=== PATIENT | female | born 1955 | race Caucasian/White ===

== ENCOUNTER → 2016-07-21 | Outpatient (CLI) | payer OTHER ==
[~2016-07-21] MED LIST: ALBINS/ INH; ASPI325T39 PO; AZITTAB PO; BECL0.3A INH; CHOL1000 PO; CHOL1TAB76 PO; CIPR-255 PO; CPR500 PO; CYCL10TA6 PO; CYCL5TAB PO; CYM60 PO; CZR25 PO; DOCU100C31 PO; FENO145T26 PO; FLEC100T21 PO; FLUT0.15 NAE; FLVHFA110 INH; FURO-85 PO; HYDR-5688 PO; LEVA45AE INH; LEVAAER2 INH; LEVO112T4 PO; LEVO125T4 PO; LSX20 PO; MCRK/10 PO; MELO15TA4 PO; METH4PAK PO; MONT1TAB3 PO; MRLP17X PO; MRLP527 PO; NXM/40 PO; OMEP40CA41 PO; ONDA4TAB10 SL; OXYC-57 PO; OXYC1TAB3 PO; PHEN-876 PO; POTA-327 PO; POTA10TA33 PO; PROM25TA16 PO; PSYL48.59 PO; PYRI100T4 PO; QVRINH40 INH; RANI150T3 PO; RBX500 PO; RIVA1TAB4 PO; ROPI0.5T PO; ROPI0.5T15 PO; RQP25 PO; SNG10 PO; SULF800T23 PO; SYN112 PO; TMB100 PO; TPM25 PO; TRC145 PO; VERA240C2 PO; VRPSR240 PO; XRL20 PO
[2016-07-21 17:37] LABS: URINE APPEARANCE CLEAR (CLEAR); URINE BILIRUBIN NEG (NEG); URINE COLOR YELLOW; URINE NITRITE NEG (NEG); URINE SPECIFIC GRAVITY 1.006 (1.000-1.030); UROBILINOGEN NEG (NEG)
[2016-07-21 17:52] LABS: MANUAL MICROSCOPIC REQUIRED? NO; REVIEW REQ? YES
== END | disposition home or self-care (01) ==
LOC: C.LABBFT 12:23
PROVIDERS: ATTEND Nurse Practitioner Family
DX: R39.9 Unspecified symptoms and signs involving the genitourinary system (principal)

== ENCOUNTER 2016-07-22 13:05 | Emergency (ER) | payer OTHER ==
[~2016-07-22] VITALS: Ht 157.5 cm; Wt 98.6 kg
[~2016-07-22 13:05] MED LIST changes: -ALBINS/ INH; -AZITTAB PO; -CHOL1000 PO; -CHOL1TAB76 PO; -CIPR-255 PO; -CYCL5TAB PO; -CYM60 PO; -CZR25 PO; -DOCU100C31 PO; -FLVHFA110 INH; -LEVA45AE INH; -LEVO112T4 PO; -LSX20 PO; -MCRK/10 PO; -METH4PAK PO; -MRLP17X PO; -MRLP527 PO; -OMEP40CA41 PO; -OXYC1TAB3 PO; -PHEN-876 PO; -POTA10TA33 PO; -PSYL48.59 PO; -QVRINH40 INH; -RANI150T3 PO; -RIVA1TAB4 PO; -ROPI0.5T PO; -ROPI0.5T15 PO; -SNG10 PO; -SULF800T23 PO; -SYN112 PO; -TMB100 PO; -TPM25 PO; -TRC145 PO; -VRPSR240 PO
[2016-07-22 13:20] VITALS: TEMP 36.9; Ht 157.5 cm; Wt 98.6 kg
[2016-07-22] MEDS ORDERED: SODIUM CHLORIDE 0.9% 1000ML 1,000 ML IV STA (13:43)
--- NOTE | 2016-07-22 13:49 | EMERGENCY ROOM VISIT NOTE ---
History First contact with patient: 13:34 Chief Complaint: URINARY SYMPTOMS Stated Complaint: PAINFUL, BLOODY, FREQ. URINATION History of Present Illness The patient is a 61 year old female who presents to the Emergency Room with complaints of low back pain and hematuria. The patient states that she has had immature area and dysuria for the last 3 days. She states that 4 days last week she had pain in her low back. The patient saw her family doctor yesterday and had a urinalysis done. She was contacted today and referred to the emergency department for a possible kidney stone. The patient states the pain is primarily in the left flank and rated 5/10. She denies any known injuries. The pain is not worse with movement. She denies any fevers or chills. She denies any pain in her chest or trouble breathing. She denies any abdominal pain or vomiting. She denies any vaginal bleeding or discharge. She had a kidney stone in the . Review of Systems A 10 system review of systems was completed with positives and pertinent negatives listed in the HPI. 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 (11) Left knee pain (12) Morbid Obesity (13) Oophorectomy (14) Open reduction of fracture (15) Precordial chest pain (16) Superficial bruising of lower leg (17) Supraventricular tachycardia (18) UTI (urinary tract infection) (19) Vomiting and diarrhea Family History Diabetes mellitus FH: CHF (congestive heart failure) FHx: cancer FHx: lung disease Hypertension Kidney disease Kidney stones Seizures Social History Smoking Status: Never Smoker Alcohol Use: none Drug Use: none Marital Status: single Housing Status: lives with family Occupation Status: employed Current/Historical Medications Scheduled Beclomethasone Dip (Qvar), 1 PUFF INH BID Cholecalciferol (Vitamin D3), 1 TAB PO DAILY Ciprofloxacin Hcl (Cipro), 500 MG PO BID Docusate Sodium (Docusate Sodium), 1 CAP PO DAILY Duloxetine HCl (Duloxetine HCl), 60 MG PO QAM Esomeprazole Magnesium (Nexium), 40 MG PO DAILY Fenofibrate (Tricor), 145 MG PO QPM Flecainide (Tambocor), 100 MG PO Q12 Fluticasone Propionate (Nasal) (Flonase Allergy Relief), 1 SPRAY MINNIE BID Furosemide (Lasix), 20 MG PO QAM Levalbuterol Tartrate (Levalbuterol Tartrate Hfa), 2 PUFFS INH Q6H Levothyroxine Sodium (Levothyroxine Sodium), 125 MCG PO QAM Losartan Potassium (Losartan Potassium), 12.5 MG PO QAM Montelukast Sodium (Singulair), 10 MG PO QAM Phenazopyridine HCl (Pyridium), 200 MG PO TID Potassium Chloride (K-Tabs), 1 TAB PO HS Pyridoxine (Vitamin B6), 100 MG PO DAILY Rivaroxaban (Xarelto), 20 MG PO DAILY Ropinirole HCl (Ropinirole HCl), 0.25 MG PO QPM Verapamil Hcl (Verapamil Hcl Er), 240 MG PO BID Scheduled PRN Meloxicam (Meloxicam), 15 MG PO DAILY PRN for Pain Methocarbamol (Methocarbamol), 500 MG PO QID PRN for Muscle Spasms Promethazine HCl (Promethazine HCl), 25 MG PO BID PRN for Nausea or Vomiting Allergies Coded Allergies: Codeine (Verified Allergy, Severe, HIVES, 07/22/16) ANAPHYLAXIS PER PT OK WITH MORPHINE AND DEMEROL? Iodinated Diagnostic Agents (Verified Allergy, Severe, HIVES, 07/22/16) Ketorolac (Verified Allergy, Severe, ITCHING, 07/22/16) PER PATIENT, SHE IS FINE TO TAKE IBUPROFEN Shellfish (Verified Allergy, Severe, ANAPHYLAXIS, 07/22/16) Shrimp (Verified Allergy, Severe, ANAPHYLAXIS, 07/22/16) Barium Sulfate (Verified Allergy, Unknown, itching rash, 07/22/16) Iodine (Verified Allergy, Unknown, 07/22/16) Morphine (Verified Allergy, Unknown, ITCHING, 07/22/16) Penicillins (Verified Allergy, Unknown, ITCHING/HIVES, 07/22/16) Physical Exam Vital Signs Date Time Temp Pulse Resp B/P Pulse Ox O2 Delivery O2 Flow Rate FiO2 07/22/16 14:50 68 18 124/56 96 Room Air 07/22/16 13:20 36.9 70 18 119/85 95 Room Air Physical Exam VITALS: Vitals are noted on the nurse's note and reviewed by myself. Vital signs stable. The patient is afebrile. GENERAL: This is a 61-year-old female, in no acute distress, nondiaphoretic, well-developed well-nourished. SKIN: The skin was without rashes, erythema, edema, or bruising. There is no tenting of the skin. Capillary reflex less than 2 seconds. HEAD: Normocephalic atraumatic. EARS: The external ears are normal in appearance. EYES: Pupils equal round and reactive to light and accommodation. Conjunctivae without injection, sclerae without icterus. Extraocular movements intact. NOSE: Patent, turbinates without inflammation or discharge. MOUTH: Mucous membranes moist. Tonsils are not enlarged. Pharynx without erythema or exudate. Uvula midline. Airway patent. Tongue does not deviate. NECK: Supple without nuchal rigidity. No JVD. HEART: Regular rate and rhythm without murmurs gallops or rubs. LUNGS: Clear to auscultation bilaterally without wheezes, rales or rhonchi. No retractions or accessory muscle use. ABDOMEN: Positive bowel sounds x 4. Soft, nontender, without masses or organomegaly. Gaitan sign negative. Negative CVA tenderness. MUSCULOSKELETAL: No muscle atrophy, erythema, or edema noted. Full range of motion in all extremities. Normal gait. Strength 5/5 throughout. NEURO: Patient was alert and oriented to person place and time. No focal neurological deficits. Medical Decision & Procedures ER Provider Diagnostic Interpretation: CT OF THE ABDOMEN AND PELVIS WITHOUT CONTRAST, STONE PROTOCOL CLINICAL HISTORY: Left flank pain and hematuria. COMPARISON STUDY: CT of the abdomen and pelvis June 17, 2016. TECHNIQUE: Helical axial images of the abdomen and pelvis were obtained without IV or oral contrast according to renal stone protocol. FINDINGS: The heart is moderately enlarged. No renal, ureteral or bladder calculi are present. There is no hydronephrosis or hydroureter. The gallbladder is surgically absent. There is no biliary ductal dilatation. Evaluation of the remainder of the abdomen and pelvis is suboptimal on this unenhanced exam. There is fatty infiltration of the liver. There is a moderate amount of stool within the colon. There is no evidence for a bowel obstruction. The appendix is normal. No lymphadenopathy is present. No suspicious skeletal lesion is identified. There is no ascites. No peripancreatic infiltration is present. There is a diverticulum of the third duodenum. IMPRESSION: 1. No urinary calculi or hydronephrosis. 2. No acute process within the abdomen or pelvis. 3. Fatty liver. 4. Moderate amount of stool within colon. No bowel obstruction. Laboratory Results 07/22/16 14:05 Red Blood Count 4.15, Mean Corpuscular Volume 91.3, Mean Corpuscular Hemoglobin 31.3, Mean Corpuscular Hemoglobin Concent 34.3, Mean Platelet Volume 9.9, Neutrophils (%) (Auto) 64.4, Lymphocytes (%) (Auto) 26.9, Monocytes (%) (Auto) 7.0, Eosinophils (%) (Auto) 1.0, Basophils (%) (Auto) 0.2, Neutrophils # (Auto) 6.01, Lymphocytes # (Auto) 2.51, Monocytes # (Auto) 0.65, Eosinophils # (Auto) 0.09, Basophils # (Auto) 0.02 07/22/16 14:05 Test 07/22/16 14:00 07/22/16 14:05 Urine Color DK YELLOW Urine Appearance CLOUDY (CLEAR) Urine pH 7.0 (4.5-7.5) Urine Specific [place] 1.023 (1.000-1.030) Urine Protein 2+ (NEG) Urine Glucose (UA) NEG (NEG) Urine Ketones NEG (NEG) Urine Occult Blood 3+ (NEG) Urine Nitrite POS (NEG) Urine Bilirubin NEG (NEG) Urine Urobilinogen NEG (NEG) Urine Leukocyte Esterase MODERATE (NEG) Urine WBC (Auto) >30 /hpf (0-5) Urine RBC (Auto) >30 /hpf (0-4) Urine Hyaline Casts (Auto) 10-30 /lpf (0-5) Urine Epithelial Cells (Auto) >30 /lpf (0-5) Urine Bacteria (Auto) NEG (NEG) Urine Renal Epithelial Cells 0-5 /lpf (0-5) White Blood Count 9.33 K/uL (4.8-10.8) Red Blood Count 4.15 M/uL (4.2-5.4) Hemoglobin 13.0 g/dL (12.0-16.0) Hematocrit 37.9 % (37-47) Mean Corpuscular Volume 91.3 fL (80-100) Mean Corpuscular Hemoglobin 31.3 pg (25-34) Mean Corpuscular Hemoglobin Concent 34.3 g/dl (32-36) Platelet Count 327 K/uL (130-400) Mean Platelet Volume 9.9 fL (7.4-10.4) Neutrophils (%) (Auto) 64.4 % Lymphocytes (%) (Auto) 26.9 % Monocytes (%) (Auto) 7.0 % Eosinophils (%) (Auto) 1.0 % Basophils (%) (Auto) 0.2 % Neutrophils # (Auto) 6.01 K/uL (1.4-6.5) Lymphocytes # (Auto) 2.51 K/uL (1.2-3.4) Monocytes # (Auto) 0.65 K/uL (0.11-0.59) Eosinophils # (Auto) 0.09 K/uL (0-0.5) Basophils # (Auto) 0.02 K/uL (0-0.2) RDW Standard Deviation 43.8 fL (36.4-46.3) RDW Coefficient of Variation 13.2 % (11.5-14.5) Immature Granulocyte % (Auto) 0.5 % Immature Granulocyte # (Auto) 0.05 K/uL (0.00-0.02) Anion Gap 10.0 mmol/L (3-11) Est Creatinine Clear Calc Drug Dose 69.6 ml/min Estimated GFR () 77.3 Estimated GFR (Non- 66.7 BUN/Creatinine Ratio 20.8 (10-20) Calcium Level 8.8 mg/dl (8.5-10.1) Total Bilirubin 0.5 mg/dl (0.2-1) Aspartate Amino Transf (AST/SGOT) 26 U/L (15-37) Alanine Aminotransferase (ALT/SGPT) 36 U/L (12-78) Alkaline Phosphatase 69 U/L (45-117) Total Protein 6.7 gm/dl (6.4-8.2) Albumin 4.0 gm/dl (3.4-5.0) Globulin 2.7 gm/dl (2.5-4.0) Albumin/Globulin Ratio 1.5 (0.9-2) Medications Administered Medications (Trade) Dose Ordered Sig/Jax Route Start Time Stop Time Status Last Admin Dose Admin Sodium Chloride (Nss 1000ml) 1,000 ml @ 200 mls/hr Q5H STAT IV 07/22/16 13:43 07/22/16 16:53 DC 07/22/16 14:07 200 MLS/HR ED Course The patient was seen and examined. Previous visits were reviewed. The patient does not have a fever or leukocytosis. She does not have any significant electrolyte abnormality. Urinalysis suggests urinary tract infection. CT scan was negative for kidney stone. She does have a fatty liver and states this is known. The patient was hydrated with normal saline. She declined pain medication. The patient will be treated with Cipro. She should return to the ER with any worsening symptoms. Otherwise, she should follow-up with her family doctor for further evaluation and bandaged. The case was discussed with Dr. Wadsworth who agrees with the assessment and treatment plan. Medical Decision DIFFERENTIAL DIAGNOSIS: Hepatitis, cholecystitis, cholangitis, biliary colic, pancreatitis, pneumonia, subdiaphragmatic abscess, appendicitis, inguinal hernia , nephrolithiasis, inflammatory bowel disease, mesenteric adenitis, peptic ulcer disease, GERD, gastritis, pancreatitis, gastroenteritis, bowel obstruction, splenic infarct, diverticulitis, mesenteric ischemia, metabolic, peritonitis, among others. Impression Primary Impression: UTI (urinary tract infection) Additional Impression: Flank pain Departure Information Dispostion Home / Self-Care Condition GOOD Prescriptions Phenazopyridine HCl (Pyridium) 200 Mg Tab 200 MG PO TID for 3 Days, #9 TAB Prov: Grisel Cunningham PA-C 07/22/16 Ciprofloxacin Hcl (CIPRO) 500 Mg Tab 500 MG PO BID for 7 Days, #14 TAB Prov: Grisel Cunningham PA-C 07/22/16 Referrals Homer Herrera III, CRNP (PCP) Patient Instructions Infecs Urinary Tract Women, [facility] Additional Instructions Cipro every 12 hours for 7 days Pyridium as prescribed, as needed for urinary symptoms; the Pyridium will turn your urine orange We will contact you if the culture results indicate the need for change in treatment Return to the ER with any fever, severe back pain, vomiting Otherwise, recheck with your family doctor at the end of the week if symptoms persist Problem Qualifiers Primary Impression: UTI (urinary tract infection) Urinary tract infection type: acute cystitis Hematuria presence: with hematuria Qualified Codes: N30.01 - Acute cystitis with hematuria
[2016-07-22] MEDS ORDERED: LEVA45AE INH (13:51)
[2016-07-22] MEDS ORDERED: CHOL1000 PO (13:51)
[2016-07-22] MEDS ORDERED: QVRINH40 INH (13:51)
[2016-07-22] MEDS ORDERED: MCRK/10 PO (13:51)
[2016-07-22 14:27] LABS: BASO % 0.2 %; BASO ABS # 0.02 K/uL (0-0.2); COMPLETE YES; HEMATOCRIT 37.9 % (37-47); IG% 0.5 %; LYMPH % 26.9 %; LYMPH ABS # 2.51 K/uL (1.2-3.4); MEAN CELL VOLUME 91.3 fL (80-100); MEAN CORPUSCULAR HEMOGLOBIN 31.3 pg (25-34); MEAN CORPUSCULAR HGB CONC 34.3 g/dl (32-36); MEAN PLATELET VOLUME 9.9 fL (7.4-10.4); NEUT % 64.4 %; PLATELET COUNT 327 K/uL (130-400); RED BLOOD COUNT 4.15 M/uL (4.2-5.4); WHITE BLOOD COUNT 9.33 K/uL (4.8-10.8)
--- NOTE | 2016-07-22 14:41 | DIAGNOSTIC IMAGING REPORT ---
CT OF THE ABDOMEN AND PELVIS WITHOUT CONTRAST, STONE PROTOCOL CLINICAL HISTORY: Left flank pain and hematuria. COMPARISON STUDY: CT of the abdomen and pelvis June 17, 2016. TECHNIQUE: Helical axial images of the abdomen and pelvis were obtained without IV or oral contrast according to renal stone protocol. FINDINGS: The heart is moderately enlarged. No renal, ureteral or bladder calculi are present. There is no hydronephrosis or hydroureter. The gallbladder is surgically absent. There is no biliary ductal dilatation. Evaluation of the remainder of the abdomen and pelvis is suboptimal on this unenhanced exam. There is fatty infiltration of the liver. There is a moderate amount of stool within the colon. There is no evidence for a bowel obstruction. The appendix is normal. No lymphadenopathy is present. No suspicious skeletal lesion is identified. There is no ascites. No peripancreatic infiltration is present. There is a diverticulum of the third duodenum. IMPRESSION: 1. No urinary calculi or hydronephrosis. 2. No acute process within the abdomen or pelvis. 3. Fatty liver. 4. Moderate amount of stool within colon. No bowel obstruction. Electronically signed by: Jalen Malik M.D. 07/22/2016 2:39 PM Dictated Date/Time: 07/22/2016 2:33 PM
[2016-07-22 14:43] LABS: URINE APPEARANCE CLOUDY (CLEAR); URINE BILIRUBIN NEG (NEG); URINE COLOR DK YELLOW; URINE EPITHELIAL CELL AUTO >30 /lpf (0-5); URINE NITRITE POS (NEG); URINE SPECIFIC GRAVITY 1.023 (1.000-1.030); UROBILINOGEN NEG (NEG); ZZUR CULT IF INDIC CLEAN CATCH YES
[2016-07-22 14:45] LABS: BUN/CREATININE RATIO 20.8 (10-20); CALCIUM 8.8 mg/dl (8.5-10.1); CREATININE 0.92 mg/dl (0.60-1.20); POTASSIUM 3.5 mmol/L (3.5-5.1)
[2016-07-22 14:50] VITALS: BP 124/56; PULSE 68; O2SAT 96
[2016-07-22 14:50] LABS: ALB/GLOB RATIO 1.5 (0.9-2)
[2016-07-22 14:52] LABS: MANUAL MICROSCOPIC REQUIRED? NO; REVIEW REQ? YES
[2016-07-22] MEDS ORDERED: PHEN-876 PO (15:08)
[2016-07-22] MEDS ORDERED: CIPR-255 PO (15:08)
[2017-01-22] MEDS ORDERED: ROPI0.5T15 PO (15:39)
[2017-01-22] MEDS ORDERED: SULF800T23 PO (15:39)
[2017-03-01] MEDS ORDERED: DOCU100C31 PO (05:14)
[2017-03-01] MEDS ORDERED: FLVHFA110 INH (15:39)
[2017-03-01] MEDS ORDERED: ALBINS/ INH (15:39)
[2017-03-01] MEDS ORDERED: PYRI100T4 PO (15:39)
[2017-03-01] MEDS ORDERED: CHOL1TAB76 PO (15:39)
[2017-03-01] MEDS ORDERED: LEVA45AE INH (15:39)
[2017-03-01] MEDS ORDERED: PSYL48.59 PO (15:39)
[2017-03-01] MEDS ORDERED: RANI150T3 PO (15:39)
== END 2016-07-22 15:17 | disposition home or self-care (01) ==
LOC: C.EDB 13:09
DX: N30.01 Acute cystitis with hematuria (principal); R10.9 Unspecified abdominal pain; J45.901 Unspecified asthma with (acute) exacerbation; I48.91 Unspecified atrial fibrillation; I10 Essential (primary) hypertension; E03.9 Hypothyroidism, unspecified; M17.9 Osteoarthritis of knee, unspecified; E66.01 Morbid (severe) obesity due to excess calories; I47.1 Supraventricular tachycardia; Z79.01 Long term (current) use of anticoagulants; Z79.899 Other long term (current) drug therapy

== ENCOUNTER 2016-07-24 13:58 | Emergency (ER) | payer OTHER ==
[~2016-07-24] VITALS: Ht 157.5 cm; Wt 97.4 kg
[~2016-07-24 13:58] MED LIST changes: -ASPI325T39 PO; -BECL0.3A INH; +CHOL1000 PO; +CIPR-255 PO; -CPR500 PO; -CYCL10TA6 PO; -HYDR-5688 PO; +LEVA45AE INH; -LEVAAER2 INH; +MCRK/10 PO; -ONDA4TAB10 SL; -OXYC-57 PO; +PHEN-876 PO; -POTA-327 PO; +QVRINH40 INH
[2016-07-24 14:02] VITALS: TEMP 36.8; Ht 157.5 cm; Wt 97.4 kg
[2016-07-24] MEDS ORDERED: DEXAMETHASONE SOD INJ 10 MG/ML VIAL IV STA (14:26)
[2016-07-24] MEDS ORDERED: HYDROmorphone INJ 1 MG/ML SYR IM STA (14:26)
[2016-07-24] MEDS ORDERED: CYCLOBENZAPRINE HCL 5 MG TAB PO STA (14:26)
--- NOTE | 2016-07-24 14:35 | EMERGENCY ROOM VISIT NOTE ---
ED Visit Note First contact with patient: 14:11 Patient is 59-year-old female with neck pain and muscle spasms in the left trapezius, she states this is happened before, she follows up with her primary care doctor. Clinical story is not consistent with cardiac disease, I have ordered an EKG to evaluate for ST elevation [place]. I have personally evaluated and examined this patient. I agree with assessment and plan of Corrina Hilton PA-C.
[2016-07-24] MEDS ORDERED: CYCLOBENZAPRINE HCL 10 MG TAB ONE (14:43)
[2016-07-24] MEDS ORDERED: OXYCODONE HCL IR 5 MG TAB (IMMEDIATE RELEASE) PO STA (15:43)
[2016-07-24] MEDS ORDERED: CYCL5TAB PO (16:17)
[2016-07-24] MEDS ORDERED: OXYC1TAB3 PO (16:17)
--- NOTE | 2016-07-24 16:19 | EMERGENCY ROOM VISIT NOTE ---
History First contact with patient: 14:11 Chief Complaint: NECK PAIN Stated Complaint: SEVERE PAIN IN LEFT NECK AREA/LEFT ARM History of Present Illness The patient is a 61 year old female who presents to the Emergency Room with complaints of "severe pain and left neck area/left arm". The patient states that yesterday around mid day she developed pain in the left side of the neck that radiated into the left arm and left hand. The pain was sharp in nature and was not associated with any numbness or tingling. She states she has had this before, and believed it was crampy muscles. She had received pain medication and muscle relaxers in the past with good relief. She denies any trauma or injury to the area. There was no exertion the brought up on the pain. She rates the pain is a 20/10. Patient does not have any weakness in the extremities. She states that she was here not long ago for UTI and she feels this is getting better and going away. For pain she states she can take Dilaudid. She denies any fevers, chills, chest pain, shortness of breath, abdominal pain, numbness or tingling in the arms, injuries or trauma to the area. She points to the left superior trapezius muscle as a location of her pain that radiates into the arm. Review of Systems A complete 10-point Review of Systems was discussed with the patient, with pertinent positives and negatives listed in the History of Present Illness. All remaining Review of Systems questions can be considered negative unless otherwise specified. 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 (11) Left knee pain (12) Morbid Obesity (13) Oophorectomy (14) Open reduction of fracture (15) Precordial chest pain (16) Superficial bruising of lower leg (17) Supraventricular tachycardia (18) UTI (urinary tract infection) (19) Vomiting and diarrhea Family History Diabetes mellitus FH: CHF (congestive heart failure) FHx: cancer FHx: lung disease Hypertension Kidney disease Kidney stones Seizures Social History Smoking Status: Never Smoker Alcohol Use: none Drug Use: none Marital Status: single Housing Status: lives with family Occupation Status: employed Current/Historical Medications Scheduled Beclomethasone Dip (Qvar), 1 PUFF INH BID Cholecalciferol (Vitamin D3), 1 TAB PO DAILY Ciprofloxacin Hcl (Cipro), 500 MG PO BID Docusate Sodium (Docusate Sodium), 1 CAP PO DAILY Duloxetine HCl (Duloxetine HCl), 60 MG PO QAM Esomeprazole Magnesium (Nexium), 40 MG PO DAILY Fenofibrate (Tricor), 145 MG PO QPM Flecainide (Tambocor), 100 MG PO Q12 Fluticasone Propionate (Nasal) (Flonase Allergy Relief), 1 SPRAY MINNIE BID Furosemide (Lasix), 20 MG PO QAM Levalbuterol Tartrate (Levalbuterol Tartrate Hfa), 2 PUFFS INH Q6H Levothyroxine Sodium (Levothyroxine Sodium), 125 MCG PO QAM Losartan Potassium (Losartan Potassium), 12.5 MG PO QAM Montelukast Sodium (Singulair), 10 MG PO QAM Phenazopyridine HCl (Pyridium), 200 MG PO TID Potassium Chloride (K-Tabs), 1 TAB PO HS Pyridoxine (Vitamin B6), 100 MG PO DAILY Rivaroxaban (Xarelto), 20 MG PO DAILY Ropinirole HCl (Ropinirole HCl), 0.25 MG PO QPM Verapamil Hcl (Verapamil Hcl Er), 240 MG PO BID Scheduled PRN Cyclobenzaprine Hcl (Flexeril), 1 TAB PO TID PRN for Muscle Spasms Meloxicam (Meloxicam), 15 MG PO DAILY PRN for Pain Methocarbamol (Methocarbamol), 500 MG PO QID PRN for Muscle Spasms Oxycodone Ir (Roxicodone Ir), 1-2 TAB PO Q6H PRN for Pain Promethazine HCl (Promethazine HCl), 25 MG PO BID PRN for Nausea or Vomiting Allergies Coded Allergies: Codeine (Verified Allergy, Severe, HIVES, 07/24/16) ANAPHYLAXIS PER PT OK WITH MORPHINE AND DEMEROL? Iodinated Diagnostic Agents (Verified Allergy, Severe, HIVES, 07/24/16) Ketorolac (Verified Allergy, Severe, ITCHING, 07/24/16) PER PATIENT, SHE IS FINE TO TAKE IBUPROFEN Shellfish (Verified Allergy, Severe, ANAPHYLAXIS, 07/24/16) Shrimp (Verified Allergy, Severe, ANAPHYLAXIS, 07/24/16) Barium Sulfate (Verified Allergy, Unknown, itching rash, 07/24/16) Iodine (Verified Allergy, Unknown, 07/24/16) Morphine (Verified Allergy, Unknown, ITCHING, 07/24/16) Penicillins (Verified Allergy, Unknown, ITCHING/HIVES, 07/24/16) Physical Exam Vital Signs Date Time Temp Pulse Resp B/P Pulse Ox O2 Delivery O2 Flow Rate FiO2 07/24/16 16:28 66 17 141/73 95 07/24/16 16:08 67 18 135/83 95 Room Air 07/24/16 14:47 Room Air 07/24/16 14:02 36.8 79 19 136/83 98 Room Air Physical Exam VITAL SIGNS - Vital signs and nursing notes were reviewed. Patient is afebrile , she is normotensive, she is saturating well on room air at 98% and is not tachycardic. GENERAL -61-year-old female appearing her stated age who is in no acute distress. Patient is nontoxic in appearance. Communicates well with provider and answers questions appropriately. Patient is ambulatory in her room. SKIN - Without rashes. No evidence of herpetic lesions overlying the left neck. Skin is intact. HEAD - NC/AT. EYES - PERRL with EOMI bilaterally. Sclera anicteric. Palpebral conjunctiva pink and moist with no injection noted. EARS - No deformities of external structures noted on gross examination bilaterally. NOSE - Midline and without cyanosis. No epistaxis or purulent drainage noted. MOUTH/OROPHARYNX - Without perioral cyanosis. . NECK - Neck with limited range of motion to the left secondary to muscle pain, but there is full flexion and extension. Supple to palpation. No lymphadenopathy noted. No nuchal rigidity. No evidence of meningitis. LUNGS - Chest wall symmetric without accessory muscle use, intercostals retractions, or central cyanosis. Normal vesicular breath sounds CTA B/L. No wheezes, rales, or rhonchi appreciated. CARDIAC - RRR with S1/S2. No murmur, rubs, or gallops appreciated. EXTREMITIES - No clubbing or peripheral cyanosis. No pretibial edema present. Patient is vascular intact in the left upper extremity. Symmetric human resources administrator strength. No evidence of vascular or neurologic compromise +5/5 strength noted in UE/LE bilaterally. PSYCH -Pt is very pleasant and interacts well with examiner. Medical Decision & Procedures Medications Administered Medications (Trade) Dose Ordered Sig/Jax Route Start Time Stop Time Status Last Admin Dose Admin Hydromorphone HCl (Dilaudid Inj) 1 mg NOW STAT IM 07/24/16 14:26 07/24/16 14:30 DC 07/24/16 14:47 1 MG Dexamethasone Sodium Phosphate (Decadron Inj) 10 mg NOW STAT IV 07/24/16 14:26 07/24/16 14:30 DC 07/24/16 14:46 10 MG Cyclobenzaprine HCl (Flexeril Tab) 10 mg STK-MED ONCE .ROUTE 07/24/16 14:43 07/24/16 14:44 DC 07/24/16 14:46 10 MG Oxycodone HCl (Roxicodone Immediate Rel Tab) 5 mg NOW STAT PO 07/24/16 15:43 07/24/16 15:45 DC 07/24/16 16:10 5 MG Medical Decision Patient was seen and evaluated as above. There was tenderness overlying the superior trapezius muscle, and this was presenting more tense than the right indicating spasm. I did discuss the case with my attending who also personally evaluated the patient and it was identified we should order an EKG to rule out any underlying cardiac cause. The EKG revealed a normal sinus rhythm 69 bpm, without any significant change when compared to previous EKG. I do not suspect any cardiac or pulmonary cause of the patient's pain today. Patient has had similar symptoms in the past and it was a muscle spasm. She was medicated with 10 mg of Flexeril by mouth, 10 mg of Decadron IM , and 1 mg of Dilaudid. The Decadron was given secondary to the radicular pain of the arm to help with inflammation. She was reevaluated and noted to be feeling better but still in moderate pain. She requested more pain medication therefore she was given 5 mg of OxyIR after verifying no allergy. I was then informed by the nurse that the patient was ready to go, and I went to reevaluate her and she noted she was feeling much better. I did discuss with her potential prescriptions for home and it was decided to give her a short-term prescription for Flexeril and OxyIR after verifying no allergy. I did inform her that her other chronic medications may interfere with these medications therefore they should only be taken when absolutely necessary. She was informed to not stop her chronic medications. I do believe that the short-term of Flexeril, and OxyIR outweighed the risks. She again was educated upon these risks. She was informed to follow-up regarding today's visit with her primary care doctor of which she has a visit in the near future. She was educated upon management of today's findings. I believe she is experiencing muscle spasm of the left superior trapezius muscle likely secondary to positioning. She was educated upon worrisome symptoms in which to return, had questions answered prior to discharge and was discharged home in good condition. In the evaluation and treatment of this patient the following differential diagnoses were entertained: Cervical radiculopathy, spasm of the superior trapezius muscle, cervical strain, myocardial infarction among others. There was no numbness or tingling down the left arm therefore cervical radiculopathy is less likely, spasm of the superior trapezius muscle on the left is most likely the patient's symptomatology. There was no C-spine tenderness. No evidence on EKG of NC. [place] Drug Monitoring Program Search Results: patient reviewed within database, no issues identified Impression Primary Impression: Strain of left trapezius muscle Additional Impression: Trapezius muscle spasm Departure Information Dispostion Home / Self-Care Condition GOOD Prescriptions Oxycodone Ir (Roxicodone Ir) 5 Mg Tab 1-2 TAB PO Q6H Y for Pain, #10 TAB For Initial Treatment Prov: Emanuel Cox PA-C 07/24/16 Cyclobenzaprine Hcl (FLEXERIL) 5 Mg Tab 1 TAB PO TID Y for Muscle Spasms for 5 Days, #15 TAB Prov: Emanuel Cox PA-C 07/24/16 Referrals Homer Herrera III, CRNP (PCP) Patient Instructions My [facility] Additional Instructions You have been treated in the Emergency Department for Neck/Shoulder Pain. You have received pain medicine in the emergency department which impairs your ability to operate a vehicle. It is illegal for you to drive after receiving these medicines. You have been prescribed Oxy IR to be used for pain control. This is a narcotic medication. You cannot drive or consume alcohol while on this medicine. This medicine should only be used for pain that cannot be controlled with over-the- counter pain medicines. You've indicated you did not have an allergy to this. Please take this with a stool softener to help with constipation. You have been prescribed Flexeril (cyclobenzaprine) 1 tabs orally, three times per day. Do NOT exceed 30 mg (6 tabs) per day. Take your first dose at bedtime as it can make you drowsy. Always take all medications as prescribed. As we discussed these medications can interact with the other medications so please only take these when absolute necessary with the pain. For pain control, you can use the following [id number] medicines (if >12 yo): Over the counter pain medications. If this is a recent injury (<24 hrs), ice can be applied to the area of pain for the first 3 days to help decrease pain and inflammation. Please keep your follow-up appointment with your family doctor on Wednesday. Return to the Emergency Department if your current symptoms worsen despite treatment course outlined above, or if you develop any of the following symptoms : intractable pain despite aforementioned treatment course or new onset of numbness or tingling of the arm. Please return to emergency department with any new/concerning symptoms. Problem Qualifiers Primary Impression: Strain of left trapezius muscle Encounter type: initial encounter Qualified Codes: S46.812A - Strain of other muscles, fascia and tendons at shoulder and upper arm level, left arm, initial encounter
[2016-07-24 16:28] VITALS: BP 141/73; PULSE 66; O2SAT 95
[2017-01-22] MEDS ORDERED: SULF800T23 PO (15:39)
[2017-01-22] MEDS ORDERED: ROPI0.5T15 PO (15:39)
[2017-03-01] MEDS ORDERED: DOCU100C31 PO (05:14)
[2017-03-01] MEDS ORDERED: RANI150T3 PO (15:39)
[2017-03-01] MEDS ORDERED: PSYL48.59 PO (15:39)
[2017-03-01] MEDS ORDERED: PYRI100T4 PO (15:39)
[2017-03-01] MEDS ORDERED: FLVHFA110 INH (15:39)
[2017-03-01] MEDS ORDERED: LEVA45AE INH (15:39)
[2017-03-01] MEDS ORDERED: ALBINS/ INH (15:39)
[2017-03-01] MEDS ORDERED: CHOL1TAB76 PO (15:39)
== END 2016-07-24 16:29 | disposition home or self-care (01) ==
LOC: C.EDB 14:00 → C.EDD 16:29
DX: S46.812A Strain of other muscles, fascia and tendons at shoulder and upper arm level, left arm, initial encounter (principal); X58.XXXA Exposure to other specified factors, initial encounter; M62.838 Other muscle spasm; I48.91 Unspecified atrial fibrillation; I10 Essential (primary) hypertension; E03.9 Hypothyroidism, unspecified; J45.909 Unspecified asthma, uncomplicated; Z87.81 Personal history of (healed) traumatic fracture; Z87.440 Personal history of urinary (tract) infections; Z90.710 Acquired absence of both cervix and uterus; Z79.899 Other long term (current) drug therapy; Z83.3 Family history of diabetes mellitus; Z82.49 Family history of ischemic heart disease and other diseases of the circulatory system; Z80.9 Family history of malignant neoplasm, unspecified; Z84.1 Family history of disorders of kidney and ureter; Z82.0 Family history of epilepsy and other diseases of the nervous system; Z88.0 Allergy status to penicillin; Z88.5 Allergy status to narcotic agent; Z88.8 Allergy status to other drugs, medicaments and biological substances; Z91.018 Allergy to other foods; Z91.041 Radiographic dye allergy status

== ENCOUNTER → 2016-09-21 | Outpatient (CLI) | payer OTHER ==
[~2016-09-21] MED LIST changes: +ALBINS/ INH; +AZITTAB PO; +CHOL1TAB76 PO; +CYM60 PO; +CZR25 PO; +DOCU100C31 PO; +FLVHFA110 INH; +LEVO112T4 PO; +LSX20 PO; +METH4PAK PO; +MRLP17X PO; +MRLP527 PO; +OMEP40CA41 PO; +OXYC1TAB3 PO; -PHEN-876 PO; +POTA10TA33 PO; +PSYL48.59 PO; +RANI150T3 PO; +RIVA1TAB4 PO; +ROPI0.5T PO; +ROPI0.5T15 PO; +SNG10 PO; +SULF800T23 PO; +SYN112 PO; +TMB100 PO; +TPM25 PO; +TRC145 PO; +VRPSR240 PO
--- NOTE | 2016-09-21 16:09 | DIAGNOSTIC IMAGING REPORT ---
CHEST 2 VIEWS ROUTINE CLINICAL HISTORY: VIT D DEFICIENCY; HYPOTHYROIDISM; ASTHMA COMPARISON STUDY: 06/17/2016 FINDINGS: The bones soft tissues and hemidiaphragms are normal. The cardiomediastinal silhouette is normal. The lungs are clear. The pulmonary vasculature is normal. IMPRESSION: Negative chest. Electronically signed by: Vipin Cline M.D. 09/21/2016 4:08 PM Dictated Date/Time: 09/21/2016 4:08 PM
== END | disposition home or self-care (01) ==
LOC: C.RAD 15:25
PROVIDERS: ATTEND Nurse Practitioner Family
DX: J45.909 Unspecified asthma, uncomplicated (principal); E55.9 Vitamin D deficiency, unspecified; E03.9 Hypothyroidism, unspecified

== ENCOUNTER → 2016-10-20 | Outpatient (CLI) | payer OTHER ==
[~2016-10-20] MED LIST changes: +CHOLCAP5 PO; -LEVO125T4 PO; +LEVO125T5 PO
--- NOTE | 2016-10-21 14:36 | MAMMOGRAPHY REPORT ---
BILATERAL DIGITAL SCREENING MAMMOGRAM WITH CAD: 10/20/2016 CLINICAL HISTORY: Routine screening. Patient has no complaints. TECHNIQUE: Bilateral CC and MLO views were obtained. Current study was also evaluated with a Comput er Aided Detection (CAD) system. COMPARISON: Comparison is made to exams dated: 10/11/2015 mammogram, 10/08/2014 mammogram, 09/04/2013 mammogram, 08/22/2012 mammogram, 08/17/2011 mammogram - [facility], and 12/03/2008. BREAST COMPOSITION: The tissue of both breasts is almost entirely fatty. FINDINGS: No suspicious mass, architectural distortion or cluster of microcalcifications is seen. IMPRESSION: ACR BI-RADS CATEGORY 1: NEGATIVE There is no mammographic evidence of malignancy. A 1 year screening mammogram is recommended. The p atient will receive written notification of the results. Approximately 10% of breast cancers are not detected with mammography. A negative mammographic repor t should not delay biopsy if a clinically suggestive mass is present. Radha Blank M.D. ay/:10/20/2016 17:16:13 Cloth Bleaching Supervisor: Bhumika WALSH(Shahana)(Robin), [facility] letter sent: Normal 1/2 BI-RADS Code: ACR BI-RADS Category 1: Negative
== END | disposition home or self-care (01) ==
LOC: C.MAMM 13:57
PROVIDERS: ATTEND Nurse Practitioner Family
DX: Z12.31 Encounter for screening mammogram for malignant neoplasm of breast (principal)

== ENCOUNTER 2016-10-21 18:10 | Emergency (ER) | payer OTHER ==
[~2016-10-21] VITALS: Ht 157.5 cm; Wt 95.0 kg
[~2016-10-21 18:10] MED LIST changes: -ALBINS/ INH; -AZITTAB PO; -CHOL1TAB76 PO; -CHOLCAP5 PO; -CYM60 PO; -CZR25 PO; -DOCU100C31 PO; -FLVHFA110 INH; -LEVO112T4 PO; -LSX20 PO; -METH4PAK PO; -MRLP17X PO; -MRLP527 PO; -OMEP40CA41 PO; -POTA10TA33 PO; -PSYL48.59 PO; -RANI150T3 PO; -RIVA1TAB4 PO; -ROPI0.5T PO; -ROPI0.5T15 PO; -SNG10 PO; -SULF800T23 PO; -SYN112 PO; -TMB100 PO; -TPM25 PO; -TRC145 PO; -VRPSR240 PO
[2016-10-21 18:19] VITALS: Ht 157.5 cm; Wt 95.0 kg
--- NOTE | 2016-10-21 18:37 | EMERGENCY ROOM VISIT NOTE ---
History Report prepared by Claudia: Aram Gamez Under the Supervision of: Dr. Jay Murillo M.D. First contact with patient: 18:27 Chief Complaint: RESPIRATORY PROBLEMS Stated Complaint: SOB, CHEST TIGHTNESS Nursing Triage Summary: Pt presents to triage stating she is having an asthma exacerbation. States sx for a couple days, has used inhalers without relief. NPC. History of Present Illness The patient is a 61 year old female who presents to the Emergency Room with complaints of worsening shortness of breath and cough that started a couple days ago. Associated symptoms include chest pain. The patient has a history of asthma. She has been using her inhalers, which have not offered relief. The patient states that the symptoms she is experiencing today are similar to past asthma exacerbations. The patient reports a past cardiac history. She denies a heart attack. Patient denies fever, chills, diaphoresis, or additional associated symptoms. Source of History: patient Onset: A couple days ago Position: other (Respiratory System ) Timing: worsening Modifying Factors (Relieving): other (None) Associated Symptoms: + chest pain, No chills, No diaphoresis, No fevers Review of Systems See HPI for pertinent positives & negatives. A total of 10 systems reviewed and were otherwise negative. 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 (11) Left knee pain (12) Morbid Obesity (13) Oophorectomy (14) Open reduction of fracture (15) Precordial chest pain (16) Superficial bruising of lower leg (17) Supraventricular tachycardia (18) UTI (urinary tract infection) (19) Vomiting and diarrhea Family History Diabetes mellitus FH: CHF (congestive heart failure) FHx: cancer FHx: lung disease Hypertension Kidney disease Kidney stones Seizures Social History Smoking Status: Never Smoker Alcohol Use: none Drug Use: none Marital Status: single Housing Status: lives with family Occupation Status: employed Current/Historical Medications Scheduled Azithromycin (Zithromax Z-Donn), 1 PKT PO UD Beclomethasone Dip (Qvar), 1 PUFF INH BID Cholecalciferol (Vitamin D3), 1 TAB PO DAILY Docusate Sodium (Docusate Sodium), 1 CAP PO DAILY Duloxetine HCl (Duloxetine HCl), 60 MG PO QAM Fenofibrate (Tricor), 145 MG PO QPM Flecainide (Tambocor), 100 MG PO Q12 Furosemide (Lasix), 20 MG PO QAM Levothyroxine Sodium (Synthroid), 112 MG PO DAILY Losartan Potassium (Losartan Potassium), 12.5 MG PO QAM Methylprednisolone (Medrol Dosepak), 1 PKT PO UD Montelukast Sodium (Singulair), 10 MG PO QAM Omeprazole (Prilosec), 40 MG PO QAM Polyethylene (Miralax), 17 GM PEG DAILY Potassium Chloride (K-Tabs), 1 TAB PO HS Pyridoxine (Vitamin B6), 100 MG PO DAILY Rivaroxaban (Xarelto), 20 MG PO DAILY Ropinirole HCl (Ropinirole HCl), 0.25 MG PO QPM Topiramate (Topiramate), 25 MG PO BID Verapamil Hcl (Verapamil Hcl Er), 240 MG PO BID Scheduled PRN Levalbuterol Tartrate (Levalbuterol Tartrate Hfa), 2 PUFFS INH Q6H PRN for SOB/ Wheezing Allergies Coded Allergies: Codeine (Verified Allergy, Severe, HIVES, 10/21/16) ANAPHYLAXIS PER PT OK WITH MORPHINE AND DEMEROL? Iodinated Diagnostic Agents (Verified Allergy, Severe, HIVES, 10/21/16) Ketorolac (Verified Allergy, Severe, ITCHING, 10/21/16) PER PATIENT, SHE IS FINE TO TAKE IBUPROFEN Shellfish (Verified Allergy, Severe, ANAPHYLAXIS, 10/21/16) Shrimp (Verified Allergy, Severe, ANAPHYLAXIS, 10/21/16) Barium Sulfate (Verified Allergy, Unknown, itching rash, 10/21/16) Iodine (Verified Allergy, Unknown, 10/21/16) Morphine (Verified Allergy, Unknown, ITCHING, 10/21/16) Penicillins (Verified Allergy, Unknown, ITCHING/HIVES, 10/21/16) Physical Exam Vital Signs Date Time Temp Pulse Resp B/P Pulse Ox O2 Delivery O2 Flow Rate FiO2 10/21/16 21:07 37.1 81 18 132/69 94 10/21/16 20:59 81 18 132/69 94 Room Air 10/21/16 20:01 88 18 135/62 95 Room Air 10/21/16 19:15 78 17 10/21/16 19:14 76 10/21/16 19:05 78 18 98 Room Air 10/21/16 18:19 37.1 80 20 135/75 97 Room Air 10/21/16 18:18 97 Room Air Physical Exam GENERAL: Patient is anxious appearing. HEENT: No acute trauma, normocephalic atraumatic, mucous membranes moist, no nasal congestion, no scleral icterus. NECK: No stridor, no adenopathy, no meningismus, trachea is midline. LUNGS: Tight lung sounds throughout. Minimal wheezing noted. HEART: Regular rate and rhythm. No murmurs, rubs, gallops appreciated. ABDOMEN: Soft, nontender, bowel sounds positive, no masses appreciated, no peritonitis. BACK: No midline tenderness, no CVA tenderness EXTREMITIES: Normal motion all extremities, no cyanosis, no edema. NEUROLOGIC: Alert and oriented, no acute motor or sensory deficits, no focal weakness, cranial nerves grossly intact. SKIN: No rash, no jaundice, no diaphoresis. Medical Decision & Procedures ER Provider Diagnostic Interpretation: X ray results are stated below per my interpretation and the radiologist's interpretation. CHEST ONE VIEW PORTABLE HISTORY: Short of breath. COMPARISON: Chest 09/21/2016. FINDINGS: The heart remains mildly enlarged. The lungs are clear. No pleural effusions. No pneumothorax. IMPRESSION: Stable mild cardiomegaly. Electronically signed by: Robert Whitman M.D. 10/21/2016 7:12 PM Dictated Date/Time: 10/21/2016 7:11 PM Laboratory Results 10/21/16 18:54 Red Blood Count 3.92, Mean Corpuscular Volume 92.3, Mean Corpuscular Hemoglobin 30.1, Mean Corpuscular Hemoglobin Concent 32.6, Mean Platelet Volume 10.1, Neutrophils (%) (Auto) 46.9, Lymphocytes (%) (Auto) 40.1, Monocytes (%) (Auto) 11.0, Eosinophils (%) (Auto) 1.4, Basophils (%) (Auto) 0.3, Neutrophils # (Auto ) 1.66, Lymphocytes # (Auto) 1.42, Monocytes # (Auto) 0.39, Eosinophils # (Auto ) 0.05, Basophils # (Auto) 0.01 10/21/16 18:54 Test 10/21/16 18:54 White Blood Count 3.54 K/uL (4.8-10.8) Red Blood Count 3.92 M/uL (4.2-5.4) Hemoglobin 11.8 g/dL (12.0-16.0) Hematocrit 36.2 % (37-47) Mean Corpuscular Volume 92.3 fL (80-100) Mean Corpuscular Hemoglobin 30.1 pg (25-34) Mean Corpuscular Hemoglobin Concent 32.6 g/dl (32-36) Platelet Count 261 K/uL (130-400) Mean Platelet Volume 10.1 fL (7.4-10.4) Neutrophils (%) (Auto) 46.9 % Lymphocytes (%) (Auto) 40.1 % Monocytes (%) (Auto) 11.0 % Eosinophils (%) (Auto) 1.4 % Basophils (%) (Auto) 0.3 % Neutrophils # (Auto) 1.66 K/uL (1.4-6.5) Lymphocytes # (Auto) 1.42 K/uL (1.2-3.4) Monocytes # (Auto) 0.39 K/uL (0.11-0.59) Eosinophils # (Auto) 0.05 K/uL (0-0.5) Basophils # (Auto) 0.01 K/uL (0-0.2) RDW Standard Deviation 43.1 fL (36.4-46.3) RDW Coefficient of Variation 12.7 % (11.5-14.5) Immature Granulocyte % (Auto) 0.3 % Immature Granulocyte # (Auto) 0.01 K/uL (0.00-0.02) Anion Gap 6.0 mmol/L (3-11) Est Creatinine Clear Calc Drug Dose 69.6 ml/min Estimated GFR () 79.4 Estimated GFR (Non- 68.5 BUN/Creatinine Ratio 17.1 (10-20) Calcium Level 8.9 mg/dl (8.5-10.1) Troponin I < 0.015 ng/ml (0-0.045) Laboratory results as reviewed by me. Medications Administered Medications (Trade) Dose Ordered Sig/Jax Route Start Time Stop Time Status Last Admin Dose Admin Albuterol/ Ipratropium (Duoneb) 12 ml ONE ONCE INH 10/21/16 18:45 10/21/16 18:46 DC 10/21/16 19:05 12 ML Dexamethasone Sodium Phosphate (Decadron Inj) 10 mg NOW ONCE IV 10/21/16 18:45 10/21/16 18:46 DC 10/21/16 19:11 10 MG Azithromycin (Zithromax Tab) 500 mg NOW ONCE PO 10/21/16 20:30 10/21/16 20:31 DC 10/21/16 21:02 500 MG ECG Indication: SOB/dyspnea Rate (beats per minute): 77 Rhythm: normal sinus Findings: no acute ischemic change, no ectopy ED Course 1828: The patient was evaluated in room B12. A complete history and physical exam was performed. 1844: Ordered Decadron Injection 10 mg IV, Duoneb 12 ml INH. 2029: Ordered Zithromax Tablet 500 mg PO. 2016: Upon reevaluation, the patient feels much better and requests to go home. She states she has previously taken Azithromycin with other prescribed medications and reports no problems. She also reports having left over inhaler at home. 2024: Reevaluated the patient. Discussed results and discharge instructions: She verbalized understanding and agreement. The patient is ready for discharge. Medical Decision Differential: Infectious, Reactive Airway Disease, Pneumonia, Pneumothorax, COPD , CHF, ACS, Pulmonary Embolism, MSK, GI, Dissection, amongst other etiologies entertained. 61 yr old female with long history of asthma issues arrives with acute exacerbation. Vastly improved with neb/steroids. Notes she has done well on azithro previously (EKG and other meds noted). Steroids, zpack rx. Has inhaler at home. Feels very comfortable going home. Sister concurs. Symptoms not consistent with ACS nor dissection. Wells negative for PE. No abdominal issues. Impression Primary Impression: Asthma, Unspecified, W (Acute) Exacerbation Scribe Attestation The scribe's documentation has been prepared under my direction and personally reviewed by me in its entirety. I confirm that the note above accurately reflects all work, treatment, procedures, and medical decision making performed by me. Departure Information Dispostion Home / Self-Care Prescriptions Azithromycin (ZITHROMAX Z-DONN) 250 Mg Tab 1 PKT PO UD, #1 PKT Prov: Jay Murillo M.D. 10/21/16 Methylprednisolone (MEDROL DOSEPAK) 4 Mg Donn 1 PKT PO UD for 6 Days, #1 PKT Prov: Jay Murillo M.D. 10/21/16 Referrals Homer Herrera III, CRNP (PCP) Forms HOME CARE DOCUMENTATION FORM, IMPORTANT VISIT INFORMATION, WORK / SCHOOL INSTRUCTIONS Patient Instructions Bronchitis Acute, My [facility]
[2016-10-21] MEDS ORDERED: ALBUT/IPRATROP 3MG/0.5MG NEB 3 ML VIAL INH ONE (18:45)
[2016-10-21] MEDS ORDERED: DEXAMETHASONE SOD INJ 10 MG/ML VIAL IV ONE (18:45)
[2016-10-21] MEDS ORDERED: MRLP17X PO (18:54)
[2016-10-21] MEDS ORDERED: RIVA1TAB4 PO (18:54)
[2016-10-21] MEDS ORDERED: SYN112 PO (18:54)
[2016-10-21 19:05] VITALS: PULSE 78; O2SAT 98
[2016-10-21 19:12] LABS: BASO % 0.3 %; BASO ABS # 0.01 K/uL (0-0.2); COMPLETE YES; EOS % 1.4 %; HEMATOCRIT 36.2 % (37-47); IG% 0.3 %; LYMPH % 40.1 %; LYMPH ABS # 1.42 K/uL (1.2-3.4); MEAN CELL VOLUME 92.3 fL (80-100); MEAN CORPUSCULAR HEMOGLOBIN 30.1 pg (25-34); MEAN CORPUSCULAR HGB CONC 32.6 g/dl (32-36); MEAN PLATELET VOLUME 10.1 fL (7.4-10.4); NEUT % 46.9 %; PLATELET COUNT 261 K/uL (130-400); RED BLOOD COUNT 3.92 M/uL (4.2-5.4); WHITE BLOOD COUNT 3.54 K/uL (4.8-10.8)
--- NOTE | 2016-10-21 19:14 | DIAGNOSTIC IMAGING REPORT ---
CHEST ONE VIEW PORTABLE HISTORY: Short of breath. COMPARISON: Chest 09/21/2016. FINDINGS: The heart remains mildly enlarged. The lungs are clear. No pleural effusions. No pneumothorax. IMPRESSION: Stable mild cardiomegaly. Electronically signed by: Robert Whitman M.D. 10/21/2016 7:12 PM Dictated Date/Time: 10/21/2016 7:11 PM
[2016-10-21 19:35] LABS: BLOOD UREA NITROGEN 15 mg/dl (7-18); BUN/CREATININE RATIO 17.1 (10-20); CALCIUM 8.9 mg/dl (8.5-10.1); CARBON DIOXIDE 26 mmol/L (21-32); CHLORIDE 107 mmol/L (98-107); GLUCOSE 97 mg/dl (70-99); POTASSIUM 4.1 mmol/L (3.5-5.1); SODIUM 139 mmol/L (136-145)
[2016-10-21] MEDS ORDERED: AZITTAB PO (20:20)
[2016-10-21] MEDS ORDERED: METH4PAK PO (20:20)
[2016-10-21] MEDS ORDERED: AZITHROMYCIN 250 MG TAB PO ONE (20:30)
[2016-10-21 21:07] VITALS: BP 132/69; PULSE 81; TEMP 37.1; O2SAT 94
[2017-01-22] MEDS ORDERED: ROPI0.5T15 PO (15:39)
[2017-01-22] MEDS ORDERED: SULF800T23 PO (15:39)
[2017-03-01] MEDS ORDERED: DOCU100C31 PO (05:14)
[2017-03-01] MEDS ORDERED: LEVA45AE INH (15:39)
[2017-03-01] MEDS ORDERED: ALBINS/ INH (15:39)
[2017-03-01] MEDS ORDERED: PSYL48.59 PO (15:39)
[2017-03-01] MEDS ORDERED: CHOL1TAB76 PO (15:39)
[2017-03-01] MEDS ORDERED: RANI150T3 PO (15:39)
[2017-03-01] MEDS ORDERED: PYRI100T4 PO (15:39)
[2017-03-01] MEDS ORDERED: FLVHFA110 INH (15:39)
[2017-04-12] MEDS ORDERED: CHOLCAP5 PO (15:24)
[2017-04-12] MEDS ORDERED: OXYC1TAB3 PO (15:27)
== END 2016-10-21 21:07 | disposition home or self-care (01) ==
LOC: C.EDB 18:11
DX: J45.901 Unspecified asthma with (acute) exacerbation (principal); R06.02 Shortness of breath; R07.9 Chest pain, unspecified; I10 Essential (primary) hypertension; E03.9 Hypothyroidism, unspecified; Z79.899 Other long term (current) drug therapy; I51.7 Cardiomegaly

== ENCOUNTER → 2016-12-01 | Outpatient (CLI) | payer OTHER ==
[~2016-12-01] MED LIST changes: +ALBINS/ INH; +CHOL1TAB76 PO; +CHOLCAP5 PO; -CIPR-255 PO; +CYM60 PO; +CZR25 PO; +DOCU100C31 PO; -FLUT0.15 NAE; +FLVHFA110 INH; +LEVO112T4 PO; -LEVO125T5 PO; +LSX20 PO; -MELO15TA4 PO; +MRLP17X PO; +MRLP527 PO; -NXM/40 PO; +OMEP40CA41 PO; +POTA10TA33 PO; -PROM25TA16 PO; +PSYL48.59 PO; +RANI150T3 PO; -RBX500 PO; +RIVA1TAB4 PO; +ROPI0.5T PO; +ROPI0.5T15 PO; +SNG10 PO; +SULF800T23 PO; +SYN112 PO; +TMB100 PO; +TPM25 PO; +TRC145 PO; +VRPSR240 PO
[2016-12-01 09:39] LABS: BASO % 0.7 %; BASO ABS # 0.03 K/uL (0-0.2); COMPLETE YES; EOS % 2.7 %; HEMATOCRIT 41.9 % (37-47); IG% 0.5 %; LYMPH % 45.5 %; LYMPH ABS # 2.01 K/uL (1.2-3.4); MEAN CELL VOLUME 92.5 fL (80-100); MEAN CORPUSCULAR HEMOGLOBIN 30.5 pg (25-34); MEAN CORPUSCULAR HGB CONC 32.9 g/dl (32-36); MEAN PLATELET VOLUME 10.6 fL (7.4-10.4); NEUT % 40.6 %; PLATELET COUNT 392 K/uL (130-400); RED BLOOD COUNT 4.53 M/uL (4.2-5.4); WHITE BLOOD COUNT 4.42 K/uL (4.8-10.8)
[2016-12-01 09:51] LABS: ALT/SGPT 33 U/L (12-78); BLOOD UREA NITROGEN 16 mg/dl (7-18); BUN/CREATININE RATIO 18.3 (10-20); CARBON DIOXIDE 25 mmol/L (21-32); CHLORIDE 110 mmol/L (98-107); CHOLESTEROL 222 mg/dl (0-200); CREATININE 0.89 mg/dl (0.60-1.20); GLUCOSE 99 mg/dl (70-99); POTASSIUM 3.9 mmol/L (3.5-5.1); SODIUM 145 mmol/L (136-145); TRIGLYCERIDES 191 mg/dl (0-150); VERY LOW DENSITY LIPOPROT CALC 38 mg/dl
[2016-12-01 09:56] LABS: CALCIUM 9.8 mg/dl (8.5-10.1)
[2016-12-01 10:01] LABS: ALB/GLOB RATIO 1.2 (0.9-2); ALKALINE PHOSPHATASE 77 U/L (45-117); AST/SGOT 23 U/L (15-37); CHOLESTEROL/HDL RATIO 4.8; HDL CHOLESTEROL 46 mg/dl; LDL CHOLESTEROL CALCULATED 138 mg/dl
== END | disposition home or self-care (01) ==
LOC: C.LAB 07:14
PROVIDERS: ATTEND Nurse Practitioner Family
DX: E03.9 Hypothyroidism, unspecified (principal); K21.9 Gastro-esophageal reflux disease without esophagitis; E78.5 Hyperlipidemia, unspecified; G47.19 Other hypersomnia

== ENCOUNTER → 2017-01-14 | Outpatient (CLI) | payer OTHER ==
[~2017-01-14] MED LIST changes: -CHOLCAP5 PO
[2017-01-20 16:35] LABS: IGA SERUM 129 mg/dL (81-463); TIS TRANS IGA 1 U/mL (<4)
== END | disposition home or self-care (01) ==
LOC: C.LAB1850 16:07
PROVIDERS: ATTEND Registered Nurse
DX: R11.2 Nausea with vomiting, unspecified (principal); R63.4 Abnormal weight loss

== ENCOUNTER → 2017-01-19 | Outpatient (CLI) | payer OTHER ==
[2017-01-19 15:06] LABS: URINE APPEARANCE CLEAR (CLEAR); URINE BILIRUBIN NEG (NEG); URINE COLOR YELLOW; URINE NITRITE NEG (NEG); URINE SPECIFIC GRAVITY 1.015 (1.000-1.030); UROBILINOGEN NEG (NEG)
[2017-01-19 15:08] LABS: MANUAL MICROSCOPIC REQUIRED? NO; REVIEW REQ? NO
== END | disposition home or self-care (01) ==
LOC: C.LAB 13:44
PROVIDERS: ATTEND Nurse Practitioner Family
DX: R39.9 Unspecified symptoms and signs involving the genitourinary system (principal)

== ENCOUNTER → 2017-01-26 | Outpatient (CLI) | payer OTHER ==
[~2017-01-26] MED LIST changes: -CHOL1000 PO; -QVRINH40 INH; -RQP25 PO
== END | disposition home or self-care (01) ==
LOC: C.PATHSPEC 18:02
PROVIDERS: ATTEND Dermatology
DX: Q82.8 Other specified congenital malformations of skin (principal)

== ENCOUNTER 2017-02-08 20:24 | Emergency (ER) | payer OTHER ==
[~2017-02-08] VITALS: Ht 157.5 cm; Wt 95.1 kg
[~2017-02-08 20:24] MED LIST changes: -ALBINS/ INH; -CHOL1TAB76 PO; -CYM60 PO; -CZR25 PO; -DOCU100C31 PO; -FLVHFA110 INH; -LEVA45AE INH; -LEVO112T4 PO; -LSX20 PO; -MRLP527 PO; -OMEP40CA41 PO; -OXYC1TAB3 PO; -POTA10TA33 PO; -PSYL48.59 PO; -PYRI100T4 PO; -RANI150T3 PO; -ROPI0.5T PO; -SNG10 PO; -TMB100 PO; -TPM25 PO; -TRC145 PO; -VRPSR240 PO; -XRL20 PO
[2017-02-08 20:31] VITALS: TEMP 36.6; Ht 157.5 cm; Wt 95.1 kg
[2017-02-08 21:23] LABS: BASO % 0.8 %; BASO ABS # 0.04 K/uL (0-0.2); COMPLETE YES; EOS % 3.2 %; HEMATOCRIT 34.7 % (37-47); IG% 0.2 %; LYMPH % 43.7 %; LYMPH ABS # 2.06 K/uL (1.2-3.4); MEAN CORPUSCULAR HEMOGLOBIN 30.3 pg (25-34); MEAN PLATELET VOLUME 9.7 fL (7.4-10.4); NEUT % 42.1 %; PLATELET COUNT 301 K/uL (130-400); WHITE BLOOD COUNT 4.71 K/uL (4.8-10.8)
--- NOTE | 2017-02-08 21:23 | DIAGNOSTIC IMAGING REPORT ---
CT HEAD WITHOUT CONTRAST (CT) CLINICAL HISTORY: Headache. Dizziness, patient on Xarelto COMPARISON STUDY: 07/11/2013 TECHNIQUE: Axial CT of the brain is performed from the vertex to the skull base. IV contrast was not administered for this examination. A dose lowering technique was utilized adhering to the principles of ALARA. CT DOSE: FINDINGS: No intra or extra-axial mass lesions are visualized. There is no CT evidence of acute cortical infarction. There is no evidence of midline shift. There is no acute hemorrhage. No calvarial fractures are visualized. There is no evidence of pathologic ventricular dilatation. There is no evidence of acute sinusitis IMPRESSION: Normal noncontrast head CT for age Electronically signed by: Blayne Saldaña M.D. 02/08/2017 9:22 PM Dictated Date/Time: 02/08/2017 9:20 PM
[2017-02-08 21:38] LABS: BUN/CREATININE RATIO 27.9 (10-20); CALCIUM 8.9 mg/dl (8.5-10.1); CREATININE 0.87 mg/dl (0.60-1.20); POTASSIUM 3.6 mmol/L (3.5-5.1); URINE APPEARANCE CLEAR (CLEAR); URINE BILIRUBIN NEG (NEG); URINE COLOR YELLOW; URINE NITRITE NEG (NEG); URINE PH 6.5 (4.5-7.5); URINE SPECIFIC GRAVITY 1.013 (1.000-1.030); UROBILINOGEN POS (NEG)
[2017-02-08 21:39] LABS: MANUAL MICROSCOPIC REQUIRED? NO; REVIEW REQ? NO
[2017-02-08 21:41] LABS: INR 1.1 (0.9-1.1); PARTIAL THROMBOPLASTIN RATIO 1.1; PROTHROMBIN TIME (PATIENT) 12.2 SECONDS (9.0-12.0)
[2017-02-08] MEDS ORDERED: SODIUM CHLORIDE 0.9% 500ML 500 ML IV STA (21:59)
--- NOTE | 2017-02-08 22:18 | DIAGNOSTIC IMAGING REPORT ---
CHEST 2 VIEWS ROUTINE CLINICAL HISTORY: Headache, dizziness, possible pneumonia. COMPARISON STUDY: 10/21/2016 FINDINGS: The cardiac and mediastinal contours are normal. There is no evidence of focal pulmonary consolidation. There is no evidence of failure. No pleural effusions are visualized.[ IMPRESSION: No active disease in the chest. Electronically signed by: Blayne Saldaña M.D. 02/08/2017 10:17 PM Dictated Date/Time: 02/08/2017 10:15 PM
[2017-02-09 00:06] VITALS: BP 129/73; PULSE 73; O2SAT 97
--- NOTE | 2017-02-09 00:54 | EMERGENCY ROOM VISIT NOTE ---
History Report prepared by Claudia: Aleksey Velasco Under the Supervision of: Dr. Jack Greneberg M.D. First contact with patient: 20:47 Chief Complaint: NAUSEA Stated Complaint: CONSTANT BM,COLD PAIN,DIZZINESS Nursing Triage Summary: see triage note History of Present Illness The patient is a 61 year old female who presents to the Emergency Room with complaints of constant diarrhea that started three days ago. The patient rates her discomfort as a 7/10 in severity. She describes the stool as a paste and states it is "rust" colored. The patient states that she had also started to experience nausea and chills starting three days ago. The patient states that today she started to experience lightheadedness, which she admits is worsened with standing up. She also stated that she developed a mild headache this evening. When inquired about abdominal pain she states that she had some lower abdominal pain earlier which seems to have gotten better. She states that the abdominal pain has turned into a cramping sensation. She admits that she is on Xarelto for her history of Atrial Fibrillation, which she has been on for a while. The patient denies chest pain, shortness of breath, fever, and a GI bleed history. Source of History: patient Onset: three days ago Position: other (global) Quality: other (paste, rust colored) Timing: constant Modifying Factors (Relieving): other (none) Associated Symptoms: + chills, + nausea, + abdominal pain, + back pain, No fevers, No chest pain Review of Systems See HPI for pertinent positives & negatives. A total of 10 systems reviewed and were otherwise negative. 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 (11) Left knee pain (12) Morbid Obesity (13) Oophorectomy (14) Open reduction of fracture (15) Precordial chest pain (16) Superficial bruising of lower leg (17) Supraventricular tachycardia (18) UTI (urinary tract infection) (19) Vomiting and diarrhea Family History Diabetes mellitus FH: CHF (congestive heart failure) FHx: cancer FHx: lung disease Hypertension Kidney disease Kidney stones Seizures Social History Smoking Status: Never Smoker Alcohol Use: none Drug Use: none Marital Status: single Housing Status: lives with family Occupation Status: employed Current/Historical Medications Scheduled Cholecalciferol (D 2000), 2,000 UNITS PO QAM Docusate Sodium (Docusate Sodium), 100 MG PO QPM Duloxetine HCl (Duloxetine HCl), 60 MG PO QAM Fenofibrate (Tricor), 145 MG PO QAM Flecainide (Tambocor), 100 MG PO Q12 Fluticasone Propionate (Flovent Hfa), 1 PUFF INH BID Furosemide (Lasix), 20 MG PO QAM Levothyroxine Sodium (Synthroid), 112 MCG PO QAM Losartan Potassium (Losartan Potassium), 12.5 MG PO QAM Montelukast Sodium (Singulair), 10 MG PO QAM Omeprazole (Prilosec), 40 MG PO QAM Polyethylene (Miralax), 17 GM PO QAM Potassium Chloride (K-Tabs), 10 MEQ PO HS Psyllium (Metamucil), 1 TSP PO HS Pyridoxine (Vitamin B6), 100 MG PO QPM Ranitidine Hcl (Zantac), 150 MG PO HS Rivaroxaban (Xarelto), 20 MG PO QAM Ropinirole (Requip), 0.5 MG PO HS Topiramate (Topiramate), 25 MG PO BID Verapamil Hcl (Verapamil Hcl Er), 240 MG PO BID Scheduled PRN Albuterol Sulf (Proventil 0.083% 2.5MG/3ML), 2.5 MG INH QID PRN for SOB/Wheezing Levalbuterol Tartrate (Levalbuterol Tartrate Hfa), 2 PUFFS INH Q6H PRN for Shortness of Breath Allergies Coded Allergies: Codeine (Verified Allergy, Severe, HIVES, 01/22/17) ANAPHYLAXIS PER PT OK WITH MORPHINE AND DEMEROL? Iodinated Diagnostic Agents (Verified Allergy, Severe, HIVES, 01/22/17) Ketorolac (Verified Allergy, Severe, ITCHING, 01/22/17) PER PATIENT, SHE IS FINE TO TAKE IBUPROFEN Shellfish (Verified Allergy, Severe, ANAPHYLAXIS, 01/22/17) Shrimp (Verified Allergy, Severe, ANAPHYLAXIS, 01/22/17) Barium Sulfate (Verified Allergy, Unknown, itching rash, 01/22/17) Iodine (Verified Allergy, Unknown, 01/22/17) Morphine (Verified Allergy, Unknown, ITCHING, 01/22/17) Penicillins (Verified Allergy, Unknown, ITCHING/HIVES, 01/22/17) Physical Exam Vital Signs Date Time Temp Pulse Resp B/P (MAP) Pulse Ox O2 Delivery O2 Flow Rate FiO2 02/09/17 00:06 73 18 129/73 97 02/08/17 23:00 77 18 129/53 97 Room Air 02/08/17 22:44 67 16 02/08/17 22:39 66 16 02/08/17 22:34 67 23 02/08/17 22:29 66 21 02/08/17 22:24 64 16 02/08/17 22:19 64 17 02/08/17 22:14 65 16 02/08/17 21:57 68 02/08/17 21:47 128/66 02/08/17 21:46 123/58 02/08/17 21:45 66 18 136/61 98 Room Air 67 123/58 75 128/66 02/08/17 21:39 136/61 02/08/17 20:31 36.6 69 18 107/60 99 Room Air Physical Exam Constitutional: Vital signs reviewed. Eyes: Pupils are equal round reactive to light. Conjunctiva are noninjected. ENT: Pharynx is clear without erythema or exudate. Mucous membranes are moist. Neck supple without meningeal signs. Respiratory: Clear to auscultation bilaterally. Breath sounds are equal bilaterally. Cardiovascular: Regular rate and rhythm. No rubs or gallops. GI: Soft, nondistended and nontender. Bowel sounds are present. Musculoskeletal: No peripheral edema. No lower extremity tenderness. Integumentary: No cyanosis. Neurological: The patient is awake and alert. No focal deficits. Psychiatric: Normal affect. Rectal: Guaiac negative. Brown Stool. No blood. Medical Decision & Procedures ER Provider Diagnostic Interpretation: Radiology results as stated below per my review and the radiologist's interpretation: CT HEAD WITHOUT CONTRAST (CT) CLINICAL HISTORY: Headache. Dizziness, patient on Xarelto COMPARISON STUDY: 07/11/2013 TECHNIQUE: Axial CT of the brain is performed from the vertex to the skull base. IV contrast was not administered for this examination. A dose lowering technique was utilized adhering to the principles of ALARA. CT DOSE: FINDINGS: No intra or extra-axial mass lesions are visualized. There is no CT evidence of acute cortical infarction. There is no evidence of midline shift. There is no acute hemorrhage. No calvarial fractures are visualized. There is no evidence of pathologic ventricular dilatation. There is no evidence of acute sinusitis IMPRESSION: Normal noncontrast head CT for age Electronically signed by: Blayne Saldaña M.D. 02/08/2017 9:22 PM Dictated Date/Time: 02/08/2017 9:20 PM CHEST 2 VIEWS ROUTINE CLINICAL HISTORY: Headache, dizziness, possible pneumonia. COMPARISON STUDY: 10/21/2016 FINDINGS: The cardiac and mediastinal contours are normal. There is no evidence of focal pulmonary consolidation. There is no evidence of failure. No pleural effusions are visualized.[ IMPRESSION: No active disease in the chest. Electronically signed by: Blayne Saldaña M.D. 02/08/2017 10:17 PM Dictated Date/Time: 02/08/2017 10:[address] ABDOMEN @ PELVIS: Mild cardiomegaly. No pericardial effusion. Status post cholecystectomy. The stomach is distended with ingest material and oral contrast. Oral contrast is also seen within the small bowel loops and proximal colon. No bowel obstruction or inflammation. Large amount of stool throughout the colon. Please correlate with constipation. Although the history says appendix removed, there appears to be a normal appendix in the right lower quadrant. Status post hysterectomy. Radiologist: Tri Montalvo M.D. Laboratory Results 02/08/17 21:10 Red Blood Count 3.90, Mean Corpuscular Volume 89.0, Mean Corpuscular Hemoglobin 30.3, Mean Corpuscular Hemoglobin Concent 34.0, Mean Platelet Volume 9.7, Neutrophils (%) (Auto) 42.1, Lymphocytes (%) (Auto) 43.7, Monocytes (%) (Auto) 10.0, Eosinophils (%) (Auto) 3.2, Basophils (%) (Auto) 0.8, Neutrophils # (Auto ) 1.98, Lymphocytes # (Auto) 2.06, Monocytes # (Auto) 0.47, Eosinophils # (Auto ) 0.15, Basophils # (Auto) 0.04 02/08/17 21:10 Test 02/08/17 21:10 02/08/17 21:19 White Blood Count 4.71 K/uL (4.8-10.8) Red Blood Count 3.90 M/uL (4.2-5.4) Hemoglobin 11.8 g/dL (12.0-16.0) Hematocrit 34.7 % (37-47) Mean Corpuscular Volume 89.0 fL (80-100) Mean Corpuscular Hemoglobin 30.3 pg (25-34) Mean Corpuscular Hemoglobin Concent 34.0 g/dl (32-36) Platelet Count 301 K/uL (130-400) Mean Platelet Volume 9.7 fL (7.4-10.4) Neutrophils (%) (Auto) 42.1 % Lymphocytes (%) (Auto) 43.7 % Monocytes (%) (Auto) 10.0 % Eosinophils (%) (Auto) 3.2 % Basophils (%) (Auto) 0.8 % Neutrophils # (Auto) 1.98 K/uL (1.4-6.5) Lymphocytes # (Auto) 2.06 K/uL (1.2-3.4) Monocytes # (Auto) 0.47 K/uL (0.11-0.59) Eosinophils # (Auto) 0.15 K/uL (0-0.5) Basophils # (Auto) 0.04 K/uL (0-0.2) RDW Standard Deviation 42.1 fL (36.4-46.3) RDW Coefficient of Variation 13.0 % (11.5-14.5) Immature Granulocyte % (Auto) 0.2 % Immature Granulocyte # (Auto) 0.01 K/uL (0.00-0.02) Prothrombin Time 12.2 SECONDS (9.0-12.0) Prothromb Time International Ratio 1.1 (0.9-1.1) Activated Partial Thromboplast Time 29.8 SECONDS (21.0-31.0) Partial Thromboplastin Ratio 1.1 Urine Color YELLOW Urine Appearance CLEAR (CLEAR) Urine pH 6.5 (4.5-7.5) Urine Specific [place] 1.013 (1.000-1.030) Urine Protein NEG (NEG) Urine Glucose (UA) NEG (NEG) Urine Ketones NEG (NEG) Urine Occult Blood NEG (NEG) Urine Nitrite NEG (NEG) Urine Bilirubin NEG (NEG) Urine Urobilinogen POS (NEG) Urine Leukocyte Esterase TRACE (NEG) Urine WBC (Auto) 1-5 /hpf (0-5) Urine RBC (Auto) 10-30 /hpf (0-4) Urine Hyaline Casts (Auto) 0 /lpf (0-5) Urine Epithelial Cells (Auto) 5-10 /lpf (0-5) Urine Bacteria (Auto) NEG (NEG) Anion Gap 7.0 mmol/L (3-11) Est Creatinine Clear Calc Drug Dose 72.1 ml/min Estimated GFR () 82.8 Estimated GFR (Non- 71.4 BUN/Creatinine Ratio 27.9 (10-20) Calcium Level 8.9 mg/dl (8.5-10.1) Total Bilirubin 0.3 mg/dl (0.2-1) Direct Bilirubin 0.1 mg/dl (0-0.2) Aspartate Amino Transf (AST/SGOT) 27 U/L (15-37) Alanine Aminotransferase (ALT/SGPT) 30 U/L (12-78) Alkaline Phosphatase 65 U/L (45-117) Total Protein 6.4 gm/dl (6.4-8.2) Albumin 3.6 gm/dl (3.4-5.0) Lipase 153 U/L (73-393) Bedside Troponin I < 0.030 ng/ml (0-0.045) Laboratory results as reviewed by me. Medications Administered Medications (Trade) Dose Ordered Sig/Jax Route Start Time Stop Time Status Last Admin Dose Admin Sodium Chloride 500 ml @ 999 mls/hr Q31M STAT IV 02/08/17 21:59 02/08/17 22:29 DC 02/08/17 22:15 999 MLS/HR ECG Indication: other (dizziness) Rate (beats per minute): 68 Rhythm: normal sinus Findings: nonspecific-ST abn (Septal), no ectopy ED Course 2047: The patient was evaluated in room C01B. A complete history and physical exam was performed. 2158: Sodium Chloride 500 ml @ 999 mls/hr IV. 2204: I discussed the lab results with the patient. She will be going over to have an X-ray done. Medical Decision This is a 61-year-old female who presents with abdominal pain, headache, dizziness and diarrhea. Differential diagnosis includes GI bleed, diverticulosis, diverticulitis, anemia, dehydration, orthostatic hypotension, cardiac, intracranial hemorrhage. I did perform a limited focused review of portions of the patient's old chart on the electronic medical record. The patient has had no recent pertinent visits to this hospital. I did evaluate the patient as noted above. The patient is presenting with lower abdominal pain with frequent paste like bowel movements. She did have some lower abdominal pain earlier which she now describes as cramping. She is guaiac-negative with brown stool. IV access was established. The patient was placed on a continuous desk monitor. I did order and personally review the patient's 12-lead EKG and chest x-ray as described above. I did order and review her urinalysis. I did order and review the patient's blood work as noted in the electronic medical record. She is slightly anemic. Troponin is negative. I did order a CT of the head, abdomen and pelvis. I did review the images myself as well as the radiology report as described above. There is no evidence of intracranial hemorrhage. Her abdominal CT showed significant constipation despite her constant bowel movements over the past 2 days. There is no evidence of bowel obstruction. I did discuss the test results with the patient. I did recommend she follow closely with her doctor for further evaluation. She was discharged in good condition. She was given return instructions as outlined below. Medication Reconcilliation Current Medication List: was personally reviewed by me Blood Pressure Screening Patient's blood pressure: Low blood pressure Impression Primary Impression: Lower abdominal pain Additional Impressions: Anticoagulated Acute headache Dizziness Scribe Attestation The scribe's documentation has been prepared under my direct and personally reviewed by me in its entirety. I confirm that the note above accurately reflects all work, treatment, procedures, and medical decision making performed by me. Departure Information Dispostion Home / Self-Care Referrals Homer Herrera III, CRNP (PCP) Forms HOME CARE DOCUMENTATION FORM, IMPORTANT VISIT INFORMATION Patient Instructions Abdominal Pain, ED Dizziness Evie SAXENA [facility] Additional Instructions You have been examined and treated today on an emergency basis only. This is not a substitute for, or an effort to provide, complete comprehensive medical care. It is impossible to recognize and treat all injuries or illnesses in a single emergency department visit. It is therefore important that you follow up closely with your physician within 48 hours. Call as soon as possible for an appointment. Return for worsening symptoms or if you develop fever, vomiting, chest pain, shortness of breath, rectal bleeding or any other concerning symptoms. Problem Qualifiers Additional Impressions: Acute headache Headache type: unspecified Intractability: not intractable Qualified Codes : R51 - Headache
--- NOTE | 2017-02-09 07:02 | DIAGNOSTIC IMAGING REPORT ---
ABD/PELVIS ORAL CONT ONLY CLINICAL HISTORY: 61 years-old Female presenting with lower abd pain eval for divertic. TECHNIQUE: Multidetector CT of the abdomen and pelvis was performed after the administration of oral contrast only. IV contrast: None. A dose lowering technique was used consistent with the principles of ALARA (as low as reasonably achievable). COMPARISON: 07/22/2016. CT DOSE (mGy.cm): The estimated cumulative dose is 1226.43 mGy.cm. FINDINGS: Assistant Purchasing Manager topogram: Cholecystectomy clips noted. Moderate stool burden. Lung bases: Bandlike opacities in the lingula with architectural distortion of the left major fissure may indicate chronic scarring and/or atelectasis. Minimal overlying pleural thickening may be present along the lingula, nonspecific. Multichamber enlargement of the heart. Coronary artery calcification. No pericardial or pleural effusion. Liver: Normal morphology. Borderline hepatic steatosis by liver density. Biliary: No gross biliary ductal dilatation allowing for noncontrast technique. Gallbladder surgically absent. Pancreas: Mild parenchymal atrophy. Spleen: Normal noncontrast appearance. Adrenal glands: Normal noncontrast appearance. Kidneys and ureters: Nonobstructing 3 mm calculus at the lower pole left kidney. Ureters normal. No hydronephrosis. Gastrointestinal tract: No significant diverticulosis is evident. Moderate stool burden throughout the normal caliber colon. Normal appendix. No bowel obstruction. Peritoneal cavity: No free fluid or intraperitoneal gas. Bladder: Normal. Pelvic organs: Uterus surgically absent. Vasculature: Atherosclerosis of the normal caliber abdominal aorta. Lymph nodes: No enlarged lymph nodes in the abdomen or pelvis. Abdominal wall: Normal. Musculoskeletal: Degenerative changes of the symphysis pubis. Degenerative changes of the spine. IMPRESSION: 1. No evidence of diverticulosis or diverticulitis. 2. Nonobstructing 3 mm calculus at the lower pole left kidney. 3. Cardiomegaly. 4. Chronic scarring or atelectasis in the lingula. 5. Borderline hepatic steatosis. Electronically signed by: Javier Joseph M.D. 02/09/2017 7:01 AM Dictated Date/Time: 02/09/2017 6:54 AM
[2017-03-01] MEDS ORDERED: DOCU100C31 PO (05:14)
[2017-03-01] MEDS ORDERED: FLVHFA110 INH (15:39)
[2017-03-01] MEDS ORDERED: PSYL48.59 PO (15:39)
[2017-03-01] MEDS ORDERED: PYRI100T4 PO (15:39)
[2017-03-01] MEDS ORDERED: RANI150T3 PO (15:39)
[2017-03-01] MEDS ORDERED: ALBINS/ INH (15:39)
[2017-03-01] MEDS ORDERED: LEVA45AE INH (15:39)
[2017-03-01] MEDS ORDERED: CHOL1TAB76 PO (15:39)
== END 2017-02-09 00:07 | disposition home or self-care (01) ==
LOC: C.EDB 20:26 → C.EDC 02-09 00:07
DX: R10.30 Lower abdominal pain, unspecified (principal); R42 Dizziness and giddiness; R51 Headache; Z79.01 Long term (current) use of anticoagulants; I48.91 Unspecified atrial fibrillation; I10 Essential (primary) hypertension; E03.9 Hypothyroidism, unspecified; J45.909 Unspecified asthma, uncomplicated; Z90.710 Acquired absence of both cervix and uterus; Z90.721 Acquired absence of ovaries, unilateral; Z87.440 Personal history of urinary (tract) infections; Z87.81 Personal history of (healed) traumatic fracture; Z79.899 Other long term (current) drug therapy; Z88.0 Allergy status to penicillin; Z88.5 Allergy status to narcotic agent; Z88.8 Allergy status to other drugs, medicaments and biological substances; Z91.018 Allergy to other foods; Z91.041 Radiographic dye allergy status; Z83.3 Family history of diabetes mellitus; Z82.49 Family history of ischemic heart disease and other diseases of the circulatory system; Z84.1 Family history of disorders of kidney and ureter; Z82.0 Family history of epilepsy and other diseases of the nervous system

== ENCOUNTER 2017-03-01 18:11 | Emergency (ER) | payer OTHER ==
[~2017-03-01] VITALS: Ht 157.5 cm; Wt 90.0 kg
[~2017-03-01 18:11] MED LIST changes: +ALBINS/ INH; +CHOL1TAB76 PO; +DOCU100C31 PO; +FLVHFA110 INH; +LEVA45AE INH; +PSYL48.59 PO; +PYRI100T4 PO; +RANI150T3 PO; -SULF800T23 PO
[2017-03-01 18:16] VITALS: Ht 157.5 cm; Wt 90.0 kg
[2017-03-01] MEDS ORDERED: HYDROmorphone INJ 1 MG/ML SYR IV STA (18:24)
[2017-03-01] MEDS ORDERED: ONDANSETRON INJ 2 MG/ML 2 ML VIAL IV STA (18:24)
[2017-03-01] MEDS ORDERED: SODIUM CHLORIDE 0.9% 1000ML 1,000 ML IV STA (18:24)
--- NOTE | 2017-03-01 18:26 | EMERGENCY ROOM VISIT NOTE ---
History Report prepared by Claudia: Mike Bates Under the Supervision of: Dr. Manjinder Lanier M.D. First contact with patient: 18:19 Chief Complaint: FALL Stated Complaint: FELL- LEFT GROIN PAIN, BACK PAIN, LEFT LEG/FOOT History of Present Illness The patient is a 61 year old female who presents to the Emergency Room with complaints of a sudden mechanical fall that occurred prior to arrival today. She says that she was being clumsy and landed on her left side on a concrete floor. The patient states that everything has been hurting ever since the fall, but her worst pain is in her back, left groin, left leg and left foot. The patient notes that she can only slightly walk now. She says that she did not hit her head. The patient denies any chest pain. She says that she is on Xarelto for atrial fibrillation. Source of History: patient Onset: Prior to arrival today Position: other (global - fall) Quality: other (mechanical) Timing: other (sudden) Associated Symptoms: + back pain, No chest pain Note: Associated symptoms: Left groin pain, left leg and foot pain. Can slightly walk. Did not hit her head. Review of Systems See HPI for pertinent positives & negatives. A total of 10 systems reviewed and were otherwise negative. 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 (11) Left knee pain (12) Morbid Obesity (13) Oophorectomy (14) Open reduction of fracture (15) Precordial chest pain (16) Superficial bruising of lower leg (17) Supraventricular tachycardia (18) UTI (urinary tract infection) (19) Vomiting and diarrhea Family History Diabetes mellitus FH: CHF (congestive heart failure) FHx: cancer FHx: lung disease Hypertension Kidney disease Kidney stones Seizures Social History Smoking Status: Never Smoker Alcohol Use: none Drug Use: none Marital Status: single Housing Status: lives with family Occupation Status: employed Current/Historical Medications Scheduled Cholecalciferol (D 1999), 2,000 INTER.UNIT PO QAM Docusate Sodium (Docusate Sodium), 100 MG PO QPM Duloxetine HCl (Duloxetine HCl), 60 MG PO QAM Fenofibrate (Fenofibrate), 145 MG PO QAM Flecainide Acetate (Flecainide Acetate), 100 MG PO Q12 Fluticasone Propionate (Flovent Hfa), 1 PUFF INH BID Furosemide (Furosemide), 20 MG PO QAM Levothyroxine Sodium (Levothyroxine Sodium), 112 MCG PO QAM Losartan Potassium (Losartan Potassium), 12.5 MG PO QAM Montelukast Sod (Montelukast Sodium), 10 MG PO QAM Omeprazole (Prilosec), 40 MG PO QAM Polyethylene (Polyethylene Glycol 3350), 17 GM PO QAM Potassium Chloride (Potassium Chloride Sr), 10 MEQ PO HS Psyllium (Metamucil), 1 TSP PO HS Pyridoxine (Vitamin B6), 100 MG PO QPM Ranitidine Hcl (Zantac), 150 MG PO HS Rivaroxaban (Xarelto), 20 MG PO QAM Ropinirole Hydrochloride (Requip), 0.5 MG PO HS Topiramate (Topiramate), 25 MG PO BID Verapamil HCl (Verapamil HCl ER), 240 MG PO BID Scheduled PRN Albuterol Sulf (Proventil 0.083% 2.5MG/3ML), 2.5 MG INH QID PRN for SOB/Wheezing Levalbuterol Tartrate (Levalbuterol Tartrate Hfa), 2 PUFFS INH Q6H PRN for Shortness of Breath Oxycodone Immediate Rel Tab (Roxicodone Ir), 1-2 TAB PO Q4H PRN for Severe Pain Allergies Coded Allergies: Codeine (Verified Allergy, Severe, HIVES, 01/22/17) ANAPHYLAXIS PER PT OK WITH MORPHINE AND DEMEROL? Iodinated Diagnostic Agents (Verified Allergy, Severe, HIVES, 01/22/17) Ketorolac (Verified Allergy, Severe, ITCHING, 01/22/17) PER PATIENT, SHE IS FINE TO TAKE IBUPROFEN Shellfish (Verified Allergy, Severe, ANAPHYLAXIS, 01/22/17) Shrimp (Verified Allergy, Severe, ANAPHYLAXIS, 01/22/17) Barium Sulfate (Verified Allergy, Unknown, itching rash, 01/22/17) Iodine (Verified Allergy, Unknown, 01/22/17) Morphine (Verified Allergy, Unknown, ITCHING, 01/22/17) Penicillins (Verified Allergy, Unknown, ITCHING/HIVES, 01/22/17) Physical Exam Vital Signs Date Time Temp Pulse Resp B/P (MAP) Pulse Ox O2 Delivery O2 Flow Rate FiO2 03/01/17 20:54 37.4 77 18 116/66 97 03/01/17 20:53 77 18 116/66 97 Room Air 03/01/17 19:34 77 18 118/69 97 Room Air 03/01/17 18:53 97 Room Air 03/01/17 18:53 97 Room Air 03/01/17 18:16 37.4 79 18 121/71 97 Room Air Physical Exam GENERAL: Patient is a healthy-appearing well-nourished 61 year old female. Patient is moaning, groaning, and hyperventilating. HEAD: Normocephalic atraumatic EYES: Ocular movements intact pupils equal and react to light OROPHARYNX mucous membranes are moist no exudates present no erythema or edema present NECK: Supple no nuchal rigidity CHEST: Good equal expansion LUNGS: Clear and equal to auscultation CARDIAC: Normal S1 and S2 ABDOMEN: Soft nontender no guarding BACK: No CVA tenderness EXTREMITIES: No bruises noted anywhere. Good range of motion of left hip, left knee, and left ankle. NEURO: Patient is following commands and answering questions appropriately. Alert and oriented x3 Cranial Nerves 2-12 grossly intact Medical Decision & Procedures ER Provider Diagnostic Interpretation: Radiology results as stated below per my review and radiologist interpretation: PELVIS 1 OR 2 VIEW ROUTINE, LEFT FEMUR 2 VIEWS ROUTINE, LEFT TIBIA/FIBULA 2 VIEWS ROUTINE HISTORY: 61 years-old Female Pt c/o left sided groin pain acute left-sided groin pain status post fall. COMPARISON: CT abdomen and pelvis 02/08/2017 TECHNIQUE: AP view the pelvis with 2 views of the left femur and 2 views of the left tibia and fibula. FINDINGS: PELVIS: Mild degenerative changes involve the pubic symphysis, sacroiliac joints and lower lumbar spine. No acute fracture or dislocation. Bilateral femoral acetabular joints are located. Mild to moderate left hip osteoarthritis. Moderate stool burden. FEMUR: There is [id number] left hip osteoarthritis. No acute fracture or dislocation. Left knee arthroplasty noted without complication. TIBIA/FIBULA: Left knee arthroplasty and patellar resurfacing noted without complication. No acute fracture or dislocation. Small knee joint effusion. Moderate dorsal spurring of the mid foot and talonavicular joint is seen. IMPRESSION: 1. No acute fracture or dislocation of the pelvis, left femur, tibia or fibula. 2. Left knee arthroplasty and patellar resurfacing without complication. 3. Degenerative changes as above. 4. Small knee joint effusion. The above report was generated using voice recognition software. It may contain grammatical, syntax or spelling errors. Electronically signed by: Nick Wright M.D. 03/01/2017 7:44 PM Dictated Date/Time: 03/01/2017 7:41 PM PELVIS 1 OR 2 VIEW ROUTINE, LEFT FEMUR 2 VIEWS ROUTINE, LEFT TIBIA/FIBULA 2 VIEWS ROUTINE HISTORY: 61 years-old Female Pt c/o left sided groin pain acute left-sided groin pain status post fall. COMPARISON: CT abdomen and pelvis 02/08/2017 TECHNIQUE: AP view the pelvis with 2 views of the left femur and 2 views of the left tibia and fibula. FINDINGS: PELVIS: Mild degenerative changes involve the pubic symphysis, sacroiliac joints and lower lumbar spine. No acute fracture or dislocation. Bilateral femoral acetabular joints are located. Mild to moderate left hip osteoarthritis. Moderate stool burden. FEMUR: There is [id number] left hip osteoarthritis. No acute fracture or dislocation. Left knee arthroplasty noted without complication. TIBIA/FIBULA: Left knee arthroplasty and patellar resurfacing noted without complication. No acute fracture or dislocation. Small knee joint effusion. Moderate dorsal spurring of the mid foot and talonavicular joint is seen. IMPRESSION: 1. No acute fracture or dislocation of the pelvis, left femur, tibia or fibula. 2. Left knee arthroplasty and patellar resurfacing without complication. 3. Degenerative changes as above. 4. Small knee joint effusion. The above report was generated using voice recognition software. It may contain grammatical, syntax or spelling errors. Electronically signed by: Nick Wright M.D. 03/01/2017 7:44 PM Dictated Date/Time: 03/01/2017 7:41 PM PELVIS 1 OR 2 VIEW ROUTINE, LEFT FEMUR 2 VIEWS ROUTINE, LEFT TIBIA/FIBULA 2 VIEWS ROUTINE HISTORY: 61 years-old Female Pt c/o left sided groin pain acute left-sided groin pain status post fall. COMPARISON: CT abdomen and pelvis 02/08/2017 TECHNIQUE: AP view the pelvis with 2 views of the left femur and 2 views of the left tibia and fibula. FINDINGS: PELVIS: Mild degenerative changes involve the pubic symphysis, sacroiliac joints and lower lumbar spine. No acute fracture or dislocation. Bilateral femoral acetabular joints are located. Mild to moderate left hip osteoarthritis. Moderate stool burden. FEMUR: There is [id number] left hip osteoarthritis. No acute fracture or dislocation. Left knee arthroplasty noted without complication. TIBIA/FIBULA: Left knee arthroplasty and patellar resurfacing noted without complication. No acute fracture or dislocation. Small knee joint effusion. Moderate dorsal spurring of the mid foot and talonavicular joint is seen. IMPRESSION: 1. No acute fracture or dislocation of the pelvis, left femur, tibia or fibula. 2. Left knee arthroplasty and patellar resurfacing without complication. 3. Degenerative changes as above. 4. Small knee joint effusion. The above report was generated using voice recognition software. It may contain grammatical, syntax or spelling errors. Electronically signed by: Nick Wright M.D. 03/01/2017 7:44 PM Dictated Date/Time: 03/01/2017 7:41 PM CHEST ONE VIEW PORTABLE HISTORY: 61 years-old Female Pt c/o fall, acute chest trauma status post fall. Initial exam. COMPARISON: Portable chest radiograph 02/08/2017 TECHNIQUE: Portable upright AP view of the chest FINDINGS: Lungs are hypoinflated with bronchovascular crowding. Subsegmental bibasilar opacities suggest atelectasis. Cardiac silhouette appears enlarged, likely secondary to technique and hypoinflation. No pneumothorax or large pleural effusion. Patient obesity is noted. Cystectomy clips are seen. Bones are grossly intact. IMPRESSION: 1. Hypoinflated lungs with bronchovascular crowding and probable bibasilar atelectasis. 2. No pneumothorax. The above report was generated using voice recognition software. It may contain grammatical, syntax or spelling errors. Electronically signed by: Nick Wright M.D. 03/01/2017 7:40 PM Dictated Date/Time: 03/01/2017 7:39 PM Laboratory Results 03/01/17 18:40 Red Blood Count 4.00, Mean Corpuscular Volume 90.0, Mean Corpuscular Hemoglobin 30.3, Mean Corpuscular Hemoglobin Concent 33.6, Mean Platelet Volume 10.2, Neutrophils (%) (Auto) 57.0, Lymphocytes (%) (Auto) 31.6, Monocytes (%) (Auto) 8.3, Eosinophils (%) (Auto) 2.4, Basophils (%) (Auto) 0.2, Neutrophils # (Auto) 3.55, Lymphocytes # (Auto) 1.97, Monocytes # (Auto) 0.52, Eosinophils # (Auto) 0.15, Basophils # (Auto) 0.01 03/01/17 18:40 Test 03/01/17 18:40 03/01/17 18:52 White Blood Count 6.23 K/uL (4.8-10.8) Red Blood Count 4.00 M/uL (4.2-5.4) Hemoglobin 12.1 g/dL (12.0-16.0) Hematocrit 36.0 % (37-47) Mean Corpuscular Volume 90.0 fL (80-100) Mean Corpuscular Hemoglobin 30.3 pg (25-34) Mean Corpuscular Hemoglobin Concent 33.6 g/dl (32-36) Platelet Count 314 K/uL (130-400) Mean Platelet Volume 10.2 fL (7.4-10.4) Neutrophils (%) (Auto) 57.0 % Lymphocytes (%) (Auto) 31.6 % Monocytes (%) (Auto) 8.3 % Eosinophils (%) (Auto) 2.4 % Basophils (%) (Auto) 0.2 % Neutrophils # (Auto) 3.55 K/uL (1.4-6.5) Lymphocytes # (Auto) 1.97 K/uL (1.2-3.4) Monocytes # (Auto) 0.52 K/uL (0.11-0.59) Eosinophils # (Auto) 0.15 K/uL (0-0.5) Basophils # (Auto) 0.01 K/uL (0-0.2) RDW Standard Deviation 43.1 fL (36.4-46.3) RDW Coefficient of Variation 13.1 % (11.5-14.5) Immature Granulocyte % (Auto) 0.5 % Immature Granulocyte # (Auto) 0.03 K/uL (0.00-0.02) Prothrombin Time 13.7 SECONDS (9.0-12.0) Prothromb Time International Ratio 1.3 (0.9-1.1) Anion Gap 7.0 mmol/L (3-11) Est Creatinine Clear Calc Drug Dose 50.7 ml/min Estimated GFR () 56.1 Estimated GFR (Non- 48.4 BUN/Creatinine Ratio 17.6 (10-20) Calcium Level 8.8 mg/dl (8.5-10.1) Total Bilirubin 0.2 mg/dl (0.2-1) Direct Bilirubin 0.1 mg/dl (0-0.2) Aspartate Amino Transf (AST/SGOT) 27 U/L (15-37) Alanine Aminotransferase (ALT/SGPT) 30 U/L (12-78) Alkaline Phosphatase 73 U/L (45-117) Total Protein 6.6 gm/dl (6.4-8.2) Albumin 3.6 gm/dl (3.4-5.0) Bedside Glucose 125 mg/dl (70-90) Labs reviewed by ED physician. Medications Administered Medications (Trade) Dose Ordered Sig/Jax Route Start Time Stop Time Status Last Admin Dose Admin Sodium Chloride 1,000 ml @ 999 mls/hr Q1H1M STAT IV 03/01/17 18:24 03/01/17 19:24 DC 03/01/17 18:50 999 MLS/HR Hydromorphone HCl (Dilaudid Inj) 1 mg NOW STAT IV 03/01/17 18:24 03/01/17 18:27 DC 03/01/17 18:51 1 MG Ondansetron HCl (Zofran Inj) 4 mg NOW STAT IV 03/01/17 18:24 03/01/17 18:27 DC 03/01/17 18:51 4 MG ED Course 1820: Past medical records reviewed. The patient was evaluated in room A11B. A complete history and physical examination was performed. 182: Ordered Zofran Inj 4 mg IV, Dilaudid Inj 1 mg IV, NSS 1000 ml @ 999 mls/ hr IV. Medical Decision Differential diagnosis: Etiologies such as fracture, dislocation, intra-abdominal, pneumothorax, intrathoracic , intracranial, neurologic, as well as other traumatic pathologies were entertained. This is a 61-year-old female who presents emergency department with multiple complaints after a fall. The patient is hyperventilating on exam. I tended to verbally de-escalate this patient however she continued to hyperventilate. An IV was established, the patient given normal saline bolus along with Dilaudid. This patient was reassessed multiple times however she was very difficult to assess. She appears to have good range of motion however is exquisitely tender to the abdomen therefore she was sent for CAT scan of the abdomen. The patient does not appear to have any broken bones. She was ambulate by nursing staff and I feel at this point as well as to be discharged home for follow-up with orthopedics. Patient was in agreement with the treatment plan. Medication Reconcilliation Current Medication List: was personally reviewed by me Blood Pressure Screening Patient's blood pressure: Normal blood pressure Impression Primary Impression: Fall Additional Impressions: Abdominal pain Leg pain, left Scribe Attestation The scribe's documentation has been prepared under my direction and personally reviewed by me in its entirety. I confirm that the note above accurately reflects all work, treatment, procedures, and medical decision making performed by me. Departure Information Dispostion Home / Self-Care Prescriptions Oxycodone Immediate Rel Tab (ROXICODONE IR) 5 Mg Tab 1-2 TAB PO Q4H Y for Severe Pain, #14 TAB Prov: Manjinder Lanier MD 03/01/17 Referrals Homer Herrera III, CRNP (PCP) Patient Instructions [facility] Problem Qualifiers Primary Impression: Fall Encounter type: initial encounter Qualified Codes: W19.XXXA - Unspecified fall, initial encounter Additional Impressions: Abdominal pain Abdominal location: generalized Qualified Codes: R10.84 - Generalized abdominal pain
[2017-03-01] MEDS ORDERED: SNG10 PO (18:37)
[2017-03-01] MEDS ORDERED: MRLP527 PO (18:37)
[2017-03-01] MEDS ORDERED: XRL20 PO (18:37)
[2017-03-01] MEDS ORDERED: TMB100 PO (18:37)
[2017-03-01] MEDS ORDERED: POTA10TA33 PO (18:37)
[2017-03-01] MEDS ORDERED: LEVO112T4 PO (18:37)
[2017-03-01] MEDS ORDERED: ROPI0.5T PO (18:37)
[2017-03-01] MEDS ORDERED: TRC145 PO (18:37)
[2017-03-01] MEDS ORDERED: VRPSR240 PO (18:37)
[2017-03-01] MEDS ORDERED: LSX20 PO (18:37)
[2017-03-01 18:49] LABS: BASO % 0.2 %; BASO ABS # 0.01 K/uL (0-0.2); COMPLETE YES; EOS % 2.4 %; IG% 0.5 %; LYMPH % 31.6 %; LYMPH ABS # 1.97 K/uL (1.2-3.4); MEAN CORPUSCULAR HEMOGLOBIN 30.3 pg (25-34); MEAN CORPUSCULAR HGB CONC 33.6 g/dl (32-36); MEAN PLATELET VOLUME 10.2 fL (7.4-10.4); MONO % 8.3 %; PLATELET COUNT 314 K/uL (130-400); WHITE BLOOD COUNT 6.23 K/uL (4.8-10.8)
[2017-03-01 18:53] VITALS: O2SAT 97
[2017-03-01] MEDS ORDERED: OMEP40CA41 PO (18:54)
[2017-03-01] MEDS ORDERED: TPM25 PO (18:54)
[2017-03-01 18:59] LABS: INR 1.3 (0.9-1.1); PROTHROMBIN TIME (PATIENT) 13.7 SECONDS (9.0-12.0)
[2017-03-01 19:04] LABS: BUN/CREATININE RATIO 17.6 (10-20); CALCIUM 8.8 mg/dl (8.5-10.1); CREATININE 1.2 mg/dl (0.60-1.20); POTASSIUM 3.3 mmol/L (3.5-5.1)
--- NOTE | 2017-03-01 19:42 | DIAGNOSTIC IMAGING REPORT ---
CHEST ONE VIEW PORTABLE HISTORY: 61 years-old Female Pt c/o fall, acute chest trauma status post fall. Initial exam. COMPARISON: Portable chest radiograph 02/08/2017 TECHNIQUE: Portable upright AP view of the chest FINDINGS: Lungs are hypoinflated with bronchovascular crowding. Subsegmental bibasilar opacities suggest atelectasis. Cardiac silhouette appears enlarged, likely secondary to technique and hypoinflation. No pneumothorax or large pleural effusion. Patient obesity is noted. Cystectomy clips are seen. Bones are grossly intact. IMPRESSION: 1. Hypoinflated lungs with bronchovascular crowding and probable bibasilar atelectasis. 2. No pneumothorax. The above report was generated using voice recognition software. It may contain grammatical, syntax or spelling errors. Electronically signed by: Nick Wright M.D. 03/01/2017 7:40 PM Dictated Date/Time: 03/01/2017 7:39 PM
--- NOTE | 2017-03-01 19:46 | DIAGNOSTIC IMAGING REPORT ---
PELVIS 1 OR 2 VIEW ROUTINE, LEFT FEMUR 2 VIEWS ROUTINE, LEFT TIBIA/FIBULA 2 VIEWS ROUTINE HISTORY: 61 years-old Female Pt c/o left sided groin pain acute left-sided groin pain status post fall. COMPARISON: CT abdomen and pelvis 02/08/2017 TECHNIQUE: AP view the pelvis with 2 views of the left femur and 2 views of the left tibia and fibula. FINDINGS: PELVIS: Mild degenerative changes involve the pubic symphysis, sacroiliac joints and lower lumbar spine. No acute fracture or dislocation. Bilateral femoral acetabular joints are located. Mild to moderate left hip osteoarthritis. Moderate stool burden. FEMUR: There is copn-xq-[id number] left hip osteoarthritis. No acute fracture or dislocation. Left knee arthroplasty noted without complication. TIBIA/FIBULA: Left knee arthroplasty and patellar resurfacing noted without complication. No acute fracture or dislocation. Small knee joint effusion. Moderate dorsal spurring of the mid foot and talonavicular joint is seen. IMPRESSION: 1. No acute fracture or dislocation of the pelvis, left femur, tibia or fibula. 2. Left knee arthroplasty and patellar resurfacing without complication. 3. Degenerative changes as above. 4. Small knee joint effusion. The above report was generated using voice recognition software. It may contain grammatical, syntax or spelling errors. Electronically signed by: Nick Wright M.D. 03/01/2017 7:44 PM Dictated Date/Time: 03/01/2017 7:41 PM
--- NOTE | 2017-03-01 20:06 | DIAGNOSTIC IMAGING REPORT ---
HEAD WITHOUT CONTRAST (CT) CLINICAL HISTORY: 61 years-old Female with Pt c/o fall on xarelto. Acute head injury status post fall while on anticoagulation. TECHNIQUE: Multiple axial CT images of the head were obtained without contrast. A dose lowering technique was utilized adhering to the principles of ALARA. COMPARISON: CT head 02/08/2017. FINDINGS: No acute intracranial hemorrhage, midline shift, mass, hydrocephalus, territorial ischemia or abnormal extra-axial collection. The calvarium is intact. Trace right mastoid effusion. Mild mucosal thickening of the maxillary and ethmoid sinuses. Soft tissues are unremarkable and the orbits are symmetric. IMPRESSION: 1. No acute intracranial abnormality. 2. Trace right mastoid effusion. The above report was generated using voice recognition software. It may contain grammatical, syntax or spelling errors. Electronically signed by: Nick Wright M.D. 03/01/2017 8:05 PM Dictated Date/Time: 03/01/2017 8:03 PM
--- NOTE | 2017-03-01 20:17 | DIAGNOSTIC IMAGING REPORT ---
ABD/PELVIS NO IV OR ORAL CONT HISTORY: 61 years-old Female Pt c/o left groin pain s/pp fall acute left groin pain status post fall. Initial exam. COMPARISON: CT abdomen and pelvis 02/08/2017 TECHNIQUE: Multiple axial CT images of the abdomen and pelvis were obtained without contrast. A dose lowering technique was used consistent with the principals of FRANKIE. FINDINGS: Subsegmental atelectasis or scarring involves the inferior segment lingula. There is no pneumoperitoneum. Inferior cardiac chambers are moderately enlarged. Liver is mildly enlarged.. Prior cholecystectomy. Spleen, pancreas and adrenal glands are within normal limits. Nonobstructing 2 mm calculus is present within the inferior pole left kidney. Ureters and urinary bladder are unremarkable. Prior hysterectomy. Mild atherosclerotic plaquing of the abdominal aorta. No bulky retroperitoneal adenopathy. No bowel obstruction. Moderate colonic stool volume appendix is normal. Patient obesity is noted. Advanced degenerative changes of the left pubic symphysis. Mild to moderate osteoarthritis of the bilateral femoral acetabular joints. No acute fracture or dislocation of the pelvis or hips identified. There is transitional lumbosacral anatomy with pseudoarticulation of the left transverse process L5 with the adjacent sacral ala. IMPRESSION: 1. No acute intra-abdominal or intrapelvic abnormality identified. No evidence of solid organ injury status post fall. 2. Mild to moderate degenerative changes of the bilateral hips without evidence of fracture. 3. Cardiomegaly. 4. 2 mm nonobstructing calculus of the inferior pole left kidney. 5. Prior cholecystectomy. The above report was generated using voice recognition software. It may contain grammatical, syntax or spelling errors. Electronically signed by: Nick Wright M.D. 03/01/2017 8:15 PM Dictated Date/Time: 03/01/2017 8:09 PM
[2017-03-01] MEDS ORDERED: OXYC1TAB3 PO (20:30)
[2017-03-01 20:54] VITALS: BP 116/66; PULSE 77; TEMP 37.4; O2SAT 97
[2017-03-01] MEDS ORDERED: CZR25 PO (22:40)
[2017-03-01] MEDS ORDERED: CYM60 PO (22:40)
== END 2017-03-01 21:15 | disposition home or self-care (01) ==
LOC: C.EDB 18:13 → C.EDA 21:15
DX: R10.30 Lower abdominal pain, unspecified (principal); M54.9 Dorsalgia, unspecified; W19.XXXA Unspecified fall, initial encounter; I48.91 Unspecified atrial fibrillation; I10 Essential (primary) hypertension; E03.9 Hypothyroidism, unspecified; J45.909 Unspecified asthma, uncomplicated; Z90.710 Acquired absence of both cervix and uterus; Z90.721 Acquired absence of ovaries, unilateral; Z87.81 Personal history of (healed) traumatic fracture; Z87.440 Personal history of urinary (tract) infections; Z79.899 Other long term (current) drug therapy; Z88.0 Allergy status to penicillin; Z88.5 Allergy status to narcotic agent; Z91.018 Allergy to other foods; Z91.041 Radiographic dye allergy status; Z83.3 Family history of diabetes mellitus; Z82.49 Family history of ischemic heart disease and other diseases of the circulatory system; Z80.9 Family history of malignant neoplasm, unspecified; Z84.1 Family history of disorders of kidney and ureter; Z82.0 Family history of epilepsy and other diseases of the nervous system

== ENCOUNTER → 2017-04-13 | Outpatient (CLI) | payer OTHER ==
[~2017-04-13] MED LIST changes: -CHOL1TAB76 PO; +CHOLCAP5 PO; +CYM60 PO; +CZR25 PO; -FENO145T26 PO; -FLEC100T21 PO; -FURO-85 PO; +LEVO112T4 PO; +LSX20 PO; -MCRK/10 PO; -MONT1TAB3 PO; -MRLP17X PO; +MRLP527 PO; +OMEP40CA41 PO; +OXYC1TAB3 PO; +POTA10TA33 PO; -RIVA1TAB4 PO; +ROPI0.5T PO; -ROPI0.5T15 PO; +SNG10 PO; -SYN112 PO; +TMB100 PO; +TPM25 PO; +TRC145 PO; -VERA240C2 PO; +VRPSR240 PO; +XRL20 PO
--- NOTE | 2017-04-13 12:08 | DIAGNOSTIC IMAGING REPORT ---
RIGHT HAND 3 VIEWS CLINICAL HISTORY: Right hand pain. FINDINGS: 3 views of the right hand are obtained. No prior studies are available for comparison at the time of dictation. The skeletal structures are osteopenic. No fracture is seen. Degenerative narrowing is seen at the radiocarpal articulation. Mild osteoarthritic change is present the first carpometacarpal and metacarpophalangeal joints. Minimal arthritic change is also seen involving the fifth distal interphalangeal joint. No erosive disease is identified. The overlying soft tissues are within normal limits. IMPRESSION: Osteopenia and mild arthritic change as above. No acute bony abnormality is seen in the right hand. Electronically signed by: Artemio Stover M.D. 04/13/2017 12:07 PM Dictated Date/Time: 04/13/2017 12:05 PM
[2017-04-13 12:42] LABS: THYROID STIMULATING HORMONE 1.75 uIu/ml (0.300-4.500)
== END | disposition home or self-care (01) ==
LOC: C.RAD 11:02
PROVIDERS: ATTEND Nurse Practitioner Family
DX: M79.641 Pain in right hand (principal); E03.9 Hypothyroidism, unspecified; M85.841 Other specified disorders of bone density and structure, right hand

== ENCOUNTER 2017-04-15 21:31 | Observation (INO) | payer OTHER ==
[~2017-04-15] VITALS: Ht 157.5 cm; Wt 88.8 kg
[2017-04-15] MEDS ORDERED: DiphenhydrAMINE HCL 50 MG/ML VIAL IV STA (21:54)
[2017-04-15] MEDS ORDERED: METOCLOPRAMIDE HCL INJ 5 MG/ML 2 ML VIAL IV STA (21:54)
[2017-04-15] MEDS ORDERED: SODIUM CHLORIDE 0.9% 500ML 500 ML IV STA (21:54)
[2017-04-15 22:29] LABS: URINE APPEARANCE CLEAR (CLEAR); URINE BILIRUBIN NEG (NEG); URINE COLOR YELLOW; URINE NITRITE NEG (NEG); URINE PH 6.5 (4.5-7.5); URINE SPECIFIC GRAVITY 1.018 (1.000-1.030); UROBILINOGEN POS (NEG); ZZUR CULT IF INDIC CLEAN CATCH NO
--- NOTE | 2017-04-15 22:30 | DIAGNOSTIC IMAGING REPORT ---
CHEST ONE VIEW PORTABLE CLINICAL HISTORY: Chest pain. COMPARISON STUDY: Chest radiograph March 01, 2017. FINDINGS: Lung volumes are normal. No pneumothorax or pleural effusion is present. There is no consolidation to suggest pneumonia. Mild cardiomegaly is unchanged. There is no evidence of pulmonary edema. IMPRESSION: 1. No acute cardiopulmonary findings. 2. Mild cardiomegaly without evidence of pulmonary edema. Electronically signed by: Jalen Malik M.D. 04/15/2017 10:29 PM Dictated Date/Time: 04/15/2017 10:28 PM
[2017-04-15 22:31] LABS: MANUAL MICROSCOPIC REQUIRED? NO; REVIEW REQ? YES
--- NOTE | 2017-04-15 22:48 | DIAGNOSTIC IMAGING REPORT ---
CT OF THE HEAD WITHOUT CONTRAST CLINICAL HISTORY: Headache, nausea and vomiting. COMPARISON STUDY: Head CT March 01, 2017. TECHNIQUE: Helical axial images of the head were obtained without IV contrast. Automated exposure control was utilized for the study. A dose lowering technique was utilized adhering to the principles of ALARA. FINDINGS: No acute intracranial hemorrhage, midline shift or mass affect is present. Ventricular system is normal. Basilar cisterns are patent. There are no extra-axial collections. Bernal-white differentiation is maintained. There are no findings to suggest acute dural sinus thrombosis or acute territorial infarct. There are no significant calvarial abnormalities. Trace fluid within the right mastoid air cells is noted. Paranasal sinuses are better depicted on the sinus CT. IMPRESSION: No acute intracranial findings. Electronically signed by: Jalen Malik M.D. 04/15/2017 10:47 PM Dictated Date/Time: 04/15/2017 10:44 PM
[2017-04-15 22:50] LABS: BASO % 0.5 %; BASO ABS # 0.02 K/uL (0-0.2); COMPLETE YES; EOS % 2.8 %; HEMATOCRIT 35.2 % (37-47); LYMPH % 38.9 %; LYMPH ABS # 1.55 K/uL (1.2-3.4); MEAN CORPUSCULAR HEMOGLOBIN 29.7 pg (25-34); MONO % 9.8 %; PLATELET COUNT 284 K/uL (130-400); RED BLOOD COUNT 3.91 M/uL (4.2-5.4); WHITE BLOOD COUNT 3.98 K/uL (4.8-10.8)
--- NOTE | 2017-04-15 22:52 | DIAGNOSTIC IMAGING REPORT ---
SINUS CT WITHOUT CONTRAST CLINICAL HISTORY: Headache. Sinus pain. COMPARISON STUDY: Maxillofacial CT May 02, 2015. Technique: Helical axial images of the sinuses were obtained without IV contrast. Coronal reformats were viewed. A dose lowering technique was utilized adhering to the principles of ALARA. FINDINGS: Trace fluid within the bilateral mastoid air cells is unchanged. Orbits are unremarkable. Major drainage pathways of the sinuses are patent. No bony destruction is present. No mass is identified within the sinuses or nasal cavity. There is minimal mucosal thickening of the ethmoid sinuses. No air-fluid levels are present. IMPRESSION: No significant sinus disease. Minimal mucosal thickening of the ethmoid sinuses. Patent major drainage pathways without evidence for acute sinusitis. Electronically signed by: Jalen Malik M.D. 04/15/2017 10:51 PM Dictated Date/Time: 04/15/2017 10:47 PM
[2017-04-15 23:10] LABS: ALT/SGPT 27 U/L (12-78); BLOOD UREA NITROGEN 24 mg/dl (7-18); BUN/CREATININE RATIO 19.1 (10-20); CALCIUM 8.4 mg/dl (8.5-10.1); CARBON DIOXIDE 24 mmol/L (21-32); CHLORIDE 108 mmol/L (98-107); CREATININE 1.24 mg/dl (0.60-1.20); GLUCOSE 115 mg/dl (70-99); MAGNESIUM 1.9 mg/dl (1.8-2.4); POTASSIUM 3.4 mmol/L (3.5-5.1); SODIUM 139 mmol/L (136-145)
[2017-04-15 23:21] LABS: ALKALINE PHOSPHATASE 61 U/L (45-117); AST/SGOT 24 U/L (15-37)
[2017-04-16] MEDS ORDERED: ACETAMINOPHEN 325 MG TAB PO PRN (00:45)
[2017-04-16] MEDS ORDERED: LEValbuterol HFA 15GM INHALER INH PRN (00:45)
[2017-04-16] MEDS ORDERED: ONDANSETRON INJ 2 MG/ML 2 ML VIAL IV PRN (00:45)
[2017-04-16] MEDS ORDERED: OXYCODONE HCL IR 5 MG TAB (IMMEDIATE RELEASE) PO PRN (00:45)
[2017-04-16] MEDS ORDERED: ALBUTEROL 0.083% NEBU SOLN 3 ML VIAL INH PRN (00:45)
[2017-04-16] MEDS ORDERED: NITROGLYCERIN 0.4 MG SL PER TAB CHARGE SL PRN (00:45)
--- NOTE | 2017-04-16 01:37 | History and Physical ---
History & Physical Date & Time of Service: Apr 16, 2017 at 01:33 Chief Complaint: Nausea/Headache Primary Care Physician: Homer Herrera III, CRNP History of Present Illness Source: patient, hospital records The patient is a 61-year-old female who presents to the emergency department with complaint of nausea, vomiting, sinus congestion, fatigue, headache, and chest pain unlike anything related to her reflux or asthma. She was seen in the outpatient setting, with a workup in progress, but decided to come to the ED due to worsening symptoms. Past Medical/Surgical History Medical Problems: (1) Asthma, Unspecified, W (Acute) Exacerbation Status: Chronic (2) Atrial fibrillation Status: Resolved (3) Bilateral edema of lower extremity Status: Resolved (4) Hypertension Nos Status: Chronic (5) Hypothyroidism Nos Status: Chronic (6) Hysterectomy Status: Resolved (7) Knee effusion, left Status: Resolved (8) Laminectomy Status: Resolved (9) Left knee DJD Status: Resolved (10) Left knee pain Status: Resolved (11) Morbid Obesity Status: Chronic (12) Oophorectomy Status: Resolved (13) Open reduction of fracture Status: Resolved (14) Superficial bruising of lower leg Status: Resolved (15) Supraventricular tachycardia Status: Resolved (16) UTI (urinary tract infection) Status: Resolved Family History Diabetes mellitus FH: CHF (congestive heart failure) FHx: cancer FHx: lung disease Hypertension Kidney disease Kidney stones Seizures Social History Smoking Status: Never Smoker Smokeless Tobacco Use: No Alcohol Use: none Drug Use: none Marital Status: single Housing status: lives with family Occupational Status: employed Immunizations History of Influenza Vaccine: Yes Influenza Vaccine Date: Apr 14, 2013 History of Tetanus Vaccine?: Yes Tetanus Immunization Date: Jun 14, 2006 History of Pneumococcal: Yes Pneumococcal Date: Jun 14, 2012 History of Hepatitis B Vaccine: Yes Hepatitis Immunization Date: Jun 14, 2011 Multi-Drug Resistant Organisms History of MDRO: No Allergies Coded Allergies: Codeine (Verified Allergy, Severe, HIVES, 04/12/17) ANAPHYLAXIS PER PT OK WITH MORPHINE AND DEMEROL? Iodinated Diagnostic Agents (Verified Allergy, Severe, HIVES, 04/12/17) Ketorolac (Verified Allergy, Severe, ITCHING, 04/12/17) PER PATIENT, SHE IS FINE TO TAKE IBUPROFEN Shellfish (Verified Allergy, Severe, ANAPHYLAXIS, 04/12/17) Shrimp (Verified Allergy, Severe, ANAPHYLAXIS, 04/12/17) Barium Sulfate (Verified Allergy, Unknown, itching rash, 04/12/17) Iodine (Verified Allergy, Unknown, ANAPHYLAXIS, 04/12/17) Morphine (Verified Allergy, Unknown, ITCHING, 04/12/17) Penicillins (Verified Allergy, Unknown, ITCHING/HIVES, 04/12/17) Home Medications Scheduled Cholecalciferol (Vitamin D3), 1 CAP PO QAM Docusate Sodium (Docusate Sodium), 100 MG PO QPM Duloxetine HCl (Duloxetine HCl), 60 MG PO QAM Fenofibrate (Fenofibrate), 145 MG PO QAM Flecainide Acetate (Flecainide Acetate), 100 MG PO Q12 Fluticasone Propionate (Flovent Hfa), 1 PUFF INH BID Furosemide (Furosemide), 20 MG PO QAM Levothyroxine Sodium (Levothyroxine Sodium), 112 MCG PO QAM Losartan Potassium (Losartan Potassium), 12.5 MG PO QAM Montelukast Sod (Montelukast Sodium), 10 MG PO QAM Omeprazole (Prilosec), 40 MG PO QAM Polyethylene (Polyethylene Glycol 3350), 17 GM PO QAM Potassium Chloride (Potassium Chloride Sr), 10 MEQ PO HS Psyllium (Metamucil), 1 TSP PO HS Pyridoxine (Vitamin B6), 100 MG PO QPM Ranitidine Hcl (Zantac), 150 MG PO HS Rivaroxaban (Xarelto), 20 MG PO QAM Ropinirole Hydrochloride (Requip), 0.5 MG PO HS Topiramate (Topiramate), 25 MG PO BID Verapamil HCl (Verapamil HCl ER), 240 MG PO BID Scheduled PRN Albuterol Sulf (Proventil 0.083% 2.5MG/3ML), 2.5 MG INH QID PRN for SOB/Wheezing Levalbuterol Tartrate (Levalbuterol Tartrate Hfa), 2 PUFFS INH Q6H PRN for Shortness of Breath Oxycodone Immediate Rel Tab (Roxicodone Ir), 1-2 TAB PO Q4H PRN for Severe Pain Review of Systems The patient denies palpitations, shortness of breath, cough, lower extremity swelling, vision change, hearing change, sore throat, fevers, chills, sweats, nausea, vomiting, diarrhea or constipation , abdominal pain, pelvic pain, blood in urine or stool, dysuria, urinary frequency or urgency, lightheadedness , dizziness, headache, memory loss, loss of consciousness, rash, abnormal bruising or bleeding, imbalance, focal or generalized weakness, numbness or tingling in arms or legs, generalized arthralgias or myalgias, back or neck pain, or night sweats. The review of systems is otherwise negative other than for that already noted above, and at least 10 systems have been reviewed. Physical Exam Vital Signs Date Time Temp Pulse Resp B/P (MAP) Pulse Ox O2 Delivery O2 Flow Rate FiO2 04/16/17 01:28 62 15 106/50 96 04/16/17 01:04 62 15 106/50 96 Room Air 04/15/17 23:00 66 15 99/53 96 Room Air 04/15/17 22:00 Room Air 04/15/17 21:41 70 04/15/17 21:31 36.6 72 18 132/60 98 Room Air The patient is awake, well-developed and adequately nourished, alert and oriented 3, normocephalic and atraumatic, lying in bed and in no acute distress. HEENT--PERRL, EOMI, mucous membranes and oropharynx normal. Neck--supple, no JVD or bruits, thyroid normal, trachea midline, no adenopathy. Heart--normal S1 and S2, no extra beats, no murmurs, rubs or gallops. Lungs--clear bilaterally with good air movement, no respiratory distress, no accessory muscle use. Abdomen--normal bowel sounds and soft, nontender and nondistended, no hernias or masses, no organomegaly. Extremities--no cyanosis, clubbing or edema. There are good distal pulses b/l. Dermatologic--normal skin turgor, normal color, warm and dry, no abnormal lymph nodes, no rash. Neurologic--cranial nerves II through XII grossly intact. Rheumatologic--normal range of motion. Psychiatric--normal affect. Diagnostics Laboratory Results Results Past 24 Hours Test 04/15/17 22:10 04/15/17 22:25 Range/Units Urine Color YELLOW Urine Appearance CLEAR CLEAR Urine pH 6.5 4.5-7.5 Urine Specific [place] 1.018 1.000-1.030 Urine Protein NEG NEG Urine Glucose (UA) NEG NEG Urine Ketones NEG NEG Urine Occult Blood NEG NEG Urine Nitrite NEG NEG Urine Bilirubin NEG NEG Urine Urobilinogen POS NEG Urine Leukocyte Esterase TRACE NEG Urine WBC (Auto) 1-5 0-5 /hpf Urine RBC (Auto) 0-4 0-4 /hpf Urine Hyaline Casts (Auto) 1-5 0-5 /lpf Urine Epithelial Cells (Auto) 5-10 0-5 /lpf Urine Bacteria (Auto) NEG NEG Urine Crystals CALCIUM OXALATE NONE PRSENT White Blood Count 3.98 4.8-10.8 K/uL Red Blood Count 3.91 4.2-5.4 M/uL Hemoglobin 11.6 12.0-16.0 g/dL Hematocrit 35.2 37-47 % Mean Corpuscular Volume 90.0 80-100 fL Mean Corpuscular Hemoglobin 29.7 25-34 pg Mean Corpuscular Hemoglobin Concent 33.0 32-36 g/dl Platelet Count 284 130-400 K/uL Mean Platelet Volume 10.0 7.4-10.4 fL Neutrophils (%) (Auto) 48.0 % Lymphocytes (%) (Auto) 38.9 % Monocytes (%) (Auto) 9.8 % Eosinophils (%) (Auto) 2.8 % Basophils (%) (Auto) 0.5 % Neutrophils # (Auto) 1.91 1.4-6.5 K/uL Lymphocytes # (Auto) 1.55 1.2-3.4 K/uL Monocytes # (Auto) 0.39 0.11-0.59 K/uL Eosinophils # (Auto) 0.11 0-0.5 K/uL Basophils # (Auto) 0.02 0-0.2 K/uL RDW Standard Deviation 44.2 36.4-46.3 fL RDW Coefficient of Variation 13.5 11.5-14.5 % Immature Granulocyte % (Auto) 0.0 % Immature Granulocyte # (Auto) 0.00 0.00-0.02 K/uL Sodium Level 139 136-145 mmol/L Potassium Level 3.4 3.5-5.1 mmol/L Chloride Level 108 98-107 mmol/L Carbon Dioxide Level 24 21-32 mmol/L Anion Gap 7.0 3-11 mmol/L Blood Urea Nitrogen 24 7-18 mg/dl Creatinine 1.24 0.60-1.20 mg/dl Est Creatinine Clear Calc Drug Dose 49.0 ml/min Estimated GFR () 53.9 Estimated GFR (Non- 46.5 BUN/Creatinine Ratio 19.1 10-20 Random Glucose 115 70-99 mg/dl Calcium Level 8.4 8.5-10.1 mg/dl Magnesium Level 1.9 1.8-2.4 mg/dl Total Bilirubin 0.3 0.2-1 mg/dl Direct Bilirubin 0.1 0-0.2 mg/dl Aspartate Amino Transf (AST/SGOT) 24 15-37 U/L Alanine Aminotransferase (ALT/SGPT) 27 12-78 U/L Alkaline Phosphatase 61 45-117 U/L Troponin I < 0.015 0-0.045 ng/ml Total Protein 6.0 6.4-8.2 gm/dl Albumin 3.4 3.4-5.0 gm/dl Lipase 159 73-393 U/L Thyroid Stimulating Hormone (TSH) 2.500 0.300-4.500 uIu/ml Diagnostic Radiology Patient Name: CLAUDE BARR Unit Number: [id number] Dictated: 04/15/172243 Transcribed: 04/15/172243 ECTOR Printed Date/Time: [~ rep prt dt]/[~ rep prt tm] [~ rep ct labl] - [~ rep ct ivnm] [facility] [place] [address] Dictated: 04/15/172243 Transcribed: 04/15/172243 ECTOR Printed Date/Time: [~ rep prt dt]/[~ rep prt tm] [~ rep ct labl] - [~ rep ct ivnm] CT OF THE HEAD WITHOUT CONTRAST CLINICAL HISTORY: Headache, nausea and vomiting. COMPARISON STUDY: Head CT March 01, 2017. TECHNIQUE: Helical axial images of the head were obtained without IV contrast. Automated exposure control was utilized for the study. A dose lowering technique was utilized adhering to the principles of ALARA. FINDINGS: No acute intracranial hemorrhage, midline shift or mass affect is present. Ventricular system is normal. Basilar cisterns are patent. There are no extra-axial collections. Bernal-white differentiation is maintained. There are no findings to suggest acute dural sinus thrombosis or acute territorial infarct. There are no significant calvarial abnormalities. Trace fluid within the right mastoid air cells is noted. Paranasal sinuses are better depicted on the sinus CT. IMPRESSION: No acute intracranial findings. Electronically signed by: Jalen Malik M.D. 04/15/2017 10:47 PM Dictated Date/Time: 04/15/2017 10:44 PM The status of this report is Signed. Draft = Not yet reviewed or approved by Radiologist. Signed = Reviewed and approved by Radiologist. <AttendingPhy></AttendingPhy> <FamilyPhy>Homer Herrera III, CRNP</FamilyPhy> < PrimaryPhy>Homer Herrera III, CRNP</PrimaryPhy> <UnitNumber>[id number]</ UnitNumber> <VisitNumber>[id number]</VisitNumber> <PatientName>BARR,CLAUDE< /PatientName> <DateOfBirth>1955</DateOfBirth> <Location>C.EDB</Location> < ServiceDate>04/15/17</ServiceDate> <MNE>ESINDI</MNE> <OrderingPhy>Vandana Conner PA-C</OrderingPhy> <OrderingPhyMNE>f rep ord dr dhaliwal</OrderingPhyMNE> < DictatingPhyMNE>f rep dict dr dhaliwal</DictatingPhyMNE> <CCListMNE>f rep ct mne</ CCListMNE> <AdmittingPhyMNE>f pt admit dr dhaliwal</AdmittingPhyMNE> <AttendingPhyMNE >f pt attend dr dhaliwal</AttendingPhyMNE> <ConsultingPhyMNE>f pt consult dr dhaliwal</ConsultingPhyMNE> <FamilyPhyMNE>f pt fam dr dhaliwal</FamilyPhyMNE> <OtherPhyMNE>f pt other dr dhaliwal</OtherPhyMNE> < PrimaryPhyMNE>f pt prim care dr dhaliwal</PrimaryPhyMNE> <ReferringPhyMNE>f pt referring dr dhaliwal</ReferringPhyMNE> Patient Name: SHASTA BARRRA Unit Number: [id number] Dictated: 10/2227 Transcribed: 04/15/172227 JA Printed Date/Time: [~ rep prt dt]/[~ rep prt tm] [~ rep ct labl] - [~ rep ct ivnm] [facility] Radiology Department [place], [place] [address] Dictated: 04/15/172227 Transcribed: 04/15/172227 JA Printed Date/Time: [~ rep prt dt]/[~ rep prt tm] [~ rep ct labl] - [~ rep ct ivnm] CHEST ONE VIEW PORTABLE CLINICAL HISTORY: Chest pain. COMPARISON STUDY: Chest radiograph March 01, 2017. FINDINGS: Lung volumes are normal. No pneumothorax or pleural effusion is present. There is no consolidation to suggest pneumonia. Mild cardiomegaly is unchanged. There is no evidence of pulmonary edema. IMPRESSION: 1. No acute cardiopulmonary findings. 2. Mild cardiomegaly without evidence of pulmonary edema. Electronically signed by: Jalen Malik M.D. 04/15/2017 10:29 PM Dictated Date/Time: 04/15/2017 10:28 PM The status of this report is Signed. Draft = Not yet reviewed or approved by Radiologist. Signed = Reviewed and approved by Radiologist. <AttendingPhy></AttendingPhy> <FamilyPhy>Homer Herrera III, CRNP</FamilyPhy> < PrimaryPhy>Homer Herrera III, CRNP</PrimaryPhy> <UnitNumber>[id number]</ UnitNumber> <VisitNumber>[id number]</VisitNumber> <PatientName>CLAUDE BARR< /PatientName> <DateOfBirth>1955</DateOfBirth> <Location>C.EDB</Location> < ServiceDate>04/15/17</ServiceDate> <MNE>ESINDI</MNE> <OrderingPhy>Vandana Conner PA-C</OrderingPhy> <OrderingPhyMNE>f rep ord dr dhaliwal</OrderingPhyMNE> < DictatingPhyMNE>f rep dict dr dhaliwal</DictatingPhyMNE> <CCListMNE>f rep ct mne</ CCListMNE> <AdmittingPhyMNE>f pt admit dr dhaliwal</AdmittingPhyMNE> <AttendingPhyMNE >f pt attend dr dhaliwal</AttendingPhyMNE> <ConsultingPhyMNE>f pt consult dr dhaliwal</ConsultingPhyMNE> <FamilyPhyMNE>f pt fam dr dhaliwal</FamilyPhyMNE> <OtherPhyMNE>f pt other dr dhaliwal</OtherPhyMNE> < PrimaryPhyMNE>f pt prim care dr dhaliwal</PrimaryPhyMNE> <ReferringPhyMNE>f pt referring dr dhaliwal</ReferringPhyMNE> Patient Name: CLAUDE BARR Unit Number: [id number] Dictated: 04/15/172246 Transcribed: 04/15/172246 ECTOR Printed Date/Time: [~ rep prt dt]/[~ rep prt tm] [~ rep ct labl] - [~ rep ct ivnm] [facility] [place] [address] Dictated: 04/15/172246 Transcribed: 04/15/172246 JA Printed Date/Time: [~ rep prt dt]/[~ rep prt tm] [~ rep ct labl] - [~ rep ct ivnm] [~ rep ct add3]] SINUS CT WITHOUT CONTRAST CLINICAL HISTORY: Headache. Sinus pain. COMPARISON STUDY: Maxillofacial CT May 02, 2015. Technique: Helical axial images of the sinuses were obtained without IV contrast. Coronal reformats were viewed. A dose lowering technique was utilized adhering to the principles of ALARA. FINDINGS: Trace fluid within the bilateral mastoid air cells is unchanged. Orbits are unremarkable. Major drainage pathways of the sinuses are patent. No bony destruction is present. No mass is identified within the sinuses or nasal cavity. There is minimal mucosal thickening of the ethmoid sinuses. No air-fluid levels are present. IMPRESSION: No significant sinus disease. Minimal mucosal thickening of the ethmoid sinuses. Patent major drainage pathways without evidence for acute sinusitis. Electronically signed by: Jalen Malik M.D. 04/15/2017 10:51 PM Dictated Date/Time: 04/15/2017 10:47 PM The status of this report is Signed. Draft = Not yet reviewed or approved by Radiologist. Signed = Reviewed and approved by Radiologist. <AttendingPhy></AttendingPhy> <FamilyPhy>Homer Herrera III, MUSIC INDUSTRY INTERN</FamilyPhy> < PrimaryPhy>Homer Herrera III, MUSIC INDUSTRY INTERN</PrimaryPhy> <UnitNumber>[id number]</ UnitNumber> <VisitNumber>[id number]</VisitNumber> <PatientName>CLAUDE BARR< /PatientName> <DateOfBirth>1955</DateOfBirth> <Location>C.EDB</Location> < ServiceDate>04/15/17</ServiceDate> <MNE>ESINDI</MNE> <OrderingPhy>Vandana Conner PA-C</OrderingPhy> <OrderingPhyMNE>f rep ord dr dhaliwal</OrderingPhyMNE> < DictatingPhyMNE>f rep dict dr dhaliwal</DictatingPhyMNE> <CCListMNE>f rep ct yamilethe</ CCListMNE> <AdmittingPhyMNE>f pt admit dr dhaliwal</AdmittingPhyMNE> <AttendingPhyMNE >f pt attend dr dhaliwal</AttendingPhyMNE> <ConsultingPhyMNE>f pt consult dr dhaliwal</ConsultingPhyMNE> <FamilyPhyMNE>f pt fam dr dhaliwal</FamilyPhyMNE> <OtherPhyMNE>f pt other dr dhaliwal</OtherPhyMNE> < PrimaryPhyMNE>f pt prim care dr dhaliwal</PrimaryPhyMNE> <ReferringPhyMNE>f pt referring dr dhaliwal</ReferringPhyMNE> EKG EKG shows normal sinus rhythm at 68 bpm, first-degree heart block, ST-T changes suggesting anterior ischemia, no change compared 02/08/2017 Impression Assessment and Plan Precordial chest pain/cardiac dysrhythmia/hypertension/abnormal ekg suggestion anterior ischemia-- The patient will be admitted to telemetry for serial cardiac enzymes, cardiac rhythm monitoring and a 2-D echocardiogram with Dopplers. Continue aspirin, furosemide, losartan, potassium, verapamil SR and Xarelto. Asthma-- Continue Flovent HFA, Xopenex HFA, and Singulair. Albuterol high flow nebulizers when necessary. Hyperlipidemia-- Continue fenofibrate. Hypothyroidism-- Continue levothyroxine. GERD-- Continue pantoprazole and ranitidine. Restless leg syndrome-- Continue ropinirole. Headache/myalgias-- Continue duloxetine and Topamax. Oxycodone when necessary Level of Care Telemetry Advanced Directives Existing Advance Directive: No Existing Living Will: No Existing Power of Supervisor Tower: No Resuscitation Status FULL RESUSCITATION VTE Prophylaxis VTE Risk Assessment Done? Y/N: Yes Risk Level: Moderate Given or contraindicated: SCD's Social Service Consult None Apply
[2017-04-16 02:08] VITALS: BP 112/68; PULSE 64; TEMP 36.5; O2SAT 95; Ht 157.5 cm; Wt 88.8 kg
[2017-04-16 04:05] VITALS: O2SAT 95
--- NOTE | 2017-04-16 04:42 | EMERGENCY ROOM VISIT NOTE ---
History First contact with patient: 21:45 Chief Complaint: NAUSEA Stated Complaint: PRECORDIAL CHEST PAIN Nursing Triage Summary: Pt has not been feeling well for a few days. Pt has been seeing PCP and is currenty being tested for her thyroid. Today patient with frontal headache and nausea. Pt had supper and vomited. EMS reports patient vomited enroute and was given 4mg PO Zofran. Denies chest pain, SOB, abdominal pain. History of Present Illness The patient is a 61 year old female who presents to the Emergency Room with complaints of nausea, vomiting, headache, sinus congestion, chest pain, fatigue for the past few days. Patient saw her family care doctor and had some outpatient testing. Symptoms got worse and came here. No recent cardiac testing. Patient states she describes the pain as aching, ranging in severity 4 out of 10 throughout her chest that has been intermittent. Patient denies exertional chest pain, dyspnea, abdominal pain, back pain, neck stiffness, leg pain or swelling. Review of Systems See HPI for pertinent positives & negatives. A total of 10 systems reviewed and were otherwise negative. 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 (11) Left knee pain (12) Morbid Obesity (13) Oophorectomy (14) Open reduction of fracture (15) Precordial chest pain (16) Sepsis (17) Superficial bruising of lower leg (18) Supraventricular tachycardia (19) UTI (urinary tract infection) (20) UTI (urinary tract infection) (21) Vomiting and diarrhea Family History Diabetes mellitus FH: CHF (congestive heart failure) FHx: cancer FHx: lung disease Hypertension Kidney disease Kidney stones Seizures Social History Smoking Status: Never Smoker Smokeless Tobacco Use: No Alcohol Use: none Drug Use: none Marital Status: single Housing Status: lives with family Occupation Status: employed Current/Historical Medications Scheduled Cholecalciferol (Vitamin D3), 1 CAP PO QAM Docusate Sodium (Docusate Sodium), 100 MG PO QPM Duloxetine HCl (Duloxetine HCl), 60 MG PO QAM Fenofibrate (Fenofibrate), 145 MG PO QAM Flecainide Acetate (Flecainide Acetate), 100 MG PO Q12 Fluticasone Propionate (Flovent Hfa), 1 PUFF INH BID Furosemide (Furosemide), 20 MG PO QAM Levothyroxine Sodium (Levothyroxine Sodium), 112 MCG PO QAM Losartan Potassium (Losartan Potassium), 12.5 MG PO QAM Montelukast Sod (Montelukast Sodium), 10 MG PO QAM Omeprazole (Prilosec), 40 MG PO QAM Polyethylene (Polyethylene Glycol 3350), 17 GM PO QAM Potassium Chloride (Potassium Chloride Sr), 10 MEQ PO HS Psyllium (Metamucil), 1 TSP PO HS Pyridoxine (Vitamin B6), 100 MG PO QPM Ranitidine Hcl (Zantac), 150 MG PO HS Rivaroxaban (Xarelto), 20 MG PO QAM Ropinirole Hydrochloride (Requip), 0.5 MG PO HS Topiramate (Topiramate), 25 MG PO BID Verapamil HCl (Verapamil HCl ER), 240 MG PO BID Scheduled PRN Albuterol Sulf (Proventil 0.083% 2.5MG/3ML), 2.5 MG INH QID PRN for SOB/Wheezing Levalbuterol Tartrate (Levalbuterol Tartrate Hfa), 2 PUFFS INH Q6H PRN for Shortness of Breath Oxycodone Immediate Rel Tab (Roxicodone Ir), 1-2 TAB PO Q4H PRN for Severe Pain Physical Exam Vital Signs Date Time Temp Pulse Resp B/P (MAP) Pulse Ox O2 Delivery O2 Flow Rate FiO2 04/15/17 23:00 66 15 99/53 96 Room Air 04/15/17 22:00 Room Air 04/15/17 21:41 70 04/15/17 21:31 36.6 72 18 132/60 98 Room Air Physical Exam VITALS: Vitals are noted on the nurse's note and reviewed by myself. Vital signs stable. GENERAL: White female, in no acute distress, nondiaphoretic, well-developed well -nourished. SKIN: The skin was without rashes, erythema, edema, or bruising. There is no tenting of the skin. Capillary reflex less than 2 seconds. HEAD: Normocephalic atraumatic. EARS: External auditory canals clear, tympanic membranes pearly bernal without erythema or effusion bilaterally. EYES: Pupils equal round and reactive to light and accommodation. Conjunctivae without injection, sclerae without icterus. Extraocular movements intact. NOSE: Patent, turbinates without inflammation or discharge. No sinus tenderness. MOUTH: Mucous membranes mildly dry. Pharynx without erythema or exudate. Uvula midline. Airway patent. Tongue does not deviate. NECK: Supple without nuchal rigidity. No lymphadenopathy. No thyromegaly. Cervical spine is nontender. No JVD. HEART: Regular rate and rhythm LUNGS: Clear to auscultation bilaterally without wheezes, rales or rhonchi. No dullness to percussion. No retractions or accessory muscle use. ABDOMEN: Positive bowel sounds x 4. Normal tympanic percussion. Soft, nontender, without masses or organomegaly. Gaitan sign negative. No guarding or rebound tenderness. MUSCULOSKELETAL: No muscle atrophy, erythema, or edema noted. NEURO: Patient was alert and oriented to person place and time. Normal sensation to light and sharp touch. No focal neurological deficits. Medical Decision & Procedures Laboratory Results 04/15/17 22:25 Red Blood Count 3.91, Mean Corpuscular Volume 90.0, Mean Corpuscular Hemoglobin 29.7, Mean Corpuscular Hemoglobin Concent 33.0, Mean Platelet Volume 10.0, Neutrophils (%) (Auto) 48.0, Lymphocytes (%) (Auto) 38.9, Monocytes (%) (Auto) 9.8, Eosinophils (%) (Auto) 2.8, Basophils (%) (Auto) 0.5, Neutrophils # (Auto) 1.91, Lymphocytes # (Auto) 1.55, Monocytes # (Auto) 0.39, Eosinophils # (Auto) 0.11, Basophils # (Auto) 0.02 04/15/17 22:25 Test 04/15/17 22:10 04/15/17 22:25 Urine Color YELLOW Urine Appearance CLEAR (CLEAR) Urine pH 6.5 (4.5-7.5) Urine Specific [place] 1.018 (1.000-1.030) Urine Protein NEG (NEG) Urine Glucose (UA) NEG (NEG) Urine Ketones NEG (NEG) Urine Occult Blood NEG (NEG) Urine Nitrite NEG (NEG) Urine Bilirubin NEG (NEG) Urine Urobilinogen POS (NEG) Urine Leukocyte Esterase TRACE (NEG) Urine WBC (Auto) 1-5 /hpf (0-5) Urine RBC (Auto) 0-4 /hpf (0-4) Urine Hyaline Casts (Auto) 1-5 /lpf (0-5) Urine Epithelial Cells (Auto) 5-10 /lpf (0-5) Urine Bacteria (Auto) NEG (NEG) Urine Crystals CALCIUM OXALATE (NONE White Blood Count 3.98 K/uL (4.8-10.8) Red Blood Count 3.91 M/uL (4.2-5.4) Hemoglobin 11.6 g/dL (12.0-16.0) Hematocrit 35.2 % (37-47) Mean Corpuscular Volume 90.0 fL (80-100) Mean Corpuscular Hemoglobin 29.7 pg (25-34) Mean Corpuscular Hemoglobin Concent 33.0 g/dl (32-36) Platelet Count 284 K/uL (130-400) Mean Platelet Volume 10.0 fL (7.4-10.4) Neutrophils (%) (Auto) 48.0 % Lymphocytes (%) (Auto) 38.9 % Monocytes (%) (Auto) 9.8 % Eosinophils (%) (Auto) 2.8 % Basophils (%) (Auto) 0.5 % Neutrophils # (Auto) 1.91 K/uL (1.4-6.5) Lymphocytes # (Auto) 1.55 K/uL (1.2-3.4) Monocytes # (Auto) 0.39 K/uL (0.11-0.59) Eosinophils # (Auto) 0.11 K/uL (0-0.5) Basophils # (Auto) 0.02 K/uL (0-0.2) RDW Standard Deviation 44.2 fL (36.4-46.3) RDW Coefficient of Variation 13.5 % (11.5-14.5) Immature Granulocyte % (Auto) 0.0 % Immature Granulocyte # (Auto) 0.00 K/uL (0.00-0.02) Anion Gap 7.0 mmol/L (3-11) Est Creatinine Clear Calc Drug Dose 49.0 ml/min Estimated GFR () 53.9 Estimated GFR (Non- 46.5 BUN/Creatinine Ratio 19.1 (10-20) Calcium Level 8.4 mg/dl (8.5-10.1) Magnesium Level 1.9 mg/dl (1.8-2.4) Total Bilirubin 0.3 mg/dl (0.2-1) Direct Bilirubin 0.1 mg/dl (0-0.2) Aspartate Amino Transf (AST/SGOT) 24 U/L (15-37) Alanine Aminotransferase (ALT/SGPT) 27 U/L (12-78) Alkaline Phosphatase 61 U/L (45-117) Troponin I < 0.015 ng/ml (0-0.045) Total Protein 6.0 gm/dl (6.4-8.2) Albumin 3.4 gm/dl (3.4-5.0) Lipase 159 U/L (73-393) Thyroid Stimulating Hormone (TSH) 2.500 uIu/ml (0.300-4.500) Medications Administered Medications (Trade) Dose Ordered Sig/Jax Route Start Time Stop Time Status Last Admin Dose Admin Metoclopramide HCl (Reglan Inj) 10 mg NOW STAT IV 04/15/17 21:54 04/15/17 21:55 DC 04/15/17 22:06 10 MG Diphenhydramine HCl (Benadryl Inj) 12.5 mg NOW STAT IV 04/15/17 21:54 04/15/17 21:55 DC 04/15/17 22:06 12.5 MG Sodium Chloride 500 ml @ 999 mls/hr Q31M STAT IV 04/15/17 21:54 04/15/17 22:24 DC 04/15/17 22:06 999 MLS/HR ED Course Prior records/ancillary studies reviewed. Triage Nursing notes reviewed. The patient's history was concerning for chest pain, vomiting and nausea and fatigue. Differential diagnosis: Etiologies such as cardiac ischemia, aortic dissection, pulmonary embolism, neurologic, electrolyte abnormality, anemia, pneumonia, pneumothorax, musculoskeletal, infections, pericarditis, myocarditis, esophageal rupture, gastrointestinal, as well as others were entertained. Physical examination: As above. ER treatment provided: IV fluids, Zofran On reassessment the patient felt better. Diagnostic interpretation by me: The electrocardiogram was normal sinus, normal intervals, left axis deviation, T -wave inversions in the anteroseptal leads, rate of 68. EKG compared to prior EKG with no acute changes. Impression normal sinus rhythm left axis deviation with T-wave inversions anterior septal leads interpreted by myself The labs revealed negative troponin. Mild anemia. Hypokalemia Imaging studies: CLINICAL HISTORY: Headache. Sinus pain. COMPARISON STUDY: Maxillofacial CT May 02, 2015. Technique: Helical axial images of the sinuses were obtained without IV contrast. Coronal reformats were viewed. A dose lowering technique was utilized adhering to the principles of ALARA. FINDINGS: Trace fluid within the bilateral mastoid air cells is unchanged. Orbits are unremarkable. Major drainage pathways of the sinuses are patent. No bony destruction is present. No mass is identified within the sinuses or nasal cavity. There is minimal mucosal thickening of the ethmoid sinuses. No air-fluid levels are present. IMPRESSION: No significant sinus disease. Minimal mucosal thickening of the ethmoid sinuses. Patent major drainage pathways without evidence for acute sinusitis. Electronically signed by: Jalen Malik M.D. CLINICAL HISTORY: Headache, nausea and vomiting. COMPARISON STUDY: Head CT March 01, 2017. TECHNIQUE: Helical axial images of the head were obtained without IV contrast. Automated exposure control was utilized for the study. A dose lowering technique was utilized adhering to the principles of ALARA. FINDINGS: No acute intracranial hemorrhage, midline shift or mass affect is present. Ventricular system is normal. Basilar cisterns are patent. There are no extra-axial collections. Bernal-white differentiation is maintained. There are no findings to suggest acute dural sinus thrombosis or acute territorial infarct. There are no significant calvarial abnormalities. Trace fluid within the right mastoid air cells is noted. Paranasal sinuses are better depicted on the sinus CT. IMPRESSION: No acute intracranial findings. CHEST ONE VIEW PORTABLE CLINICAL HISTORY: Chest pain. COMPARISON STUDY: Chest radiograph March 01, 2017. FINDINGS: Lung volumes are normal. No pneumothorax or pleural effusion is present. There is no consolidation to suggest pneumonia. Mild cardiomegaly is unchanged. There is no evidence of pulmonary edema. IMPRESSION: 1. No acute cardiopulmonary findings. 2. Mild cardiomegaly without evidence of pulmonary edema. Electronically signed by: Jalen Malik M.D. Consultation: A consultation was placed with the hospitalist, Dr. Jerome. The case was discussed and diagnostics were reviewed. The patient was evaluated in the ER for further treatment. Exam and history seem consistent chest pain, nausea and fatigue. No recent stress test or echo. Patient states this was different from her asthma and reflux. She'll be evaluated by medicine for possible admission.By the evaluation outlined above emergent etiologies such as aortic dissection, pulmonary embolism, pneumonia, pneumothorax, infections, pericarditis, myocarditis, gastrointestinal, as well as others were deemed relatively unlikely. The pt informed about the findings as listed above. All questions were answered and pleased with the treatment. Case reviewed with my attending. Medical Decision As above Medication Reconcilliation Current Medication List: was personally reviewed by me Blood Pressure Screening Patient's blood pressure: Normal blood pressure Impression Primary Impression: Chest pain Additional Impressions: Anemia Hypokalemia Departure Information Dispostion Being Evaluated By Hospitalist Condition FAIR Referrals Homer Herrera III, CRNP (PCP) Forms HOME CARE DOCUMENTATION FORM, IMPORTANT VISIT INFORMATION Patient Instructions My [facility] Problem Qualifiers Primary Impression: Chest pain Chest pain type: precordial pain Qualified Codes: R07.2 - Precordial pain
[2017-04-16] MEDS ORDERED: IV FLUIDS COMPLETED PRN (05:00)
[2017-04-16] MEDS ORDERED: LEVOTHYROXINE 112 MCG TAB PO SCH (06:30)
[2017-04-16 07:10] VITALS: BP 134/75; PULSE 62; TEMP 36.4; O2SAT 98
[2017-04-16] MEDS ORDERED: FUROSEMIDE 20 MG TAB PO SCH (09:00)
[2017-04-16] MEDS ORDERED: TOPIRAMATE 25 MG TAB PO SCH (09:00)
[2017-04-16] MEDS ORDERED: POLYETHYLENE (MIRALAX) 17 GM PACK PO SCH (09:00)
[2017-04-16] MEDS ORDERED: FLUTICASONE HFA 110MCG INHALER INH SCH (09:00)
[2017-04-16] MEDS ORDERED: MONTELUKAST SOD 10 MG TAB PO SCH (09:00)
[2017-04-16] MEDS ORDERED: PANTOprazole SOD 40 MG TAB PO SCH (09:00)
[2017-04-16] MEDS ORDERED: RIVAROXABAN 20 MG TAB PO SCH (09:00)
[2017-04-16] MEDS ORDERED: LOSARTAN POTASSIUM 25 MG TAB PO SCH (09:00)
[2017-04-16] MEDS ORDERED: CHOLECALCIFEROL 1000 INTER.UNIT TAB PO SCH (09:00)
[2017-04-16] MEDS ORDERED: VERAPAMIL HCL 240 MG TABCR PO SCH (09:00)
[2017-04-16] MEDS ORDERED: FLECAINIDE ACETATE 100 MG TAB PO SCH (09:00)
[2017-04-16] MEDS ORDERED: DULOXETINE HCL 60 MG CAP PO SCH (09:00)
[2017-04-16] MEDS ORDERED: FENOFIBRATE 145 MG TAB PO SCH (09:00)
[2017-04-16 09:09] LABS: BLOOD UREA NITROGEN 17 mg/dl (7-18); BUN/CREATININE RATIO 20.1 (10-20); CALCIUM 9.3 mg/dl (8.5-10.1); CARBON DIOXIDE 27 mmol/L (21-32); CHLORIDE 112 mmol/L (98-107); CKMB/CK RATIO 2.1 (0-3.0); CREATININE 0.84 mg/dl (0.60-1.20); GLUCOSE 93 mg/dl (70-99); POTASSIUM 4.1 mmol/L (3.5-5.1); SODIUM 143 mmol/L (136-145)
[2017-04-16] MEDS ORDERED: PERFLUTREN LIPID MICROSPHERE (DEFINITY) IV ONE (09:26)
--- NOTE | 2017-04-16 10:14 | Cardiology Consultation ---
Cardiology Consultation Date of Consultation: Apr 16, 2017. Requesting Physician: Dr. Lou Attending Physician: Dr. Zuluaga Reason for Consultation: Chest pain Pt evaluation today including: conversation w/ patient, physical exam, chart review, lab review, review of studies, review of inpatient medication list, conversation w/ attending History of Present Illness Ms. Lanier is a 61-year-old female with a history of paroxysmal atrial fibrillation status post ablation, hypertension, and dyslipidemia who presented to the Emergency Department yesterday with complaints of dizziness, vomiting, diarrhea, and unexplained weight loss. She reports that her symptoms have been ongoing for the last several months, but they have been worsening in nature. Her dizziness is described as feeling as though she is moving, and her symptoms are worse when she is up walking. She is scheduled to have an EGD in the near future for her GI complaints and was actually scheduled for pre-op clearance in our office today prior to the procedure. She reports that over the last 3 days, she has also noted intermittent stabbing pain across the center of her chest, under her right breast, and occasional into her left shoulder and under her left armpit. The discomfort occurs at rest and lasts seconds in duration. She denies exertional chest pain. She notes occasional shortness of breath with walking up the stairs in her house, but this does not occur every time she walks up the stairs. She denies orthopnea or PND. She notes mild dependent edema , which resolves with elevating her legs. She notes occasional "extra beats," but she denies any sustained palpitations or symptoms of recurrent atrial fibrillation. She notes episodes where she "blacks out" and cannot remember what she just did. This occurred recently when she was filling out a crossword puzzle as well as when filling her pill container. She has never had a syncopal event where she has fallen and injured herself. She denies abnormal bleeding. Review of Systems: As noted in HPI. All other ROS reviewed and otherwise negative. Past Medical/Surgical History 1. Paroxysmal atrial fibrillation (S/P ablation in 2010 and again in 2011 due to recurrence) 2. Asthma 3. GERD 4. Dyslipidemia 5. Hypertension 6. Hypothyroidism 7. Migraine headaches 8. Restless leg syndrome 9. Meniere's disease 10. S/P Breast reduction surgery 2004 11. S/P Left total knee arthroplasty 2008 12. S/P Lumbar laminectomy 1991 13. S/P Ovarian cystectomy 1975 14. S/P Cholecystectomy 2015 15. S/P Appendectomy 1975 Family History Diabetes mellitus FH: CHF (congestive heart failure) FHx: cancer FHx: lung disease Hypertension Kidney disease Kidney stones Seizures No family history of premature CAD. Social History Smoking Status: Never Smoker History of Alcohol Use: No She is . She has no children. She works as a home health nurse. She denies smoking or illicit drug use. She notes rare alcohol use. Allergies Coded Allergies: Codeine (Verified Allergy, Severe, HIVES, 04/12/17) ANAPHYLAXIS PER PT OK WITH MORPHINE AND DEMEROL? Iodinated Diagnostic Agents (Verified Allergy, Severe, HIVES, 04/12/17) Ketorolac (Verified Allergy, Severe, ITCHING, 04/12/17) PER PATIENT, SHE IS FINE TO TAKE IBUPROFEN Shellfish (Verified Allergy, Severe, ANAPHYLAXIS, 04/12/17) Shrimp (Verified Allergy, Severe, ANAPHYLAXIS, 04/12/17) Barium Sulfate (Verified Allergy, Unknown, itching rash, 04/12/17) Iodine (Verified Allergy, Unknown, ANAPHYLAXIS, 04/12/17) Morphine (Verified Allergy, Unknown, ITCHING, 04/12/17) Penicillins (Verified Allergy, Unknown, ITCHING/HIVES, 04/12/17) Medications Current Inpatient Medications Medications (Trade) Dose Ordered Sig/Jax Route Start Time Stop Time Status Last Admin Dose Admin Acetaminophen (Tylenol Tab) 650 mg Q4H PRN PO 04/16/17 00:45 05/16/17 00:44 Nitroglycerin (Nitrostat Tab) 0.4 mg UD PRN SL 04/16/17 00:45 05/16/17 00:44 Albuterol Sulfate (Ventolin 0.083% 2.5MG/3ML Neb) 2.5 mg QID PRN INH 04/16/17 00:45 05/16/17 00:44 Docusate Sodium (coLACE CAP) 100 mg QPM PO 04/16/17 21:00 05/16/17 20:59 Duloxetine HCl (Cymbalta Cap) 60 mg QAM PO 04/16/17 09:00 05/16/17 08:59 Fenofibrate (Tricor Tab) 145 mg QAM PO 04/16/17 09:00 05/16/17 08:59 Flecainide Acetate (Tambocor Tab) 100 mg Q12 PO 04/16/17 09:00 05/16/17 08:59 Fluticasone Propionate (Flovent Hfa 110MCG Inhaler) 1 puffs BID INH 04/16/17 09:00 05/16/17 08:59 Levalbuterol (Xopenex Hfa Inhaler) 2 puffs Q6H PRN INH 04/16/17 00:45 05/16/17 00:44 Levothyroxine Sodium (Synthroid Tab) 112 mcg DAILYBB PO 04/16/17 06:30 05/16/17 06:59 04/16/17 06:20 112 MCG Montelukast Sodium (Singulair Tab) 10 mg QAM PO 04/16/17 09:00 05/16/17 08:59 Oxycodone HCl (Roxicodone Immediate Rel Tab) 5 mg Q4H PRN PO 04/16/17 00:45 04/30/17 00:44 Potassium Chloride (Klor-Con M10) 10 meq HS PO 04/16/17 21:00 05/16/17 20:59 Pyridoxine HCl (Vitamin B-6 Tab) 100 mg QPM PO 04/16/17 21:00 05/16/17 20:59 Ranitidine HCl (zANTac TAB) 150 mg HS PO 04/16/17 21:00 05/16/17 20:59 Rivaroxaban (Xarelto Tab) 20 mg QAM PO 04/16/17 09:00 05/16/17 08:59 Ropinirole HCl (Requip Tab) 0.5 mg HS PO 04/16/17 21:00 05/16/17 20:59 Topiramate (Topamax Tab) 25 mg BID PO 04/16/17 09:00 05/16/17 08:59 Verapamil HCl (Calan-Sr Tab) 240 mg BID PO 04/16/17 09:00 05/16/17 08:59 Psyllium Hydrophilic Mucilloid (Metamucil Powder) 1 pkt HS PO 04/16/17 21:00 05/16/17 20:59 Cholecalciferol (Vitamin D Tab) 5,000 inter.unit QAM PO 04/16/17 09:00 05/16/17 08:59 Pantoprazole Sodium (Protonix Tab) 40 mg QAM PO 04/16/17 09:00 05/16/17 08:59 Polyethylene (Miralax Powder Packet) 17 gm DAILY PO 04/16/17 09:00 05/16/17 08:59 Ondansetron HCl (Zofran Inj) 4 mg Q6H PRN IV 04/16/17 00:45 05/16/17 00:44 Miscellaneous (Iv Fluids Completed) 1 ea PRN PRN N/A 04/16/17 05:00 04/16/18 04:59 Physical Exam Vital Signs Past 12 Hours Date Time Temp Pulse Resp B/P (MAP) Pulse Ox O2 Delivery O2 Flow Rate FiO2 04/16/17 07:50 Room Air 04/16/17 07:10 36.4 62 18 134/75 (94) 98 Room Air 04/16/17 04:05 95 Room Air 04/16/17 02:08 36.5 64 16 112/68 95 Room Air 04/16/17 01:28 62 15 106/50 96 04/16/17 01:04 62 15 106/50 96 Room Air 04/15/17 23:00 66 15 99/53 96 Room Air 04/15/17 22:00 Room Air Constitutional: Alert, oriented, in no acute distress HEENT: Head is atraumatic and normocephalic. EOMs intact. Sclera anicteric. Face is symmetric. No perioral cyanosis. Mucous membranes moist. Neck: Supple, no JVD, no carotid bruits Pulmonary: Normal respiratory effort, clear to auscultation bilaterally Cardiac: Regular rate and rhythm, normal S1 and S2, no gallops, no rubs, no murmurs Extremities: No clubbing, cyanosis, or edema. Pulses intact Abdomen: Normal bowel sounds, soft, non-tender, no abdominal mass palpated Skin: Normal skin color, turgor, and pigmentation, no rash, no skin lesions Neurological: Oriented to person, place, and time Data Laboratory Results: Last 24 Hours Test 04/15/17 22:10 04/15/17 22:25 04/16/17 08:28 Urine Color YELLOW Urine Appearance CLEAR Urine pH 6.5 Urine Specific [place] 1.018 Urine Protein NEG Urine Glucose (UA) NEG Urine Ketones NEG Urine Occult Blood NEG Urine Nitrite NEG Urine Bilirubin NEG Urine Urobilinogen POS Urine Leukocyte Esterase TRACE Urine WBC (Auto) 1-5 /hpf Urine RBC (Auto) 0-4 /hpf Urine Hyaline Casts (Auto) 1-5 /lpf Urine Epithelial Cells (Auto) 5-10 /lpf Urine Bacteria (Auto) NEG Urine Crystals CALCIUM OXALATE White Blood Count 3.98 K/uL Red Blood Count 3.91 M/uL Hemoglobin 11.6 g/dL Hematocrit 35.2 % Mean Corpuscular Volume 90.0 fL Mean Corpuscular Hemoglobin 29.7 pg Mean Corpuscular Hemoglobin Concent 33.0 g/dl Platelet Count 284 K/uL Mean Platelet Volume 10.0 fL Neutrophils (%) (Auto) 48.0 % Lymphocytes (%) (Auto) 38.9 % Monocytes (%) (Auto) 9.8 % Eosinophils (%) (Auto) 2.8 % Basophils (%) (Auto) 0.5 % Neutrophils # (Auto) 1.91 K/uL Lymphocytes # (Auto) 1.55 K/uL Monocytes # (Auto) 0.39 K/uL Eosinophils # (Auto) 0.11 K/uL Basophils # (Auto) 0.02 K/uL RDW Standard Deviation 44.2 fL RDW Coefficient of Variation 13.5 % Immature Granulocyte % (Auto) 0.0 % Immature Granulocyte # (Auto) 0.00 K/uL Sodium Level 139 mmol/L 143 mmol/L Potassium Level 3.4 mmol/L 4.1 mmol/L Chloride Level 108 mmol/L 112 mmol/L Carbon Dioxide Level 24 mmol/L 27 mmol/L Anion Gap 7.0 mmol/L 4.0 mmol/L Blood Urea Nitrogen 24 mg/dl 17 mg/dl Creatinine 1.24 mg/dl 0.84 mg/dl Est Creatinine Clear Calc Drug Dose 49.0 ml/min 71.9 ml/min Estimated GFR () 53.9 86.3 Estimated GFR (Non- 46.5 74.5 BUN/Creatinine Ratio 19.1 20.1 Random Glucose 115 mg/dl 93 mg/dl Calcium Level 8.4 mg/dl 9.3 mg/dl Magnesium Level 1.9 mg/dl Total Bilirubin 0.3 mg/dl Direct Bilirubin 0.1 mg/dl Aspartate Amino Transf (AST/SGOT) 24 U/L Alanine Aminotransferase (ALT/SGPT) 27 U/L Alkaline Phosphatase 61 U/L Troponin I < 0.015 ng/ml < 0.015 ng/ml Total Protein 6.0 gm/dl Albumin 3.4 gm/dl Lipase 159 U/L Thyroid Stimulating Hormone (TSH) 2.500 uIu/ml Total Creatine Kinase 168 U/L Creatine Kinase MB 3.5 ng/ml Creatine Kinase MB Ratio 2.1 CXR: No acute cardiopulmonary findings. Mild cardiomegaly without evidence of pulmonary edema. EKG: Sinus rhythm with first degree AV block. Low voltage QRS. Nonspecific ST and T wave abnormality. When compared to prior EKGs, no significant change Telemetry reviewed: Sinus rhythm Assessment & Plan ASSESSMENT/PLAN: 1. Chest pain: Her pain is atypical in that it occurs at rest and lasts only seconds in duration. She denies any exertional chest pain or limiting cardiopulmonary symptoms. Her cardiac enzymes have been negative. EKG shows nonspecific ST and T wave changes, but is overall unchanged from her prior EKGs. She had an echocardiogram today, and the results are pending. As long as there are no changes with her echocardiogram, no additional cardiovascular testing or intervention is recommended at this time. 2. Paroxysmal atrial fibrillation: She has been in sinus rhythm throughout her hospitalization, and she has had no recurrences of her arrhythmia to the best of her knowledge. Continue Flecainide 100 mg BID as well as Verapamil 240 mg daily. Continue Xarelto for thromboembolic prophylaxis. She may hold anticoagulation therapy for 2 days prior to her upcoming EGD as noted below. 3. Pre-op: The patient is scheduled an upcoming EGD. She appears stable and asymptomatic from a cardiovascular standpoint and is at an acceptable risk to proceed with her upcoming procedure. She may hold her Xarelto for 2 days prior to the procedure and resume once safe from a surgical standpoint. Thank you for allowing us to see this patient in consultation. The patient was discussed with Dr. Zuluaga, and the plan was made in collaboration with him.
--- NOTE | 2017-04-16 10:55 | ECHOCARDIOGRAM REPORT ---
*NOTICE TO RECEIVING CONSTITUTION PARTY AGENCY This information is strictly Confidential and protected under [place] law. [place] law prohibits you from making any further disclosure of this information unless further disclosure is expressly permitted by the written consent of the person to whom it pertains or is authorized by law. A general authorization for the release of medical or other information is not sufficient for this purpose. Hospital accepts no responsibility if the information is made available to any other person, INCLUDING THE PATIENT. Interpretation Summary * Name: CLAUDE BARR Study Date: 04/16/2017 07:20 AM BP: 112/112 mmHg * Patient Location: [facility]\S\N276\S\2 HR: 64 * : 1955 (M/d/yyyy) Gender: Female Height: 62 in * Age: 61 yrs Ethnicity: [place] Weight: 195 lb * Ordering Physician: Eamon Shafer * Referring Physician: Self, Referred * Performed By: Grisel Coffman RDCS * * Reason For Study: CHEST PAIN * BSA: 1.9 m2 * -- Conclusions -- * Left ventricular systolic function is normal. * No segmental left ventricular wall motion abnormalities are noted. * Ejection Fraction = 60-65%. * No significant valvular pathology. Procedure Details * A contrast injection of Definity was performed to improve assessment of LV function. * Contrast was injected into an intravenous site in the left arm. * One vial of Definity ultrasound contrast was diluted in normal saline to a total volume of 10 ml. A total of '2' ml of solution was administered during imaging. * Lot # [id number] of Definity utilized for procedure. * Expiration date APR 14. * The attending nurse who injected the contrast agent was LINO HOPSON RN. Left Ventricle * The left ventricle is normal in size. * There is normal left ventricular wall thickness. * Ejection Fraction = 60-65%. * Left ventricular systolic function is normal. * No segmental left ventricular wall motion abnormalities are noted. Right Ventricle * The right ventricle is grossly normal size. * The right ventricular systolic function is normal as assessed by tricuspid annular plane systolic excursion (TAPSE) (normal >1.5 cm). Atria * The left atrium is mildly dilated. * Right atrium not well visualized. * There is no evidence of atrial septal defect, but resolution does not allow assessment for a patent foramen ovale. Mitral Valve * The mitral valve anatomy is normal. * There is no mitral valve stenosis. * There is mild mitral regurgitation. Tricuspid Valve * The tricuspid valve anatomy is normal. * There is no tricuspid stenosis. * Significant tricuspid regurgitation is absent. Aortic Valve * The aortic valve is not well visualized. * The aortic valve opens well. * No hemodynamically significant valvular aortic stenosis. * Trace aortic regurgitation. Pulmonic Valve * The pulmonary valve is not well seen, but the Doppler examination is normal without significant regurgitation or stenosis. Great Vessels * The aortic root is normal size. * The pulmonary is not well visualized. Pericardium/Pleural * There is no pericardial effusion. Great Vessels * Normal inferior vena cava size and collapsability with sniff indicates a normal right atrial pressure of 3 mmHg MMode 2D Measurements and Calculations IVSd 1.3 cm IVSs 2.0 cm LVIDd 4.9 cm LVIDs 3.2 cm LVPWd 1.2 cm LVPWs 1.8 cm IVS/LVPW 1.1 FS 33.7 % EDV(Teich) 110.5 ml ESV(Teich) 41.6 ml EF(Teich) 62.3 % EDV(cubed) 114.5 ml ESV(cubed) 33.4 ml EF(cubed) 70.8 % % IVS thick 52.1 % % LVPW thick 47.9 % LV mass(C)d 244.6 grams LV mass(C)dI 129.3 grams/m\S\2 LV mass(C)s 265.8 grams LV mass(C)sI 140.6 grams/m\S\2 SV(Teich) 68.8 ml SI(Teich) 36.4 ml/m\S\2 SV(cubed) 81.1 ml SI(cubed) 42.9 ml/m\S\2 Ao root diam 3.1 cm Ao root area 7.4 cm\S\2 LA dimension 4.0 cm LA/Ao 1.3 LVAd ap4 27.1 cm\S\2 LVLd ap4 8.0 cm EDV(MOD-sp4) 74.0 ml EDV(sp4-el) 78.3 ml LVAs ap4 15.8 cm\S\2 LVLs ap4 7.0 cm ESV(MOD-sp4) 30.0 ml ESV(sp4-el) 30.5 ml EF(MOD-sp4) 59.4 % EF(sp4-el) 61.1 % LVAd ap2 31.5 cm\S\2 LVLd ap2 8.4 cm EDV(MOD-sp2) 98.6 ml EDV(sp2-el) 100.3 ml LVAs ap2 17.3 cm\S\2 LVLs ap2 7.2 cm ESV(MOD-sp2) 36.8 ml ESV(sp2-el) 35.2 ml EF(MOD-sp2) 62.7 % EF(sp2-el) 64.9 % LVLd %diff 5.1 % EDV(MOD-bp) 84.7 ml LVLs %diff 2.6 % ESV(MOD-bp) 32.7 ml EF(MOD-bp) 61.4 % SV(MOD-sp4) 44.0 ml SI(MOD-sp4) 23.2 ml/m\S\2 SV(MOD-sp2) 61.8 ml SI(MOD-sp2) 32.7 ml/m\S\2 SV(MOD-bp) 52.0 ml SI(MOD-bp) 27.5 ml/m\S\2 SV(sp4-el) 47.9 ml SI(sp4-el) 25.3 ml/m\S\2 SV(sp2-el) 65.1 ml SI(sp2-el) 34.4 ml/m\S\2 Doppler Measurements and Calculations MV E max elmira 84.2 cm/sec MV A max elmira 46.4 cm/sec MV E/A 1.8 MV dec time 0.25 sec Ao V2 max 140.4 cm/sec Ao max PG 7.9 mmHg Ao max PG (full) 3.2 mmHg AI max elmira 335.6 cm/sec AI max PG 45.0 mmHg AI dec slope 120.1 cm/sec\S\2 AI P1/2t 818.4 msec LV V1 max PG 4.7 mmHg LV V1 max 108.6 cm/sec
[2017-04-16 11:15] VITALS: BP 119/72; PULSE 65; TEMP 36.7; O2SAT 97
--- NOTE | 2017-04-16 11:51 | Discharge Instructions ---
Discharge Instructions Date of Service Apr 16, 2017. Admission Reason for Admission: Precordial Chest Pain Discharge Discharge Diagnosis / Problem: Chest pain rule out ACS Discharge Goals Goal(s): Decrease discomfort, Improve function, Increase independence, Improve disease control, Learn about illness, Diagnostic testing, Therapeutic intervention, Prevent Disease Progression Activity Recommendations Activity Limitations: resume your previous activity Exercise/Sports Limitations: as tolerated . Instructions / Follow-Up Instructions / Follow-Up Patient to be discharged home ECHO ultrasound did not determine any cardiac cause for pain Pain is atypical in nature and likely related to muscle pain or reflux Please resume all home medications Please follow up with Homer Herrera in 1-2 weeks Current Hospital Diet Patient's current hospital diet: AHA Diet (Heart Healthy) Discharge Diet Recommended Diet: AHA Diet (Heart Healthy) Pending Studies Studies pending at discharge: no Medical Emergencies . Who to Call and When: Medical Emergencies: If at any time you feel your situation is an emergency, please call 911 immediately. . Non-Emergent Contact Non-Emergency issues call your: Primary Care Provider Call Non-Emergent contact if: your pain is worsening . . "Provider Documentation" section prepared by Benjamin Lou. . VTE Core Measure Inpt VTE Proph given/why not?: Other Anticoagulation, SCD's
[2017-04-16 12:34] VITALS: BP 119/72; PULSE 65; TEMP 36.7; O2SAT 97
--- NOTE | 2017-04-16 13:51 | Discharge Summary ---
Discharge Summary Date of Service Apr 16, 2017. Discharge Summary Admission Date: Apr 16, 2017 at 00:33 Discharge Date: Apr 16, 2017 Discharge Disposition: Home Principal Diagnosis: chest pain rule out ACS Immunizations: Have You Had Influenza Vaccine: Yes Influenza Vaccine Date: Apr 14, 2013 History of Tetanus Vaccine?: Yes Tetanus Immunization Date: Jun 14, 2006 History of Pneumococcal: Yes Pneumococcal Date: Jun 14, 2012 History of Hepatitis B Vaccine: Yes Hepatitis Immunization Date: Jun 14, 2011 Procedures: ECHO Consultations: Cardiology Medication Reconciliation Continued Medications: Albuterol Sulf (Proventil 0.083% 2.5MG/3ML) 2.5 Mg/3 Ml Nebu 2.5 MG INH QID PRN for SOB/Wheezing Cholecalciferol (Vitamin D3) 5,000 Unit Cap 1 CAP PO QAM Docusate Sodium (Docusate Sodium) 100 Mg Cap 100 MG PO QPM Duloxetine HCl (Duloxetine HCl) 60 Mg Cap 60 MG PO QAM Fenofibrate (Fenofibrate) 145 Mg Tab 145 MG PO QAM Flecainide Acetate (Flecainide Acetate) 100 Mg Tab 100 MG PO Q12 Fluticasone Propionate (Flovent Hfa) 120 Puffs/01256 Mcg Aero 1 PUFF INH BID Furosemide (Furosemide) 20 Mg Tab 20 MG PO QAM Levalbuterol Tartrate (Levalbuterol Tartrate Hfa) 45 Mcg/Act Aer 2 PUFFS INH Q6H PRN for Shortness of Breath Levothyroxine Sodium (Levothyroxine Sodium) 112 Mcg Tab 112 MCG PO QAM Losartan Potassium (Losartan Potassium) 25 Mg Tab 12.5 MG PO QAM Montelukast Sod (Montelukast Sodium) 10 Mg Tab 10 MG PO QAM Omeprazole (Prilosec) 40 Mg Cap 40 MG PO QAM Oxycodone Immediate Rel Tab (Roxicodone Ir) 5 Mg Tab 1-2 TAB PO Q4H PRN for Severe Pain, #14 TAB Polyethylene (Polyethylene Glycol 3350) 527 Gm Soln 17 GM PO QAM Potassium Chloride (Potassium Chloride Sr) 10 Meq Tab 10 MEQ PO HS Psyllium (Metamucil) 48.57 % Pow 1 TSP PO HS Pyridoxine (Vitamin B6) 100 Mg Tab 100 MG PO QPM Ranitidine Hcl (Zantac) 150 Mg Tab 150 MG PO HS Rivaroxaban (Xarelto) 20 Mg Tab 20 MG PO QAM Ropinirole Hydrochloride (Requip) 0.5 Mg Tab 0.5 MG PO HS Topiramate (Topiramate) 25 Mg Tab 25 MG PO BID Verapamil HCl (Verapamil HCl ER) 240 Mg Tabcr 240 MG PO BID Discharge Exam Review of Systems: Constitutional: No fever, No chills, No sweats, No weight loss, No weakness Eyes: No worsening of vision, No eye pain, No redness, No discharge Respiratory: No cough, No sputum, No wheezing, No shortness of breath, No dyspnea on exertion, No dyspnea at rest Cardiovascular: No chest pain, No orthopnea, No PND, No edema Abdomen: No pain, No nausea, No vomiting, No diarrhea, No constipation Musculoskeletal: No joint pain, No muscle pain, No swelling, No calf pain Genitourinary - Female: No dysuria, No urinary frequency, No urinary urgency , No urinary incontinence Neurologic: No memory loss, No paralysis, No weakness, No numbness/tingling Psychiatric: No depression symptoms, No anhedonism, No anxiety, No insomnia Endocrine: No fatigue, No excessive thirst, No excessive urination Integumentary: No rash, No itch Physical Exam: General Appearance: WD/WN, no apparent distress Eyes: normal inspection, PERRL, EOMI, sclerae normal ENT: normal ENT inspection, hearing grossly normal, TMs normal, pharynx normal Neck: supple, no adenopathy, thyroid normal, no JVD Respiratory/Chest: chest non-tender, lungs clear, normal breath sounds, no respiratory distress Cardiovascular: regular rate, rhythm, no edema, no gallop, no JVD, no murmur Abdomen / GI: normal bowel sounds, non tender, soft, no organomegaly Extremities: normal inspection, no calf tenderness, normal capillary refill , no pedal edema Neurologic/Psychiatric: no motor/sensory deficits, alert, normal mood/affect , oriented x 3 Skin: normal color, warm/dry, no rash Lymphatic: no adenopathy Hospital Course Pt presents with chest pain for several days, states at rest and lasting for only a few seconds at a time Atypical chest pain, EKG reported anterior lead inversions. Trops x 3 sets WNL. Pt denies any further chest pain throughout hospital course. Cont pts home regimen of ASA, lasix, losartan, verapamil and xarelto. No arrythmias noted on tele. ECHO completed, No WMA, EF 60-65%. Afib with hx of ablation, rate controlled, cont xarelto and varpmil Asthma continue Flovent HFA, Xopenex HFA, and Singulair. Albuterol high flow nebulizers when necessary. Hyperlipidemia continue fenofibrate. Hypothyroidism continue levothyroxine. GERD continue pantoprazole and ranitidine. Restless leg syndrome continue ropinirole. Headache/myalgias continue duloxetine and Topamax. Oxycodone when necessary Pt is FULL CODE Total Time Spent: Greater than 30 minutes This includes examination of the patient, discharge planning, medication reconciliation, and communication with other providers. Discharge Instructions Please refer to the electronic Patient Visit Report (Discharge Instructions) for additional information. Additional Copies To Homer Herrera III, CRNP
[2017-04-16] MEDS ORDERED: RANITIDINE HCL 150 MG TAB PO SCH (21:00)
[2017-04-16] MEDS ORDERED: DOCUSATE SODIUM 100 MG CAP PO SCH (21:00)
[2017-04-16] MEDS ORDERED: PYRIDOXINE HCL 50 MG TAB PO SCH (21:00)
[2017-04-16] MEDS ORDERED: POTASSIUM CHLORIDE 10 MEQ TABCR PO SCH (21:00)
[2017-04-16] MEDS ORDERED: ROPINIROLE HCL 0.25 MG TAB PO SCH (21:00)
[2017-04-16] MEDS ORDERED: PSYLLIUM 58.6% PWD PACK S\\F PO SCH (21:00)
== END 2017-04-16 16:25 | disposition home or self-care (01) ==
LOC: EDBD 21:31 → C.EDB 21:32 → C.MED 04-16 00:33 → ENRESERV 04-16 01:10
PROVIDERS: ADMIT Hospitalist; ATTEND Hospitalist
DX: R07.9 Chest pain, unspecified (principal); I48.0 Paroxysmal atrial fibrillation; J45.909 Unspecified asthma, uncomplicated; E78.5 Hyperlipidemia, unspecified; E03.9 Hypothyroidism, unspecified; K21.9 Gastro-esophageal reflux disease without esophagitis; G25.81 Restless legs syndrome; H81.09 Meniere's disease, unspecified ear; E66.01 Morbid (severe) obesity due to excess calories; Z79.01 Long term (current) use of anticoagulants; Z79.899 Other long term (current) drug therapy; Z98.890 Other specified postprocedural states; Z96.652 Presence of left artificial knee joint; Z88.0 Allergy status to penicillin; Z91.013 Allergy to seafood; Z88.5 Allergy status to narcotic agent; Z90.49 Acquired absence of other specified parts of digestive tract; Z90.89 Acquired absence of other organs; Z83.3 Family history of diabetes mellitus; Z82.49 Family history of ischemic heart disease and other diseases of the circulatory system; Z84.1 Family history of disorders of kidney and ureter; Z83.6 Family history of other diseases of the respiratory system; Z82.0 Family history of epilepsy and other diseases of the nervous system

== ENCOUNTER → 2017-04-27 | Day surgery (SDC) | payer OTHER ==
[2017-04-12 15:28] VITALS: Ht 157.5 cm; Wt 88.2 kg
[~2017-04-27] VITALS: Ht 157.5 cm; Wt 88.2 kg
[~2017-04-27] MED LIST changes: +LIDOCAINE HCL 2% 2 ML VIAL (20MG/ML) ONE; +MIDAZOLAM HCL 1 MG/ML 2ML VIAL ONE; +ONDANSETRON INJ 2 MG/ML 2 ML VIAL ONE; +PROPOFOL IV EMULSION 10 MG/ML 20 ML VIAL IV ONE; +SODIUM CHLORIDE 0.9% 500ML 500 ML IV ONE
[2017-04-27 10:45] VITALS: TEMP 36.3
--- NOTE | 2017-04-27 11:05 | Endo History and Physical ---
History & Physical Date of Service: Apr 27, 2017. Chief Complaint: GERD, Weight loss, Nausea Referring Physician: Dr. Herrera History of Present Illness 61 yo CF who presents for EGD secondary to GERD, Weight loss and Nausea. Past Medical History Atrial Fibrillation, Arthritis, Asthma, Gastrointestinal Disorder, Anxiety, Reflux, Cancer, Hypertension, Thyroid Disease Past Surgical History Hx Cardiac Surgery: Yes (CARDIAC ABLATION X2, HEART CATH NO STENTS) Hx Internal Defibrillator: No Hx Pacemaker: No Hx Abdominal Surgery: Yes (PIEDAD BSO 95) Hx of Implantable Prosthesis: No Hx Post-Op Nausea and Vomiting: No Hx Cancer Surgery: Yes (BCC REMOVALS) Hx Thoracic Surgery: No Hx Orthopedic: Yes (L5 DISCECTOMY 92, LT TKA 2012) Hx Urinary Tract Surgery: No Family History Colon CA, Esophogeal CA, Polyp, IBD Social History Smoking Status: Never Smoker Hx Substance Use: No Hx Alcohol Use: No Allergies Coded Allergies: Codeine (Verified Allergy, Severe, HIVES, 04/27/17) ANAPHYLAXIS PER PT OK WITH MORPHINE AND DEMEROL? Iodinated Diagnostic Agents (Verified Allergy, Severe, HIVES, 04/27/17) Ketorolac (Verified Allergy, Severe, ITCHING, 04/27/17) PER PATIENT, SHE IS FINE TO TAKE IBUPROFEN Shellfish (Verified Allergy, Severe, ANAPHYLAXIS, 04/27/17) Shrimp (Verified Allergy, Severe, ANAPHYLAXIS, 04/27/17) Barium Sulfate (Verified Allergy, Unknown, itching rash, 04/27/17) Iodine (Verified Allergy, Unknown, ANAPHYLAXIS, 04/27/17) Morphine (Verified Allergy, Unknown, ITCHING, 04/27/17) Penicillins (Verified Allergy, Unknown, ITCHING/HIVES, 04/27/17) Current Medications Reported Home Medications Medications Dose Route/Sig Max Daily Dose Days Date Category Vitamin D3 (Cholecalciferol) 5,000 Unit Cap 1 Cap PO QAM 04/12/17 Reported Roxicodone Ir (Oxycodone HCl) 5 Mg Tab 1-2 Tab PO Q4H PRN 03/01/17 Rx Xarelto (Rivaroxaban) 20 Mg Tab 20 Mg PO QAM 03/01/17 Reported Potassium Chloride Sr (Potassium Chloride) 10 Meq Tab 10 Meq PO HS 03/01/17 Reported Montelukast Sodium (Montelukast Sod) 10 Mg Tab 10 Mg PO QAM 03/01/17 Reported Flecainide Acetate 100 Mg Tab 100 Mg PO Q12 03/01/17 Reported Verapamil HCl ER (Verapamil HCl) 240 Mg Tabcr 240 Mg PO BID 03/01/17 Reported Requip (Ropinirole Hydrochloride) 0.5 Mg Tab 0.5 Mg PO HS 03/01/17 Reported Fenofibrate 145 Mg Tab 145 Mg PO QAM 03/01/17 Reported Furosemide 20 Mg Tab 20 Mg PO QAM 03/01/17 Reported Levothyroxine Sodium 112 Mcg Tab 112 Mcg PO QAM 03/01/17 Reported Polyethylene Glycol 3350 (Polyethylene) 527 Gm Soln 17 Gm PO QAM 03/01/17 Reported Zantac (Ranitidine HCl) 150 Mg Tab 150 Mg PO HS 01/22/17 Reported Metamucil (Psyllium) 48.57 % Pow 1 Tsp PO HS 01/22/17 Reported Levalbuterol Tartrate Hfa (Levalbuterol Tartrate) 45 Mcg/Act Aer 2 Puffs INH Q6H PRN 01/22/17 Reported Flovent Hfa (Fluticasone Propionate) 120 Puffs/22140 Mcg Aero 1 Puff INH BID 01/22/17 Reported Vitamin B6 (Pyridoxine HCl) 100 Mg Tab 100 Mg PO QPM 01/22/17 Reported Proventil 0.083% 2.5MG/3ML (Albuterol Sulf) 2.5 Mg/3 Ml Nebu 2.5 Mg INH QID PRN 01/22/17 Reported Topiramate 25 Mg Tab 25 Mg PO BID 10/21/16 Reported Prilosec (Omeprazole) 40 Mg Cap 40 Mg PO QAM 10/21/16 Reported Docusate Sodium 100 Mg Cap 100 Mg PO QPM 06/17/16 Reported Losartan Potassium 25 Mg Tab 12.5 Mg PO QAM 11/05/15 Reported Duloxetine HCl 60 Mg Cap 60 Mg PO QAM 11/05/15 Reported Vital Signs Weight (Kilograms): 88.18 Height (Feet): 5 Height (Inches): 2 Date Time Temp Pulse Resp B/P (MAP) Pulse Ox O2 Delivery O2 Flow Rate FiO2 04/27/17 10:45 36.3 72 16 142/70 (94) 97 Room Air Physical Exam General Appearance: WD/WN, no apparent distress Respiratory/Chest: Auscultation: breath sounds normal Cardiovascular: Heart Auscultation: RRR Abdomen: Bowel Sounds: normal Inspection & Palpation: soft, non-distended, no tenderness, guarding & rebound Assessment and Plan Assessment: 61 yo CF who presents for EGD secondary to GERD, Weight loss and Nausea. Plan: Proceed with EGD.
--- NOTE | 2017-04-27 12:07 | Discharge Instructions ---
Endoscopy Patient Instructions Date / Procedure(s) Performed Apr 27, 2017. EGD Allergy Information Coded Allergies: Codeine (Verified Allergy, Severe, HIVES, 04/27/17) ANAPHYLAXIS PER PT OK WITH MORPHINE AND DEMEROL? Iodinated Diagnostic Agents (Verified Allergy, Severe, HIVES, 04/27/17) Ketorolac (Verified Allergy, Severe, ITCHING, 04/27/17) PER PATIENT, SHE IS FINE TO TAKE IBUPROFEN Shellfish (Verified Allergy, Severe, ANAPHYLAXIS, 04/27/17) Shrimp (Verified Allergy, Severe, ANAPHYLAXIS, 04/27/17) Barium Sulfate (Verified Allergy, Unknown, itching rash, 04/27/17) Iodine (Verified Allergy, Unknown, ANAPHYLAXIS, 04/27/17) Morphine (Verified Allergy, Unknown, ITCHING, 04/27/17) Penicillins (Verified Allergy, Unknown, ITCHING/HIVES, 04/27/17) Discharge Date / Findings Apr 27, 2017. Gastric antrum biopsies Medication Instructions Stopped Medication(s): XARELTO LAST DOSE 04/24/17 OK to resume all medications today as prescribed Reported Home Medications Medications Dose Route/Sig Max Daily Dose Days Date Category Vitamin D3 (Cholecalciferol) 5,000 Unit Cap 1 Cap PO QAM 04/12/17 Reported Roxicodone Ir (Oxycodone HCl) 5 Mg Tab 1-2 Tab PO Q4H PRN 03/01/17 Rx Xarelto (Rivaroxaban) 20 Mg Tab 20 Mg PO QAM 03/01/17 Reported Potassium Chloride Sr (Potassium Chloride) 10 Meq Tab 10 Meq PO HS 03/01/17 Reported Montelukast Sodium (Montelukast Sod) 10 Mg Tab 10 Mg PO QAM 03/01/17 Reported Flecainide Acetate 100 Mg Tab 100 Mg PO Q12 03/01/17 Reported Verapamil HCl ER (Verapamil HCl) 240 Mg Tabcr 240 Mg PO BID 03/01/17 Reported Requip (Ropinirole Hydrochloride) 0.5 Mg Tab 0.5 Mg PO HS 03/01/17 Reported Fenofibrate 145 Mg Tab 145 Mg PO QAM 03/01/17 Reported Furosemide 20 Mg Tab 20 Mg PO QAM 03/01/17 Reported Levothyroxine Sodium 112 Mcg Tab 112 Mcg PO QAM 03/01/17 Reported Polyethylene Glycol 3350 (Polyethylene) 527 Gm Soln 17 Gm PO QAM 03/01/17 Reported Zantac (Ranitidine HCl) 150 Mg Tab 150 Mg PO HS 01/22/17 Reported Metamucil (Psyllium) 48.57 % Pow 1 Tsp PO HS 01/22/17 Reported Levalbuterol Tartrate Hfa (Levalbuterol Tartrate) 45 Mcg/Act Aer 2 Puffs INH Q6H PRN 01/22/17 Reported Flovent Hfa (Fluticasone Propionate) 120 Puffs/36679 Mcg Aero 1 Puff INH BID 01/22/17 Reported Vitamin B6 (Pyridoxine HCl) 100 Mg Tab 100 Mg PO QPM 01/22/17 Reported Proventil 0.083% 2.5MG/3ML (Albuterol Sulf) 2.5 Mg/3 Ml Nebu 2.5 Mg INH QID PRN 01/22/17 Reported Topiramate 25 Mg Tab 25 Mg PO BID 10/21/16 Reported Prilosec (Omeprazole) 40 Mg Cap 40 Mg PO QAM 10/21/16 Reported Docusate Sodium 100 Mg Cap 100 Mg PO QPM 06/17/16 Reported Losartan Potassium 25 Mg Tab 12.5 Mg PO QAM 11/05/15 Reported Duloxetine HCl 60 Mg Cap 60 Mg PO QAM 11/05/15 Reported Provider Instructions Activity Restrictions - No exercising or heavy lifting for 24 hours. - Do not drink alcohol the day of the procedure. - Do not drive a car or operate machinery until the day after the procedure. - Do not make any important decisions or sign important papers in 24 hours after the procedure. Following Day: - Return to full activity which may include returning to work/school. Diet Start your diet with liquids and light foods (jello, soup, juice, toast). Then eat your usual diet if not nauseated. Treatment For Common After Affects For mild abdominal pain, bloating, or excessive gas: - Rest - Eat lightly - Lie on right side Follow-Up Information Follow-up with TERA BELLO as scheduled Anesthesia Information What You Should Know You have had a procedure that required some medicine to reduce anxiety and discomfort. This treatment is called moderate sedation. After receiving the treatment, you may be sleepy, but you will be able to breathe on your own. The effects of the treatment may last for several hours. Follow these instructions along with Activity/Diet recommendations noted above: * Do NOT do anything where dizziness or clumsiness would be dangerous. * Rest quietly at home today, then you can be up and about tomorrow. * Have a responsible person stay with you the rest of today. * You may have had an I.V. today. If so, you may take the dressing off later today. Recommendations Call your doctor if: * Trouble breathing * Continuous vomiting for more than 24 hours * Temperature above 101 degrees * Severe abdominal pain or bloating * Pain not relieved by pain medicine ordered * There is increased drainage or redness from any incision * A large amount of rectal bleeding greater than 2-3 tablespoons. (If you had a polyp/s removed or have hemorrhoids, a small amount of blood - from the rectum is to be expected.) * You have any unanswered questions or concerns. IN THE EVENT OF A SERIOUS EMERGENCY, GO TO THE NEAREST EMERGENCY ROOM Your discharge instructions were prepared by provider Michael Knott. Patient Instructions Signature Page Kaylee Lanier Patient (or Guardian) Signature/Date: I have read and understand the instructions given to me by my caregivers. Caregiver/RN/Doctor Signature/Date: The above-named patient and/or guardian has received patient instructions on this date. + Original Patient Signature Page (only) stays with chart. Please make copy for patient.
--- NOTE | 2017-04-27 12:13 | GI REPORT ---
Procedure Date: 04/27/2017 11:47 AM Procedure: Upper GI endoscopy Indications: Gastro-esophageal reflux disease, Weight loss Medicines: Monitored Anesthesia Care Complications: No immediate complications. Estimated Blood Loss: Estimated blood loss: none. Procedure: Pre-Anesthesia Assessment: - Prior to the procedure, a History and Physical was performed, and patient medications and allergies were reviewed. The patient's tolerance of previous anesthesia was also reviewed. The risks and benefits of the procedure and the sedation options and risks were discussed with the patient. All questions were answered, and informed consent was obtained. Prior Anticoagulants: The patient has taken Xarelto (rivaroxaban), last dose was 3 days prior to procedure. ASA Grade Assessment: III - A patient with severe systemic disease. After reviewing the risks and benefits, the patient was deemed in satisfactory condition to undergo the procedure. After obtaining informed consent, the endoscope was passed under direct vision. Throughout the procedure, the patient's blood pressure, pulse, and oxygen saturations were monitored continuously. The scope was introduced through the mouth, and advanced to the second part of duodenum. The upper GI endoscopy was accomplished without difficulty. The patient tolerated the procedure well. Findings: The esophagus was normal. The entire examined stomach was normal. Biopsies were taken with a cold forceps for histology. The examined duodenum was normal. Impression: - Normal esophagus. - Normal stomach. Biopsied. - Normal examined duodenum. Recommendation: - Resume previous diet. - Continue present medications. - Await pathology results. - Return to primary care physician as previously scheduled. Michael Knott DO 04/27/2017 12:13:13 PM This report has been signed electronically. Note Initiated On: 04/27/2017 11:47 AM I attest to the content of the Intraoperative Record and orders documented therein, exceptions below
--- NOTE | 2017-04-27 12:22 | Anesthesiology Progress Note ---
Anesthesia Post Op Note Date & Time Apr 27, 2017 at 12:22 Vital Signs Pain Intensity: 0 Vital Signs Past 12 Hours Date Time Temp Pulse Resp B/P (MAP) Pulse Ox O2 Delivery O2 Flow Rate FiO2 04/27/17 12:07 63 12 123/56 (78) 98 Room Air 04/27/17 10:45 36.3 72 16 142/70 (94) 97 Room Air Notes Mental Status: alert / awake / arousable, participated in evaluation Pt Amnestic to Procedure: Yes Nausea / Vomiting: adequately controlled Pain: adequately controlled Airway Patency, RR, SpO2: stable & adequate BP & HR: stable & adequate Hydration State: stable & adequate Anesthetic Complications: no major complications apparent
[2017-04-27 12:41] VITALS: BP 117/79; PULSE 63; O2SAT 99
== END | disposition home or self-care (01) ==
LOC: C.GI 10:27
PROVIDERS: ATTEND Internal Medicine
DX: K21.9 Gastro-esophageal reflux disease without esophagitis (principal); R63.4 Abnormal weight loss; I10 Essential (primary) hypertension; E07.9 Disorder of thyroid, unspecified; Z79.899 Other long term (current) drug therapy; Z80.0 Family history of malignant neoplasm of digestive organs; Z83.79 Family history of other diseases of the digestive system; Z88.0 Allergy status to penicillin; Z91.013 Allergy to seafood; Z88.5 Allergy status to narcotic agent

== ENCOUNTER 2017-06-06 20:21 | Emergency (ER) | payer OTHER ==
[~2017-06-06] VITALS: Ht 157.5 cm; Wt 90.7 kg
[~2017-06-06 20:21] MED LIST changes: -LIDOCAINE HCL 2% 2 ML VIAL (20MG/ML) ONE; -MIDAZOLAM HCL 1 MG/ML 2ML VIAL ONE; -ONDANSETRON INJ 2 MG/ML 2 ML VIAL ONE; -PROPOFOL IV EMULSION 10 MG/ML 20 ML VIAL IV ONE; -SODIUM CHLORIDE 0.9% 500ML 500 ML IV ONE
[2017-06-06 20:27] VITALS: TEMP 36.8; Ht 157.5 cm; Wt 90.7 kg
[2017-06-06] MEDS ORDERED: ACETAMINOPHEN 325 MG TAB PO STA (20:54)
[2017-06-06] MEDS ORDERED: MAGNESIUM SULFATE 1GM / D5W 1 GM BAG IV STA (20:54)
[2017-06-06] MEDS ORDERED: DiphenhydrAMINE HCL 50 MG/ML VIAL IV STA (20:54)
[2017-06-06] MEDS ORDERED: METOCLOPRAMIDE HCL INJ 5 MG/ML 2 ML VIAL IV STA (20:54)
--- NOTE | 2017-06-06 21:09 | EMERGENCY ROOM VISIT NOTE ---
History Report prepared by Claudia: Susie Booker Under the Supervision of: Dr. Jacinto Hays M.D. First contact with patient: 20:36 Chief Complaint: CHEST PAIN Stated Complaint: CHEST PAIN, NECK PAIN - CARDIAC HX- A FIB Nursing Triage Summary: Patient presents to triage via wheelchair, holding her neck and chest. Patient moaning and hyperventilating. Patient reports having intermittent pain in the left chest, left neck and left back for 4 days. Patient reports intermittent nausea and lightheadedness with the pain. Patient reports a headache at present. History of Present Illness The patient is a 61 year old white female with a past medical history of atrial fibrillation, laminectomy, cholecystectomy, hysterectomy, asthma, hypertension, and hypothyroidism who presents to the ED with a cc of intermittent heavy left sided chest pain beginning 3-4 days ago. The pain worsened today at 1700. The pain worsens with movement. She tried ibuprofen to no significant relief. Positive left sided neck pain, back pain, dull headache across the top of her head, cough. Negative fever, chills, abdominal pain, nausea, vomiting. She denies any recent falls. She is on Xarelto. She denies any recent changes in medication. She has had this pain before which required therapy for several months. Source of History: patient Onset: 3-4 days ago Position: chest (left) Quality: other (heavy) Timing: intermittent Modifying Factors (Worsening): movement Associated Symptoms: + headache, + cough, + neck pain, + back pain, No fevers, No chills, No nausea, No vomiting, No abdominal pain Review of Systems See HPI for pertinent positives and negatives. A total of ten systems were reviewed and were otherwise negative. 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 (11) Left knee pain (12) Morbid Obesity (13) Oophorectomy (14) Open reduction of fracture (15) Precordial chest pain (16) Sepsis (17) Superficial bruising of lower leg (18) Supraventricular tachycardia (19) UTI (urinary tract infection) (20) UTI (urinary tract infection) (21) Vomiting and diarrhea Family History Diabetes mellitus FH: CHF (congestive heart failure) FHx: cancer FHx: lung disease Hypertension Kidney disease Kidney stones Seizures Social History Smoking Status: Former Smoker Alcohol Use: none Drug Use: none Marital Status: single Housing Status: lives with family Occupation Status: employed Current/Historical Medications Scheduled Cholecalciferol (Vitamin D3), 1 CAP PO QAM Docusate Sodium (Docusate Sodium), 100 MG PO QPM Duloxetine HCl (Duloxetine HCl), 60 MG PO QAM Fenofibrate (Fenofibrate), 145 MG PO QAM Flecainide Acetate (Flecainide Acetate), 100 MG PO Q12 Fluticasone Propionate (Flovent Hfa), 1 PUFF INH BID Furosemide (Furosemide), 20 MG PO QAM Levothyroxine Sodium (Levothyroxine Sodium), 112 MCG PO QAM Losartan Potassium (Losartan Potassium), 12.5 MG PO QAM Lubiprostone (Amitiza), 8 MCG PO BID Montelukast Sod (Montelukast Sodium), 10 MG PO QAM Omeprazole (Prilosec), 40 MG PO QAM Potassium Chloride (Potassium Chloride Sr), 10 MEQ PO HS Psyllium (Metamucil), 1 TSP PO HS Pyridoxine (Vitamin B6), 100 MG PO QPM Ranitidine Hcl (Zantac), 150 MG PO HS Rivaroxaban (Xarelto), 20 MG PO QAM Ropinirole Hydrochloride (Requip), 0.5 MG PO HS Topiramate (Topiramate), 25 MG PO BID Verapamil HCl (Verapamil HCl ER), 240 MG PO BID Scheduled PRN Albuterol Sulf (Proventil 0.083% 2.5MG/3ML), 2.5 MG INH QID PRN for SOB/Wheezing Levalbuterol Tartrate (Levalbuterol Tartrate Hfa), 2 PUFFS INH Q6H PRN for Shortness of Breath Allergies Coded Allergies: Codeine (Verified Allergy, Severe, HIVES, 06/06/17) ANAPHYLAXIS PER PT OK WITH MORPHINE AND DEMEROL? Iodinated Diagnostic Agents (Verified Allergy, Severe, HIVES, 06/06/17) Iodine (Verified Allergy, Severe, ANAPHYLAXIS, 06/06/17) Ketorolac (Verified Allergy, Severe, ITCHING, 06/06/17) PER PATIENT, SHE IS FINE TO TAKE IBUPROFEN Penicillins (Verified Allergy, Severe, ITCHING/HIVES, 06/06/17) Shellfish (Verified Allergy, Severe, ANAPHYLAXIS, 06/06/17) Shrimp (Verified Allergy, Severe, ANAPHYLAXIS, 06/06/17) Barium Sulfate (Verified Allergy, Intermediate, itching rash, 06/06/17) Morphine (Verified Allergy, Intermediate, ITCHING, 06/06/17) Physical Exam Vital Signs Date Time Temp Pulse Resp B/P (MAP) Pulse Ox O2 Delivery O2 Flow Rate FiO2 06/06/17 23:39 67 18 134/67 96 06/06/17 22:24 69 18 125/59 96 Room Air 06/06/17 21:17 66 18 150/77 99 Room Air 06/06/17 20:42 Room Air 06/06/17 20:27 36.8 66 20 212/100 100 Room Air 06/06/17 20:25 100 Room Air Physical Exam GENERAL: Awake, alert, well-appearing, NAD HENT: Normocephalic, atraumatic. EYES: PERRL 3 mm. Normal conjunctiva. Sclera non-icteric. NECK: Supple. No nuchal rigidity. FROM. Left sided paraspinal TTP. RESPIRATORY: CTAB, no rhonchi, wheezing, crackles CARDIAC: RRR, no MRG ABDOMEN: Soft, NTND, BS+ MSK: No chest wall TTP, no LE edema NEURO: CN 2-12 intact, 5/5 upper and lower extremity strength, no dysmetria, no drift, good finger to nose, no sensory deficits. SKIN: No rash or jaundice noted. Medical Decision & Procedures ER Provider Diagnostic Interpretation: Xray results as stated below per my and radiologist interpretation. Radiology results as stated below per my review and radiologist interpretation: CHEST ONE VIEW PORTABLE HISTORY: 61 years-old Female ABDOMINAL PAIN/GI acute generalized abdominal pain COMPARISON: Chest radiograph 04/15/2017 TECHNIQUE: Portable AP view of the chest FINDINGS: Cardiac silhouette is upper limits of normal, unchanged. No pneumothorax, pleural effusion, focal airspace consolidation or overt pulmonary edema. Bones of the chest appear grossly intact. IMPRESSION: Cardiomegaly without acute process. The above report was generated using voice recognition software. It may contain grammatical, syntax or spelling errors. Electronically signed by: Nick Wright M.D. 06/06/2017 10:01 PM Dictated Date/Time: 06/06/2017 10:00 PM HEAD WITHOUT CONTRAST (CT) CLINICAL HISTORY: 61 years-old Female with headache. Acute headache TECHNIQUE: Multiple axial CT images of the head were obtained without contrast. A dose lowering technique was utilized adhering to the principles of ALARA. CT DOSE: 1566.38 mGy.cm COMPARISON: CT head 04/15/2017. FINDINGS: Study is mildly motion degraded. No acute intracranial hemorrhage, midline shift, intracranial mass, hydrocephalus, territorial ischemia or abnormal extra-axial collection. The calvarium is intact. The paranasal sinuses, mastoid air cells, and middle ear cavities are clear. IMPRESSION: No acute intracranial abnormality. The above report was generated using voice recognition software. It may contain grammatical, syntax or spelling errors. Electronically signed by: Nick Wright M.D. 06/06/2017 10:07 PM Dictated Date/Time: 06/06/2017 10:04 PM CHEST COMBO ANGIO DISSECTION HISTORY: 61 years-old Female presents with acute atypical chest pain and headache COMPARISON: Chest radiograph of same day, CT abdomen and pelvis 03/01/2017 TECHNIQUE: CTA of the chest was obtained both with and without the use of 94 mCi 320 IV contrast. 3-D coronal and sagittal MIPS were obtained from the axial data set and submitted for review. All measurements were obtained according to NASCET criteria. A dose lowering technique was used consistent with the principals of ALA. FINDINGS: CTA: Noncontrast scan demonstrates no intramural hematoma. Mild multichamber cardiac enlargement. Coronary arterial calcifications are noted. Mild tortuosity involves the proximal portion of the left subclavian artery. The imaged portions of the great vessels appear patent bilaterally. No aortic dissection or aneurysm. The opacified pulmonary arterial tree is unremarkable. CT CHEST: No dominant thyroid nodule. No pathologic adenopathy identified. There is no pneumothorax, pleural effusion or focal airspace consolidation. Subsegmental groundglass and linear consolidative bibasilar opacities suggest atelectasis. Central airways are patent. Probable small tracheal noted, image 30 series 6 measuring 3 mm within the region of the right tracheoesophageal recess. Prior cholecystectomy. No acute process of the imaged upper abdomen. Soft tissues are unremarkable. Bones appear intact. Mild multilevel endplate degenerative changes throughout the spine. IMPRESSION: 1. No acute intrathoracic abnormality identified, specifically no evidence of aortic aneurysm or dissection. 2. Mild cardiomegaly with coronary arterial disease. The above report was generated using voice recognition software. It may contain grammatical, syntax or spelling errors. Electronically signed by: Nick Wright M.D. 06/06/2017 10:48 PM Dictated Date/Time: 06/06/2017 10:42 PM HEAD ANGIO WITH CONTRAST, NECK ANGIO WITH CONTRAST HISTORY: 61 years-old Female presents with acute headache COMPARISON: CT head of same day at 10:00 PM TECHNIQUE: CTA had and neck obtained following the intravenous administration of 113 mL Optiray 320. 3-D coronal and sagittal MIPS were obtained from the data set and submitted for review. All measurements were obtained according to NASCET criteria. A dose lowering technique was used consistent with the principals of FRANKIE. FINDINGS: CTA NECK: Three-vessel aortic arch is present. Proximal portions of the subclavian arteries are patent. The bilateral common and internal carotid arteries are widely patent. There is no significant plaquing or narrowing of the carotid bulbs. Bilateral vertebral arteries are patent and within normal limits. Right vertebral artery is dominant. Soft tissues of the neck are within normal limits. No adenopathy focal soft tissue mass identified. Imaged lung humphrey are clear. Mild multilevel endplate spurring and facet arthropathy of the cervical spine. Probable bone island of the T2 vertebral body. CTA HEAD: Internal carotid arteries are normal in caliber with mild atherosclerotic plaquing involving the bilateral cavernous segments. Bilateral middle and anterior cerebral arteries are widely patent. Anterior communicating artery is also unremarkable. Right vertebral artery is dominant. Distal vertebral arteries are patent. Basilar and bilateral posterior rib arteries are patent and within normal limits. The main cerebral venous sinuses are patent and within normal limits. IMPRESSION: Unremarkable CTA of the head and neck without aneurysm, dissection, proximal branch occlusion or high-grade stenosis. The above report was generated using voice recognition software. It may contain grammatical, syntax or spelling errors. Electronically signed by: Nick Wright M.D. 06/06/2017 11:02 PM Dictated Date/Time: 06/06/2017 10:49 PM Laboratory Results 06/06/17 21:00 Red Blood Count 3.90, Mean Corpuscular Volume 91.0, Mean Corpuscular Hemoglobin 30.8, Mean Corpuscular Hemoglobin Concent 33.8, Mean Platelet Volume 10.0, Neutrophils (%) (Auto) 56.9, Lymphocytes (%) (Auto) 29.1, Monocytes (%) (Auto) 10.5, Eosinophils (%) (Auto) 2.7, Basophils (%) (Auto) 0.5, Neutrophils # (Auto ) 4.26, Lymphocytes # (Auto) 2.18, Monocytes # (Auto) 0.79, Eosinophils # (Auto ) 0.20, Basophils # (Auto) 0.04 Test 06/06/17 21:00 06/06/17 21:01 White Blood Count 7.49 K/uL (4.8-10.8) Red Blood Count 3.90 M/uL (4.2-5.4) Hemoglobin 12.0 g/dL (12.0-16.0) Hematocrit 35.5 % (37-47) Mean Corpuscular Volume 91.0 fL (80-100) Mean Corpuscular Hemoglobin 30.8 pg (25-34) Mean Corpuscular Hemoglobin Concent 33.8 g/dl (32-36) Platelet Count 289 K/uL (130-400) Mean Platelet Volume 10.0 fL (7.4-10.4) Neutrophils (%) (Auto) 56.9 % Lymphocytes (%) (Auto) 29.1 % Monocytes (%) (Auto) 10.5 % Eosinophils (%) (Auto) 2.7 % Basophils (%) (Auto) 0.5 % Neutrophils # (Auto) 4.26 K/uL (1.4-6.5) Lymphocytes # (Auto) 2.18 K/uL (1.2-3.4) Monocytes # (Auto) 0.79 K/uL (0.11-0.59) Eosinophils # (Auto) 0.20 K/uL (0-0.5) Basophils # (Auto) 0.04 K/uL (0-0.2) RDW Standard Deviation 44.9 fL (36.4-46.3) RDW Coefficient of Variation 13.4 % (11.5-14.5) Immature Granulocyte % (Auto) 0.3 % Immature Granulocyte # (Auto) 0.02 K/uL (0.00-0.02) Red Blood Cell Morphology Unremarkable Total Bilirubin 0.4 mg/dl (0.2-1) Direct Bilirubin 0.1 mg/dl (0-0.2) Aspartate Amino Transf (AST/SGOT) 25 U/L (15-37) Alanine Aminotransferase (ALT/SGPT) 29 U/L (12-78) Alkaline Phosphatase 74 U/L (45-117) Troponin I < 0.015 ng/ml (0-0.045) Total Protein 6.5 gm/dl (6.4-8.2) Albumin 3.8 gm/dl (3.4-5.0) Lipase 146 U/L (73-393) Urine Color YELLOW Urine Appearance CLEAR (CLEAR) Urine pH 6.5 (4.5-7.5) Urine Specific Pisek 1.009 (1.000-1.030) Urine Protein NEG (NEG) Urine Glucose (UA) NEG (NEG) Urine Ketones NEG (NEG) Urine Occult Blood NEG (NEG) Urine Nitrite NEG (NEG) Urine Bilirubin NEG (NEG) Urine Urobilinogen NEG (NEG) Urine Leukocyte Esterase MODERATE (NEG) Urine WBC (Auto) /hpf (0-5) Urine RBC (Auto) /hpf (0-4) Urine Hyaline Casts (Auto) /lpf (0-5) Urine Epithelial Cells (Auto) /lpf (0-5) Urine Bacteria (Auto) (NEG) Urine RBC 0-4 /hpf (0-4) Urine WBC 1-5 /hpf (0-5) Urine Epithelial Cells 0-5 /lpf (0-5) Urine Bacteria NEG (NEG) Laboratory results reviewed by me Medications Administered Medications (Trade) Dose Ordered Sig/Jax Route Start Time Stop Time Status Last Admin Dose Admin Metoclopramide HCl (Reglan Inj) 10 mg NOW STAT IV 06/06/17 20:54 06/06/17 20:57 DC 06/06/17 21:15 10 MG Diphenhydramine HCl (Benadryl Inj) 25 mg NOW STAT IV 06/06/17 20:54 06/06/17 20:57 DC 06/06/17 21:13 25 MG Magnesium Sulfate (Magnesium Sulfate) 1 gm NOW STAT IV 06/06/17 20:54 06/06/17 20:57 DC 06/06/17 21:12 1 GM Acetaminophen (Tylenol Tab) 650 mg NOW STAT PO 06/06/17 20:54 06/06/17 20:57 DC 06/06/17 21:15 650 MG Methylprednisolone Sodium Succinate (Solu-Medrol IV) 125 mg NOW STAT IV 06/06/17 22:14 06/06/17 22:15 DC 06/06/17 22:19 125 MG Hydromorphone HCl (Dilaudid Inj) 0.5 mg NOW STAT IV 06/06/17 22:18 06/06/17 22:19 DC 06/06/17 22:22 0.5 MG ECG Indication: chest pain Rate (beats per minute): 64 Rhythm: normal sinus Findings: 1st degree AV block (borderline with NH 200 ms), T-wave inversion (V2 ), other (T wave flattening V3, normal axis) Comparison ECG Date: 15-Apr-2017 Change: no significant change Change: 1st degree AV block is old. ED Course 2048: The patient was evaluated in room C10. A complete history and physical exam was performed. 2204: I reevaluated the patient. She was sleeping. 2217: I reevaluated the patient. She notes her chest pain is improved, but she is still having neck pain and headache. 2310: I reevaluated the patient. Her pain has resolved. Discussed results and discharge instructions: she verbalized understanding and agreement. The patient is ready for discharge. Medical Decision The patient is a 61 year old white female with a past medical history of atrial fibrillation, laminectomy, cholecystectomy, hysterectomy, asthma, hypertension, and hypothyroidism who presents to the ED with a cc of intermittent heavy left sided chest pain beginning 3-4 days ago. Differential diagnosis: Etiologies such as cardiac ischemia, aortic dissection, pulmonary embolism, pneumonia, pneumothorax, musculoskeletal, infections, pericarditis, myocarditis , esophageal rupture, gastrointestinal, migraine headache, meningitis, sinusitis , CO exposure, ICH, SAH, infection, tumor, headache, sinus thrombosis, arterial dissection, as well as others were entertained. Patient was seen and evaluated the bedside. Patient had been complaining of headache and neck pain and chest pain. Patient states the chest pain is somewhat dull and achy but radiates to the back. Patient also complains of neck pain she states primarily left-sided. She also states that she's had a headache that is over the top of the head. Patient denies any other trauma. Patient states she takes her medications as prescribed. Patient has any had a nonproductive cough. On exam the patient is a nonfocal neurologic exam. Patient does have some left paraspinal neck pain. Patient initially had a fairly high blood pressure. Given the patient's concerned something like a dissection was on the differential however decided to treat the patient's pain first. Patient did have blood work that was completed along with an EKG, troponin chest x-ray, and CT of the brain. Patient's CT brain negative acute. Patient's EKG did show T-wave inversion and flattening anteriorly however these are old and not new changes. Patient troponin negative. Patient's chest pain had resolved just with headache cocktail. Patient states that patient's neck and headache or not much improved. Patient was given additional pain medication was premedicated for CT of the head and neck and aorta to rule out dissection. Of note patient's blood pressure had improved. Patient's scans of the head and neck and chest were negative acute. Patient had an unchanged EKG with a negative troponin and given the chronicity of her symptoms upon this less likely to be ACS. Upon reassessment the patient had complete resolution of any of her pain. I don't believe that she hasn't had any any infectious, medical, or surgical need to stay in the hospital. Patient was informed of all findings. Of note the patient's blood work showed a normal white blood cell count. LFTs and lipase within normal limits. Patient had a negative troponin. Patient kidney function normal. Urinalysis is negative. Patient was agreeable to this plan of care. Patient was given strict follow-up, discharge, and return precautions. All questions were answered. Patient was deemed suitable for outpatient follow-up at this time. Patient agreed with the plan of care and was safely discharged home. Medication Reconcilliation Current Medication List: was personally reviewed by me Blood Pressure Screening Patient's blood pressure: Elevated blood pressure Blood pressure disposition: Elevated BP felt to be situational Impression Primary Impression: Left sided chest pain Additional Impressions: Neck pain Headache Scribe Attestation The scribe's documentation has been prepared under my direction and personally reviewed by me in its entirety. I confirm that the note above accurately reflects all work, treatment, procedures, and medical decision making performed by me. Departure Information Dispostion Home / Self-Care Referrals Homer Herrera III, CRNP (PCP) Patient Instructions Headache Pain, [facility] Additional Instructions Please return to the emergency department if you have worsening or recurrent symptoms not amenable to at-home treatment. Please call for a follow-up appointment with her primary care physician. Please take your medications as prescribed. If you have other concerns and/or complaints please feel free to also call your primary care physician's office or return the ED for further evaluation, management, and treatment. You received narcotic or benzodiazepene medication while in the emergency room today. This is an addictive medication that may cause drowziness as well as constipation. Do not drive, operate heavy machinery, or drink alcohol under the influence of this medication. You may take tylenol 650 mg every 6 hours as needed for pain. Take your medications as prescribed. You have been examined and treated today on an emergency basis only. This is not a substitute for, or an effort to provide, complete comprehensive medical care. It is impossible to recognize and treat all injuries or illnesses in a single emergency department visit. It is therefore important that you follow up closely with [facility], your PCP, and/or your specialist(s). Call as soon as possible for an appointment. Thank you for your time and consideration. I look forward to speaking with you again soon. Please don't hesitate to call us if you have any questions. Problem Qualifiers Additional Impressions: Headache Headache type: unspecified Headache chronicity pattern: acute headache Intractability: not intractable Qualified Codes: R51 - Headache
[2017-06-06] MEDS ORDERED: LUBI8CAP4 PO (21:10)
[2017-06-06 21:12] LABS: URINE APPEARANCE CLEAR (CLEAR); URINE BILIRUBIN NEG (NEG); URINE COLOR YELLOW; URINE NITRITE NEG (NEG); URINE PH 6.5 (4.5-7.5); URINE SPECIFIC GRAVITY 1.009 (1.000-1.030); UROBILINOGEN NEG (NEG)
[2017-06-06 21:13] LABS: MANUAL MICROSCOPIC REQUIRED? YES; REVIEW REQ? NO
[2017-06-06 21:14] LABS: HEMATOCRIT 35.5 % (37-47); MEAN CORPUSCULAR HEMOGLOBIN 30.8 pg (25-34); MEAN CORPUSCULAR HGB CONC 33.8 g/dl (32-36); PLATELET COUNT 289 K/uL (130-400); WHITE BLOOD COUNT 7.49 K/uL (4.8-10.8)
[2017-06-06 21:23] LABS: URINE BACTERIA NEG (NEG); URINE RBC 0-4 /hpf (0-4); ZZUR CULT IF INDIC CLEAN CATCH NO
[2017-06-06 21:36] LABS: BASO % 0.5 %; BASO ABS # 0.04 K/uL (0-0.2); COMPLETE YES; EOS % 2.7 %; IG% 0.3 %; LYMPH % 29.1 %; LYMPH ABS # 2.18 K/uL (1.2-3.4); MONO % 10.5 %; NEUT % 56.9 %
[2017-06-06 22:02] LABS: ALKALINE PHOSPHATASE 74 U/L (45-117); ALT/SGPT 29 U/L (12-78); AST/SGOT 25 U/L (15-37)
--- NOTE | 2017-06-06 22:02 | DIAGNOSTIC IMAGING REPORT ---
CHEST ONE VIEW PORTABLE HISTORY: 61 years-old Female ABDOMINAL PAIN/GI acute generalized abdominal pain COMPARISON: Chest radiograph 04/15/2017 TECHNIQUE: Portable AP view of the chest FINDINGS: Cardiac silhouette is upper limits of normal, unchanged. No pneumothorax, pleural effusion, focal airspace consolidation or overt pulmonary edema. Bones of the chest appear grossly intact. IMPRESSION: Cardiomegaly without acute process. The above report was generated using voice recognition software. It may contain grammatical, syntax or spelling errors. Electronically signed by: Nick Wright M.D. 06/06/2017 10:01 PM Dictated Date/Time: 06/06/2017 10:00 PM
--- NOTE | 2017-06-06 22:09 | DIAGNOSTIC IMAGING REPORT ---
HEAD WITHOUT CONTRAST (CT) CLINICAL HISTORY: 61 years-old Female with headache. Acute headache TECHNIQUE: Multiple axial CT images of the head were obtained without contrast. A dose lowering technique was utilized adhering to the principles of ALARA. CT DOSE: 1566.38 mGy.cm COMPARISON: CT head 04/15/2017. FINDINGS: Study is mildly motion degraded. No acute intracranial hemorrhage, midline shift, intracranial mass, hydrocephalus, territorial ischemia or abnormal extra-axial collection. The calvarium is intact. The paranasal sinuses, mastoid air cells, and middle ear cavities are clear. IMPRESSION: No acute intracranial abnormality. The above report was generated using voice recognition software. It may contain grammatical, syntax or spelling errors. Electronically signed by: Nick Wright M.D. 06/06/2017 10:07 PM Dictated Date/Time: 06/06/2017 10:04 PM
[2017-06-06] MEDS ORDERED: METHYLPREDNISOLONE 125 MG VIAL IV STA (22:14)
[2017-06-06] MEDS ORDERED: HYDROmorphone INJ 0.5 MG/0.5 ML SYR IV STA (22:18)
[2017-06-06] MEDS ORDERED: OPTIRAY 320 IV PRN (22:30)
--- NOTE | 2017-06-06 22:50 | DIAGNOSTIC IMAGING REPORT ---
CHEST COMBO ANGIO DISSECTION HISTORY: 61 years-old Female presents with acute atypical chest pain and headache COMPARISON: Chest radiograph of same day, CT abdomen and pelvis 03/01/2017 TECHNIQUE: CTA of the chest was obtained both with and without the use of 94 mCi 320 IV contrast. 3-D coronal and sagittal MIPS were obtained from the axial data set and submitted for review. All measurements were obtained according to NASCET criteria. A dose lowering technique was used consistent with the principals of FRANKIE. FINDINGS: CTA: Noncontrast scan demonstrates no intramural hematoma. Mild multichamber cardiac enlargement. Coronary arterial calcifications are noted. Mild tortuosity involves the proximal portion of the left subclavian artery. The imaged portions of the great vessels appear patent bilaterally. No aortic dissection or aneurysm. The opacified pulmonary arterial tree is unremarkable. CT CHEST: No dominant thyroid nodule. No pathologic adenopathy identified. There is no pneumothorax, pleural effusion or focal airspace consolidation. Subsegmental groundglass and linear consolidative bibasilar opacities suggest atelectasis. Central airways are patent. Probable small tracheal noted, image 30 series 6 measuring 3 mm within the region of the right tracheoesophageal recess. Prior cholecystectomy. No acute process of the imaged upper abdomen. Soft tissues are unremarkable. Bones appear intact. Mild multilevel endplate degenerative changes throughout the spine. IMPRESSION: 1. No acute intrathoracic abnormality identified, specifically no evidence of aortic aneurysm or dissection. 2. Mild cardiomegaly with coronary arterial disease. The above report was generated using voice recognition software. It may contain grammatical, syntax or spelling errors. Electronically signed by: Nick Wright M.D. 06/06/2017 10:48 PM Dictated Date/Time: 06/06/2017 10:42 PM
--- NOTE | 2017-06-06 23:04 | DIAGNOSTIC IMAGING REPORT ---
HEAD ANGIO WITH CONTRAST, NECK ANGIO WITH CONTRAST HISTORY: 61 years-old Female presents with acute headache COMPARISON: CT head of same day at 10:00 PM TECHNIQUE: CTA had and neck obtained following the intravenous administration of 113 mL Optiray 320. 3-D coronal and sagittal MIPS were obtained from the data set and submitted for review. All measurements were obtained according to NASCET criteria. A dose lowering technique was used consistent with the principals of FRANKIE. FINDINGS: CTA NECK: Three-vessel aortic arch is present. Proximal portions of the subclavian arteries are patent. The bilateral common and internal carotid arteries are widely patent. There is no significant plaquing or narrowing of the carotid bulbs. Bilateral vertebral arteries are patent and within normal limits. Right vertebral artery is dominant. Soft tissues of the neck are within normal limits. No adenopathy focal soft tissue mass identified. Imaged lung humphrey are clear. Mild multilevel endplate spurring and facet arthropathy of the cervical spine. Probable bone island of the T2 vertebral body. CTA HEAD: Internal carotid arteries are normal in caliber with mild atherosclerotic plaquing involving the bilateral cavernous segments. Bilateral middle and anterior cerebral arteries are widely patent. Anterior communicating artery is also unremarkable. Right vertebral artery is dominant. Distal vertebral arteries are patent. Basilar and bilateral posterior rib arteries are patent and within normal limits. The main cerebral venous sinuses are patent and within normal limits. IMPRESSION: Unremarkable CTA of the head and neck without aneurysm, dissection, proximal branch occlusion or high-grade stenosis. The above report was generated using voice recognition software. It may contain grammatical, syntax or spelling errors. Electronically signed by: Nick Wright M.D. 06/06/2017 11:02 PM Dictated Date/Time: 06/06/2017 10:49 PM
[2017-06-06 23:39] VITALS: BP 134/67; PULSE 67; O2SAT 96
== END 2017-06-06 23:39 | disposition home or self-care (01) ==
LOC: C.EDB 20:22 → C.EDC 23:39
DX: R07.9 Chest pain, unspecified (principal); M54.2 Cervicalgia; R51 Headache; M17.12 Unilateral primary osteoarthritis, left knee; J45.909 Unspecified asthma, uncomplicated; I10 Essential (primary) hypertension; E03.9 Hypothyroidism, unspecified; I48.91 Unspecified atrial fibrillation; Z87.440 Personal history of urinary (tract) infections; Z87.891 Personal history of nicotine dependence; Z90.710 Acquired absence of both cervix and uterus; Z90.721 Acquired absence of ovaries, unilateral; Z90.49 Acquired absence of other specified parts of digestive tract; Z98.890 Other specified postprocedural states; Z83.3 Family history of diabetes mellitus; Z82.49 Family history of ischemic heart disease and other diseases of the circulatory system; Z84.1 Family history of disorders of kidney and ureter; Z82.0 Family history of epilepsy and other diseases of the nervous system; Z79.01 Long term (current) use of anticoagulants; Z79.899 Other long term (current) drug therapy

== ENCOUNTER → 2017-06-09 | Outpatient (CLI) | payer OTHER ==
[~2017-06-09] MED LIST changes: +LUBI8CAP4 PO; -MRLP527 PO; -OXYC1TAB3 PO
[2017-06-09 13:37] LABS: ALT/SGPT 31 U/L (12-78); AST/SGOT 24 U/L (15-37); BLOOD UREA NITROGEN 13 mg/dl (7-18); BUN/CREATININE RATIO 15.8 (10-20); CALCIUM 8.9 mg/dl (8.5-10.1); CARBON DIOXIDE 27 mmol/L (21-32); CHLORIDE 107 mmol/L (98-107); CHOLESTEROL 172 mg/dl (0-200); CREATININE 0.81 mg/dl (0.60-1.20); GLUCOSE 81 mg/dl (70-99); POTASSIUM 3.6 mmol/L (3.5-5.1); SODIUM 139 mmol/L (136-145); TRIGLYCERIDES 144 mg/dl (0-150); VERY LOW DENSITY LIPOPROT CALC 29 mg/dl
[2017-06-09 13:41] LABS: ALB/GLOB RATIO 1.2 (0.9-2); ALKALINE PHOSPHATASE 70 U/L (45-117); CHOLESTEROL/HDL RATIO 3.2; HDL CHOLESTEROL 53 mg/dl; LDL CHOLESTEROL CALCULATED 90 mg/dl
[2017-06-10 06:56] LABS: ESTIMATED AVERAGE GLUCOSE 108 mg/dl; HA1C FLAG Normal (Normal)
== END | disposition home or self-care (01) ==
LOC: C.LAB 12:15
PROVIDERS: ATTEND Nurse Practitioner Family
DX: E78.5 Hyperlipidemia, unspecified (principal)

== ENCOUNTER → 2017-06-11 | Outpatient (CLI) | payer OTHER | END | disposition home or self-care (01) | LOC: C.PATHSPEC 17:21 | PROVIDERS: ATTEND Orthopaedic Surgery | DX: R22.31 Localized swelling, mass and lump, right upper limb (principal) ==

== ENCOUNTER 2017-08-24 14:53 | Emergency (ER) | payer OTHER ==
[~2017-08-24] VITALS: Ht 157.5 cm; Wt 88.0 kg
[~2017-08-24 14:53] MED LIST changes: -ALBINS/ INH; -CHOLCAP5 PO; -CYM60 PO; -CZR25 PO; -FLVHFA110 INH; -LEVA45AE INH; -LEVO112T4 PO; -LSX20 PO; -LUBI8CAP4 PO; -OMEP40CA41 PO; -POTA10TA33 PO; -PYRI100T4 PO; -RANI150T3 PO; -ROPI0.5T PO; -SNG10 PO; -TMB100 PO; -TPM25 PO; -TRC145 PO; -VRPSR240 PO; -XRL20 PO
[2017-08-24 14:58] VITALS: Ht 157.5 cm; Wt 88.0 kg
[2017-08-24] MEDS ORDERED: HYDROmorphone INJ 0.5 MG/0.5 ML SYR IV STA (15:13)
[2017-08-24] MEDS ORDERED: ONDANSETRON INJ 2 MG/ML 2 ML VIAL IV STA (15:13)
[2017-08-24] MEDS ORDERED: ACETAMINOPHEN 500 MG TAB PO ONE (15:20)
[2017-08-24] MEDS ORDERED: CHOLCAP5 PO (15:24)
[2017-08-24] MEDS ORDERED: ALBINS/ NEB (15:39)
[2017-08-24] MEDS ORDERED: FLVHFA110 INH (15:39)
[2017-08-24] MEDS ORDERED: PYRI100T4 PO (15:39)
[2017-08-24] MEDS ORDERED: RANI150T3 PO (15:39)
[2017-08-24] MEDS ORDERED: LEVA45AE INH (15:39)
[2017-08-24 15:59] LABS: BASO % 0.3 %; BASO ABS # 0.02 K/uL (0-0.2); EOS % 1.9 %; EOS ABS # 0.12 K/uL (0-0.5); HEMATOCRIT 36.1 % (37-47); HEMOGLOBIN 12.1 g/dL (12.0-16.0); IG# 0.02 K/uL (0.00-0.02); LYMPH % 27.2 %; LYMPH ABS # 1.68 K/uL (1.2-3.4); MEAN CORPUSCULAR HEMOGLOBIN 30.2 pg (25-34); MEAN CORPUSCULAR HGB CONC 33.5 g/dl (32-36); MEAN PLATELET VOLUME 10.2 fL (7.4-10.4); MONO % 8.3 %; MONO ABS # 0.51 K/uL (0.11-0.59); NEUT ABS # 3.82 K/uL (1.4-6.5); PLATELET COUNT 292 K/uL (130-400); RED CELL DISTRIBUTION WIDTH CV 12.9 % (11.5-14.5); RED CELL DISTRIBUTION WIDTH SD 42.6 fL (36.4-46.3); WHITE BLOOD COUNT 6.17 K/uL (4.8-10.8)
[2017-08-24 16:20] LABS: ALBUMIN 3.5 gm/dl (3.4-5.0); CALCIUM 8.8 mg/dl (8.5-10.1); CREATININE 0.79 mg/dl (0.60-1.20); POTASSIUM 3.9 mmol/L (3.5-5.1)
[2017-08-24 16:22] LABS: TOTAL PROTEIN 6.3 gm/dl (6.4-8.2)
--- NOTE | 2017-08-24 16:32 | DIAGNOSTIC IMAGING REPORT ---
THORACIC SPINE 3 VIEWS ROUTINE CLINICAL HISTORY: Thoracic spine pain. COMPARISON STUDY: Chest CT June 06, 2017. FINDINGS: Alignment of the thoracic spine is anatomic. Vertebral body heights are maintained. There is no fracture. There is mild disc space narrowing and moderate anterior osteophytosis of the thoracic spine. IMPRESSION: 1. No acute thoracic spine fracture or subluxation. 2. Mild thoracic spine multilevel degenerative disc disease. Electronically signed by: Jalen Malik M.D. 08/24/2017 4:31 PM Dictated Date/Time: 08/24/2017 4:29 PM
[2017-08-24] MEDS ORDERED: ATOR10TA82 PO (16:34)
--- NOTE | 2017-08-24 16:44 | DIAGNOSTIC IMAGING REPORT ---
CT SCAN OF THE ABDOMEN AND PELVIS WITHOUT CONTRAST CLINICAL HISTORY: Lower abdominal and back pain COMPARISON STUDY: March 01, 2017 TECHNIQUE: CT scan of the abdomen and pelvis was performed from the lung bases to the proximal femurs. Images are reviewed in the axial, sagittal, and coronal planes. IV contrast was not administered for this examination. A dose lowering technique was utilized adhering to the principles of ALARA. CT DOSE: FINDINGS: Lower chest: The heart is normal in size and configuration, without pericardial effusion. The lung bases and pleural spaces are clear. Liver: The unenhanced liver is normal in size, contour, and attenuation. There is no intrahepatic biliary ductal dilatation. Gallbladder: Surgically absent Spleen: Normal in size and attenuation. Pancreas: Unremarkable. Adrenal glands: Unremarkable. Kidneys: There is a nonobstructing 1.5 mm right renal calculus. There is a nonobstructing 2 mm left renal calculus. No ureteral calculi are visualized. No bladder calculi are visualized. Bowel: There are no transition zones indicate bowel obstruction. The appendix appears normal. There is no acute diverticulitis. Peritoneum: There is no intraperitoneal free air or abdominal ascites. Vasculature: The abdominal aorta is normal in course and caliber. Adenopathy: None. Pelvic viscera: The uterus appears surgically absent Skeletal structures: No destructive osseous lesions are seen. IMPRESSION: 1. Bilateral nephrolithiasis. No ureteral or bladder calculi identified 2. No evidence of bowel obstruction. No evidence of free air 3. Normal appendix. No evidence of acute diverticulitis. Electronically signed by: Blayne Saldaña M.D. 08/24/2017 3:49 PM Dictated Date/Time: 08/24/2017 3:45 PM
--- NOTE | 2017-08-24 16:44 | DIAGNOSTIC IMAGING REPORT ---
CT LUMBAR SPINE WITHOUT CT DOSE: 947.80 mGy.cm CLINICAL HISTORY: lower back pain TECHNIQUE: Helical images were acquired in transverse plane. Reformatted sagittal and coronal images were reviewed. A dose lowering technique was utilized adhering to the principles of ALARA. CONTRAST: No contrast was administered COMPARISON STUDY: None. FINDINGS: L1-2 level: There is no evidence of significant disc bulge or focal herniation. There is no evidence of spinal or foraminal stenosis. L2-3 level: There is a mild circumferential disc bulge. There is no significant spinal or foraminal stenosis. L3-4 level: There is a mild circumferential disc bulge. There is mild spinal stenosis. There is no specific and foraminal narrowing L4-5 level: There is a mild circumferential disc bulge. There is mild to moderate spinal stenosis. There is no significant foraminal narrowing L5-S1 level: There is no significant disc bulge or focal herniation. There is no spinal stenosis. There is mild left-sided foraminal narrowing. There is a transitional vertebra with partial lumbarization of the S1 vertebra No acute fractures or subluxations are visualized. There are tiny bilateral renal calculi IMPRESSION: 1. Transitional vertebra 2. Mild multilevel spondylitic changes with mild spinal stenosis at the L3-4 level, and mild to moderate spinal stenosis at the L4-5 level 3. No fractures or subluxations 4. Bilateral nephrolithiasis Electronically signed by: Blayne Saldaña M.D. 08/24/2017 3:54 PM Dictated Date/Time: 08/24/2017 3:49 PM
[2017-08-24] MEDS ORDERED: NURSING VERBAL MED ORDER ONE (17:20)
[2017-08-24] MEDS ORDERED: OXYCODONE IR HOME PACK PO ONE (17:30)
[2017-08-24 17:47] VITALS: BP 122/69; PULSE 62; TEMP 36.6; O2SAT 97
[2017-08-24] MEDS ORDERED: TMB100 PO (18:37)
[2017-08-24] MEDS ORDERED: SNG10 PO (18:37)
[2017-08-24] MEDS ORDERED: TRC145 PO (18:37)
[2017-08-24] MEDS ORDERED: POTA10TA33 PO (18:37)
[2017-08-24] MEDS ORDERED: ROPI0.5T PO (18:37)
[2017-08-24] MEDS ORDERED: LSX20 PO (18:37)
[2017-08-24] MEDS ORDERED: XRL20 PO (18:37)
[2017-08-24] MEDS ORDERED: LEVO112T4 PO (18:37)
[2017-08-24] MEDS ORDERED: VRPSR240 PO (18:37)
[2017-08-24] MEDS ORDERED: TPM25 PO (18:54)
[2017-08-24] MEDS ORDERED: OMEP40CA41 PO (18:54)
--- NOTE | 2017-08-24 20:46 | EMERGENCY ROOM VISIT NOTE ---
History Report prepared by Claudia: De Gordon Under the Supervision of: Dr. Ariel eHrnandez D.O. First contact with patient: 15:00 Chief Complaint: BACK PAIN Stated Complaint: BACK PAIN History of Present Illness The patient is a 62 year old female who presents to the Emergency Room with complaints of severe pain across her lower back which began today at 0900, 6 hours ago. The patient states that she was laying in bed when the pain began to onset, and was not doing anything strenuous. The patient has had a kidney stone in the past and notes that she had similar pain across her whole lower back with this prior episode as well. The pain is radiating down her right leg, but does not radiate into the abdomen or groin. She denies any associated urinary symptoms as well. The patient has had back surgery in the past at [facility]. She denies any other headache, change in vision, fevers, chest pain, shortness of breath, nausea, vomiting, diarrhea, and melena. No weakness or numbness in her lower extremities. Source of History: patient Onset: 6 hours ago Position: back (lower) Symptom Intensity: severe Associated Symptoms: No urinary symptoms Review of Systems See HPI for pertinent positives & negatives. A total of 10 systems reviewed and were otherwise negative. 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 (11) Left knee pain (12) Morbid Obesity (13) Oophorectomy (14) Open reduction of fracture (15) Precordial chest pain (16) Sepsis (17) Superficial bruising of lower leg (18) Supraventricular tachycardia (19) UTI (urinary tract infection) (20) UTI (urinary tract infection) (21) Vomiting and diarrhea Family History Diabetes mellitus FH: CHF (congestive heart failure) FHx: cancer FHx: lung disease Hypertension Kidney disease Kidney stones Seizures Social History Smoking Status: Former Smoker Alcohol Use: none Drug Use: none Marital Status: single Housing Status: lives with family Occupation Status: employed Current/Historical Medications Scheduled Atorvastatin (Lipitor), 10 MG PO DAILY Cholecalciferol (Vitamin D3), 5,000 INTER.UNIT PO QAM Docusate Sodium (Docusate Sodium), 100 MG PO QPM Duloxetine HCl (Duloxetine HCl), 60 MG PO QAM Fenofibrate (Fenofibrate), 145 MG PO QAM Flecainide Acetate (Flecainide Acetate), 100 MG PO Q12 Fluticasone Propionate (Flovent Hfa), 1 PUFF INH BID Furosemide (Furosemide), 20 MG PO QAM Levothyroxine Sodium (Levothyroxine Sodium), 112 MCG PO QAM Losartan Potassium (Losartan Potassium), 12.5 MG PO QAM Lubiprostone (Amitiza), 8 MCG PO BID Montelukast Sod (Montelukast Sodium), 10 MG PO QAM Omeprazole (Prilosec), 40 MG PO QAM Potassium Chloride (Potassium Chloride Sr), 10 MEQ PO HS Pyridoxine (Vitamin B6), 100 MG PO QPM Ranitidine Hcl (Zantac), 150 MG PO HS Rivaroxaban (Xarelto), 20 MG PO QAM Ropinirole Hydrochloride (Requip), 0.5 MG PO HS Topiramate (Topiramate), 25 MG PO BID Verapamil HCl (Verapamil HCl ER), 240 MG PO BID Scheduled PRN Albuterol Sulf (Proventil 0.083% 2.5MG/3ML), 2.5 MG NEB QID PRN for SOB/Wheezing Levalbuterol Tartrate (Levalbuterol Tartrate Hfa), 2 PUFFS INH Q6H PRN for Shortness of Breath Allergies Coded Allergies: Codeine (Verified Allergy, Severe, HIVES, 06/06/17) ANAPHYLAXIS PER PT OK WITH MORPHINE AND DEMEROL? Iodinated Diagnostic Agents (Verified Allergy, Severe, HIVES, 06/06/17) Iodine (Verified Allergy, Severe, ANAPHYLAXIS, 06/06/17) Ketorolac (Verified Allergy, Severe, ITCHING, 06/06/17) PER PATIENT, SHE IS FINE TO TAKE IBUPROFEN Penicillins (Verified Allergy, Severe, ITCHING/HIVES, 06/06/17) Shellfish (Verified Allergy, Severe, ANAPHYLAXIS, 06/06/17) Shrimp (Verified Allergy, Severe, ANAPHYLAXIS, 06/06/17) Barium Sulfate (Verified Allergy, Intermediate, itching rash, 06/06/17) Morphine (Verified Allergy, Intermediate, ITCHING, 06/06/17) Physical Exam Vital Signs Date Time Temp Pulse Resp B/P (MAP) Pulse Ox O2 Delivery O2 Flow Rate FiO2 08/24/17 17:47 36.6 62 18 122/69 97 08/24/17 17:43 62 18 122/69 97 08/24/17 17:01 62 18 122/69 97 08/24/17 16:00 62 18 119/66 97 08/24/17 14:58 36.6 72 18 134/80 97 Physical Exam GENERAL: Sitting up in bed, alert, mild distress, holding lower back. EYE EXAM: normal conjunctiva. OROPHARYNX: no exudate, no erythema, lips, buccal mucosa, and tongue normal and mucous membranes are moist NECK: supple, no nuchal rigidity, no adenopathy, non-tender LUNGS: Clear to auscultation. Normal chest wall mechanics HEART: no murmurs, S1 normal and S2 normal ABDOMEN: abdomen soft, non-tender, normo-active bowel sounds, no masses, no rebound or guarding. BACK: Back is symmetrical on inspection and there is no deformity, with acute reproducible tenderness to the lower thoracic lumbar region. There is bilateral paraspinal tenderness. no CVA tenderness. SKIN: no rashes and no bruising UPPER EXTREMITIES: upper extremities are grossly normal. LOWER EXTREMITIES: No pitting edema. Flexion/Extension of the hips, knee, ankle and EHL is 5/5 bilaterally. Gross sensation is intact. Patellar and Achilles reflexes are 4/5 bilaterally. NEURO EXAM: Normal sensorium, cranial nerves II-XII grossly intact, normal speech, no gross weakness of arms Medical Decision & Procedures ER Provider Diagnostic Interpretation: Radiology results as stated below per my review and the radiologist's interpretation: CT SCAN OF THE ABDOMEN AND PELVIS WITHOUT CONTRAST CLINICAL HISTORY: Lower abdominal and back pain COMPARISON STUDY: March 01, 2017 TECHNIQUE: CT scan of the abdomen and pelvis was performed from the lung bases to the proximal femurs. Images are reviewed in the axial, sagittal, and coronal planes. IV contrast was not administered for this examination. A dose lowering technique was utilized adhering to the principles of ALARA. CT DOSE: FINDINGS: Lower chest: The heart is normal in size and configuration, without pericardial effusion. The lung bases and pleural spaces are clear. Liver: The unenhanced liver is normal in size, contour, and attenuation. There is no intrahepatic biliary ductal dilatation. Gallbladder: Surgically absent Spleen: Normal in size and attenuation. Pancreas: Unremarkable. Adrenal glands: Unremarkable. Kidneys: There is a nonobstructing 1.5 mm right renal calculus. There is a nonobstructing 2 mm left renal calculus. No ureteral calculi are visualized. No bladder calculi are visualized. Bowel: There are no transition zones indicate bowel obstruction. The appendix appears normal. There is no acute diverticulitis. Peritoneum: There is no intraperitoneal free air or abdominal ascites. Vasculature: The abdominal aorta is normal in course and caliber. Adenopathy: None. Pelvic viscera: The uterus appears surgically absent Skeletal structures: No destructive osseous lesions are seen. IMPRESSION: 1. Bilateral nephrolithiasis. No ureteral or bladder calculi identified 2. No evidence of bowel obstruction. No evidence of free air 3. Normal appendix. No evidence of acute diverticulitis. Electronically signed by: Blayne Saldaña M.D. 08/24/2017 3:49 PM Dictated Date/Time: 08/24/2017 3:[address] LUMBAR SP[address] WITHOUT CT DOSE: 947.80 mGy.cm CLINICAL HISTORY: lower back pain TECHNIQUE: Helical images were acquired in transverse plane. Reformatted sagittal and coronal images were reviewed. A dose lowering technique was utilized adhering to the principles of ALARA. CONTRAST: No contrast was administered COMPARISON STUDY: None. FINDINGS: L1-2 level: There is no evidence of significant disc bulge or focal herniation. There is no evidence of spinal or foraminal stenosis. L2-3 level: There is a mild circumferential disc bulge. There is no significant spinal or foraminal stenosis. L3-4 level: There is a mild circumferential disc bulge. There is mild spinal stenosis. There is no specific and foraminal narrowing L4-5 level: There is a mild circumferential disc bulge. There is mild to moderate spinal stenosis. There is no significant foraminal narrowing L5-S1 level: There is no significant disc bulge or focal herniation. There is no spinal stenosis. There is mild left-sided foraminal narrowing. There is a transitional vertebra with partial lumbarization of the S1 vertebra No acute fractures or subluxations are visualized. There are tiny bilateral renal calculi IMPRESSION: 1. Transitional vertebra 2. Mild multilevel spondylitic changes with mild spinal stenosis at the L3-4 level, and mild to moderate spinal stenosis at the L4-5 level 3. No fractures or subluxations 4. Bilateral nephrolithiasis Electronically signed by: Blayne Saldaña M.D. 08/24/2017 3:54 PM Dictated Date/Time: 08/24/2017 3:49 PM THORACIC SPINE 3 VIEWS ROUTINE CLINICAL HISTORY: Thoracic spine pain. COMPARISON STUDY: Chest CT June 06, 2017. FINDINGS: Alignment of the thoracic spine is anatomic. Vertebral body heights are maintained. There is no fracture. There is mild disc space narrowing and moderate anterior osteophytosis of the thoracic spine. IMPRESSION: 1. No acute thoracic spine fracture or subluxation. 2. Mild thoracic spine multilevel degenerative disc disease. Electronically signed by: Jalen Malik M.D. 08/24/2017 4:31 PM Dictated Date/Time: 08/24/2017 4:29 PM Laboratory Results 08/24/17 15:28 Red Blood Count 4.01, Mean Corpuscular Volume 90.0, Mean Corpuscular Hemoglobin 30.2, Mean Corpuscular Hemoglobin Concent 33.5, Mean Platelet Volume 10.2, Neutrophils (%) (Auto) 62.0, Lymphocytes (%) (Auto) 27.2, Monocytes (%) (Auto) 8.3, Eosinophils (%) (Auto) 1.9, Basophils (%) (Auto) 0.3, Neutrophils # (Auto) 3.82, Lymphocytes # (Auto) 1.68, Monocytes # (Auto) 0.51, Eosinophils # (Auto) 0.12, Basophils # (Auto) 0.02 08/24/17 15:28 Test 08/24/17 15:15 08/24/17 15:28 Urine Color YELLOW Urine Appearance CLEAR (CLEAR) Urine pH 6.5 (4.5-7.5) Urine Specific Pandora 1.016 (1.000-1.030) Urine Protein NEG (NEG) Urine Glucose (UA) NEG (NEG) Urine Ketones NEG (NEG) Urine Occult Blood NEG (NEG) Urine Nitrite NEG (NEG) Urine Bilirubin NEG (NEG) Urine Urobilinogen NEG (NEG) Urine Leukocyte Esterase TRACE (NEG) Urine WBC (Auto) 1-5 /hpf (0-5) Urine RBC (Auto) 0-4 /hpf (0-4) Urine Hyaline Casts (Auto) 0 /lpf (0-5) Urine Epithelial Cells (Auto) 5-10 /lpf (0-5) Urine Bacteria (Auto) NEG (NEG) White Blood Count 6.17 K/uL (4.8-10.8) Red Blood Count 4.01 M/uL (4.2-5.4) Hemoglobin 12.1 g/dL (12.0-16.0) Hematocrit 36.1 % (37-47) Mean Corpuscular Volume 90.0 fL (80-100) Mean Corpuscular Hemoglobin 30.2 pg (25-34) Mean Corpuscular Hemoglobin Concent 33.5 g/dl (32-36) Platelet Count 292 K/uL (130-400) Mean Platelet Volume 10.2 fL (7.4-10.4) Neutrophils (%) (Auto) 62.0 % Lymphocytes (%) (Auto) 27.2 % Monocytes (%) (Auto) 8.3 % Eosinophils (%) (Auto) 1.9 % Basophils (%) (Auto) 0.3 % Neutrophils # (Auto) 3.82 K/uL (1.4-6.5) Lymphocytes # (Auto) 1.68 K/uL (1.2-3.4) Monocytes # (Auto) 0.51 K/uL (0.11-0.59) Eosinophils # (Auto) 0.12 K/uL (0-0.5) Basophils # (Auto) 0.02 K/uL (0-0.2) RDW Standard Deviation 42.6 fL (36.4-46.3) RDW Coefficient of Variation 12.9 % (11.5-14.5) Immature Granulocyte % (Auto) 0.3 % Immature Granulocyte # (Auto) 0.02 K/uL (0.00-0.02) Anion Gap 7.0 mmol/L (3-11) Est Creatinine Clear Calc Drug Dose 75.1 ml/min Estimated GFR () 92.3 Estimated GFR (Non- 79.7 BUN/Creatinine Ratio 25.2 (10-20) Calcium Level 8.8 mg/dl (8.5-10.1) Total Bilirubin 0.4 mg/dl (0.2-1) Direct Bilirubin 0.1 mg/dl (0-0.2) Aspartate Amino Transf (AST/SGOT) 15 U/L (15-37) Alanine Aminotransferase (ALT/SGPT) 25 U/L (12-78) Alkaline Phosphatase 74 U/L (45-117) Total Protein 6.3 gm/dl (6.4-8.2) Albumin 3.5 gm/dl (3.4-5.0) Lipase 167 U/L (73-393) Laboratory results per my review. Medications Administered Medications (Trade) Dose Ordered Sig/Jax Route Start Time Stop Time Status Last Admin Dose Admin Ondansetron HCl (Zofran Inj) 4 mg NOW STAT IV 08/24/17 15:13 08/24/17 15:15 DC 08/24/17 15:25 4 MG Acetaminophen (Tylenol Tab) 1,000 mg STK-MED ONCE PO 08/24/17 15:20 08/24/17 15:21 DC 08/24/17 15:25 1,000 MG Oxycodone HCl (Roxicodone Immediate Rel 5MG Home Pack) 1 homepack UD ONCE PO 08/24/17 17:30 08/24/17 17:31 DC 08/24/17 17:39 1 HOMEPACK ED Course ED COURSE: Vital signs were reviewed and showed normal vitals The patients medical record was reviewed The above diagnostic studies were performed and reviewed. ED treatments and interventions as stated above. 1505: The patient was evaluated in room B3B. A complete history and physical examination was performed. 1513: Ordered Zofran 4 mg IV, Dilaudid Inj 0.5 mg IV. 1520: Ordered Tylenol 1000 mg PO. 1730: Ordered Oxycodone HCl 1 homepack PO. 1732: Upon reevaluation, the patient is female.I discussed my findings with the patient and she understands and agrees with the treatment plan. Based on the patients age, coexisting illnesses, exam and lab findings the decision to treat as an outpatient was made. The patient remained stable while under my care. The patient appeared well at the time of discharge. Medical Decision Differential diagnoses includes but is not limited to lumbar radiculopathy, muscle strain, facture, cauda equina, mass, and disc herniation. Patient is a 62-year-old female that presents to ER for lower back pain. On exam she does have reproducible pain. She is neurologically intact. No signs of cauda equina. No fevers or IV drug use. No trauma. CT of the abdomen, and lumbar spine show no acute pathology. X-rays of thoracic spine were unremarkable. CBC along with BMP, LFTs, bilirubin lipase is unremarkable. UA was negative. Patient was updated at bedside. Patient declined any IV narcotics and oral narcotics while in the ER as she was driving home. She was given Tylenol. She was discharged with OxyIR to follow-up with PCP. Discussed with Pt concerning signs and symptoms to watch out for. Pt was instructed to follow up with their PCP and discussed with the patient their option to return to the ED at anytime for persistent or worsening symptoms. The appropriate anticipatory guidance and out-patient management, including indications for return to the emergency department, were explained at length to the patient and understood. [place] Drug Monitoring Program Search Results: no issues identified Medication Reconcilliation Current Medication List: was personally reviewed by me Blood Pressure Screening Patient's blood pressure: Normal blood pressure Impression Primary Impression: Back pain Scribe Attestation The scribe's documentation has been prepared under my direction and personally reviewed by me in its entirety. I confirm that the note above accurately reflects all work, treatment, procedures, and medical decision making performed by me. Departure Information Dispostion Home / Self-Care Referrals Homer Herrera III, CRNP (PCP) Forms HOME CARE DOCUMENTATION FORM, IMPORTANT VISIT INFORMATION Patient Instructions My [facility] Additional Instructions Please follow up with your primary care doctor with in the next 24 hours. Any worsening of your symptoms, please return to the ED immediately. This includes any fevers greater than 100.4, worsening pain, chest pain, shortness breath, persistent nausea, vomiting, unable to eat or drink, or any other concerning signs or symptoms from your standpoint. You were also given a prescription for a narcotic. While taking this medication you should also not drive, operate machinery and or work. Please take Tylenol or Motrin as needed for pain. Problem Qualifiers Primary Impression: Back pain Back pain location: low back pain Chronicity: acute Back pain laterality: unspecified Sciatica presence: unspecified whether sciatica present Qualified Codes: M54.5 - Low back pain
[2017-08-24] MEDS ORDERED: LUBI8CAP4 PO (21:10)
[2017-08-24] MEDS ORDERED: CZR25 PO (22:40)
[2017-08-24] MEDS ORDERED: CYM60 PO (22:40)
== END 2017-08-24 17:48 | disposition home or self-care (01) ==
LOC: C.EDB 14:55
DX: M54.16 Radiculopathy, lumbar region (principal); J45.909 Unspecified asthma, uncomplicated; I10 Essential (primary) hypertension; E03.9 Hypothyroidism, unspecified; I48.91 Unspecified atrial fibrillation; Z87.891 Personal history of nicotine dependence; Z87.442 Personal history of urinary calculi; Z88.6 Allergy status to analgesic agent; Z88.8 Allergy status to other drugs, medicaments and biological substances; Z91.013 Allergy to seafood; Z91.041 Radiographic dye allergy status; Z83.3 Family history of diabetes mellitus; Z82.49 Family history of ischemic heart disease and other diseases of the circulatory system; Z83.6 Family history of other diseases of the respiratory system; Z84.1 Family history of disorders of kidney and ureter; Z82.0 Family history of epilepsy and other diseases of the nervous system

== ENCOUNTER → 2017-09-21 | Outpatient (CLI) | payer OTHER ==
[~2017-09-21] MED LIST changes: +ALBINS/ NEB; +ATOR10TA82 PO; +CHOLCAP5 PO; +CYM60 PO; +CZR25 PO; +FLVHFA110 INH; +LEVA45AE INH; +LEVO112T4 PO; +LSX20 PO; +LUBI8CAP4 PO; +OMEP40CA41 PO; +POTA10TA33 PO; -PSYL48.59 PO; +PYRI100T4 PO; +RANI150T3 PO; +ROPI0.5T PO; +SNG10 PO; +TMB100 PO; +TPM25 PO; +TRC145 PO; +VRPSR240 PO; +XRL20 PO
== END | disposition home or self-care (01) ==
LOC: C.LABBFT 15:05
PROVIDERS: ATTEND Nurse Practitioner Family
DX: R35.0 Frequency of micturition (principal); R39.15 Urgency of urination; R30.0 Dysuria

== ENCOUNTER → 2017-09-30 | Outpatient (CLI) | payer OTHER | END | disposition home or self-care (01) | LOC: C.LABSPEC 11:22 | PROVIDERS: ATTEND Nurse Practitioner Family | DX: R39.9 Unspecified symptoms and signs involving the genitourinary system (principal) ==

== ENCOUNTER → 2017-10-28 | Outpatient (CLI) | payer OTHER ==
--- NOTE | 2017-10-29 14:20 | MAMMOGRAPHY REPORT ---
BILATERAL DIGITAL SCREENING MAMMOGRAM TOMOSYNTHESIS WITH CAD: 10/28/2017 CLINICAL HISTORY: Routine screening. Patient has no complaints. TECHNIQUE: Breast tomosynthesis in addition to standard 2D mammography was performed. Current study was also evaluated with a Computer Aided Detection (CAD) system. COMPARISON: Comparison is made to exams dated: 10/20/2016 mammogram, 10/11/2015 mammogram, 10/08/2014 m ammogram, 09/04/2013 mammogram, 08/17/2011 mammogram, and 03/24/2010 mammogram - [facility]. BREAST COMPOSITION: The tissue of both breasts is almost entirely fatty. FINDINGS: No suspicious masses, calcifications, or areas of architectural distortion are noted in ei ther breast. There has been no significant interval change compared to prior exams. There are stable changes from bilateral reduction mammoplasty. An asymmetry within the right superior posterior [address] on the MLO view is similar to prior exams including the 2011 exam and is considered benign given l amaury-term stability and likely represents postsurgical changes. IMPRESSION: ACR BI-RADS CATEGORY 2: BENIGN There is no mammographic evidence of malignancy. A 1 year screening mammogram is recommended. The pa tient will receive written notification of the results. Approximately 10% of breast cancers are not detected with mammography. A negative mammographic report should not delay biopsy if a clinically suggestive mass is present. Deanna Murrieta M.D. /:10/28/2017 15:27:41 Statement Services Representative: Faith GONZALEZ)(Robin), [facility] letter sent: Normal 1/2 BI-RADS Code: ACR BI-RADS Category 2: Benign
== END | disposition home or self-care (01) ==
LOC: C.MAMM 15:03
PROVIDERS: ATTEND Nurse Practitioner Family
DX: Z12.31 Encounter for screening mammogram for malignant neoplasm of breast (principal)

== ENCOUNTER 2018-02-20 14:29 | Emergency (ER) | payer OTHER ==
[~2018-02-20] VITALS: Ht 157.5 cm; Wt 90.9 kg
[~2018-02-20 14:29] MED LIST changes: -ALBINS/ NEB; +ARC5 PO; -LEVA45AE INH; +MTR600X PO; +RIVA1TAB4 PO; +TOPI25TA55 PO; -TPM25 PO; -TRC145 PO; -XRL20 PO
[2018-02-20 14:45] VITALS: TEMP 36.9; Ht 157.5 cm; Wt 90.9 kg
--- NOTE | 2018-02-20 15:30 | EMERGENCY ROOM VISIT NOTE ---
History Report prepared by Claudia: Rosanna Cedeño Under the Supervision of: Dr. Sushant Tolentino M.D. First contact with patient: 15:01 Chief Complaint: FALL Stated Complaint: HEAD PAIN,MULTIPLE ACHES & BRUISES History of Present Illness The patient is a 62 year old female who presents to the Emergency Room with complaints of constant generalized pain after a fall yesterday. The pain in mostly on her right side, and she has a sore shoulder, abdomen, and bruised feet. She slipped on the porch, and hit her head on a table, newspaper box, and then on the brink amairani. She complains of a headache, neck pain, and tiredness. She rates her pain as an 8/10. The patient denies dizziness, nausea, LOC, chest pain, and shortness of breath. She notes numbness and weakness in her right hand, which she attributes to her carpal tunnel. The patient has a history of atrial fibrillation, GERD, and currently feels as though she has a cold. She has regularly been taking Xarelto for a few years. She took Ibuprofen before coming to the ED. Source of History: patient Onset: Yesterday Position: other (generalized) Symptom Intensity: 8/10 Timing: constant Associated Symptoms: + headache, No LOC, No chest pain, No SOB, No nausea Note: The patient complains of neck pain and tiredness. She denies dizziness. Review of Systems See HPI for pertinent positives & negatives. A total of 10 systems reviewed and were otherwise negative. 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 (11) Left knee pain (12) Migraine (13) Morbid Obesity (14) Oophorectomy (15) Open reduction of fracture (16) Precordial chest pain (17) Sepsis (18) Stroke-like symptoms (19) Superficial bruising of lower leg (20) Supraventricular tachycardia (21) TIA (transient ischemic attack) (22) UTI (urinary tract infection) (23) UTI (urinary tract infection) (24) Vomiting and diarrhea Old medical records were reviewed. Nurse's notes were reviewed and I agree with. Family History Cancer Diabetes mellitus FH: CHF (congestive heart failure) FHx: cancer FHx: lung disease Gallbladder disease Heart disease Hypertension Kidney disease Kidney stones Lung disease Seizures Social History Smoking Status: Never Smoker Alcohol Use: none Drug Use: none Marital Status: Housing Status: lives with family Occupation Status: employed Current/Historical Medications Scheduled Atorvastatin (Lipitor), 10 MG PO DAILY Cholecalciferol (Vitamin D3), 5,000 INTER.UNIT PO QAM Docusate Sodium (Docusate Sodium), 100 MG PO QPM Donepezil HCl (Aricept), 5 MG PO HS Duloxetine HCl (Duloxetine HCl), 60 MG PO QAM Flecainide Acetate (Flecainide Acetate), 100 MG PO Q12 Fluticasone Propionate (Flovent Hfa), 1 PUFF INH BID Furosemide (Furosemide), 20 MG PO QAM Levothyroxine Sodium (Levothyroxine Sodium), 112 MCG PO QAM Losartan Potassium (Losartan Potassium), 12.5 MG PO QAM Lubiprostone (Amitiza), 8 MCG PO BID Montelukast Sod (Montelukast Sodium), 10 MG PO QAM Omeprazole (Prilosec), 40 MG PO QAM Potassium Chloride (Potassium Chloride Sr), 10 MEQ PO HS Pyridoxine (Vitamin B6), 100 MG PO DAILY Ranitidine Hcl (Zantac), 150 MG PO HS Rivaroxaban (Xarelto), 20 MG PO QPM Ropinirole Hydrochloride (Requip), 0.5 MG PO BID Verapamil HCl (Verapamil HCl ER), 240 MG PO BID Scheduled PRN Albuterol Sulf (Proventil 0.083% 2.5MG/3ML), 2.5 MG INH Q4-6 PRN for Wheezing Levalbuterol Tartrate (Levalbuterol Tartrate Hfa), 2 PUFFS INH Q6 PRN for SOB/ Wheezing Methocarbamol (Robaxin), 500 MG PO BID PRN for Muscle Spasms Allergies Coded Allergies: Codeine (Verified Allergy, Severe, HIVES, 02/20/18) ANAPHYLAXIS PER PT OK WITH MORPHINE AND DEMEROL? Iodinated Diagnostic Agents (Verified Allergy, Severe, HIVES, 02/20/18) Iodine (Verified Allergy, Severe, ANAPHYLAXIS, 02/20/18) Ketorolac (Verified Allergy, Severe, ITCHING, 02/20/18) PER PATIENT, SHE IS FINE TO TAKE IBUPROFEN Penicillins (Verified Allergy, Severe, ITCHING/HIVES, 02/20/18) Shellfish (Verified Allergy, Severe, ANAPHYLAXIS, 02/20/18) Shrimp (Verified Allergy, Severe, ANAPHYLAXIS, 02/20/18) Barium Sulfate (Verified Allergy, Intermediate, itching rash, 02/20/18) Morphine (Verified Allergy, Intermediate, ITCHING, 02/20/18) Physical Exam Vital Signs Date Time Temp Pulse Resp B/P (MAP) Pulse Ox O2 Delivery O2 Flow Rate FiO2 02/20/18 16:45 87 18 136/72 96 Room Air 02/20/18 14:45 36.9 66 18 132/71 97 Room Air Physical Exam General: Non-ill appearing older female in no acute distress. HEENT: Normal cephalic atraumatic. Pupils are equal round and reactive to light. Extraocular movements are intact. Oropharynx is pink with moist mucous membranes. No swelling of the mouth lips or tongue. Bruise under right chin. Neck: Supple with a midline trachea. No meningeal signs or stiffness, no JVD or bruits. No Stridor. Chest: Clear to auscultation bilaterally. No wheezes or rhonchi. No increased work of breathing. Heart: regular rate and rhythm. Abdomen: Soft nontender, nondistended without rebound guarding or rigidity. Extremities: No cyanosis clubbing or edema. No calf tenderness or assymetry. Bruise on right shoulder with full range of motion, tender to palpation, and it goes into the right anterior chest. Diffusely tender in right knee and foot. Spine/Back. Non tender to palpation. No CVA tenderness Skin: Good turgor without rashes. Neurologic exam: Cranial nerves two through 12 are intact. Motor and sensation are intact and symmetrical throughout. Medical Decision & Procedures ER Provider Diagnostic Interpretation: Radiology results as stated below per my review and radiologist interpretation: R SHOULDER MIN 2 VIEWS ROUTINE FINDINGS: Mild glenohumeral and moderate AC joint osteoarthritis. No acute fracture or dislocation. Imaged lung humphrey appear clear. IMPRESSION: No acute fracture or dislocation. The above report was generated using voice recognition software. It may contain grammatical, syntax or spelling errors. Electronically signed by: Nick Wright M.D. 02/20/2018 4:03 PM R KNEE 1 OR 2 VIEWS ROUTINE FINDINGS: Bones appear mildly demineralized. Tricompartmental osteoarthritis, mild within the medial and lateral compartments and moderate within the patellofemoral compartment. Trace joint effusion. No acute fracture or dislocation. IMPRESSION: 1. Trace joint effusion without acute fracture or dislocation. 2. Tricompartmental osteoarthritis, moderate within the patellofemoral joint. The above report was generated using voice recognition software. It may contain grammatical, syntax or spelling errors. Electronically signed by: Nick Wright M.D. 02/20/2018 4:08 PM HEAD WITHOUT CONTRAST (CT) FINDINGS: No acute intracranial hemorrhage, midline shift, intracranial mass, hydrocephalus, territorial ischemia or abnormal extra-axial collection. The calvarium is intact. The paranasal sinuses, mastoid air cells, and middle ear cavities are clear. IMPRESSION: No acute intracranial abnormality. The above report was generated using voice recognition software. It may contain grammatical, syntax or spelling errors. Electronically signed by: Nick Wright M.D. 02/20/2018 3:41 PM Dictated Date/Time: 02/20/2018 3:38 PM R FOOT MIN 3 VIEWS ROUTINE FINDINGS: Mild to moderate degenerative changes about the first MTP joint with mild soft tissue swelling. Bipartite medial hallux sesamoid. Mild degenerative changes about the interphalangeal joints. Mild soft tissue swelling about the forefoot. Moderate to large sized syndesmophytes about the calcaneus. Moderate spurring about the dorsal midfoot. No acute fracture or dislocation. IMPRESSION: Degenerative changes as above without acute fracture or dislocation. The above report was generated using voice recognition software. It may contain grammatical, syntax or spelling errors. Electronically signed by: Nick Wright M.D. 02/20/2018 4:05 PM (CHEST) THORAX WITHOUT, ABD/PELVIS NO IV OR ORAL CONT FINDINGS: CT CHEST: Homogeneous appearance of the thyroid. No pathologically enlarged lymph nodes of the chest. Mild multichamber cardiac enlargement. No pericardial effusion. Coronary arterial calcifications are noted. No thoracic aneurysm. Main pulmonary artery is mildly dilated, 3.4 cm transversely which may reflect pulmonary arterial hypertension in the appropriate clinical setting. No pneumothorax or pleural effusion. Mild subsegmental linear pleural-based consolidative opacities of the inferior segment lingula suggest atelectasis/scarring. There are no suspicious pulmonary nodules or masses identified. Minimal groundglass opacities about the left lung apex favor atelectasis. No lobar airspace consolidation to suggest pneumonia or pulmonary contusion. Likely benign 2 mm solid nodule of the right lower lobe on image 156 series 10. Central airways appear patent. Soft tissues are unremarkable. Degenerative changes of the shoulders and spine. Linear lucency about the right clavicle, partially imaged suggest vascular channel. Multilevel spondylitic spurring of the spine with multilevel intervertebral disc space narrowing and facet arthrosis. No sternal fracture. Imaged ribs appear intact. CT ABDOMEN/PELVIS: Prior cholecystectomy. The liver, spleen, pancreas and adrenal glands are unremarkable. Punctate nonobstructing calculus of the inferior pole left kidney. No ureteral calculi or obstructive uropathy. Ureters and bladder are unremarkable. Hysterectomy. No adnexal mass lesions. Mild calcification of the aorta. IVC is within normal limits. No pathologically enlarged lymph nodes. No bowel obstruction or focal bowel wall thickening. Moderate volume of formed stool is noted throughout the colon suggesting constipation. Terminal ileum and appendix appear normal. No ascites or mesenteric inflammatory changes. The soft tissues are within normal limits. Multilevel facet arthropathy. Degenerative changes of the SI joints and pubic symphysis. Chondrocalcinosis of the disc spaces. No acute fracture. Transitional lumbosacral anatomy. Chondrocalcinosis about the bilateral hips. IMPRESSION: 1. No acute intrathoracic, intra-abdominal or intrapelvic abnormality identified. 2. No pneumothorax, pneumatosis or pneumoperitoneum. 3. Suggested constipation. 4. Prior cholecystectomy and hysterectomy. 5. 2 mm nonobstructing calculus of the inferior pole left kidney. 6. Additional findings as above. Electronically signed by: Nick Wright M.D. 02/20/2018 3:59 PM CERVICAL SPINE W/O FINDINGS: Partially calcified pannus posterior to odontoid process. Mild to moderate intervertebral disc space narrowing at C5-C6 with mild disc space narrowing at C4-C5. Fusion of the left facets at C4-C5. At least moderate multilevel facet arthropathy. Prominent posterior disc osteophyte complex formation at C5-C6. No acute fracture or subluxation identified. Evaluation of the central canal or neuroforamina is better assessed by MRI. Moderate left-sided foraminal narrowing at C4-C5. Moderate right and moderate to severe left foraminal narrowing at C5-C6. No prevertebral soft tissue swelling. Mild adenoid tonsillar hyperplasia. No definite high-grade central canal narrowing. Soft tissues and lung apices appear unremarkable. Trace right mastoid effusion. IMPRESSION: No acute cervical spine fracture or subluxation. The above report was generated using voice recognition software. It may contain grammatical, syntax or spelling errors. Electronically signed by: Nick Wright M.D. 02/20/2018 3:46 PM ED Course 1501: Past medical records reviewed. The patient was evaluated in room C4, and a complete history and physical examination were performed. 1635: Upon reevaluation, the patient is stable. I discussed the results and treatment plan with her. She verbalized agreement of the treatment plan. The patient was discharged home. Medical Decision Differential diagnosis includes: Traumatic injury, internal injury, orthopedic injury. This patient comes in as described above. She suffered a mechanical fall. She did hit her head and has pain mostly on her right side she is on Xarelto and has multiple complaints. She looks well however and had no syncope. She does have multiple allergies to it and ended also drive here. CAT scans and x-rays were obtained. Head Trauma GCS Score: 15 Medication Reconcilliation Current Medication List: was personally reviewed by me Blood Pressure Screening Patient's blood pressure: Elevated blood pressure Blood pressure disposition: Elevated BP felt to be situational Impression Primary Impression: Concussion Additional Impressions: Contusion of right shoulder Contusion of right knee Abdominal wall contusion Current use of computer terminal operator anticoagulation Scribe Attestation The scribe's documentation has been prepared under my direction and personally reviewed by me in its entirety. I confirm that the note above accurately reflects all work, treatment, procedures, and medical decision making performed by me. Departure Information Dispostion Home / Self-Care Referrals No Doctor, Assigned (PCP) Forms HOME CARE DOCUMENTATION FORM, IMPORTANT VISIT INFORMATION Patient Instructions My [facility] Additional Instructions Rest. Drink plenty of fluids. Be careful when getting up and down Use Reddy wrap as needed for comfort Take today and tomorrow off of work and follow-up with your doctor on Wednesday for recheck and further instructions. Use Tylenol a maximum of 650 mg every 6 hours, take with food Return if: Increasing pain, fever or chills, shortness of breath, any new problems or concerns Problem Qualifiers
--- NOTE | 2018-02-20 15:42 | DIAGNOSTIC IMAGING REPORT ---
HEAD WITHOUT CONTRAST (CT) CLINICAL HISTORY: 62 years-old Female with eval for trauma. Acute posttraumatic head injury TECHNIQUE: Multiple axial CT images of the head were obtained without contrast. A dose lowering technique was utilized adhering to the principles of ALARA. CT DOSE: 2892.01 mGy.cm COMPARISON: CT cervical spine of same day, CT head 01/21/2018. FINDINGS: No acute intracranial hemorrhage, midline shift, intracranial mass, hydrocephalus, territorial ischemia or abnormal extra-axial collection. The calvarium is intact. The paranasal sinuses, mastoid air cells, and middle ear cavities are clear. IMPRESSION: No acute intracranial abnormality. The above report was generated using voice recognition software. It may contain grammatical, syntax or spelling errors. Electronically signed by: Nick Wright M.D. 02/20/2018 3:41 PM Dictated Date/Time: 02/20/2018 3:38 PM
--- NOTE | 2018-02-20 15:47 | DIAGNOSTIC IMAGING REPORT ---
CERVICAL SPINE W/O CLINICAL HISTORY: 62 years-old Female with eval for trauma. Acute post traumatic neck injury COMPARISON: CT head of same day, CTA of the neck 06/06/2017 TECHNIQUE: Multiple axial CT images of the cervical spine were obtained without contrast. A dose lowering technique was utilized adhering to the principles of ALARA. FINDINGS: Partially calcified pannus posterior to odontoid process. Mild to moderate intervertebral disc space narrowing at C5-C6 with mild disc space narrowing at C4-C5. Fusion of the left facets at C4-C5. At least moderate multilevel facet arthropathy. Prominent posterior disc osteophyte complex formation at C5-C6. No acute fracture or subluxation identified. Evaluation of the central canal or neuroforamina is better assessed by MRI. Moderate left-sided foraminal narrowing at C4-C5. Moderate right and moderate to severe left foraminal narrowing at C5-C6. No prevertebral soft tissue swelling. Mild adenoid tonsillar hyperplasia. No definite high-grade central canal narrowing. Soft tissues and lung apices appear unremarkable. Trace right mastoid effusion. IMPRESSION: No acute cervical spine fracture or subluxation. The above report was generated using voice recognition software. It may contain grammatical, syntax or spelling errors. Electronically signed by: Nick Wright M.D. 02/20/2018 3:46 PM Dictated Date/Time: 02/20/2018 3:42 PM
--- NOTE | 2018-02-20 16:00 | DIAGNOSTIC IMAGING REPORT ---
(CHEST) THORAX WITHOUT, ABD/PELVIS NO IV OR ORAL CONT CLINICAL HISTORY: 62 years-old Female with eval for trauma. Acute trauma chest, abdomen and pelvis. TECHNIQUE: Multiaxial CT images of the chest, abdomen and pelvis were performed without contrast. A dose lowering technique was utilized adhering to the principles of ALARA. COMPARISON: CT abdomen and pelvis 08/24/2017, CTA chest 06/06/2017. FINDINGS: CT CHEST: Homogeneous appearance of the thyroid. No pathologically enlarged lymph nodes of the chest. Mild multichamber cardiac enlargement. No pericardial effusion. Coronary arterial calcifications are noted. No thoracic aneurysm. Main pulmonary artery is mildly dilated, 3.4 cm transversely which may reflect pulmonary arterial hypertension in the appropriate clinical setting. No pneumothorax or pleural effusion. Mild subsegmental linear pleural-based consolidative opacities of the inferior segment lingula suggest atelectasis/scarring. There are no suspicious pulmonary nodules or masses identified. Minimal groundglass opacities about the left lung apex favor atelectasis. No lobar airspace consolidation to suggest pneumonia or pulmonary contusion. Likely benign 2 mm solid nodule of the right lower lobe on image 156 series 10. Central airways appear patent. Soft tissues are unremarkable. Degenerative changes of the shoulders and spine. Linear lucency about the right clavicle, partially imaged suggest vascular channel. Multilevel spondylitic spurring of the spine with multilevel intervertebral disc space narrowing and facet arthrosis. No sternal fracture. Imaged ribs appear intact. CT ABDOMEN/PELVIS: Prior cholecystectomy. The liver, spleen, pancreas and adrenal glands are unremarkable. Punctate nonobstructing calculus of the inferior pole left kidney. No ureteral calculi or obstructive uropathy. Ureters and bladder are unremarkable. Hysterectomy. No adnexal mass lesions. Mild calcification of the aorta. IVC is within normal limits. No pathologically enlarged lymph nodes. No bowel obstruction or focal bowel wall thickening. Moderate volume of formed stool is noted throughout the colon suggesting constipation. Terminal ileum and appendix appear normal. No ascites or mesenteric inflammatory changes. The soft tissues are within normal limits. Multilevel facet arthropathy. Degenerative changes of the SI joints and pubic symphysis. Chondrocalcinosis of the disc spaces. No acute fracture. Transitional lumbosacral anatomy. Chondrocalcinosis about the bilateral hips. IMPRESSION: 1. No acute intrathoracic, intra-abdominal or intrapelvic abnormality identified. 2. No pneumothorax, pneumatosis or pneumoperitoneum. 3. Suggested constipation. 4. Prior cholecystectomy and hysterectomy. 5. 2 mm nonobstructing calculus of the inferior pole left kidney. 6. Additional findings as above. Electronically signed by: Nick Wright M.D. 02/20/2018 3:59 PM Dictated Date/Time: 02/20/2018 3:47 PM
--- NOTE | 2018-02-20 16:04 | DIAGNOSTIC IMAGING REPORT ---
R SHOULDER MIN 2 VIEWS ROUTINE HISTORY: 62 years-old Female eval for trauma acute posttraumatic right shoulder pain COMPARISON: CT chest of same day TECHNIQUE: 3 views of the right shoulder FINDINGS: Mild glenohumeral and moderate AC joint osteoarthritis. No acute fracture or dislocation. Imaged lung humphrey appear clear. IMPRESSION: No acute fracture or dislocation. The above report was generated using voice recognition software. It may contain grammatical, syntax or spelling errors. Electronically signed by: Nick Wright M.D. 02/20/2018 4:03 PM Dictated Date/Time: 02/20/2018 4:02 PM
--- NOTE | 2018-02-20 16:07 | DIAGNOSTIC IMAGING REPORT ---
R FOOT MIN 3 VIEWS ROUTINE HISTORY: 62 years-old Female eval for trauma acute posttraumatic right foot pain COMPARISON: None available TECHNIQUE: 3 views of the right foot FINDINGS: Mild to moderate degenerative changes about the first MTP joint with mild soft tissue swelling. Bipartite medial hallux sesamoid. Mild degenerative changes about the interphalangeal joints. Mild soft tissue swelling about the forefoot. Moderate to large sized syndesmophytes about the calcaneus. Moderate spurring about the dorsal midfoot. No acute fracture or dislocation. IMPRESSION: Degenerative changes as above without acute fracture or dislocation. The above report was generated using voice recognition software. It may contain grammatical, syntax or spelling errors. Electronically signed by: Nick Wright M.D. 02/20/2018 4:05 PM Dictated Date/Time: 02/20/2018 4:04 PM
--- NOTE | 2018-02-20 16:09 | DIAGNOSTIC IMAGING REPORT ---
R KNEE 1 OR 2 VIEWS ROUTINE HISTORY: 62 years-old Female eval for trauma acute right knee pain status post fall COMPARISON: None available TECHNIQUE: 2 views of the right knee FINDINGS: Bones appear mildly demineralized. Tricompartmental osteoarthritis, mild within the medial and lateral compartments and moderate within the patellofemoral compartment. Trace joint effusion. No acute fracture or dislocation. IMPRESSION: 1. Trace joint effusion without acute fracture or dislocation. 2. Tricompartmental osteoarthritis, moderate within the patellofemoral joint. The above report was generated using voice recognition software. It may contain grammatical, syntax or spelling errors. Electronically signed by: Nick Wright M.D. 02/20/2018 4:08 PM Dictated Date/Time: 02/20/2018 4:06 PM
[2018-02-20 16:45] VITALS: BP 136/72; PULSE 87; O2SAT 96
[2018-02-20] MEDS ORDERED: METH-445 PO (16:50)
[2018-02-20] MEDS ORDERED: ALBINS/ INH (16:50)
[2018-02-20] MEDS ORDERED: PYRI100T4 PO (16:50)
[2018-02-20] MEDS ORDERED: LUBI8CAP4 PO (16:50)
[2018-02-20] MEDS ORDERED: LEVA45AE INH (16:50)
[2018-02-20] MEDS ORDERED: DONE5TAB9 PO (16:50)
== END 2018-02-20 16:55 | disposition home or self-care (01) ==
LOC: C.EDB 14:31 → C.EDC 16:55
DX: S06.0X0A Concussion without loss of consciousness, initial encounter (principal); S40.011A Contusion of right shoulder, initial encounter; S80.01XA Contusion of right knee, initial encounter; S30.1XXA Contusion of abdominal wall, initial encounter; Z79.01 Long term (current) use of anticoagulants; W01.198A Fall on same level from slipping, tripping and stumbling with subsequent striking against other object, initial encounter; J45.909 Unspecified asthma, uncomplicated; I48.91 Unspecified atrial fibrillation; I10 Essential (primary) hypertension; E03.9 Hypothyroidism, unspecified; Z86.73 Personal history of transient ischemic attack (TIA), and cerebral infarction without residual deficits; Z83.3 Family history of diabetes mellitus; Z82.49 Family history of ischemic heart disease and other diseases of the circulatory system; Z79.899 Other long term (current) drug therapy; Z88.5 Allergy status to narcotic agent; Z88.8 Allergy status to other drugs, medicaments and biological substances; Z88.0 Allergy status to penicillin; Z91.041 Radiographic dye allergy status; Z91.013 Allergy to seafood

== ENCOUNTER 2020-10-05 03:42 | Observation (INO) ==
[2020-10-05] MEDS ORDERED: NITROGLYCERIN 2% OINTMENT 30GM TUBE EXT STA (03:54)
--- NOTE | 2020-10-05 03:55 | Emergency Department Note ---
Impression & Plan Chest pain ED Provider Note NAME: CLAUDE BARR AGE: 65 SEX: F : 1955 ARRIVES VIA: Ambulance INFORMANT: Patient, EMS ED PROVIDER(S): Manjinder Lanier MD CHIEF COMPLAINT: Chest pressure HPI: This is a 65-year-old female who presents emergency department complaining of chest pressure. The patient reports she was sitting at home doing her crossword puzzle when she began having chest pressure this morning. She reports nothing seems to make the chest pain better or worse. She called EMS who gave her nitro. She reports the nitro did make the chest pain better. She describes the pain as a pressure sensation radiating down her left arm. Patient reports she has had a cardiac cath previously however has not had stents placed she also reports that she is on apixaban. ROS: See above HPI for pertinent positives & negatives. A total of 10 systems reviewed and were otherwise negative. PAST MEDICAL HISTORY: See Below PAST SURGICAL HISTORY: See Below FAMILY HISTORY: See Below SOCIAL HISTORY: See Below HOME MEDICATIONS: See Below ALLERGIES: See Below VITALS: See Below PHYSICAL EXAMINATION: VITAL SIGNS - Vital signs and nursing notes were reviewed. GENERAL - 65-year-old female appearing stated age who is in no acute distress. Communicates well with provider and answers questions appropriately. SKIN - Without rashes. HEAD - NC/AT. EYES - PERRL with EOMI bilaterally. Sclera anicteric. Palpebral conjunctiva pink and moist with no injection noted. EARS - No deformities of external structures noted on gross examination bilaterally. NOSE - Midline and without cyanosis. No epistaxis or purulent drainage noted. Septum midline without deviation or septal hematoma noted. MOUTH/OROPHARYNX - Without perioral cyanosis. Buccal mucosa pink and moist and without leukoplakia. Tongue midline with equal elevation of palate bilaterally. No tonsillar hypertrophy, erythema, or exudates noted. NECK - Neck with FROM. Supple to palpation. lymphadenopathy noted. No nuchal rigidity. LUNGS - Chest wall symmetric without accessory muscle use, intercostals retractions, or central cyanosis. Normal vesicular breath sounds CTA B/L. No wheezes, rales, or rhonchi appreciated. CARDIAC - RRR with S1/S2. No murmur, rubs, or gallops appreciated. ABDOMEN - Abdominal contour without pulsations or visible masses. BS normoactive all four quadrants. No tenderness, palpable masses, hepatosplenomegaly, or ascites noted. EXTREMITIES - No clubbing or peripheral cyanosis. No pretibial edema present. +3/5 radial, posterior tibial, and dorsalis pedis pulses palpated throughout. +5/5 strength noted in UE/LE bilaterally. NEUROLOGIC - Cranial nerves II through XII grossly intact. Sensory intact to light touch throughout. Patellar reflexes +2/4. PSYCH - A&Ox3 and cooperates fully with examiner. Pt is very pleasant and interacts well with examiner. MEDICAL DECISION MAKING: Patient was seen and evaluated as above in room A10. Review was performed of nursing notes and vital signs. I did review pertinent previous visits and patient history. After obtaining a thorough history and physical examination the above work up was performed. This is a 65-year-old female who presents emergency department complaining of chest pain that is relieved by nitroglycerin here in the emergency department. The patient is pain-free with nitro. Based on this finding I did give the patient the option of being discharged home however she would like to be admitted to the hospital. Her initial troponin is not elevated. EKGs are unchanged from previous. I did discuss the case with the medicine service who did agree to admit the patient. Patient is in agreement with the treatment plan. An order was placed for continuous cardiac monitoring. The monitor shows a rate of 75 with Normal Sinus rhythm. The patient was evaluated during a period of high volume and high acuity during the global COVID-19 pandemic, and that diagnosis was suspected/considered upon their initial presentation. Their evaluation, treatment and testing was consistent with current guidelines for patients who present with complaints or symptoms that may be related to COVID-19. Patient was seen while provider was wearing PPE. Triage Nursing notes reviewed. Prior medical records reviewed Vital Signs: reviewed and remarkable for no significant abnormalities Differential diagnosis: Cardiac ischemia, aortic dissection, pulmonary embolism, pneumothorax, pneumonia, pericarditis, myocarditis, esophageal rupture, GERD, cholecystitis, pancreatitis, musculoskeletal, as well as other pathologies. ER treatment provided: See below Diagnostics interpreted by me: ECG: EKG shows a normal sinus rhythm no ST elevation or depression QTC is 449 ventricular rate is 78. It is compared to EKG 09/30/2019 no significant changes noted Laboratory studies: As stated above and show below. Imaging studies: 1 view the chest was interpreted by me shows no evidence of pneumonia congestion or pneumothorax Consultation(s): Internal Medicine Past Med/Surg History Medical History Anemia Anxiety Arthritis Asthma Atrial fibrillation Bilateral edema of lower extremity Cataract, bilateral Degenerative disc disease Depression Diverticulosis Dyslipidemia Family history of colon cancer GERD (gastroesophageal reflux disease) Heart murmur History of colon polyps History of neoplasm of uncertain behavior of skin History of TIA (transient ischemic attack) Hx of basal cell carcinoma Hx of migraines Hypertension Hypomagnesemia Hypothyroidism Intractable nausea and vomiting Morbid obesity On anticoagulant therapy Palpitations Prediabetes Restless leg syndrome Sleep apnea Strain of left trapezius muscle Supraventricular tachycardia (06/25/11) Surgical History H/O bariatric surgery H/O cardiac radiofrequency ablation History of appendectomy History of arthroscopy of right shoulder History of basal cell carcinoma (BCC) excision History of bilateral breast reduction surgery (~11/2010) History of cholecystectomy History of colonoscopy History of esophagogastroduodenoscopy (EGD) History of ovarian cystectomy History of removal of cyst History of surgical removal of ganglion cyst History of total abdominal hysterectomy and bilateral salpingo-oophorectomy History of total left knee replacement (TKR) History of wisdom tooth extraction Hx of bilateral cataract extraction Hx of laminectomy Laminectomy (06/25/11) Open reduction of fracture (06/25/11) S/P excision of lipoma (~07/2019) Family History Mother Family history of diabetes mellitus Family history of reaction to anesthesia "had heart complications after surgery for cancer of the vulva" Family hx colonic polyps Myocardial infarction Father Family hx of colon cancer Family hx colonic polyps Colorectal cancer Uncle Family history of esophageal cancer Sister Family hx colonic polyps Other Hypertension Denies family history of Ovarian cancer Prostate cancer Breast cancer Social History Smoking Status: Never smoker Second Hand Exposure: No ([email or web address]); Hx Alcohol Use: No Hx Substance Use: No Preferred Language: [place] Communication Ability: Effective Visual Impairment: No Limitations Hearing Ability: Hard of Hearing School Year Nanny Required: No Beliefs That Will Affect Care: None marital status: Current Living Situation: Parent Current Living Situation Comment: Lives with sister current occupational status: retired Other Information That Helps Us Care for You: No Feels Safe at Home: Yes Safety Concerns: Feels Safe At This Time Childhood Exposure to Second-Hand Smoke: Yes Dental Care, Regularly: Yes Physical Activity Frequency: Does not Exercise Seatbelt Use: sometimes Sunscreen Use: No Assistive Devices: Glasses Allergies Allergies Allergy/AdvReac Type Severity Reaction Status Date / Time codeine Allergy Severe HIVES Verified 10/05/20 07:24 Iodinated Contrast Media Allergy Severe HIVES Verified 10/05/20 07:24 iodine Allergy Severe ANAPHYLAXIS Verified 10/05/20 07:24 ketorolac Allergy Severe ITCHING Verified 10/05/20 07:24 Penicillins Allergy Severe ITCHING/HIV Verified 10/05/20 07:24 ES shellfish derived Allergy Severe ANAPHYLAXIS Verified 10/05/20 07:24 shrimp Allergy Severe ANAPHYLAXIS Verified 10/05/20 07:24 barium sulfate Allergy Intermediate itching Verified 10/05/20 07:24 rash morphine Allergy Intermediate ITCHING Verified 10/05/20 07:24 Home Meds Home Medications Medication Instructions Recorded Confirmed docusate sodium 100 mg PO HS 02/27/18 10/05/20 pediatric multivitamin no.76 1 tab PO BID tab 04/23/20 10/05/20 acetaminophen [Tylenol Extra 1,500 mg PO Q6H PRN 10/05/20 10/05/20 Strength] Previous Rx's Medication Instructions Recorded levothyroxine 175 mcg tablet 175 mcg PO QAM #90 tab 01/16/20 lancets 33 gauge #100 ea 02/16/20 duloxetine 60 mg capsule,delayed 60 mg PO QAM #90 cap 02/28/20 release levalbuterol tartrate 45 2 inh INHALATION Q6H #15 g 03/29/20 mcg/actuation aerosol inhaler omeprazole 40 mg capsule,delayed 20 mg PO QAM #90 cap 05/01/20 release blood sugar diagnostic #100 ea 05/02/20 pramipexole 0.75 mg tablet 0.75 mg PO TID #90 tab 05/02/20 apixaban 5 mg tablet 5 mg PO BID #180 tab 05/10/20 furosemide 40 mg tablet 40 mg PO DAILY PRN #120 tab 05/27/20 verapamil 240 mg tablet,extended 240 mg PO BID #180 tab 07/05/20 release flecainide 100 mg tablet 100 mg PO BID #180 tab 07/23/20 potassium chloride 20 mEq 40 meq PO BID #180 tab 09/16/20 tablet,extended release Results & Data (ED) Vital Signs Vital Signs - 24 hr 10/05/20 06:58 10/05/20 06:59 10/05/20 07:56 Pulse Rate [Right Finger] 74 76 Respiratory Rate 20 20 Respiratory Effort / Characteristics Non-Labored Non-Labored Spontaneous Non-Labored Respiratory Depth Normal Normal Normal Blood Pressure [Right Arm] 127/67 117/55 L Blood Pressure Mean [Right Arm] 87 75 Pulse Oximetry 94 93 Oxygen Delivery Method Room Air Room Air Laboratory Data Result diagrams: 10/05/20 04:00 10/05/20 04:00 Lab Results 10/05/20 10/05/20 10/05/20 Range/Units 04:00 04:00 04:08 WBC 6.88 (4.8-10.8) K/uL RBC 4.09 L (4.2-5.4) M/uL Hgb 13.2 (12.0-16.0) g/dL Hct 37.4 (37-47) % MCV 91.4 (80-100) fL MCH 32.3 (25-34) pg MCHC 35.3 (32-36) g/dL RDW Std Deviation 42.9 (36.4-46.3) fL RDW Coeff of Falguni 12.8 (11.5-14.5) % Plt Count 266 (130-400) K/uL MPV 10.1 (7.4-10.4) fL Immature Gran % (Auto) 0.3 % Neut % (Auto) 52.5 % Lymph % (Auto) 35.2 % Faulkner % (Auto) 8.4 % Eos % (Auto) 3.3 % Baso % (Auto) 0.3 % Neut # (Auto) 3.61 (1.4-6.5) K/uL Lymph # (Auto) 2.42 (1.2-3.4) K/uL Faulkner # (Auto) 0.58 (0.11-0.59) K/uL Eos # (Auto) 0.23 (0-0.5) K/uL Baso # (Auto) 0.02 (0-0.2) K/uL Immature Gran # (Auto) 0.02 (0.00-0.02) K/uL Sodium 139 (136-145) mmol/L Potassium 3.5 (3.5-5.1) mmol/L Chloride 107 (98-107) mmol/L Carbon Dioxide 26 (21-32) mmol/L Anion Gap 6.0 (3-11) BUN 15 (7-18) mg/dl Creatinine 0.65 (0.6-1.2) mg/dl Est Cr Clr Drug Dosing 97.3 ml/min Est GFR ( Amer) 107.2 Est GFR (Non-Af Amer) 92.5 BUN/Creatinine Ratio 23.2 H (10-20) Glucose 98 (70-99) mg/dl Calcium 8.5 (8.5-10.1) mg/dl Total Bilirubin 0.5 (0.2-1) mg/dl AST 20 (15-37) U/L ALT 28 (12-78) U/L Alkaline Phosphatase 153 H (45-117) U/L Total Creatine Kinase 129 (26-192) U/L CK-MB (CK-2) 2.0 (0.5-3.6) ng/ml CK/CKMB % Calc 1.6 (0-3.0) Troponin I < 0.015 (0-0.045) ng/ml Total Protein 6.6 (6.4-8.2) gm/dl Albumin 3.1 L (3.4-5.0) gm/dl Globulin 3.5 (2.5-4.0) gm/dl Albumin/Globulin Ratio 0.9 (0.9-2) Lipase 100 (73-393) U/L COVID-19 Eval Order CovFluRsv at [facility] SARS-CoV-2 (PCR) (Negative) Influenza Type A (PCR) (Neg) Influenza Type B (PCR) (Neg) RSV (RT-PCR) (Neg) 10/05/20 Range/Units 04:08 WBC (4.8-10.8) K/uL RBC (4.2-5.4) M/uL Hgb (12.0-16.0) g/dL Hct (37-47) % MCV (80-100) fL MCH (25-34) pg MCHC (32-36) g/dL RDW Std Deviation (36.4-46.3) fL RDW Coeff of Falguni (11.5-14.5) % Plt Count (130-400) K/uL MPV (7.4-10.4) fL Immature Gran % (Auto) % Neut % (Auto) % Lymph % (Auto) % Faulkner % (Auto) % Eos % (Auto) % Baso % (Auto) % Neut # (Auto) (1.4-6.5) K/uL Lymph # (Auto) (1.2-3.4) K/uL Faulkner # (Auto) (0.11-0.59) K/uL Eos # (Auto) (0-0.5) K/uL Baso # (Auto) (0-0.2) K/uL Immature Gran # (Auto) (0.00-0.02) K/uL Sodium (136-145) mmol/L Potassium (3.5-5.1) mmol/L Chloride (98-107) mmol/L Carbon Dioxide (21-32) mmol/L Anion Gap (3-11) BUN (7-18) mg/dl Creatinine (0.6-1.2) mg/dl Est Cr Clr Drug Dosing ml/min Est GFR ( Amer) Est GFR (Non-Af Amer) BUN/Creatinine Ratio (10-20) Glucose (70-99) mg/dl Calcium (8.5-10.1) mg/dl Total Bilirubin (0.2-1) mg/dl AST (15-37) U/L ALT (12-78) U/L Alkaline Phosphatase (45-117) U/L Total Creatine Kinase (26-192) U/L CK-MB (CK-2) (0.5-3.6) ng/ml CK/CKMB % Calc (0-3.0) Troponin I (0-0.045) ng/ml Total Protein (6.4-8.2) gm/dl Albumin (3.4-5.0) gm/dl Globulin (2.5-4.0) gm/dl Albumin/Globulin Ratio (0.9-2) Lipase (73-393) U/L COVID-19 Eval Order SARS-CoV-2 (PCR) NEGATIVE (Negative) Influenza Type A (PCR) Negative (Neg) Influenza Type B (PCR) Negative (Neg) RSV (RT-PCR) Negative (Neg) Administered Medications Apixaban (Apixaban 5 Mg Tablet) 5 mg PO BID [facility] Stop: 11/04/20 10:59 Last Admin: 10/05/20 20:45 Dose: 5 mg Documented by: [id number] Admin: 10/05/20 11:53 Dose: 5 mg Documented by: [id number] Aspirin (Aspirin 81 Mg Ectab) 81 mg PO QAM [facility] Stop: 11/04/20 10:59 Last Admin: 10/05/20 11:53 Dose: Not Given Documented by: [id number] Docusate Sodium (Docusate Sodium 100 Mg Cap) 100 mg PO HS [facility] Stop: 11/04/20 20:59 Last Admin: 10/05/20 20:43 Dose: 100 mg Documented by: [id number] Duloxetine HCl (Duloxetine Hcl 60 Mg Cap) [facility] [place] Stop: 11/04/20 10:59 Last Admin: 10/05/20 11:52 Dose: 60 mg Documented by: [id number] Flecainide Acetate (Flecainide Acetate 100 Mg Tablet) 100 mg PO BID [facility] Stop: 11/04/20 10:59 Last Admin: 10/05/20 20:48 Dose: 100 mg Documented by: [id number] Admin: 10/05/20 11:52 Dose: 100 mg Documented by: [id number] Furosemide (Furosemide 40 Mg Tab) 40 mg PO DAILY PRN PRN Reason: edema Stop: 11/04/20 10:00 Last Admin: 10/05/20 14:24 Dose: 40 mg Documented by: [id number] Levalbuterol HCl (Levalbuterol Tartrate 15 Gm Hfa.Aer.Ad) 2 puffs INH Q6R [facility] Stop: 11/04/20 10:00 Last Admin: 10/06/20 00:22 Dose: 2 puffs Documented by: [id number] Admin: 10/05/20 20:22 Dose: 2 puffs Documented by: [id number] Admin: 10/05/20 13:25 Dose: 2 puffs Documented by: [id number] Admin: 10/05/20 13:11 Dose: Not Given Documented by: [id number] Levothyroxine Sodium (Levothyroxine Sodium 175 Mcg Tablet) 175 mcg PO DAILYBB [facility] Stop: 11/04/20 10:59 Last Admin: 10/06/20 05:08 Dose: 175 mcg Documented by: [id number] Admin: 10/05/20 11:53 Dose: 175 mcg Documented by: [id number] Multivitamins/Folic Acid/Vitamin C (Multivitamin Chewable Tab) 1 tab PO BID [facility] Stop: 11/04/20 10:59 Last Admin: 10/05/20 20:47 Dose: 1 tab Documented by: [id number] Admin: 10/05/20 11:53 Dose: 1 tab Documented by: [id number] Pantoprazole Sodium (Pantoprazole 40 Mg Tab) 40 mg PO BID [facility] Stop: 11/04/20 20:59 Last Admin: 10/05/20 20:47 Dose: 40 mg Documented by: [id number] Potassium Chloride (Potassium Chloride Crtab 20 Meq Tabcr) 40 meq PO BID [facility] Stop: 11/04/20 10:59 Last Admin: 10/05/20 20:45 Dose: 40 meq Documented by: [id number] Admin: 10/05/20 11:53 Dose: 40 meq Documented by: [id number] Pramipexole Dihydrochloride (Pramipexole Dihydrochlo 0.25 Mg Tab) 0.75 mg PO TID [facility] Stop: 11/04/20 10:59 Last Admin: 10/05/20 20:46 Dose: 0.75 mg Documented by: [id number] Admin: 10/05/20 14:24 Dose: 0.75 mg Documented by: [id number] Admin: 10/05/20 11:51 Dose: 0.75 mg Documented by: [id number] Verapamil HCl (Verapamil Hcl 240 Mg Tabcr) 240 mg PO BID [facility] Stop: 11/04/20 10:59 Last Admin: 10/05/20 20:44 Dose: 240 mg Documented by: [id number] Admin: 10/05/20 11:51 Dose: 240 mg Documented by: [id number] Discontinued Medications Nitroglycerin (Nitroglycerin 2% Ointment 30gm Tube) 1 inch EXT NOW STA Stop: 10/05/20 03:55 Last Admin: 10/05/20 04:04 Dose: 1 inch Documented by: [id number] Nitroglycerin (Nitroglycerin 2% Ointment 30gm Tube) 1 inch EXT Q6 [facility] Stop: 11/04/20 11:59 Last Admin: 10/05/20 11:53 Dose: 1 inch Documented by: [id number] Pantoprazole Sodium (Pantoprazole 40 Mg Tab) [facility] [place] Stop: 11/04/20 10:59 Last Admin: 10/05/20 11:53 Dose: 40 mg Documented by: [id number] Discharge Plan Visit Data Chief Complaint: Chest Pain Stated Complaint: CHEST PAIN ED Provider: Manjinder Lanier Discharge Problem: Chest pain Patient Disposition: Admitted As Inpatient Discharge Instructions Interventions: ED Discharge Assessment Last Done: 10/05/20 09:19 Discharge Problem: Chest pain Qualifiers: Chest pain type: unspecified Qualified Code(s): R07.9 - Chest pain, unspecified
[2020-10-05 04:09] LABS: Basophils # (auto) 0.02 K/uL (0-0.2); Basophils % (auto) 0.3 %; Eosinophils # (auto) 0.23 K/uL (0-0.5); Eosinophils % (auto) 3.3 %; Hematocrit (blood only) 37.4 % (37-47); Hemoglobin 13.2 g/dL (12.0-16.0); Immature Granulocytes # (auto) 0.02 K/uL (0.00-0.02); Immature Granulocytes % (auto) 0.3 %; Lymphocytes # (auto) 2.42 K/uL (1.2-3.4); Lymphocytes % (auto) 35.2 %; Mean Corpuscular Hemoglobin 32.3 pg (25-34); Mean Corpuscular Hgb Conc 35.3 g/dL (32-36); Mean Corpuscular Volume 91.4 fL (80-100); Mean Platelet Volume 10.1 fL (7.4-10.4); Monocytes # (auto) 0.58 K/uL (0.11-0.59); Monocytes % (auto) 8.4 %; Neutrophils # (auto) 3.61 K/uL (1.4-6.5); Neutrophils % (auto) 52.5 %; Platelet Count 266 K/uL (130-400); RDW Coefficient of Variation 12.8 % (11.5-14.5); RDW Standard Deviation 42.9 fL (36.4-46.3); Red Blood Count 4.09 M/uL (4.2-5.4); White Blood Count 6.88 K/uL (4.8-10.8)
[2020-10-05 04:26] LABS: Alanine Aminotransferase 28 U/L (12-78); Albumin Level 3.1 gm/dl (3.4-5.0); Aspartate Aminotransferase 20 U/L (15-37); BUN Creatinine Ratio 23.2 (10-20); Blood Urea Nitrogen 15 mg/dl (7-18); Calcium 8.5 mg/dl (8.5-10.1); Carbon Dioxide 26 mmol/L (21-32); Chloride 107 mmol/L (98-107); Creatinine Clr Calc Pharmacy 97.3 ml/min; Est GFR (African American) 107.2; Est GFR (Non-African American) 92.5; Glucose 98 mg/dl (70-99); Lipase 100 U/L (73-393); Potassium 3.5 mmol/L (3.5-5.1); Sodium 139 mmol/L (136-145)
[2020-10-05 04:31] LABS: Albumin Globulin Ratio 0.9 (0.9-2); Alkaline Phosphatase 153 U/L (45-117); Bilirubin,Total 0.5 mg/dl (0.2-1); Creatine Kinase 129 U/L (26-192); Globulin 3.5 gm/dl (2.5-4.0); Total Protein 6.6 gm/dl (6.4-8.2); Troponin I < 0.015 ng/ml (0-0.045)
[2020-10-05 04:55] LABS: Influenza A virus by PCR Negative (Neg); Influenza B virus by PCR Negative (Neg); RSV by PCR Negative (Neg); SARS CoV2 RNA(COVID-19) InHosp NEGATIVE (Negative)
--- NOTE | 2020-10-05 07:43 | History & Physical Report ---
Date of Service October 05, 2020 Assessment & Plan (1) Chest pain: Chest pain at rest relieved with nitro, has hx of afib and is on apixiban and high dose verapamil, Patient underwent myocardial perfusion scan 03/19/2020 with the following results Impression: 1. Abnormal myocardial perfusion study suggesting a small area of ischemia involving the base to mid inferolateral wall (circumflex territory). 2. Normal wall motion and LV systolic function. EF 69%. 3. No arrhythmia. 4. Nondiagnostic Lexiscan ECG. Patient underwent laparoscopic bypass and hiatal hernia repair April 25, 2020 [facility]. Subsequently we have now had a normal stress test which could be the etiology of her discomfort or her hiatal hernia repair GERD type symptomatology. To this end we will treat cardiology first having trending of enzymes echocardiography and will have cardiology consultation at this point in time due to the abnormal Lexiscan (2) Afib: remains on flecanide, verapamil and apixiban (3) Depression: continues on duloxetine (4) Anemia: by hi story h/h is stable a this time (5) Hypothyroidism: remains on syntroid (6) Hypertension: high dose verapapmil (7) Apnea, sleep: Will offer CPAP. Night (8) GERD (gastroesophageal reflux disease): Patient underwent laparoscopic gastric bypass and hiatal hernia reconstruction March 2020 [facility] will start pantoprazole twice daily History of Present Illness Primary Care Provider: Homer Herrera, III, [employer] 65-year-old female who presents emergency department complaining of chest pressure. The patient reports she was sitting at home doing her crossword puzzle when she began having chest pressure this morning. She reports nothing seems to make the chest pain better or worse. She called EMS who gave her nitro. She reports the nitro did make the chest pain better. She describes the pain as a pressure sensation radiating down her left arm. Patient reports she has had a cardiac cath previously however has not had stents placed she also reports that she is on apixaban for afib. Patient currently is pain-free she did have Nitropaste on which was promptly removed she states that in the past she had a nuclear stress test prior to her recent surgery. Allergies Allergy/AdvReac Type Severity Reaction Status Date / Time codeine Allergy Severe HIVES Verified 10/05/20 07:24 Iodinated Contrast Media Allergy Severe HIVES Verified 10/05/20 07:24 iodine Allergy Severe ANAPHYLAXIS Verified 10/05/20 07:24 ketorolac Allergy Severe ITCHING Verified 10/05/20 07:24 Penicillins Allergy Severe ITCHING/HIV Verified 10/05/20 07:24 ES shellfish derived Allergy Severe ANAPHYLAXIS Verified 10/05/20 07:24 shrimp Allergy Severe ANAPHYLAXIS Verified 10/05/20 07:24 barium sulfate Allergy Intermediate itching Verified 10/05/20 07:24 rash morphine Allergy Intermediate ITCHING Verified 10/05/20 07:24 Home Medications Medication Instructions Recorded Confirmed Type docusate sodium 100 mg PO HS 02/27/18 10/05/20 History levothyroxine 175 mcg tablet 175 mcg PO QAM #90 tab 01/16/20 10/05/20 Rx lancets 33 gauge #100 ea 02/16/20 05/21/20 Rx duloxetine 60 mg capsule,delayed 60 mg PO QAM #90 cap 02/28/20 10/05/20 Rx release levalbuterol tartrate 45 2 inh INHALATION Q6H #15 g 03/29/20 10/05/20 Rx mcg/actuation aerosol inhaler pediatric multivitamin no.76 1 tab PO BID tab 04/23/20 10/05/20 History omeprazole 40 mg capsule,delayed 20 mg PO QAM #90 cap 05/01/20 10/05/20 Rx release blood sugar diagnostic #100 ea 05/02/20 05/21/20 Rx pramipexole 0.75 mg tablet 0.75 mg PO TID #90 tab 05/02/20 10/05/20 Rx apixaban 5 mg tablet 5 mg PO BID #180 tab 05/10/20 10/05/20 Rx furosemide 40 mg tablet 40 mg PO DAILY PRN #120 tab 05/27/20 10/05/20 Rx verapamil 240 mg tablet,extended 240 mg PO BID #180 tab 07/05/20 10/05/20 Rx release flecainide 100 mg tablet 100 mg PO BID #180 tab 07/23/20 10/05/20 Rx potassium chloride 20 mEq 40 meq PO BID #180 tab 09/16/20 10/05/20 Rx tablet,extended release acetaminophen [Tylenol Extra 1,500 mg PO Q6H PRN 10/05/20 10/05/20 History Strength] Past Med/Surg History Medical History Anemia Anxiety Arthritis Asthma Atrial fibrillation Bilateral edema of lower extremity Cataract, bilateral Degenerative disc disease Depression Diverticulosis Dyslipidemia Family history of colon cancer GERD (gastroesophageal reflux disease) Heart murmur History of colon polyps History of neoplasm of uncertain behavior of skin History of TIA (transient ischemic attack) Hx of basal cell carcinoma Hx of migraines Hypertension Hypomagnesemia Hypothyroidism Intractable nausea and vomiting Morbid obesity On anticoagulant therapy Palpitations Prediabetes Restless leg syndrome Sleep apnea Strain of left trapezius muscle Supraventricular tachycardia (06/25/11) Surgical History H/O bariatric surgery H/O cardiac radiofrequency ablation History of appendectomy History of arthroscopy of right shoulder History of basal cell carcinoma (BCC) excision History of bilateral breast reduction surgery (~11/2010) History of cholecystectomy History of colonoscopy History of esophagogastroduodenoscopy (EGD) History of ovarian cystectomy History of removal of cyst History of surgical removal of ganglion cyst History of total abdominal hysterectomy and bilateral salpingo-oophorectomy History of total left knee replacement (TKR) History of wisdom tooth extraction Hx of bilateral cataract extraction Hx of laminectomy Laminectomy (06/25/11) Open reduction of fracture (06/25/11) S/P excision of lipoma (~07/2019) Family History Mother Family history of diabetes mellitus Family history of reaction to anesthesia "had heart complications after surgery for cancer of the vulva" Family hx colonic polyps Myocardial infarction Father Family hx of colon cancer Family hx colonic polyps Colorectal cancer Uncle Family history of esophageal cancer Sister Family hx colonic polyps Other Hypertension Denies family history of Ovarian cancer Prostate cancer Breast cancer Social History Smoking Status: Never smoker Second Hand Exposure: No ([employer]); Hx Alcohol Use: No Hx Substance Use: No Preferred Language: Bulgarian Communication Ability: Effective Visual Impairment: No Limitations Hearing Ability: Hard of Hearing Staff Educator Required: No Beliefs That Will Affect Care: None marital status: Current Living Situation: Parent Current Living Situation Comment: Lives with sister current occupational status: retired Other Information That Helps Us Care for You: No Feels Safe at Home: Yes Safety Concerns: Feels Safe At This Time Childhood Exposure to Second-Hand Smoke: Yes Dental Care, Regularly: Yes Physical Activity Frequency: Does not Exercise Seatbelt Use: sometimes Sunscreen Use: No Assistive Devices: Cane, Glasses and Walker Review of Systems Review of Systems: Mild distress and fatigue no headache, blurry or double vision no speech or swallowing issues no chest pain, pressure or palpitations no shortness of breath, cough or wheezes no abdominal pain, nausea or vomiting, diarrhea or constipation no dysuria, hematuria or frequency no focal joint pain or swelling no back pain, CVA tenderness or radicular pain no bruising, bleeding or rashes no focal signs of weakness or numbness or altered sensation no complaints of anxiety or depression.. Physical Exam Physical Exam: The patient appeared well nourished and normally developed. Vital signs as documented. Head exam is normocephalic atraumatic no scleral icterus Neck is without JVD, thyromegaly, or carotid bruits. Lungs are clear to auscultation, no focal loss of breath sounds Cardiac exam, Rhythm is regular.. No murmurs, rubs or gallops. Abdominal exam reveals normal bowel sounds, soft non tender, no masses Extremities are nonedematous and both pedal pulses are present Neurologic exam is alert and oriented, no focal loss of strength or sensation Skin is without bruises or rashes Psychologically is without concerns for anxiety or depression Results & Data Results & Data ([facility]) Vital Signs (Past 12 Hours) Vital Signs Temp Pulse Pulse Resp BP BP Pulse Ox 10/05/20 06:58 74 20 127/67 94 10/05/20 05:00 74 17 147/84 H 93 10/05/20 04:30 73 17 148/81 H 93 10/05/20 04:00 72 15 134/84 10/05/20 03:51 80 22 144/72 H 10/05/20 03:50 98.2 F 94 PG Care Time/CCT Total # of Minutes Spent Total Time Spent with Patient: Total time spent is greater than 50% in coordination of care (as documented) at patient's floor/unit and/or counseling patient: Coding Level of Care Code 64496 Initial Inpt Care Lvl 3 Diagnoses Chest pain R07.9 Afib I48.91 Depression F32.9 Anemia D64.9 Anemia type: unspecified type Hypothyroidism E03.9 Hypothyroidism type: acquired Hypertension I10 Hypertension type: essential hypertension Apnea, sleep G47.30 GERD (gastroesophageal reflux disease) K21.9 (1) Anemia Anemia type: unspecified type Qualified Code(s): D64.9 - Anemia, unspecified (2) Hypothyroidism Hypothyroidism type: acquired Qualified Code(s): E03.9 - Hypothyroidism, unspecified (3) Hypertension Hypertension type: essential hypertension Qualified Code(s): I10 - Essential (primary) hypertension
--- NOTE | 2020-10-05 08:33 | XRay Report ---
XR chest 1V portable CLINICAL HISTORY: Chest Pain COMPARISON STUDY: Chest CT January 11, 2019. Chest radiograph September 30, 2019. FINDINGS: Lung volumes are normal. There is no pneumothorax or pleural effusion. Left lung airspace o pacities have improved. There is no evidence for pulmonary edema. Cardiomediastinal silhouette is sta ble. Minimal right basilar opacity is noted. This favors atelectasis. IMPRESSION: Interval improvement in left lung opacities. ACT 112: Negative or not required by law. Electronically signed by: Jalen Malik M.D. 10/05/2020 8:32 AM
[2020-10-05] MEDS ORDERED: ONDANSETRON INJ 2 MG/ML 2 ML VIAL IV PRN (10:01)
[2020-10-05] MEDS ORDERED: NITROGLYCERIN SL 0.4 MG/TAB TAB SL PRN (10:01)
[2020-10-05] MEDS ORDERED: ACETAMINOPHEN 325 MG TAB PO PRN (10:01)
[2020-10-05] MEDS ORDERED: ACETAMINOPHEN HOME PACK 500 MG TABLET PO PRN (10:01)
[2020-10-05] MEDS ORDERED: MoRPHine SULFATE 2 MG/ML CARP IV PRN (10:01)
[2020-10-05] MEDS ORDERED: MAGNESIUM HYDROXIDE SUSP 30 ML UDC PO PRN (10:01)
--- NOTE | 2020-10-05 10:33 | Electrocardiogram Report ---
Test Reason : Blood Pressure : / mmHG Vent. Rate : 078 BPM Atrial Rate : 078 BPM P-R Int : 154 ms QRS Dur : 080 ms QT Int : 394 ms P-R-T Axes : 000 -04 041 degrees QTc Int : 449 ms Normal sinus rhythm Nonspecific T wave abnormality Abnormal ECG When compared with ECG of 30-SEP-2019 04:46, No significant change was found Confirmed by Ezekiel Nevarez ([id number]) on 10/05/2020 10:33:34 AM Referred By: REFERRED SELF Confirmed By:Ezekiel Nevarez
[2020-10-05] MEDS ORDERED: PANTOprazole 40 MG TAB PO SCH (11:00)
[2020-10-05] MEDS: VERAPAMIL HCL 240 MG TABCR PO SCH ×2 (11:51→20:44)
[2020-10-05] MEDS: PRAMIPEXOLE DIHYDROCHLO 0.25 MG TAB PO SCH ×3 (11:51→20:46)
[2020-10-05] MEDS: FLECAINIDE ACETATE 100 MG TABLET PO SCH ×2 (11:52→20:48)
[2020-10-05] MEDS: DULoxetine HCL 60 MG CAP PO SCH (11:52)
[2020-10-05] MEDS: MULTIVITAMIN CHEWABLE TAB PO SCH ×2 (11:53→20:47)
[2020-10-05] MEDS: ASPIRIN 81 MG ECTAB PO SCH (11:53)
[2020-10-05] MEDS: POTASSIUM CHLORIDE CRTAB 20 MEQ TABCR PO SCH ×2 (11:53→20:45)
[2020-10-05] MEDS: LEVOTHYROXINE SODIUM 175 MCG TABLET PO SCH (11:53)
[2020-10-05] MEDS: APIXABAN 5 MG TABLET PO SCH ×2 (11:53→20:45)
[2020-10-05] MEDS ORDERED: NITROGLYCERIN 2% OINTMENT 30GM TUBE EXT SCH (12:00)
[2020-10-05] MEDS: LEVALBUTEROL TARTRATE 15 GM HFA.AER.AD INH SCH ×3 (13:11→20:22)
[2020-10-05] MEDS: FUROSEMIDE 40 MG TAB PO PRN (14:24)
[2020-10-05] MEDS: PANTOprazole 40 MG TAB PO SCH (20:47)
[2020-10-05] MEDS ORDERED: DOCUSATE SODIUM 100 MG CAP PO SCH (21:00)
[2020-10-06] MEDS: LEVALBUTEROL TARTRATE 15 GM HFA.AER.AD INH SCH ×3 (00:22→13:41)
[2020-10-06] MEDS: LEVOTHYROXINE SODIUM 175 MCG TABLET PO SCH (05:08)
[2020-10-06] MEDS: FUROSEMIDE 40 MG TAB PO PRN (07:59)
[2020-10-06] MEDS: VERAPAMIL HCL 240 MG TABCR PO SCH (08:00)
[2020-10-06] MEDS: PANTOprazole 40 MG TAB PO SCH (08:00)
[2020-10-06] MEDS: PRAMIPEXOLE DIHYDROCHLO 0.25 MG TAB PO SCH ×2 (08:00→13:16)
[2020-10-06] MEDS: ASPIRIN 81 MG ECTAB PO SCH (08:00)
[2020-10-06] MEDS: FLECAINIDE ACETATE 100 MG TABLET PO SCH (08:00)
[2020-10-06] MEDS: DULoxetine HCL 60 MG CAP PO SCH (08:01)
[2020-10-06] MEDS: APIXABAN 5 MG TABLET PO SCH (08:01)
[2020-10-06] MEDS: MULTIVITAMIN CHEWABLE TAB PO SCH (08:01)
[2020-10-06] MEDS: POTASSIUM CHLORIDE CRTAB 20 MEQ TABCR PO SCH (08:01)
[2020-10-06 08:21] LABS: BUN Creatinine Ratio 25.2 (10-20); Blood Urea Nitrogen 13 mg/dl (7-18); Calcium 8.9 mg/dl (8.5-10.1); Carbon Dioxide 28 mmol/L (21-32); Chloride 107 mmol/L (98-107); Creatinine Clr Calc Pharmacy 119.7 ml/min; Est GFR (African American) 115.4; Est GFR (Non-African American) 99.6; Glucose 101 mg/dl (70-99); Potassium 3.5 mmol/L (3.5-5.1); Sodium 140 mmol/L (136-145)
[2020-10-06 08:25] LABS: Troponin I < 0.015 ng/ml (0-0.045)
--- NOTE | 2020-10-06 10:00 | XCELERA ---
[id number]
--- NOTE | 2020-10-06 14:37 | Cardiology Consultation ---
Date of Consultation October 06, 2020 Assessment & Plan (1) Chest pain: (2) Paroxysmal atrial fibrillation: (3) Abnormal nuclear stress test: (4) Hypertension: ASSESSMENT/PLAN: 1. Atypical chest pain: Chest pain lasted 8 hours with undetectable serial troponins x4. Chest pain has been chronic for 20 years intermittently occurring. Although she does have an abnormal myocardial perfusion study in 2019, her exercise tolerance has improved without exertional chest pain, has been having prolonged episodes of chest pain for many years, negative troponins, and unremarkable ECG while having pain. It is not likely that her presenting symptom is related to ischemic heart disease. Nitroglycerin did appear to improve her symptoms. Offered isosorbide mononitrate to see if this offers long-term benefit but she declines. We did discuss cardiac catheterization, to be considered if she has worsening symptoms or symptoms more consistent with ischemic heart disease. She wishes to refrain from undergoing cardiac catheterization unless absolutely necessary given her IV dye allergy. 2. Paroxysmal atrial fibrillation: [place] [facility] [place] She would like to stop flecainide. This seems reasonable but she was asked to first discuss this with her socket welder helper, Dr. Bautista. She is on anticoagulation for stroke risk reduction. No recent symptoms to suggest atrial fibrillation. 3. Abnormal nuclear stress: We discussed the findings from 2020. Single-vessel disease suggested. Symptoms are atypical for ischemic heart disease as above. Exercise tolerance has actually improved with regular exercise. 4. Hypertension: Blood pressure adequately controlled. No changes recommended at this time. 5. Disposition: She has an appointment in the cardiology office in 2 days. She should keep this appointment for further evaluation. Patient care and plan of c are discussed with Dr. Magaña of the primary hospitalist service. Today's visit was 50 minutes in duration, including [id number] time, greater than 50% of the mid. Time also includes chart review, counseling patient, coordinating care, discussion with primary hospitalist, and chart completion. Thank you for allowing me to participate in the care of your patient. Please call for any other questions or concerns. Sincerely, Angelo Salcedo M.D. History of Present Illness Reason for Consultation: Chest pain Requesting Physician: Jack Magaña MD Attending Physician: Jack Magaña MD History of Present Illness Ms. Lanier is a very pleasant 65-year-old female with history significant for atrial fibrillation s/p ablation x 2, asthma, hypertension, sleep apnea, and venous insufficiency followed in heart failure program. Her primary welfare eligibility interviewer is Dr. Bautista. She has had the following studies/procedures: 1. Nuclear stress 03/19/2020: Small area with base to mid inferolateral ischemic changes. EF 69%. Normal wall motion. She underwent laparoscopic gastric bypass and hiatal her[place] repair [place] [facility] [place]. As part of a preoperative evaluation, she had a myocardial perfusion study as noted above. She was admitted on 10/05/2020 with chest discomfort. She states that she has been having chest discomfort intermittently for the past 20 years. It is a left-sided chest heaviness and typically last for an hour or so. She estimates having 1 episode every 1 or 2 months. At approximately 1:00 a.m. on Wednesday morning while sitting in a chair, she developed left-sided chest heaviness that radiated to her left arm. She had tingling in her arm which is not unusual for her with her history of carpal tunnel syndrome. There was no associated shortness of breath, or diaphoresis. She did have some nausea and lightheadedness. She waited approximately 1.5 hours before calling EMS as the episode was lasting longer than usual. EMS gave her 2 doses of sublingual nitroglycerin which improved her pain but did not resolve it. They also gave her Zofran for her nausea. She denies vomiting but is having large bouts of diarrhea. She estimates that her pain lasted 8 hours before spontaneously resolving during this hospitalization. She has had negative troponins x4 her episode of chest discomfort did not suggest ischemic changes. She is currently chest pain-free. She feels back to her baseline. She states that she has been walking 60 minutes, 4-5 days per week. Her exercise tolerance has recently improved. She has not had exertional chest pain or shortness of breath. She is tolerating anticoagulation therapy. She has not noted melena or hematochezia, or other bleeding. She denies fevers, syncope, palpitations, or recent lower extremity edema. She has been ambulating in the hallways while here without chest discomfort. Review of systems: As above. Review of systems otherwise negative/unremarkable. Family history: Mother had CAD and PCI near the age of 65. Her mother, father, and 3 siblings had atrial fibrillation. Social history: She denies tobacco, alcohol, or drug abuse. She lives at home. Her oldest sister lives with her. She is x2 since the age of 29. No children. 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 She is unaccompanied. Allergies Allergy/AdvReac Type Severity Reaction Status Date / Time codeine Allergy Severe HIVES Verified 10/05/20 07:24 Iodinated Contrast Media Allergy Severe HIVES Verified 10/05/20 07:24 iodine Allergy Severe ANAPHYLAXIS Verified 10/05/20 07:24 ketorolac Allergy Severe ITCHING Verified 10/05/20 07:24 Penicillins Allergy Severe ITCHING/HIV Verified 10/05/20 07:24 ES shellfish derived Allergy Severe ANAPHYLAXIS Verified 10/05/20 07:24 shrimp Allergy Severe ANAPHYLAXIS Verified 10/05/20 07:24 barium sulfate Allergy Intermediate itching Verified 10/05/20 07:24 rash morphine Allergy Intermediate ITCHING Verified 10/05/20 07:24 Home Medications Medication Instructions Recorded Confirmed Type docusate sodium 100 mg PO HS 02/27/18 10/05/20 History levothyroxine 175 mcg tablet 175 mcg PO QAM #90 tab 01/16/20 10/05/20 Rx lancets 33 gauge #100 ea 02/16/20 05/21/20 Rx duloxetine 60 mg capsule,delayed 60 mg PO QAM #90 cap 02/28/20 10/05/20 Rx release levalbuterol tartrate 45 2 inh INHALATION Q6H #15 g 03/29/20 10/05/20 Rx mcg/actuation aerosol inhaler pediatric multivitamin no.76 1 tab PO BID tab 04/23/20 10/05/20 History blood sugar diagnostic #100 ea 05/02/20 05/21/20 Rx pramipexole 0.75 mg tablet 0.75 mg PO TID #90 tab 05/02/20 10/05/20 Rx apixaban 5 mg tablet 5 mg PO BID #180 tab 05/10/20 10/05/20 Rx furosemide 40 mg tablet 40 mg PO DAILY PRN #120 tab 05/27/20 10/05/20 Rx verapamil 240 mg tablet,extended 240 mg PO BID #180 tab 07/05/20 10/05/20 Rx release flecainide 100 mg tablet 100 mg PO BID #180 tab 07/23/20 10/05/20 Rx potassium chloride 20 mEq 40 meq PO BID #180 tab 09/16/20 10/05/20 Rx tablet,extended release acetaminophen [Tylenol Extra 1,500 mg PO Q6H PRN 10/05/20 10/05/20 History Strength] nitroglycerin 0.4 mg SUBLINGUAL Q5M PRN #1 btl 10/06/20 Rx nitroglycerin [Nitrostat] 0.4 mg SUBLINGUAL UD PRN #1 btl 10/06/20 Rx omeprazole 40 mg PO DAILY #90 cap 10/06/20 Rx Patient History Medical History Anemia On iron supplement Anxiety Arthritis Asthma Well controlled and stable - uses rescue inhaler rarely Atrial fibrillation Stable- s/p ablation x 2 - still have a fib Bilateral edema of lower extremity Stable Cataract, bilateral Degenerative disc disease Depression Diverticulosis Family history of colon cancer Heart murmur No murmur noted on PAT exam on 08/16/19- ECHO 04/2019 History of colon polyps History of neoplasm of uncertain behavior of skin History of TIA (transient ischemic attack) 2016--no deficits- no issues since that time. Follows with neuro once yearly - Dr. Barker (also sees for RLS) Hx of basal cell carcinoma FACE AND CHEST Hx of migraines Hypertension Hypomagnesemia Hypothyroidism Intractable nausea and vomiting Morbid obesity On anticoagulant therapy on eliquis Palpitations Prediabetes Stable per patient Restless leg syndrome Sleep apnea mild, no device needed Strain of left trapezius muscle Supraventricular tachycardia (06/25/11) Surgical History H/O bariatric surgery H/O cardiac radiofrequency ablation History of appendectomy History of arthroscopy of right shoulder History of basal cell carcinoma (BCC) excision History of bilateral breast reduction surgery (~11/2010) History of cholecystectomy History of colonoscopy History of esophagogastroduodenoscopy (EGD) History of ovarian cystectomy History of removal of cyst History of surgical removal of ganglion cyst History of total abdominal hysterectomy and bilateral salpingo-oophorectomy History of total left knee replacement (TKR) History of wisdom tooth extraction Hx of bilateral cataract extraction Hx of laminectomy Laminectomy (06/25/11) Open reduction of fracture (06/25/11) S/P excision of lipoma (~07/2019) Family History Mother Family history of diabetes mellitus Family history of reaction to anesthesia "had heart complications after surgery for cancer of the vulva" Family hx colonic polyps Myocardial infarction Father Family hx of colon cancer Family hx colonic polyps Colorectal cancer Uncle Family history of esophageal cancer Sister Family hx colonic polyps Other Hypertension Denies family history of Ovarian cancer Prostate cancer Breast cancer Social History Smoking Status: Never smoker Second Hand Exposure: No ([employer]); Hx Alcohol Use: No Hx Substance Use: No Preferred Language: Malaysian Communication Ability: Effective Visual Impairment: No Limitations Hearing Ability: Hard of Hearing Manager Primary Required: No Beliefs That Will Affect Care: None marital status: Current Living Situation: Parent Current Living Situation Comment: Lives with sister current occupational status: retired Other Information That Helps Us Care for You: No Feels Safe at Home: Yes Safety Concerns: Feels Safe At This Time Childhood Exposure to Second-Hand Smoke: Yes Dental Care, Regularly: Yes Physical Activity Frequency: Does not Exercise Seatbelt Use: sometimes Sunscreen Use: No Assistive Devices: Cane and Glasses Physical Exam Physical Exam: Gen.: No acute distress. Alert and oriented. HEENT: Anicteric sclera. Neck: No JVD. No bruits. Normal carotid upstrokes bilaterally. Cardiac: PMI was nonpalpable. No ventricular heave. Regular. Normal S1-S2. 2/6 early peaking systolic ejection murmur. No rubs, or gallops. Pulmonary: Clear to auscultation bilaterally without wheezes, rales, or rhonchi. Abdomen: Soft, nontender, nondistended, with normoactive bowel sounds. No bruits noted. Extremities: 2+ radial pulses bilaterally. 2+ posterior tibialis pulses bilaterally. No edema or cyanosis. No palpable cords. Psychiatric: Affect appears appropriate. Chest: Nontender to palpation. Results & Data ([facility]) Vital Signs (Past 12 Hours) Vital Signs Temp Pulse Pulse Resp BP BP Pulse Ox 10/06/20 13:42 86 16 94 10/06/20 11:06 36.8 C 77 18 124/77 94 10/06/20 08:00 72 10/06/20 07:16 36.7 C 70 20 111/67 92 10/06/20 07:04 70 16 94 10/06/20 04:00 37 C 73 20 100/58 L 91 Laboratory Results Laboratory Results - last 24 hr 10/05/20 10/05/20 10/06/20 13:58 21:38 07:12 Sodium 140 Potassium 3.5 Chloride 107 Carbon Dioxide 28 Anion Gap 5.0 BUN 13 Creatinine 0.52 L Est Cr Clr Drug Dosing 119.7 Est GFR ( Amer) 115.4 Est GFR (Non-Af Amer) 99.6 BUN/Creatinine Ratio 25.2 H Glucose 101 H Calcium 8.9 Troponin I < 0.015 < 0.015 < 0.015 Hepatitis C Ab Screen 10/06/20 07:12 Sodium Potassium Chloride Carbon Dioxide Anion Gap BUN Creatinine Est Cr Clr Drug Dosing Est GFR ( Amer) Est GFR (Non-Af Amer) BUN/Creatinine Ratio Glucose Calcium Troponin I Hepatitis C Ab Screen Neg Diagnostic Findings Chest x-ray 10/05/2020: Interval improvement in left lung opacities per Radiology. Nuclear stress test report reviewed as noted above in HPI. Echo 10/05/2020: Normal LV size, wall motion, systolic function. EF 55-60%. No significant valvular abnormalities. ECG personally reviewed: ECG 10/05/2020: Sinus rhythm 78 beats per minute. Nonspecific T-wave abnorma lity. ECG 10/06/2020: NSR 71 beats per minute. Nonspecific T-wave abnormality. Medications Administered Current Inpatient Medications Acetaminophen (Acetaminophen 325 Mg Tab) 650 mg PO Q4H PRN PRN Reason: Pain or Fever Stop: 11/04/20 10:00 Apixaban (Apixaban 5 Mg Tablet) 5 mg PO BID [facility] Stop: 11/04/20 10:59 Last Admin: 10/06/20 08:01 Dose: 5 mg Documented by: Aspirin (Aspirin 81 Mg Ectab) 81 mg PO QAM [facility] Stop: 11/04/20 10:59 Last Admin: 10/06/20 08:00 Dose: Not Given Documented by: Docusate Sodium (Docusate Sodium 100 Mg Cap) 100 mg PO HS [facility] Stop: 11/04/20 20:59 Last Admin: 10/05/20 20:43 Dose: 100 mg Documented by: Duloxetine HCl (Duloxetine Hcl 60 Mg Cap) 60 mg PO QAM EARLENE Stop: 11/04/20 10:59 Last Admin: 10/06/20 08:01 Dose: 60 mg Documented by: Flecainide Acetate (Flecainide Acetate 100 Mg Tablet) 100 mg PO BID EARLENE Stop: 11/04/20 10:59 Last Admin: 10/06/20 08:00 Dose: 100 mg Documented by: Furosemide (Furosemide 40 Mg Tab) 40 mg PO DAILY PRN PRN Reason: edema Stop: 11/04/20 10:00 Last Admin: 10/06/20 07:59 Dose: 40 mg Documented by: Levalbuterol HCl (Levalbuterol Tartrate 15 Gm Hfa.Aer.Ad) 2 puffs INH Q6R EARLENE Stop: 11/04/20 10:00 Last Admin: 10/06/20 13:41 Dose: 2 puffs Documented by: Levothyroxine Sodium (Levothyroxine Sodium 175 Mcg Tablet) 175 mcg PO DAILYBB [facility] Stop: 11/04/20 10:59 Last Admin: 10/06/20 05:08 Dose: 175 mcg Documented by: Magnesium Hydroxide (Magnesium Hydroxide Susp 30 Ml Udc) 30 ml PO Q12H PRN PRN Reason: Constipation Stop: 11/04/20 10:00 Morphine Sulfate (Morphine Sulfate 2 Mg/Ml Carp) 2 mg IV Q30M PRN PRN Reason: Chest Pain Stop: 10/19/20 10:00 Multivitamins/Folic Acid/Vitamin C (Multivitamin Chewable Tab) 1 tab PO BID [facility] Stop: 11/04/20 10:59 Last Admin: 10/06/20 08:01 Dose: 1 tab Documented by: Nitroglycerin (Nitroglycerin Sl 0.4 Mg/Tab Tab) 0.4 mg SL UD PRN PRN Reason: Chest Pain Stop: 11/04/20 10:00 Ondansetron HCl (Ondansetron Inj 2 Mg/Ml 2 Ml Vial) 4 mg IV Q6H PRN PRN Reason: Nausea Stop: 11/04/20 10:00 Pantoprazole Sodium (Pantoprazole 40 Mg Tab) 40 mg PO BID [facility] Stop: 11/04/20 20:59 Last Admin: 10/06/20 08:00 Dose: 40 mg Documented by: Potassium Chloride (Potassium Chloride Crtab 20 Meq Tabcr) 40 meq PO BID EARLENE Stop: 11/04/20 10:59 Last Admin: 10/06/20 08:01 Dose: 40 meq Documented by: Pramipexole Dihydrochloride (Pramipexole Dihydrochlo 0.25 Mg Tab) 0.75 mg PO TID EARLENE Stop: 11/04/20 10:59 Last Admin: 10/06/20 13:16 Dose: 0.75 mg Documented by: Verapamil HCl (Verapamil Hcl 240 Mg Tabcr) 240 mg PO BID EARLENE Stop: 11/04/20 10:59 Last Admin: 10/06/20 08:00 Dose: 240 mg Documented by: PG Care Time/CCT Total # of Minutes Spent Total Time Spent with Patient: Total time spent is greater than 50% in coordination of care (as documented) at patient's floor/unit and/or counseling patient: Coding Level of Care Code 64280 Office/Outpt Visit, Est Diagnoses Chest pain R07.9 Paroxysmal atrial fibrillation I48.0 Abnormal nuclear stress test R94.39 Hypertension I10 Hypertension type: essential hypertension (1) Hypertension Hypertension type: essential hypertension Qualified Code(s): I10 - Essential (primary) hypertension
--- NOTE | 2020-10-06 15:44 | Discharge Summary ---
Date of Service October 06, 2020 Admission HPI Per Admitting Provider 65-year-old female who presents emergency department complaining of chest pressure. The patient reports she was sitting at home doing her crossword puzzle when she began having chest pressure this morning. She reports nothing seems to make the chest pain better or worse. She called EMS who gave her nitro. She reports the nitro did make the chest pain better. She describes the pain as a pressure sensation radiating down her left arm. Patient reports she has had a cardiac cath previously however has not had stents placed she also reports that she is on apixaban for afib. Patient currently is pain-free she did have Nitropaste on which was promptly removed she states that in the past she had a nuclear stress test prior to her recent surgery. Principal Diagnosis atypical chest pain Discharge Data Allergies Allergy/AdvReac Type Severity Reaction Status Date / Time codeine Allergy Severe HIVES Verified 10/05/20 07:24 Iodinated Contrast Media Allergy Severe HIVES Verified 10/05/20 07:24 iodine Allergy Severe ANAPHYLAXIS Verified 10/05/20 07:24 ketorolac Allergy Severe ITCHING Verified 10/05/20 07:24 Penicillins Allergy Severe ITCHING/HIV Verified 10/05/20 07:24 ES shellfish derived Allergy Severe ANAPHYLAXIS Verified 10/05/20 07:24 shrimp Allergy Severe ANAPHYLAXIS Verified 10/05/20 07:24 barium sulfate Allergy Intermediate itching Verified 10/05/20 07:24 rash morphine Allergy Intermediate ITCHING Verified 10/05/20 07:24 Consultations 10/05/20 05:56 ED Decision to Admit Stat 10/05/20 18:39 Consult Cardiology Routine Hospital Course (1) Chest pain: Chest pain at rest relieved with nitro, has hx of afib and is on apixiban and high dose verapamil, Patient underwent myocardial perfusion scan 03/19/2020 with the following results Impression: 1. Abnormal myocardial perfusion study suggesting a small area of ischemia involving the base to mid inferolateral wall (circumflex territory). 2. Normal wall motion and LV systolic function. EF 69%. 3. No arrhythmia. 4. Nondiagnostic Lexiscan ECG. Patient underwent laparoscopic bypass and hiatal hernia repair April 25, 2020 [facility]. Subsequently we have now had a normal stress test which could be the etiology of her discomfort or her hiatal hernia repair GERD type symptomatology. To this end we will treat cardiology first having trending of enzymes echocardiography and will have cardiology consultation at this point in time due to the abnormal Lexiscan Cardiology consult "Atypical chest pain: Chest pain lasted 8 hours with undetectable serial troponins x4. Chest pain has been chronic for 20 years intermittently occurring. Although she does have an abnormal myocardial perfusion study in 2019, her exercise tolerance has improved without exertional chest pain, has been having prolonged episodes of chest pain for many years, negative troponins, and unremarkable ECG while having pain. It is not likely that her presenting symptom is related to ischemic heart disease. Nitroglycerin did appear to improve her symptoms. Offered isosorbide mononitrate to see if this offers long-term benefit but she declines. We did discuss cardiac catheterization, to be considered if she has worsening symptoms or symptoms more consistent with ischemic heart disease. She wishes to refrain from undergoing cardiac catheterization unless absolutely necessary given her IV dye allergy." (2) Afib: remains on flecanide, verapamil and apixiban (3) Depression: continues on duloxetine (4) Anemia: by hi story h/h is stable a this time (5) Hypothyroidism: remains on syntroid (6) Hypertension: high dose verapapmil (7) Apnea, sleep: (8) GERD (gastroesophageal reflux disease): Patient underwent laparoscopic gastric bypass and hiatal hernia reconstruction March 2020 [facility] Total Time Total Time Spent Total Time Spent (In Minutes): It required greater than 30 minutes to prepare this patient for discharge Discharge Plan Discharge Items Patient Disposition: Home - Self-Care Reason For Visit: CHEST PAIN Discharge Diagnosis: atypical chest pain Activity: Resume your previous activity Non-emergency contact: Junior Technical Writer Call non-emergency contact if: your symptoms worsen Follow-up/Referrals: Homer Herrera III, CRNP [Primary Care Provider] - Lisha Espinoza PA-C [Physician Certified Surgical Technologist] - (follow up as scheduled) Diet: Heart Healthy Addtl Attending Provider Instructions: please follow up wtih your usually scheduled cardiology appointment If you feel worsened with your symptoms please return for re evaluation Pending Studies at Discharge: No Stand-Alone Forms: My Alset Wellen, Smoking Cessation Medications and DC Order Prescriptions: New nitroglycerin [Nitrostat] 0.4 mg Tablet, Sublingual 0.4 mg sublingual UD PRN (Reason: chest pain) Qty: 1 RF: 0 nitroglycerin 0.4 mg tablet, sublingual 0.4 mg sublingual Q5M PRN (Reason: chest pain) Qty: 1 RF: 1 Continued levothyroxine 175 mcg tablet 175 mcg PO QAM Qty: 90 RF: 1 (DME) lancets [OneTouch Delica Plus Lancet] 33 gauge misc See Rx Instructions .ROUTE .MEDSUPPLY Qty: 100 RF: 1 duloxetine 60 mg capsule,delayed release(DR/EC) 60 mg PO QAM Qty: 90 RF: 1 levalbuterol tartrate [Xopenex HFA] 45 mcg/actuation HFA aerosol inhaler 2 inh inhalation Q6H Qty: 15 RF: 5 pramipexole 0.75 mg tablet 0.75 mg PO TID Qty: 90 RF: 5 (DME) OneTouch Verio test strips Strip See Rx Instructions .ROUTE .MEDSUPPLY Qty: 100 RF: 3 apixaban 5 mg tablet 5 mg PO BID Qty: 180 RF: 1 furosemide 40 mg tablet 40 mg PO DAILY PRN (Reason: edema) Qty: 120 RF: 2 verapamil 240 mg tablet extended release 240 mg PO BID Qty: 180 RF: 1 flecainide 100 mg tablet 100 mg PO BID Qty: 180 RF: 1 potassium chloride 20 mEq tablet extended release 40 meq PO BID Qty: 180 RF: 1 Flintstones Complete Tablet,Chewable 1 tab PO BID RF: 0 Hold Instructions: hold 30 days docusate sodium 100 mg Capsule 100 mg PO HS RF: 0 acetaminophen [Tylenol Extra Strength] 500 mg Tablet 1,500 mg PO Q6H PRN (Reason: Pain) RF: 0 Changed omeprazole 40 mg capsule,delayed release(DR/EC) 40 mg PO DAILY Qty: 90 RF: 3 Discharge Orders: Discharge Order (Routine); Ordered 10/06/20 Ordered By: Jack Vaughan/Other Patient Handouts: Eating Heart-Healthy Foods, ED Chest Pain, Uncertain Cause Admission Data Admit Date/Time: 10/05/20 08:06 Attending Provider: Jack Magaña Admit Provider: Jack Magaña Primary Care Provider: Homer Herrera III Other Providers: Eamon Shaefr ; King Salcedo Other Interventions: Discharge Summary Assessment (RN) Last Done: 10/06/20 15:15 Coding Level of Care Code D/C Day Management >30 mins Diagnoses Chest pain R07.9 Afib I48.91 Depression F32.9 Anemia D64.9 Anemia type: unspecified type Hypothyroidism E03.9 Hypothyroidism type: acquired Hypertension I10 Hypertension type: essential hypertension Apnea, sleep G47.30 GERD (gastroesophageal reflux disease) K21.9
--- NOTE | 2020-10-07 06:47 | Electrocardiogram Report ---
Test Reason : Blood Pressure : / mmHG Vent. Rate : 071 BPM Atrial Rate : 071 BPM P-R Int : 160 ms QRS Dur : 078 ms QT Int : 406 ms P-R-T Axes : 018 -04 032 degrees QTc Int : 441 ms Normal sinus rhythm Low voltage QRS Nonspecific T wave abnormality Abnormal ECG When compared with ECG of 05-OCT-2020 03:50, No significant change was found Confirmed by King Salcedo ([id number]) on 10/07/2020 6:47:17 AM Referred By: REFERRED SELF Confirmed By:King Salcedo
== END 2020-10-06 15:41 | disposition home or self-care (01) ==
LOC: ED 03:42 → 2W 03:42

== ENCOUNTER 2021-12-22 15:36 | Observation (INO) ==
[2021-12-22] MEDS ORDERED: NITROGLYCERIN 2% OINTMENT 30GM TUBE ONE (15:46)
[2021-12-22] MEDS ORDERED: SODIUM CHLORIDE 0.9% 500 ML IV STA (15:48)
[2021-12-22] MEDS ORDERED: ACETAMINOPHEN 500 MG TAB PO STA (15:48)
[2021-12-22] MEDS ORDERED: ONDANSETRON INJ 2 MG/ML 2 ML VIAL IV STA (15:48)
--- NOTE | 2021-12-22 15:56 | Emergency Department Note ---
Impression & Plan Jaw pain, Vomiting, History of atrial fibrillation, Hypokalemia ED Provider Note NAME: CLAUDE BARR AGE: 66 SEX: F : 1955 ARRIVES VIA: Ambulance INFORMANT: [Patient] ED PROVIDER(S): [Artemio Mckenzie MD] CHIEF COMPLAINT: Cardiac work-up HISTORY OF PRESENT ILLNESS: The patient is a 66-year-old female with a history of A. fib. She has undergone bariatric surgery. She has no history of coronary disease. The patient presents with 10/10 left jaw pain that came on suddenly about an hour ago. On the way to the hospital, she was given 4 baby aspirin, 3 nitroglycerin and 4 mg of Zofran. She states the pain has improved to a 4. There is no chest pain. No arm pain. She was not short of breath but admits to nausea. The patient states that for 2 days, she has had intermittent nausea and vomiting. Today, around 5 hours ago, she began vomiting. The jaw pain though did not start until about an hour ago. Pain began at rest while watching TV. Pain does not worsen with jaw movement. Of note, the patient does take Eliquis because of her paroxysmal A. fib REVIEW OF SYSTEMS: See HPI for pertinent positives and negatives. A total of ten systems were reviewed and were otherwise negative. PMHx/PSHx: See Below SOCIAL HISTORY: See Below. PHYSICAL EXAM: GENERAL: Patient is in no acute distress. HEENT: No acute trauma, normocephalic atraumatic, mucous membranes moist, no nasal congestion, no scleral icterus. NECK: No stridor, no adenopathy, no meningismus, trachea is midline. LUNGS: Clear to auscultation bilaterally, no wheeze, no rhonchi, breath sounds equal. HEART: Without murmurs gallops or rubs, regular rate and rhythm. ABDOMEN: Soft, nontender, bowel sounds positive, no peritonitis. EXTREMITIES: No cyanosis or edema, full range of motion of all the joints without pain or difficulty, no signs for acute trauma. NEUROLOGIC: Oriented x 3, no acute motor or sensory deficits, no focal weakness. SKIN: No rash, no jaundice, no diaphoresis. DIFFERENTIAL DIAGNOSIS: Cardiac ischemia, aortic dissection, pulmonary embolism, pneumothorax, pneumonia, pericarditis, myocarditis, esophageal rupture, GERD, cholecystitis, pancreatitis, musculoskeletal, as well as other pathologies. EMERGENCY DEPARTMENT COURSE/PROCEDURES: ECG: Indication was jaw pain. ECG shows a normal sinus rhythm with a rate of 87. There is diffuse nonspecific ST change. There is no ST elevation, no PVCs. The QTc is 474. Compared to an ECG from 16 June 2021, the described junctional rhythm is no longer present. Continuous Cardiac Monitoring: An order was placed for continuous cardiac monitoring. The monitor shows a rate of 89 with normal sinus rhythm. MEDICAL DECISION MAKING: There is no leukocytosis or concerning anemia. There is a normal platelet count. No coagulopathy. Potassium low at 2.9. No renal failure. Alk phos slightly elevated, the remaining liver enzymes were unremarkable. Lipase was normal. COVID test returned negative. Chest x-ray did not show pneumonia or CHF. No concerning mediastinal widening. ECG showed a normal sinus rhythm. There was no ST elevation. Cardiac enzyme testing x1 is not consistent with a cute cardiac injury. On exam, the patient did not have any reproducible chest or jaw pain. The patient was given 2 inches of nitroglycerin paste. She received a 500 cc IV saline bolus. She was given oral and IV potassium. She was given IV Zofran. She received oral Tylenol. The patient presents with left jaw pain. She has had pain relief with nitroglycerin. Cardiac ischemia/angina is a consideration for her discomfort. I do think further cardiac work-up is warranted. I did speak with the patient and case management. The on-call hospitalist was consulted. Past Med/Surg History Medical History Anemia On iron supplement Anxiety Arthritis Asthma Well controlled and stable - uses rescue inhaler rarely Atrial fibrillation Stable- s/p ablation x 2 - still have a fib Bilateral edema of lower extremity Stable Bulging lumbar disc Cataract, bilateral Degenerative disc disease Degenerative disc disease Depression Diverticulosis Family history of colon cancer Heart murmur No murmur noted on PAT exam on 08/16/19- ECHO 04/2019 History of colon polyps History of neoplasm of uncertain behavior of skin History of TIA (transient ischemic attack) 2016--no deficits- no issues since that time. Follows with neuro once yearly - Dr. Barker (also sees for RLS) Hx of basal cell carcinoma FACE AND CHEST Hx of migraines Hypertension Hypomagnesemia Hypothyroidism Intractable nausea and vomiting Leg length discrepancy Morbid obesity On anticoagulant therapy on eliquis Palpitations Paroxysmal atrial fibrillation Prediabetes Stable per patient Restless leg syndrome Sacroiliac joint pain Sleep apnea mild, no device needed Strain of left trapezius muscle Supraventricular tachycardia (06/25/11) Surgical History H/O bariatric surgery H/O cardiac radiofrequency ablation H/O carpal tunnel repair History of appendectomy History of arthroscopy of right shoulder History of basal cell carcinoma (BCC) excision History of bilateral breast reduction surgery (~11/2010) History of cholecystectomy History of colonoscopy History of esophagogastroduodenoscopy (EGD) History of ovarian cystectomy History of removal of cyst History of surgical removal of ganglion cyst History of total abdominal hysterectomy and bilateral salpingo-oophorectomy History of total left knee replacement (TKR) History of wisdom tooth extraction Hx of bilateral cataract extraction Hx of laminectomy Laminectomy (06/25/11) Open reduction of fracture (06/25/11) S/P excision of lipoma (~07/2019) Family History Mother Family history of diabetes mellitus Family history of reaction to anesthesia "had heart complications after surgery for cancer of the vulva" Family hx colonic polyps Myocardial infarction Father Family hx of colon cancer Family hx colonic polyps Colorectal cancer Uncle Family history of esophageal cancer Sister Family hx colonic polyps Other Hypertension Denies family history of Ovarian cancer Prostate cancer Breast cancer Social History Smoking Status: Never smoker Second Hand Exposure: No; Do You Dip or Chew Tobacco: No; Tobacco Cessation Education Requested by Patient: No Hx Alcohol Use: Yes Alcohol type: wine Hx Substance Use: No Preferred Language: Mauritanian Communication Ability: Effective Visual Impairment: No Limitations Hearing Ability: Normal Wrapper Sizer Required: No Beliefs That Will Affect Care: None marital status: Current Living Situation: Family Current Living Situation Comment: Lives with sister current occupational status: retired Other Information That Helps Us Care for You: No Feels Safe at Home: Yes Safety Concerns: Feels Safe At This Time Childhood Exposure to Second-Hand Smoke: Yes caffeine: Yes during the past year weight has: decreased > 10 lbs Dental Care, Regularly: Yes Physical Activity Frequency: Daily Seatbelt Use: sometimes Sunscreen Use: No Assistive Devices: Cane Allergies Allergies Allergy/AdvReac Type Severity Reaction Status Date / Time codeine Allergy Severe HIVES Verified 12/22/21 18:34 Iodinated Contrast Media Allergy Severe HIVES Verified 12/22/21 18:34 iodine Allergy Severe ANAPHYLAXIS Verified 12/22/21 18:34 ketorolac Allergy Severe ITCHING Verified 12/22/21 18:34 Penicillins Allergy Severe ITCHING/HIV Verified 12/22/21 18:34 ES shellfish derived Allergy Severe ANAPHYLAXIS Verified 12/22/21 18:34 shrimp Allergy Severe ANAPHYLAXIS Verified 12/22/21 18:34 barium sulfate Allergy Intermediate itching Verified 12/22/21 18:34 rash morphine Allergy Intermediate ITCHING Verified 12/22/21 18:34 bee venom protein (honey bee) Allergy swelling Verified 12/22/21 18:34 at the site Home Meds Home Medications Medication Instructions Recorded Confirmed docusate sodium 100 mg capsule 100 mg PO HS PRN 02/27/18 12/22/21 pediatric multivitamin no.76 1 tab PO BID tab 04/23/20 12/22/21 (Flintstones Complete) acetaminophen 500 mg tablet 1,000 - 1,500 mg PO Q6H PRN 10/05/20 12/22/21 (Tylenol Extra Strength) omeprazole 40 mg capsule,delayed 40 mg PO DAILY PRN 12/22/21 12/22/21 release Previous Rx's Medication Instructions Recorded lancets 33 gauge (OneTouch Delica #100 ea 02/16/20 Plus Lancet) blood sugar diagnostic (OneTouch #100 ea 05/02/20 Verio test strips) nitroglycerin 0.4 mg sublingual 0.4 mg SUBLINGUAL Q5M PRN #1 btl 10/06/20 tablet pramipexole 0.75 mg tablet 0.75 mg PO TID #90 tab 02/05/21 furosemide 40 mg tablet 40 mg PO DAILY #90 tab 05/13/21 verapamil 240 mg tablet,extended 240 mg PO BID #180 tab 05/13/21 release apixaban 5 mg tablet 5 mg PO BID #180 tab 05/30/21 levothyroxine 200 mcg tablet 200 mcg PO DAILY #90 tab 08/18/21 (Synthroid) cyclobenzaprine 10 mg tablet 10 mg PO TID PRN #30 tab 10/09/21 gabapentin 100 mg capsule 100 mg PO Q8H PRN #30 cap 10/09/21 oxycodone-acetaminophen 5 mg-325 See Rx Instructions PO Q6H PRN #20 10/09/21 mg tablet tab valacyclovir 1 gram tablet 2,000 mg PO Q12H 1 Days #4 tab 10/09/21 (Valtrex) potassium chloride 20 mEq 40 meq PO BID #180 tab 12/02/21 tablet,extended release Results & Data (ED) Vital Signs Vital Signs - 24 hr 12/22/21 15:58 12/22/21 16:02 12/22/21 16:03 Temperature 36.7 C Temperature Source Oral Pulse Rate 84 86 Pulse Rate [Apical] 86 Respiratory Rate 18 17 Blood Pressure 155/78 H Blood Pressure [Left Arm] Blood Pressure Mean 103 Blood Pressure Mean [Left Arm] Pulse Oximetry 96 96 99 Oxygen Delivery Method Room Air Room Air Room Air Sepsis Recent Fever Within 48 Hours No Sepsis New/Unexplained Change in Mental Status No Sepsis Action Taken by Nursing No Action Required 12/22/21 17:41 Temperature Temperature Source Pulse Rate Pulse Rate [Apical] 74 Respiratory Rate 18 Blood Pressure Blood Pressure [Left Arm] 131/77 Blood Pressure Mean Blood Pressure Mean [Left Arm] 95 Pulse Oximetry 98 Oxygen Delivery Method Room Air Sepsis Recent Fever Within 48 Hours Sepsis New/Unexplained Change in Mental Status Sepsis Action Taken by Retirement Medications Current Medication List: was personally reviewed by me Laboratory Data Attestation: I reviewed the patient's lab results. Result diagrams: 12/22/21 16:00 12/22/21 16:00 Lab Results 12/22/21 12/22/21 12/22/21 Range/Units 16:00 16:00 16:00 WBC 8.06 (4.8-10.8) K/uL RBC 4.66 (4.2-5.4) M/uL Hgb 14.1 (12.0-16.0) g/dL Hct 42.6 (37-47) % MCV 91.4 (80-100) fL MCH 30.3 (25-34) pg MCHC 33.1 (32-36) g/dL RDW Std Deviation 42.7 (36.4-46.3) fL RDW Coeff of Falguni 12.9 (11.5-14.5) % Plt Count 317 (130-400) K/uL MPV 10.8 H (7.4-10.4) fL Immature Gran % (Auto) 0.2 % Neut % (Auto) 67.7 % Lymph % (Auto) 25.4 % [place] % (Auto) 4.7 % Eos % (Auto) 1.9 % Baso % (Auto) 0.1 % Neut # (Auto) 5.45 (1.4-6.5) K/uL Lymph # (Auto) 2.05 (1.2-3.4) K/uL [place] # (Auto) 0.38 (0.11-0.59) K/uL Eos # (Auto) 0.15 (0-0.5) K/uL Baso # (Auto) 0.01 (0-0.2) K/uL Immature Gran # (Auto) 0.02 (0.00-0.02) K/uL PT 10.9 (9.0-12.0) Seconds INR 1.0 (0.9-1.1) APTT 28.2 (21.0-31.0) Seconds PTT Ratio 1.0 Sodium 141 (136-145) mmol/L Potassium 2.9 L (3.5-5.1) mmol/L Chloride 104 (98-107) mmol/L Carbon Dioxide 28 (21-32) mmol/L Anion Gap 9 (3-11) BUN 13 (6-23) mg/dl Creatinine 0.56 L (0.6-1.2) mg/dl Est Cr Clr Drug Dosing Not Reportable Est GFR ( Amer) 111.8 ml/min Est GFR (Non-Af Amer) 96.5 ml/min BUN/Creatinine Ratio 23.2 H (10-20) Glucose 125 H (70-99(Fasting)) mg/dl Calcium 9.1 (8.5-10.1) mg/dl Magnesium 1.7 (1.7-2.4) mg/dl Total Bilirubin 0.7 (0.2-1.0) mg/dl AST 18 (13-39) U/L ALT 15 (7-52) U/L Alkaline Phosphatase 116 H (34-104) U/L Troponin I High Sens 3.8 (0-14) pg/ml Total Protein 6.4 (6.0-8.3) gm/dl Albumin 3.8 (3.4-5.0) gm/dl Globulin 2.6 (2.5-4.0) gm/dl Albumin/Globulin Ratio 1.5 (0.9-2) Lipase 19 (11-82) U/L Administered Medications Nitroglycerin (Nitroglycerin 2% Ointment 30gm Tube) 2 inch EXT Q6H EARLENE Stop: 01/21/22 21:13 Last Admin: 12/22/21 23:04 Dose: Not Given Documented by: [id number] Potassium Chloride (Potassium Chloride Crtab 20 Meq Tabcr) 40 meq PO BID17 EARLENE Stop: 01/21/22 21:13 Last Admin: 12/22/21 22:58 Dose: 40 meq Documented by: [id number] Pramipexole Dihydrochloride (Pramipexole Dihydrochlo 0.25 Mg Tab) 0.75 mg PO BID EARLENE Stop: 01/21/22 21:13 Last Admin: 12/22/21 22:57 Dose: 0.75 mg Documented by: [id number] Verapamil HCl (Verapamil Hcl 240 Mg Tabcr) 240 mg PO BID EARLENE Stop: 01/21/22 21:13 Last Admin: 12/22/21 22:58 Dose: 240 mg Documented by: Discontinued Medications Acetaminophen (Acetaminophen 500 Mg Tab) 1,000 mg PO NOW STA Stop: 12/22/21 15:49 Last Admin: 12/22/21 16:12 Dose: 1,000 mg Documented by: [id number] Sodium Chloride (Nss) 500 mls @ 999 mls/hr IV .Q31M STA Stop: 12/22/21 16:18 Last Infusion: 12/22/21 20:04 Dose: 0 mls/hr Documented by: [id number] Admin: 12/22/21 16:13 Dose: 999 mls/hr Documented by: [id number] Potassium Chloride (K Taiwo / Wtr) 10 meq in 100 mls @ 100 mls/hr IV ONE ONE; Protocol Stop: 12/22/21 18:13 Last Infusion: 12/22/21 20:04 Dose: 0 mls/hr Documented by: [id number] Admin: 12/22/21 18:29 Dose: 100 mls/hr Documented by: [id number] Nitroglycerin (Nitroglycerin 2% Ointment 30gm Tube) Confirm Administered Dose 18 inch .ROUTE .STK-MED ONE Stop: 12/22/21 15:47 Last Admin: 12/22/21 16:04 Dose: 18 inch Documented by: [id number] Ondansetron HCl (Ondansetron Inj 2 Mg/Ml 2 Ml Vial) 4 mg IV NOW STA Stop: 12/22/21 15:49 Last Admin: 12/22/21 16:13 Dose: 4 mg Documented by: [id number] Potassium Chloride (Potassium Chloride Crtab 20 Meq Tabcr) 20 meq PO NOW STA Stop: 12/22/21 17:15 Last Admin: 12/22/21 18:28 Dose: 20 meq Documented by: [id number] Imaging Data Radiologist's Impression: Chest X-Ray 12/22/21 15:48 XR chest 1V portable HISTORY: 66 years-old Female Chest Pain acute atypical chest pain COMPARISON: Chest radiograph 06/24/2021 TECHNIQUE: Portable AP view of the chest FINDINGS: The cardiomediastinal and hilar silhouettes are within normal limits. No pneumothorax, pleural effusion, airspace consolidation or overt pulmonary edema. Mild chronic interstitial coarsening of the lung bases. Degenerative changes of the shoulders and spine. IMPRESSION: No acute process. ACT 112: Negative or not required by law. The above report was generated using voice recognition software. It may contain grammatical, syntax or spelling errors. Electronically signed by: Sav Wright M.D. 12/22/2021 4:11 PM Discharge Plan Visit Data Chief Complaint: Chest Pain ED Provider: Artemio Mckenzie Discharge Problem: Jaw pain, Vomiting, History of atrial fibrillation, Hypokalemia Patient Disposition: Admitted As Inpatient Condition: Good Discharge Instructions Interventions: ED Discharge Assessment Last Done: 12/22/21 21:09
--- NOTE | 2021-12-22 16:12 | XRay Report ---
XR chest 1V portable HISTORY: 66 years-old Female Chest Pain acute atypical chest pain COMPARISON: Chest radiograph 06/24/2021 TECHNIQUE: Portable AP view of the chest FINDINGS: The cardiomediastinal and hilar silhouettes are within normal limits. No pneumothorax, pleural effusi on, airspace consolidation or overt pulmonary edema. Mild chronic interstitial coarsening of the lung bases. Degenerative changes of the shoulders and spine. IMPRESSION: No acute process. ACT 112: Negative or not required by law. The above report was generated using voice recognition software. It may contain grammatical, syntax o r spelling errors. Electronically signed by: Sav Wright M.D. 12/22/2021 4:11 PM
[2021-12-22 16:24] LABS: Basophils # (auto) 0.01 K/uL (0-0.2); Basophils % (auto) 0.1 %; Eosinophils # (auto) 0.15 K/uL (0-0.5); Eosinophils % (auto) 1.9 %; Hematocrit (blood only) 42.6 % (37-47); Hemoglobin 14.1 g/dL (12.0-16.0); Immature Granulocytes # (auto) 0.02 K/uL (0.00-0.02); Immature Granulocytes % (auto) 0.2 %; Lymphocytes # (auto) 2.05 K/uL (1.2-3.4); Lymphocytes % (auto) 25.4 %; Mean Corpuscular Hemoglobin 30.3 pg (25-34); Mean Corpuscular Hgb Conc 33.1 g/dL (32-36); Mean Corpuscular Volume 91.4 fL (80-100); Mean Platelet Volume 10.8 fL (7.4-10.4); Monocytes # (auto) 0.38 K/uL (0.11-0.59); Monocytes % (auto) 4.7 %; Neutrophils # (auto) 5.45 K/uL (1.4-6.5); Neutrophils % (auto) 67.7 %; Platelet Count 317 K/uL (130-400); RDW Coefficient of Variation 12.9 % (11.5-14.5); RDW Standard Deviation 42.7 fL (36.4-46.3); Red Blood Count 4.66 M/uL (4.2-5.4); White Blood Count 8.06 K/uL (4.8-10.8)
[2021-12-22 16:30] LABS: Partial Thromboplastin Time 28.2 Seconds (21.0-31.0); Prothrombin Time 10.9 Seconds (9.0-12.0)
[2021-12-22 16:44] LABS: Alanine Aminotransferase 15 U/L (7-52); Albumin Globulin Ratio 1.5 (0.9-2); Albumin Level 3.8 gm/dl (3.4-5.0); Alkaline Phosphatase 116 U/L (34-104); Anion Gap 9 (3-11); Aspartate Aminotransferase 18 U/L (13-39); BUN Creatinine Ratio 23.2 (10-20); Bilirubin,Total 0.7 mg/dl (0.2-1.0); Blood Urea Nitrogen 13 mg/dl (6-23); Calcium 9.1 mg/dl (8.5-10.1); Carbon Dioxide 28 mmol/L (21-32); Chloride 104 mmol/L (98-107); Est GFR (African American) 111.8 ml/min; Est GFR (Non-African American) 96.5 ml/min; Globulin 2.6 gm/dl (2.5-4.0); Glucose 125 mg/dl (70-99(Fasting)); Lipase 19 U/L (11-82); Magnesium 1.7 mg/dl (1.7-2.4); Potassium 2.9 mmol/L (3.5-5.1); Sodium 141 mmol/L (136-145); Total Protein 6.4 gm/dl (6.0-8.3)
[2021-12-22 16:45] LABS: Troponin I High Sensitivity 3.8 pg/ml (0-14)
[2021-12-22] MEDS ORDERED: POTASSIUM CHLORIDE CRTAB 20 MEQ TABCR PO STA (17:14)
[2021-12-22] MEDS ORDERED: POTASSIUM CHLORIDE / WTR 10 MEQ/100 ML PLCT IV ONE (17:14)
--- NOTE | 2021-12-22 17:58 | History & Physical Report ---
Date of Service December 22, 2021 Assessment & Plan (1) Chest pain, rule out acute myocardial infarction: Plan: Hold Eliquis in case of need of cardiac cath. If repeat troponin negative NJ is low likelihood enough would and benefit of heparin drip is controversial anyway there is no need to start this. ASA given prior to arrival in ER Continue nitro paste 2 inch q6h NPO after midnight in case she needs cardiac cath vs. repeat stress testing HbA1C and lipid profile recently performed as outpatient in November - no need to repeat these. Consult cardiology (2) Abnormal nuclear stress test: Plan: Noted previously abnormal myocardial perfusion scan in 02/2020 Cardiac cath not performed after this due to good exercise tolerance without chest pain or shortness of breath on exertion (3) Vomiting: Plan: Unclear cause of this but appears to be longstanding intermittently since gatric bypass ?GERD/gastritis however no epigastric pain on exam or acid taste in the back of her mouth Will monitor and just switch her omeprazole for pantoprazole per hospital formulary (note she only uses the omeprazole PRN which may be the problem) (4) GERD (gastroesophageal reflux disease): Plan: Switch omeprazole for pantoprazole as above (5) Paroxysmal atrial fibrillation: Plan: Currently in NSR Anticoagulation on hold as above. (6) Apnea, sleep: Plan: Mild per patient - does not use CPAP at home (7) Hypothyroidism: Plan: TSH 3.697 [11/27/21] no need to repeat this Continue levothyroxine 200 mcg PO daily (8) Hypokalemia: Plan: Suspect somewhat secondary to Lasix use Additional KCl given in ER as above. Continue her usual KCl 40 meq PO BID (9) Restless leg syndrome: Plan: Continue pramipexole 0.75mg PO BID (patient prescribed TID but rarely takes the lunch time dose). (10) Hypertension: Plan: Continue verapamil 240mg PO BID and furosemide 40mg PO daily Plan: VTE Prophylaxis - Eliquis on hold as above in case of need of cardiac cath Diet - heart healthy, NPO after midnight Disposition - observation status to PCU Admission and Anticipated Discharge Date Admission Date: December 22, 2021 History of Present Illness Chief Complaint: Chest pain Primary Care Provider: Homer Herrera III, TERA Kaylee Lanier is a 66 year old female admission for left jaw and arm pain. She reports severe 10/10 pain on the left side of her jaw and neck and at one point radiating to her left arm. Started at 2:30-3pm, lasting for 1 hour. Associated SOB and nausea without diaphoresis. Improved with aspirin and nitroglycerin x3 given by EMS, reportedly 4/10 while in the ER initially but has now completely resolved with nitro paste currently on. Zofran, acetaminophen and NSS 500ml bolus also given. She has no history of myocardial infarction of stroke however has history of paroxysmal atrial fibrillation but usually feels this with palpitations rather than the pain on this occasion which is new. She is status x2 ablations and now goes into atrial fibrillation much less frequently and can usually manage it at home as she spontaneously comes out of it. She also notes increased nausea and vomiting starting since 11am. She reports this is an ongoing problem since her bariatric surgery 2 years ago and happens intermittently usually once a month however was more severe on this occasion. She currently has no nasuea or vomiting. In the ER EKG showed non-specific ST changes, she is pain free with 2 inch nitro paste, initial high sensitivity troponin I negative. She was referred to medicine for chest pain r/o NJ. Allergies Allergy/AdvReac Type Severity Reaction Status Date / Time codeine Allergy Severe HIVES Verified 12/22/21 18:34 Iodinated Contrast Media Allergy Severe HIVES Verified 12/22/21 18:34 iodine Allergy Severe ANAPHYLAXIS Verified 12/22/21 18:34 ketorolac Allergy Severe ITCHING Verified 12/22/21 18:34 Penicillins Allergy Severe ITCHING/HIV Verified 12/22/21 18:34 ES shellfish derived Allergy Severe ANAPHYLAXIS Verified 12/22/21 18:34 shrimp Allergy Severe ANAPHYLAXIS Verified 12/22/21 18:34 barium sulfate Allergy Intermediate itching Verified 12/22/21 18:34 rash morphine Allergy Intermediate ITCHING Verified 12/22/21 18:34 bee venom protein (honey bee) Allergy swelling Verified 12/22/21 18:34 at the site Home Medications Medication Instructions Recorded Confirmed Type docusate sodium 100 mg capsule 100 mg PO HS PRN 02/27/18 12/22/21 History lancets 33 gauge (OneTouch Delica #100 ea 02/16/20 12/04/21 Rx Plus Lancet) pediatric multivitamin no.76 1 tab PO BID tab 04/23/20 12/22/21 History (Flintstones Complete) blood sugar diagnostic (OneTouch #100 ea 05/02/20 12/04/21 Rx Verio test strips) acetaminophen 500 mg tablet 1,000 - 1,500 mg PO Q6H PRN 10/05/20 12/22/21 History (Tylenol Extra Strength) nitroglycerin 0.4 mg sublingual 0.4 mg SUBLINGUAL Q5M PRN #1 btl 10/06/20 12/22/21 Rx tablet pramipexole 0.75 mg tablet 0.75 mg PO TID #90 tab 02/05/21 12/22/21 Rx furosemide 40 mg tablet 40 mg PO DAILY #90 tab 05/13/21 12/22/21 Rx verapamil 240 mg tablet,extended 240 mg PO BID #180 tab 05/13/21 12/22/21 Rx release apixaban 5 mg tablet 5 mg PO BID #180 tab 05/30/21 12/22/21 Rx levothyroxine 200 mcg tablet 200 mcg PO DAILY #90 tab 08/18/21 12/22/21 Rx (Synthroid) cyclobenzaprine 10 mg tablet 10 mg PO TID PRN #30 tab 10/09/21 12/22/21 Rx gabapentin 100 mg capsule 100 mg PO Q8H PRN #30 cap 10/09/21 12/22/21 Rx oxycodone-acetaminophen 5 mg-325 See Rx Instructions PO Q6H PRN #20 10/09/21 12/22/21 Rx mg tablet tab valacyclovir 1 gram tablet 2,000 mg PO Q12H 1 Days #4 tab 10/09/21 12/22/21 Rx (Valtrex) potassium chloride 20 mEq 40 meq PO BID #180 tab 12/02/21 12/22/21 Rx tablet,extended release omeprazole 40 mg capsule,delayed 40 mg PO DAILY PRN 12/22/21 12/22/21 History release Past Med/Surg History Medical History Anemia On iron supplement Anxiety Arthritis Asthma Well controlled and stable - uses rescue inhaler rarely Atrial fibrillation Stable- s/p ablation x 2 - still have a fib Bilateral edema of lower extremity Stable Bulging lumbar disc Cataract, bilateral Degenerative disc disease Degenerative disc disease Depression Diverticulosis Family history of colon cancer Heart murmur No murmur noted on PAT exam on 08/16/19- ECHO 04/2019 History of colon polyps History of neoplasm of uncertain behavior of skin History of TIA (transient ischemic attack) 2017--no deficits- no issues since that time. Follows with neuro once yearly - Dr. Barker (also sees for RLS) Hx of basal cell carcinoma FACE AND CHEST Hx of migraines Hypertension Hypomagnesemia Hypothyroidism Intractable nausea and vomiting Leg length discrepancy Morbid obesity On anticoagulant therapy on eliquis Palpitations Paroxysmal atrial fibrillation Prediabetes Stable per patient Restless leg syndrome Sacroiliac joint pain Sleep apnea mild, no device needed Strain of left trapezius muscle Supraventricular tachycardia (06/25/11) Surgical History H/O bariatric surgery H/O cardiac radiofrequency ablation H/O carpal tunnel repair History of appendectomy History of arthroscopy of right shoulder History of basal cell carcinoma (BCC) excision History of bilateral breast reduction surgery (~11/2010) History of cholecystectomy History of colonoscopy History of esophagogastroduodenoscopy (EGD) History of ovarian cystectomy History of removal of cyst History of surgical removal of ganglion cyst History of total abdominal hysterectomy and bilateral salpingo-oophorectomy History of total left knee replacement (TKR) History of wisdom tooth extraction Hx of bilateral cataract extraction Hx of laminectomy Laminectomy (06/25/11) Open reduction of fracture (06/25/11) S/P excision of lipoma (~07/2019) Family History Mother Family history of diabetes mellitus Family history of reaction to anesthesia "had heart complications after surgery for cancer of the vulva" Family hx colonic polyps Myocardial infarction Father Family hx of colon cancer Family hx colonic polyps Colorectal cancer Uncle Family history of esophageal cancer Sister Family hx colonic polyps Other Hypertension Denies family history of Ovarian cancer Prostate cancer Breast cancer Social History Smoking Status: Never smoker Second Hand Exposure: No; Do You Dip or Chew Tobacco: No; Tobacco Cessation Education Requested by Patient: No Hx Alcohol Use: Yes Alcohol type: wine Hx Substance Use: No Preferred Language: Tuvaluan Communication Ability: Effective Visual Impairment: No Limitations Hearing Ability: Normal Hotel Baggage Handler Required: No Beliefs That Will Affect Care: None marital status: Current Living Situation: Family Current Living Situation Comment: Lives with sister current occupational status: retired Other Information That Helps Us Care for You: No Feels Safe at Home: Yes Safety Concerns: Feels Safe At This Time Childhood Exposure to Second-Hand Smoke: Yes caffeine: Yes during the past year weight has: decreased > 10 lbs Dental Care, Regularly: Yes Physical Activity Frequency: Daily Seatbelt Use: sometimes Sunscreen Use: No Assistive Devices: Cane Review of Systems Review of Systems: All systems reviewed & are unremarkable except as noted in HPI & below Physical Exam Constitutional: WD/WN, vitals as above ENMT: external ear and nose normal, oropharynx normal Neck: trachea midline, no thyromegaly Respiratory: normal respiratory effort, lungs clear to auscultation Cardiovascular: Rate/Rhythm: regular rate and regular rhythm Heart Sounds: no murmur Vessels: no JVD Extremities: normal capillary refill and + pedal edema (trace pre-tibial); no calf tenderness Gastrointestinal (Abdomen): normal bowel sounds, soft, nontender, no hepatosplenomegaly Musculoskeletal: no cyanosis or clubbing, extremities motor strength 5/5 Skin: no rashes, warm and dry Neurologic: moves all extremities and awake; not confused Psychiatric: A+Ox3, euthymic affect Results & Data Results & Data ([facility]) Vital Signs (Past 12 Hours) Vital Signs Temp Pulse Pulse Resp BP BP Pulse Ox 12/22/21 17:41 74 18 131/77 98 12/22/21 16:03 86 17 99 12/22/21 16:02 86 96 12/22/21 15:58 36.7 C 84 18 155/78 H 96 Laboratory Results Abnormal lab results 12/22/21 12/22/21 Range/Units 16:00 16:00 MPV 10.8 H (7.4-10.4) fL Potassium 2.9 L (3.5-5.1) mmol/L Creatinine 0.56 L (0.6-1.2) mg/dl BUN/Creatinine Ratio 23.2 H (10-20) Glucose 125 H (70-99(Fasting)) mg/dl Alkaline Phosphatase 116 H (34-104) U/L Diagnostic Findings XR chest 1V portable HISTORY: 66 years-old Female Chest Pain acute atypical chest pain COMPARISON: Chest radiograph 06/24/2021 TECHNIQUE: Portable AP view of the chest FINDINGS: The cardiomediastinal and hilar silhouettes are within normal limits. No pneumothorax, pleural effusion, airspace consolidation or overt pulmonary edema. Mild chronic interstitial coarsening of the lung bases. Degenerative changes of the shoulders and spine. IMPRESSION: No acute process. Medications Administered ER Medications Given: Nitro paste 2% 2 inch NSS 500 ml bolus Ondansetron 4mg IV Acetaminophen 1g PO Potassium chloride 20 meq PO Potassium chloride 10 meq IV ECG Indication: SOB/dyspnea Rate (beats per minute): 87 Rhythm: normal sinus Findings: + nonspecific-ST abn Comparison ECG Date: from (June 24, 2021) Change: the following changes noted (Sinus replaced junctional rhythm) Code Status & VTE Plan Code Status DNR/DNI per patient preference VTE Prophylaxis Plan VTE Prophylaxis will be ordered: No PG Care Time/CCT Total # of Minutes Spent Total Time Spent with Patient: Total time spent is greater than 50% in coordination of care (as documented) at patient's floor/unit and/or counseling patient: Coding Level of Care Code INT OBSERVATION CARE 70M LVL 3 Diagnoses Chest pain, rule out acute myocardial infarction R07.9 Paroxysmal atrial fibrillation I48.0 Vomiting R11.2 Nausea presence: with nausea Vomiting type: unspecified GERD (gastroesophageal reflux disease) K21.9 Apnea, sleep G47.30 Abnormal nuclear stress test R94.39 Hypothyroidism E03.9 Hypothyroidism type: acquired Hypokalemia E87.6 Restless leg syndrome G25.81 Hypertension I10 Hypertension type: essential hypertension (1) Hypothyroidism Hypothyroidism type: acquired Qualified Code(s): E03.9 - Hypothyroidism, unspecified (2) Hypertension Hypertension type: essential hypertension Qualified Code(s): I10 - Essential (primary) hypertension (3) Vomiting Nausea presence: with nausea Vomiting type: unspecified Qualified Code(s): R11.2 - Nausea with vomiting, unspecified
[2021-12-22] MEDS ORDERED: DOCUSATE SODIUM 100 MG CAP PO PRN (21:14)
[2021-12-22] MEDS ORDERED: CYCLOBENZAPRINE HCL 10 MG TAB PO PRN (21:14)
[2021-12-22] MEDS: PRAMIPEXOLE DIHYDROCHLO 0.25 MG TAB PO SCH (22:57)
[2021-12-22] MEDS: VERAPAMIL HCL 240 MG TABCR PO SCH (22:58)
[2021-12-22] MEDS: POTASSIUM CHLORIDE CRTAB 20 MEQ TABCR PO SCH (22:58)
[2021-12-22] MEDS: NITROGLYCERIN 2% OINTMENT 30GM TUBE EXT SCH (23:04)
[2021-12-22] MEDS ORDERED: ONDANSETRON INJ 2 MG/ML 2 ML VIAL IV PRN (23:56)
[2021-12-23] MEDS: NITROGLYCERIN 2% OINTMENT 30GM TUBE EXT SCH ×4 (05:33→23:29)
[2021-12-23] MEDS: LEVOTHYROXINE SODIUM 200 MCG TABLET PO SCH (05:33)
[2021-12-23 06:29] LABS: Basophils # (auto) 0.02 K/uL (0-0.2); Basophils % (auto) 0.3 %; Eosinophils # (auto) 0.18 K/uL (0-0.5); Eosinophils % (auto) 3.1 %; Hematocrit (blood only) 37.5 % (37-47); Hemoglobin 12.3 g/dL (12.0-16.0); Immature Granulocytes # (auto) 0.01 K/uL (0.00-0.02); Immature Granulocytes % (auto) 0.2 %; Lymphocytes # (auto) 1.85 K/uL (1.2-3.4); Mean Corpuscular Hemoglobin 30.2 pg (25-34); Mean Corpuscular Hgb Conc 32.8 g/dL (32-36); Mean Corpuscular Volume 92.1 fL (80-100); Mean Platelet Volume 10.4 fL (7.4-10.4); Monocytes # (auto) 0.53 K/uL (0.11-0.59); Monocytes % (auto) 9.2 %; Neutrophils # (auto) 3.19 K/uL (1.4-6.5); Neutrophils % (auto) 55.2 %; Platelet Count 253 K/uL (130-400); Red Blood Count 4.07 M/uL (4.2-5.4); White Blood Count 5.78 K/uL (4.8-10.8)
[2021-12-23 07:11] LABS: BUN Creatinine Ratio 26.3 (10-20); Calcium 8.3 mg/dl (8.5-10.1); Creatinine Clr Calc Pharmacy 98.8 ml/min; Est GFR (African American) 111.2 ml/min; Est GFR (Non-African American) 95.9 ml/min; Potassium 4.5 mmol/L (3.5-5.1)
[2021-12-23 07:24] LABS: Troponin I High Sensitivity 3.4 pg/ml (0-14)
[2021-12-23] MEDS: VERAPAMIL HCL 240 MG TABCR PO SCH ×2 (07:59→20:39)
[2021-12-23] MEDS: PRAMIPEXOLE DIHYDROCHLO 0.25 MG TAB PO SCH ×2 (07:59→20:40)
--- NOTE | 2021-12-23 08:19 | Electrocardiogram Report ---
Test Reason : Blood Pressure : / mmHG Vent. Rate : 087 BPM Atrial Rate : 087 BPM P-R Int : 148 ms QRS Dur : 068 ms QT Int : 394 ms P-R-T Axes : 057 019 046 degrees QTc Int : 474 ms Normal sinus rhythm Diffuse Minor Nonspecific T wave abnormality Prolonged QT Abnormal ECG When compared with ECG of 24-JUN-2021 22:04, Sinus rhythm has replaced Junctional rhythm Vent. rate has increased BY 34 BPM Nonspecific T wave abnormality now evident in Anterolateral leads QT has lengthened Confirmed by Jose Miguel Nielson ([id number]) on 12/23/2021 8:18:49 AM Referred By: Confirmed By:Jose Miguel Nielson
--- NOTE | 2021-12-23 08:23 | Hospitalist Progress Note ---
Date of Service December 23, 2021 Assessment & Plan (1) Chest pain, rule out acute myocardial infarction: Plan: Chest Pain, suspect noncardiac - EKG: nsr. No acute st segment changes. QTc 474ms. nonspec ant-lat t wave changes. - Eliquis admission with concern for cath, cardiology consulted and further eval as below. Resumed. - hsTrop 5.1,->3.4--> 2.4. Patient had several hours of symptoms, and serial troponins have all been negative extremely reassuring for noncardiac etiology - Hep gtt deferred on admission. Aspirin given prior to arrival TSH normal A1c 5.6% - Lipids: Chol 156 HDL 52 LDL 78 - Cardiology consulted. Pt with recurrent episodes of similar pain in the past. Low suspicion for ACS. Patient did have distant cath and nuclear study. Nuclear study as noted, pt reports negative past cath many years ago patient has had no exertional/anginal symptoms. No additional work-up at this time recommended. Appreciate recommendations. Echo 09/2020: EF 55-60%, no regional wall motion abnormalities, normal LV SF. No valvular abnormalities - BP normotensive in afternoon, and equal in each arm - CXR naf (2) Vomiting: Plan: Longstanding nausea/vomiting/stomach upset since gastric bypass Patient does not have epigastric pain, but does have persistent nausea Initially improved and with pain improved midday. Plan was for outpt f/u to GI and possible EGD as outpt. Hgb stable. In afternoon return of nausea, severe with emesis requiring further tx Is at risk for anastomosis ulcers. NPO at 0000 in case no sx improvement/need for EGD Patient switched to pantoprazole, increase to twice daily, with nausea control with Zofran Patient reports she has not had good control with Zofran in the past, Phenergan is only thing that is worked for her at home. In afternoon patient has had return of nausea with vomiting despite Zofran Phenergan for nausea placed, counseled on risk of extravasation Occult blood of emesis negative KUB pending Patient does have allergy to both IV and barium contrast. CT deferred pending KUB above and will blood negative. If symptoms worsen will obtain CT with contrast and pretreat with methylprednisolone/Benadryl if needed/severe, versus suboptimal Noncon if not improving but not severely (3) Abnormal nuclear stress test: Plan: -Noted previously abnormal myocardial perfusion scan in 02/2020 -Cardiac cath not performed after this due to good exercise tolerance without chest pain or shortness of breath on exertion (4) GERD (gastroesophageal reflux disease): Plan: Switch omeprazole for pantoprazole as above (5) Paroxysmal atrial fibrillation: Plan: Currently in NSR Anticoagulation on hold as above. (6) Apnea, sleep: Plan: Mild per patient - does not use CPAP at home (7) Hypothyroidism: Plan: TSH 3.697 [11/27/21] no need to repeat this Continue levothyroxine 200 mcg PO daily (8) Hypokalemia: Plan: Suspect somewhat secondary to Lasix use Additional KCl given in ER as above. Continue her usual KCl 40 meq PO BID (9) Restless leg syndrome: Plan: Continue pramipexole 0.75mg PO BID (patient prescribed TID but rarely takes the lunch time dose). (10) Hypertension: Plan: Continue verapamil 240mg PO BID and furosemide 40mg PO daily Plan: VTE Prophylaxis - Eliquis resumed Diet - heart healthy Disposition - observation status Admission and Anticipated Discharge Date Admission Date: December 22, 2021 Subjective Patient seen at the bedside in the morning, and on afternoon reassessment. On the morning she reports she was still having some discomfort similar to her prior chest pain which is sometimes in her back, notes this was different from the jaw pain which was completely new and it never occurred. She reports this has somewhat improved, and in the afternoon she has had resolution of pain but continues to be very nauseous. Patient did discuss case with cardiology, was very frustrated as she feels she has had symptoms several times before and was worried when she was told her troponin was 5. Did review high-sensitivity versus prior troponin scales. Does have a history of gastric bypass following surgery for a intestinal perforation and repair, and is at risk for ulcers. She reports her stomach feels soured, but has not noticed any bloody bowel movements, black bowel movements, or vomiting blood. Gastric bypass was with [facility] [place]. Review of Systems Review of Systems: All systems reviewed & are unremarkable except as noted in Subjective Physical Exam Physical Exam: General: A&Ox3. NAD. Cooperative. HEENT: Atraumatic, normocephalic. Hearing grossly intact. Pulm: CTAB A&P. -wheezes, -rales, -rhonchi. Symmetrical chest rise. No increase in work of breathing. No respiratory distress. Cardiac: RRR, -mrg. Radial pulses intact and symmetrical. Abdominal: Nontender at the epigastrium, but is nauseous with palpation. Abdomen is softly distended without fluid, rebound, guarding. Results & Data Results & Data ([place]) Vital Signs (Past 12 Hours) Vital Signs Temp Pulse Pulse Resp BP Pulse Ox 12/23/21 07:53 36.4 C L 76 16 140/78 97 12/23/21 07:25 71 12/23/21 02:54 36.6 C 50 L 20 121/76 97 12/22/21 23:11 36.4 C L 69 20 128/79 95 12/22/21 22:17 74 12/22/21 21:43 36.5 C 83 15 127/72 95 12/22/21 21:19 86 12/22/21 21:14 36.5 C 83 16 127/72 95 PG Care Time/CCT Total # of Minutes Spent Total Time Spent with Patient: Total time spent is greater than 50% in coordination of care (as documented) at patient's floor/unit and/or counseling patient: Coding Level of Care Code 85906 Subseq Obs Care Lvl 2 Diagnoses Chest pain, rule out acute myocardial infarction R07.9 Abnormal nuclear stress test R94.39 Vomiting R11.2 Nausea presence: with nausea Vomiting type: unspecified GERD (gastroesophageal reflux disease) K21.9 Paroxysmal atrial fibrillation I48.0 Apnea, sleep G47.30 Hypothyroidism E03.9 Hypothyroidism type: acquired Hypokalemia E87.6 Restless leg syndrome G25.81 Hypertension I10 Hypertension type: essential hypertension (1) Hypothyroidism Hypothyroidism type: acquired Qualified Code(s): E03.9 - Hypothyroidism, unspecified (2) Hypertension Hypertension type: essential hypertension Qualified Code(s): I10 - Essential (primary) hypertension (3) Vomiting Nausea presence: with nausea Vomiting type: unspecified Qualified Code(s): R11.2 - Nausea with vomiting, unspecified
[2021-12-23] MEDS ORDERED: PANTOprazole 40 MG TAB PO SCH (09:00)
--- NOTE | 2021-12-23 09:53 | Cardiology Consultation ---
Date of Consultation December 23, 2021 Assessment & Plan (1) Jaw pain: (2) Afib: (3) Abnormal nuclear stress test: (4) Chronic anticoagulation: 1. Jaw pain: I do not believe this represents angina or myocardial ischemia. With an hour of discomfort and totally normal high-sensitivity troponin as well as no clear abnormality on electrocardiography I think this represents noncardiac discomfort. Given that she had an abnormal stress test in the past (which is likely a false positive) in the setting of a prior catheterization showing normal coronary arteries (although it was 14 years ago) I do not think I would pursue any further evaluation including stress testing. Should she develop exertional symptoms then we may want to pursue further evaluation but I would not do that now. 2. Atrial fibrillation: She may have occasional brief episodes of atrial fibrillation but they are not bothersome to her. I would monitor her here during her hospitalization but do not think we need further outpatient monitoring at this time. 3. Abnormal nuclear stress test: I would not recommend doing another stress test now given her prior test which was likely a false positive. I do not think her current presentation is cardiac and I would not evaluate with stress testing 4. Anticoagulation: She should remain on anticoagulation on a long-term basis if possible although it could be held briefly if needed. 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 She has had symptoms since around 2002, initially she had episodes that lasted for 3-4 hours and occurred only 2 or 3 times per year. At that time she was not terribly bothered by them but she was quite aware of them when they occurred. Over the years they had become more frequent, at least 2 or 3 times per week, sometimes multiple episodes in the day. They could last up to 20 hours and she was hospitalized for an episode of approximately that duration. Her heart rate had been very fast, as high as 200 beats per minute by her recording, often 150 beats per minute. We therefore referred her to [facility] where she had ablation performed by Dr. Pope around June of 2010. Unfortunately she had recurrences early after the ablation and has continued to have them and they have lasted up to about 5 hours. Her symptoms during the episodes are exhaustion, palpitations, feeling of fullness in her neck, and shortness of breath. She does not seem to have presyncope or syncope associated with them. With increasing frequency of episodes she had repeat ablation performed on 04/05/2012. She initially was doing much better, she had a few brief episodes early after the ablation but then had nothing until June 13, 2013 when she developed palpitations and chest discomfort starting at around 10 AM and then presented to the emergency room. In the emergency room she was found to be in sinus rhythm. She was observed and discharged. She remained on flecainide 100 mg twice a day. She was just on aspirin, however this was changed to Xarelto, subsequently apixaban. She does have a long history of chest discomfort. This is atypical although she does often get it associated with the atrial fibrillation. She has had catheterization June 08, 2008 where she had normal coronary arteries. She also had a subsequent stress echos negative for ischemia, most recently April 11, 2018. A nuclear stress test was done on March 19, 2020 which did suggest a small area of ischemia involving the inferior wall but the ejection fraction was 69% with normal wall motion. She also has a history of asthma and does take Singulair and inhalers. She has never noticed a relationship between the use of these medications and induction of her atrial fibrillation. She did completely cut out caffeine, alcohol and bed not have any change in her arrhythmia. She had been gaining a lot of weight and having a lot of difficulty with edema, she did undergo gastric bypass surgery at [facility] in March 2020 and has had significant weight loss and also improvement in her edema. Currently she is not bothered by her edema. She may have very rare episodes of atrial fibrillation, she is not sure she has had any prolonged episodes since I last saw her and we have not documented any to my knowledge. Several times per year she may have symptoms lasting about 10 seconds, these may or may not be atrial fibrillation but did not bother her. She has been followed closely in our heart failure area. She has continued to have some dyspnea on exertion and some peripheral edema. She presents December 22, 2021 with discomfort on the left side of her jaw and at times radiating to her left arm. It lasted about an hour and was associated with shortness of breath and nausea without diaphoresis. It resolved with treatment in the emergency room with nitroglycerin. Her initial electrocardiogram shows sinus rhythm with some minor ST-T abnormalities. High-sensitivity troponin x4 are unremarkable. As of my evaluation the symptoms have not recurred. She has had no exertional symptoms, and other than this 1 episode has been feeling quite well. Allergies Allergy/AdvReac Type Severity Reaction Status Date / Time codeine Allergy Severe HIVES Verified 12/22/21 18:34 Iodinated Contrast Media Allergy Severe HIVES Verified 12/22/21 18:34 iodine Allergy Severe ANAPHYLAXIS Verified 12/22/21 18:34 ketorolac Allergy Severe ITCHING Verified 12/22/21 18:34 Penicillins Allergy Severe ITCHING/HIV Verified 12/22/21 18:34 ES shellfish derived Allergy Severe ANAPHYLAXIS Verified 12/22/21 18:34 shrimp Allergy Severe ANAPHYLAXIS Verified 12/22/21 18:34 barium sulfate Allergy Intermediate itching Verified 12/22/21 18:34 rash morphine Allergy Intermediate ITCHING Verified 12/22/21 18:34 bee venom protein (honey bee) Allergy swelling Verified 12/22/21 18:34 at the site Home Medications Medication Instructions Recorded Confirmed Type docusate sodium 100 mg capsule 100 mg PO HS PRN 02/27/18 12/22/21 History lancets 33 gauge (IGA WorldwideTouch Delica #100 ea 02/16/20 12/04/21 Rx Plus Lancet) pediatric multivitamin no.76 1 tab PO BID tab 04/23/20 12/22/21 History (Flintstones Complete) blood sugar diagnostic (IGA WorldwideTouch #100 ea 05/02/20 12/04/21 Rx Verio test strips) acetaminophen 500 mg tablet 1,000 - 1,500 mg PO Q6H PRN 10/05/20 12/22/21 History (Tylenol Extra Strength) nitroglycerin 0.4 mg sublingual 0.4 mg SUBLINGUAL Q5M PRN #1 btl 10/06/20 12/22/21 Rx tablet pramipexole 0.75 mg tablet 0.75 mg PO TID #90 tab 02/05/21 12/22/21 Rx furosemide 40 mg tablet 40 mg PO DAILY #90 tab 05/13/21 12/22/21 Rx verapamil 240 mg tablet,extended 240 mg PO BID #180 tab 05/13/21 12/22/21 Rx release levothyroxine 200 mcg tablet 200 mcg PO DAILY #90 tab 08/18/21 12/22/21 Rx (Synthroid) cyclobenzaprine 10 mg tablet 10 mg PO TID PRN #30 tab 10/09/21 12/22/21 Rx gabapentin 100 mg capsule 100 mg PO Q8H PRN #30 cap 10/09/21 12/22/21 Rx oxycodone-acetaminophen 5 mg-325 See Rx Instructions PO Q6H PRN #20 10/09/21 12/22/21 Rx mg tablet tab valacyclovir 1 gram tablet 2,000 mg PO Q12H 1 Days #4 tab 10/09/21 12/22/21 Rx (Valtrex) potassium chloride 20 mEq 40 meq PO BID #180 tab 12/02/21 12/22/21 Rx tablet,extended release omeprazole 40 mg capsule,delayed 40 mg PO DAILY PRN 12/22/21 12/22/21 History release famotidine 20 mg tablet 20 mg PO BID PRN 42 Days #84 tab 12/23/21 Rx pantoprazole 40 mg tablet,delayed See Rx Instructions .ROUTE 12/23/21 Rx release .COMPLEX 10 Days #35 tab apixaban 5 mg tablet 5 mg PO BID #180 tab 12/24/21 Rx Patient History Medical History Anemia On iron supplement Anxiety Arthritis Asthma Well controlled and stable - uses rescue inhaler rarely Atrial fibrillation Stable- s/p ablation x 2 - still have a fib Bilateral edema of lower extremity Stable Bulging lumbar disc Cataract, bilateral Degenerative disc disease Degenerative disc disease Depression Diverticulosis Family history of colon cancer Heart murmur No murmur noted on PAT exam on 08/16/19- ECHO 04/2019 History of colon polyps History of neoplasm of uncertain behavior of skin History of TIA (transient ischemic attack) 2016--no deficits- no issues since that time. Follows with neuro once yearly - Dr. Barker (also sees for RLS) Hx of basal cell carcinoma FACE AND CHEST Hx of migraines Hypertension Hypomagnesemia Hypothyroidism Intractable nausea and vomiting Leg length discrepancy Morbid obesity On anticoagulant therapy on eliquis Palpitations Paroxysmal atrial fibrillation Prediabetes Stable per patient Restless leg syndrome Sacroiliac joint pain Sleep apnea mild, no device needed Strain of left trapezius muscle Supraventricular tachycardia (06/25/11) Surgical History H/O bariatric surgery H/O cardiac radiofrequency ablation H/O carpal tunnel repair History of appendectomy History of arthroscopy of right shoulder History of basal cell carcinoma (BCC) excision History of bilateral breast reduction surgery (~11/2010) History of cholecystectomy History of colonoscopy History of esophagogastroduodenoscopy (EGD) History of ovarian cystectomy History of removal of cyst History of surgical removal of ganglion cyst History of total abdominal hysterectomy and bilateral salpingo-oophorectomy History of total left knee replacement (TKR) History of wisdom tooth extraction Hx of bilateral cataract extraction Hx of laminectomy Laminectomy (06/25/11) Open reduction of fracture (06/25/11) S/P excision of lipoma (~07/2019) Family History Mother Family history of diabetes mellitus Family history of reaction to anesthesia "had heart complications after surgery for cancer of the vulva" Family hx colonic polyps Myocardial infarction Father Family hx of colon cancer Family hx colonic polyps Colorectal cancer Uncle Family history of esophageal cancer Sister Family hx colonic polyps Other Hypertension Denies family history of Ovarian cancer Prostate cancer Breast cancer Social History Smoking Status: Never smoker Second Hand Exposure: No; Do You Dip or Chew Tobacco: No; Tobacco Cessation Education Requested by Patient: No Hx Alcohol Use: Yes Alcohol type: wine Hx Substance Use: No Preferred Language: Croatian Communication Ability: Effective Visual Impairment: No Limitations Hearing Ability: Normal Accounts Payable Clerk Required: No Beliefs That Will Affect Care: None marital status: Current Living Situation: Family Current Living Situation Comment: Lives with sister current occupational status: retired Other Information That Helps Us Care for You: No Feels Safe at Home: Yes Safety Concerns: Feels Safe At This Time Childhood Exposure to Second-Hand Smoke: Yes caffeine: Yes during the past year weight has: decreased > 10 lbs Dental Care, Regularly: Yes Physical Activity Frequency: Daily Seatbelt Use: sometimes Sunscreen Use: No Assistive Devices: Cane and Walker Review of Systems Review of Systems: All systems reviewed & are unremarkable except as noted in HPI & below Physical Exam Physical Exam: Constitutional: Alert, cooperative and in no distress. She is obese. HEENT: Unremarkable Neck: No jugular venous distention, carotid pulses are normal and equal bilaterally without bruits. Pulmonary: Clear to auscultation bilaterally. Cardiac: Regular rhythm with no murmur, gallop or rub. Abdomen: Soft, nontender with normal bowel sounds. Extremities: No edema. Distal pulses intact. Neurologic: No focal findings. Gait was not tested. Skin: No rash, ecchymoses or petechiae. Results & Data ([facility]) Vital Signs (Past 12 Hours) Vital Signs Temp Pulse Pulse Resp BP Pulse Ox 12/23/21 07:53 36.4 C L 76 16 140/78 97 12/23/21 07:25 71 12/23/21 02:54 36.6 C 50 L 20 121/76 97 12/22/21 23:11 36.4 C L 69 20 128/79 95 12/22/21 22:17 74 Laboratory Results Cardiac Enzymes 12/22/21 12/22/21 12/23/21 Range/Units 16:00 18:36 01:20 AST 18 (13-39) U/L Troponin I High Sens 3.8 5.1 3.0 (0-14) pg/ml 12/23/21 12/23/21 Range/Units 06:07 06:07 AST (13-39) U/L Troponin I High Sens 3.4 Cancelled (0-14) pg/ml Coagulation 12/22/21 Range/Units 16:00 PT 10.9 (9.0-12.0) Seconds APTT 28.2 (21.0-31.0) Seconds CBC 12/22/21 12/23/21 Range/Units 16:00 06:07 WBC 8.06 5.78 (4.8-10.8) K/uL RBC 4.66 4.07 L (4.2-5.4) M/uL Hgb 14.1 12.3 (12.0-16.0) g/dL Hct 42.6 37.5 (37-47) % Plt Count 317 253 (130-400) K/uL Neut # (Auto) 5.45 3.19 (1.4-6.5) K/uL Lymph # (Auto) 2.05 1.85 (1.2-3.4) K/uL Finney # (Auto) 0.38 0.53 (0.11-0.59) K/uL Eos # (Auto) 0.15 0.18 (0-0.5) K/uL Baso # (Auto) 0.01 0.02 (0-0.2) K/uL Comprehensive Metabolic Panel 12/22/21 12/23/21 Range/Units 16:00 06:07 Sodium 141 140 (136-145) mmol/L Potassium 2.9 L 4.5 D (3.5-5.1) mmol/L Chloride 104 107 (98-107) mmol/L Carbon Dioxide 28 30 (21-32) mmol/L BUN 13 15 (6-23) mg/dl Creatinine 0.56 L 0.57 L (0.6-1.2) mg/dl Glucose 125 H 106 H (70-99(Fasting)) mg/dl Calcium 9.1 8.3 L (8.5-10.1) mg/dl AST 18 (13-39) U/L ALT 15 (7-52) U/L Alkaline Phosphatase 116 H (34-104) U/L Total Protein 6.4 (6.0-8.3) gm/dl Albumin 3.8 (3.4-5.0) gm/dl Intake and Output 12/22/21 12/23/21 12/23/21 22:59 06:59 14:59 Intake Total 960 / 960 Balance 960 / 960 Intake: IV 600 / 600 Potassium Chloride / Wtr 10 meq 100 / 100 In 100 ml @ 100 mls/hr IV ONE ONE Rx#:[id number] Sodium Chloride 0.9% 500 ml @ 500 / 500 999 mls/hr IV .Q31M STA Rx#: [id number] Oral 360 / 360 Other: Other Intake Source sips # Unmeasured Voids 1 1 Weight 94.3 kg 91.6 kg Weight Measurement Method Standing Scale Built in [facility] Diagnostic Findings Telemetry: Sinus rhythm, rate 60 to 70 bpm on average PG Care Time/CCT Total # of Minutes Spent Total Time Spent with Patient: Total time spent is greater than 50% in coordination of care (as documented) at patient's floor/unit and/or counseling patient: Coding Level of Care Code 29954 Initial Inpt Care Lvl 3 Diagnoses Jaw pain R68.84 Afib I48.91 Abnormal nuclear stress test R94.39 Chronic anticoagulation Z79.01
[2021-12-23] MEDS: POTASSIUM CHLORIDE CRTAB 20 MEQ TABCR PO SCH ×2 (10:36→16:51)
[2021-12-23] MEDS: FUROSEMIDE 40 MG TAB PO SCH (10:36)
[2021-12-23] MEDS ORDERED: Nursing to Pharmacy Communication SCH (13:45)
[2021-12-23] MEDS ORDERED: PROMETHAZINE HCL 25 MG TAB PO PRN (14:12)
[2021-12-23] MEDS ORDERED: SUCRALFATE 1 GM TAB PO STA (14:18)
[2021-12-23] MEDS: PROMETHAZINE HCL 25 MG TAB PO PRN (14:20)
[2021-12-23] MEDS ORDERED: PROMETHAZINE HCL 6.25 MG in SODIUM CHLORIDE 0.9% 50 ML IV STA (17:55)
[2021-12-23 18:12] LABS: Gastric Occult Blood Negative (Negative)
[2021-12-23] MEDS: PANTOprazole 40 MG TAB PO SCH (20:37)
[2021-12-23] MEDS: SUCRALFATE 1 GM TAB PO SCH (20:39)
--- NOTE | 2021-12-23 21:14 | XRay Report ---
KUB CLINICAL HISTORY: Generalized abdominal pain. FINDINGS: 3 AP supine abdominal radiographs are correlated with abdominal CT dated 09/30/2019. There is a nonobstructed abdominal bowel gas pattern. Moderate fecal retention is seen throughout the colon. No evidence of intraperitoneal free air is seen on these supine views. There are no abnormal abdomina l calcifications. A phlebolith is seen in the left pelvis. The skeletal structures are osteopenic and appear intact. There is lumbosacral spondylosis. Degenerative sclerosis is noted in the sacroiliac j oints and pubic symphysis. Arthritic change is seen in the hips. IMPRESSION: Moderate constipation. Electronically signed by: Artemio Stover M.D. 12/23/2021 9:13 PM
[2021-12-24] MEDS: LEVOTHYROXINE SODIUM 200 MCG TABLET PO SCH (05:43)
[2021-12-24] MEDS: NITROGLYCERIN 2% OINTMENT 30GM TUBE EXT SCH ×4 (05:44→23:00)
[2021-12-24 06:42] LABS: Basophils # (auto) 0.03 K/uL (0-0.2); Basophils % (auto) 0.6 %; Eosinophils # (auto) 0.13 K/uL (0-0.5); Eosinophils % (auto) 2.6 %; Hematocrit (blood only) 35.9 % (37-47); Hemoglobin 11.8 g/dL (12.0-16.0); Immature Granulocytes # (auto) 0.02 K/uL (0.00-0.02); Immature Granulocytes % (auto) 0.4 %; Lymphocytes # (auto) 1.82 K/uL (1.2-3.4); Lymphocytes % (auto) 35.9 %; Mean Corpuscular Hemoglobin 30.8 pg (25-34); Mean Corpuscular Hgb Conc 32.9 g/dL (32-36); Mean Corpuscular Volume 93.7 fL (80-100); Mean Platelet Volume 10.6 fL (7.4-10.4); Monocytes # (auto) 0.37 K/uL (0.11-0.59); Monocytes % (auto) 7.3 %; Neutrophils % (auto) 53.2 %; Platelet Count 256 K/uL (130-400); RDW Coefficient of Variation 12.9 % (11.5-14.5); RDW Standard Deviation 44.2 fL (36.4-46.3); Red Blood Count 3.83 M/uL (4.2-5.4); White Blood Count 5.07 K/uL (4.8-10.8)
[2021-12-24 06:44] LABS: BUN Creatinine Ratio 23.7 (10-20); Calcium 8.5 mg/dl (8.5-10.1); Creatinine Clr Calc Pharmacy 95.9 ml/min; Est GFR (African American) 109.9 ml/min; Est GFR (Non-African American) 94.8 ml/min; Potassium 3.7 mmol/L (3.5-5.1)
[2021-12-24] MEDS: PANTOprazole 40 MG TAB PO SCH ×2 (08:25→19:43)
[2021-12-24] MEDS: SUCRALFATE 1 GM TAB PO SCH ×4 (08:25→19:44)
[2021-12-24] MEDS: POTASSIUM CHLORIDE CRTAB 20 MEQ TABCR PO SCH ×2 (08:26→17:35)
[2021-12-24] MEDS: FUROSEMIDE 40 MG TAB PO SCH (08:26)
[2021-12-24] MEDS: PRAMIPEXOLE DIHYDROCHLO 0.25 MG TAB PO SCH ×2 (08:26→19:43)
[2021-12-24] MEDS: VERAPAMIL HCL 240 MG TABCR PO SCH ×2 (08:26→19:45)
[2021-12-24] MEDS ORDERED: DEXTROSE 50% 50 ML SYRINGE IV ONE (09:55)
--- NOTE | 2021-12-24 13:09 | Gastrointestinal Consultation ---
Date of Consultation December 24, 2021 Assessment & Plan (1) Chest pain: -Keep NPO after midnight. If cleared by anesthesia, consider EGD in AM -Protonix 40 mg BID -Carafate 1 gm four times daily -Famotidine 20 mg BID Supervising Physician Co-Signing Physician Notes Agree with STEPHIE Beckman as above Abd: Soft, NT, ND Continue current therapy and supportive care Plan for EGD tomorrow if anesthesia feels patient is an appropriate candidate. History of Present Illness Reason for Consultation: Chest pain Attending Physician: Nav Schofield MD History of Present Illness Patient is a 66 yo female who presents to [facility] with complaints of left jaw pain and chest pain. She was noted to have a troponin of 5. She was seen by cardiology who did not feel that she was experiencing an acute cardiac event and do not have acute plans for cardiac evaluation. Patient has had history of an abnormal stress echo but apparently this was felt to be falsely positive. Last stress test was 14 years ago. She notes some improvement of her chest pain since admission. She notes resolution of jaw pain. Hospitalists have consulted GI for further recommendations regarding her chest pain. Patient notes a history of GERD & a history of a gastric bypass. She denies ever having a known anastomotic ulcer. Allergies Allergy/AdvReac Type Severity Reaction Status Date / Time codeine Allergy Severe HIVES Verified 12/22/21 18:34 Iodinated Contrast Media Allergy Severe HIVES Verified 12/22/21 18:34 iodine Allergy Severe ANAPHYLAXIS Verified 12/22/21 18:34 ketorolac Allergy Severe ITCHING Verified 12/22/21 18:34 Penicillins Allergy Severe ITCHING/HIV Verified 12/22/21 18:34 ES shellfish derived Allergy Severe ANAPHYLAXIS Verified 12/22/21 18:34 shrimp Allergy Severe ANAPHYLAXIS Verified 12/22/21 18:34 barium sulfate Allergy Intermediate itching Verified 12/22/21 18:34 rash morphine Allergy Intermediate ITCHING Verified 12/22/21 18:34 bee venom protein (honey bee) Allergy swelling Verified 12/22/21 18:34 at the site Home Medications Medication Instructions Recorded Confirmed Type docusate sodium 100 mg capsule 100 mg PO HS PRN 02/27/18 12/22/21 History lancets 33 gauge (OneTouch Delica #100 ea 02/16/20 12/04/21 Rx Plus Lancet) pediatric multivitamin no.76 1 tab PO BID tab 04/23/20 12/22/21 History (Flintstones Complete) blood sugar diagnostic (OneTouch #100 ea 05/02/20 12/04/21 Rx Verio test strips) acetaminophen 500 mg tablet 1,000 - 1,500 mg PO Q6H PRN 10/05/20 12/22/21 History (Tylenol Extra Strength) nitroglycerin 0.4 mg sublingual 0.4 mg SUBLINGUAL Q5M PRN #1 btl 10/06/20 12/22/21 Rx tablet pramipexole 0.75 mg tablet 0.75 mg PO TID #90 tab 02/05/21 12/22/21 Rx furosemide 40 mg tablet 40 mg PO DAILY #90 tab 05/13/21 12/22/21 Rx verapamil 240 mg tablet,extended 240 mg PO BID #180 tab 05/13/21 12/22/21 Rx release levothyroxine 200 mcg tablet 200 mcg PO DAILY #90 tab 08/18/21 12/22/21 Rx (Synthroid) cyclobenzaprine 10 mg tablet 10 mg PO TID PRN #30 tab 10/09/21 12/22/21 Rx gabapentin 100 mg capsule 100 mg PO Q8H PRN #30 cap 10/09/21 12/22/21 Rx oxycodone-acetaminophen 5 mg-325 See Rx Instructions PO Q6H PRN #20 10/09/21 12/22/21 Rx mg tablet tab valacyclovir 1 gram tablet 2,000 mg PO Q12H 1 Days #4 tab 10/09/21 12/22/21 Rx (Valtrex) potassium chloride 20 mEq 40 meq PO BID #180 tab 12/02/21 12/22/21 Rx tablet,extended release omeprazole 40 mg capsule,delayed 40 mg PO DAILY PRN 12/22/21 12/22/21 History release famotidine 20 mg tablet 20 mg PO BID PRN 42 Days #84 tab 12/23/21 Rx pantoprazole 40 mg tablet,delayed See Rx Instructions .ROUTE 12/23/21 Rx release .COMPLEX 10 Days #35 tab apixaban 5 mg tablet 5 mg PO BID #180 tab 12/24/21 Rx Patient History Medical History Anemia On iron supplement Anxiety Arthritis Asthma Well controlled and stable - uses rescue inhaler rarely Atrial fibrillation Stable- s/p ablation x 2 - still have a fib Bilateral edema of lower extremity Stable Bulging lumbar disc Cataract, bilateral Degenerative disc disease Degenerative disc disease Depression Diverticulosis Family history of colon cancer Heart murmur No murmur noted on PAT exam on 08/16/19- ECHO 04/2019 History of colon polyps History of neoplasm of uncertain behavior of skin History of TIA (transient ischemic attack) 2016--no deficits- no issues since that time. Follows with neuro once yearly - Dr. Barker (also sees for RLS) Hx of basal cell carcinoma FACE AND CHEST Hx of migraines Hypertension Hypomagnesemia Hypothyroidism Intractable nausea and vomiting Leg length discrepancy Morbid obesity On anticoagulant therapy on eliquis Palpitations Paroxysmal atrial fibrillation Prediabetes Stable per patient Restless leg syndrome Sacroiliac joint pain Sleep apnea mild, no device needed Strain of left trapezius muscle Supraventricular tachycardia (06/25/11) Surgical History H/O bariatric surgery H/O cardiac radiofrequency ablation H/O carpal tunnel repair History of appendectomy History of arthroscopy of right shoulder History of basal cell carcinoma (BCC) excision History of bilateral breast reduction surgery (~11/2010) History of cholecystectomy History of colonoscopy History of esophagogastroduodenoscopy (EGD) History of ovarian cystectomy History of removal of cyst History of surgical removal of ganglion cyst History of total abdominal hysterectomy and bilateral salpingo-oophorectomy History of total left knee replacement (TKR) History of wisdom tooth extraction Hx of bilateral cataract extraction Hx of laminectomy Laminectomy (06/25/11) Open reduction of fracture (06/25/11) S/P excision of lipoma (~07/2019) Family History Mother Family history of diabetes mellitus Family history of reaction to anesthesia "had heart complications after surgery for cancer of the vulva" Family hx colonic polyps Myocardial infarction Father Family hx of colon cancer Family hx colonic polyps Colorectal cancer Uncle Family history of esophageal cancer Sister Family hx colonic polyps Other Hypertension Denies family history of Ovarian cancer Prostate cancer Breast cancer Social History Smoking Status: Never smoker Second Hand Exposure: No; Do You Dip or Chew Tobacco: No; Tobacco Cessation Education Requested by Patient: No Hx Alcohol Use: Yes Alcohol type: wine Hx Substance Use: No Preferred Language: Cymro Communication Ability: Effective Visual Impairment: No Limitations Hearing Ability: Normal Vp Informatics Required: No Beliefs That Will Affect Care: None marital status: Current Living Situation: Family Current Living Situation Comment: Lives with sister current occupational status: retired Other Information That Helps Us Care for You: No Feels Safe at Home: Yes Safety Concerns: Feels Safe At This Time Childhood Exposure to Second-Hand Smoke: Yes caffeine: Yes during the past year weight has: decreased > 10 lbs Dental Care, Regularly: Yes Physical Activity Frequency: Daily Seatbelt Use: sometimes Sunscreen Use: No Assistive Devices: Cane and Walker Review of Systems Constitutional: no fever and no chills Respiratory: no cough and no dyspnea Cardiovascular: + chest pain Musculoskeletal: no problem reported Neurologic: no problem reported Psychiatric: no problem reported Hematologic / Lymphatic: no unexplained weight loss Physical Exam Constitutional: well developed Respiratory: normal respiratory effort Cardiovascular: Rate/Rhythm: regular rate Gastrointestinal (Abdomen): normal bowel sounds, soft, nontender, no hepatosplenomegaly Psychiatric: Orientation: alert and oriented x 3 Results & Data ([facility]) Vital Signs (Past 12 Hours) Vital Signs Temp Pulse Pulse Resp BP Pulse Ox 12/24/21 11:40 36.9 C 76 18 100/65 96 12/24/21 08:14 68 12/24/21 08:01 36.6 C 78 17 112/75 97 12/24/21 03:33 36.7 C 78 16 124/72 91 PG Care Time/CCT Total # of Minutes Spent Total Time Spent with Patient: Total time spent is greater than 50% in coordination of care (as documented) at patient's floor/unit and/or counseling patient: Coding Level of Care Code 34582 Initial Inpt Care Lvl 3 Diagnoses Chest pain R07.9
--- NOTE | 2021-12-24 13:47 | Hospitalist Progress Note ---
Date of Service December 24, 2021 Assessment & Plan (1) Chest pain, rule out acute myocardial infarction: Plan: No definite evidence of acute coronary syndrome. Cardiology consultation appreciated. Troponin is downtrending. No intervention at this time. (2) Vomiting: Plan: Longstanding nausea/vomiting/stomach upset since gastric bypass. Gastroenterology consultation appreciated. EGD tomorrow, December 25. Continue Carafate and Protonix therapy for now. (3) Abnormal nuclear stress test: Plan: - Troponin is elevated but no acute EKG changes and no evidence of acute coronary syndrome. Appreciate cardiology consultation and recommendations. Continue telemetry for now. (4) GERD (gastroesophageal reflux disease): Plan: PPI therapy (5) Paroxysmal atrial fibrillation: Plan: Currently in NSR Anticoagulation on hold as above. Telemetry (6) Apnea, sleep: Plan: Mild per patient . Does not use CPAP at home (7) Hypothyroidism: Plan: TSH 3.697 [11/27/21] Continue levothyroxine 200 mcg PO daily (8) Hypokalemia: Plan: secondary to Lasix use Additional KCl given in ER as above. Continue her usual KCl 40 meq PO BID (9) Restless leg syndrome: Plan: Continue pramipexole 0.75mg PO BID (patient prescribed TID but rarely takes the lunch time dose). (10) Hypertension: Plan: Continue verapamil 240mg PO BID and furosemide 40mg PO daily Plan: VTE Prophylaxis - Eliquis Disposition: Eventual discharge to home. Hopefully tomorrow, December 25, if EGD is negative Admission and Anticipated Discharge Date Admission Date: December 22, 2021 Subjective Alert and oriented. Cardiology entry noted. Unlikely her jaw and arm pain are of cardiac etiology. Troponin is trending downward with no acute EKG changes. Gastroenterology consultation noted. EGD tomorrow morning, December 25. Continue Protonix and Carafate for now. Probable discharge to home tomorrow if EGD is unremarkable. Review of Systems Review of Systems: Constitutional-no fever or chills ENT-no blurred vision, no double vision, no epistaxis, no sore throat Respiratory-no cough, no wheezing, no shortness of breath Cardiac-no palpitations, no chest pain, no syncope GI-no nausea, vomiting, diarrhea, melena, hematochezia -no urinary retention, no urinary incontinence, no dysuria, no hematuria Musculoskeletal-no joint pain, no muscle tenderness Skin-no bruising, no rashes, no pruritus Neuro-no isolated weakness, no paresthesia, no weakness Psych-no depression, no anxiety Physical Exam Physical Exam: General-alert and oriented x3, no fevers, no chills HEENT-head atraumatic and normocephalic, TMs intact bilaterally, pupils equal and reactive to light, extraocular muscles intact Neck-no lymphadenopathy or thyromegaly, trachea midline Chest-clear to auscultation percussion. No rales wheezing or rhonchi Cardiac-regular rate and rhythm, normal S1 and S2, no murmurs Abdomen-normal bowel sounds, nontender, no hepatosplenomegaly Extremities-no cyanosis, clubbing, or edema Neuro-cranial nerves II through XII intact, motor and sensory function within normal limits, strength symmetrical , no focal deficits Psych-normal affect, normal mood Results & Data Results & Data ([facility]) Vital Signs (Past 12 Hours) Vital Signs Temp Pulse Pulse Resp BP Pulse Ox 12/24/21 11:40 36.9 C 76 18 100/65 96 12/24/21 08:14 68 12/24/21 08:01 36.6 C 78 17 112/75 97 12/24/21 03:33 36.7 C 78 16 124/72 91 Laboratory Results 12/24/21 05:55 12/24/21 05:55 PG Care Time/CCT Total # of Minutes Spent Total Time Spent with Patient: Total time spent is greater than 50% in coordination of care (as documented) at patient's floor/unit and/or counseling patient: Coding Level of Care Code 14374 Subseq Hosp Care Lvl 3 Diagnoses Chest pain, rule out acute myocardial infarction R07.9 Vomiting R11.2 Nausea presence: with nausea Vomiting type: unspecified Abnormal nuclear stress test R94.39 GERD (gastroesophageal reflux disease) K21.9 Paroxysmal atrial fibrillation I48.0 Apnea, sleep G47.30 Hypothyroidism E03.9 Hypothyroidism type: acquired Hypokalemia E87.6 Restless leg syndrome G25.81 Hypertension I10 Hypertension type: essential hypertension (1) Vomiting Nausea presence: with nausea Vomiting type: unspecified Qualified Code(s): R11.2 - Nausea with vomiting, unspecified (2) Hypothyroidism Hypothyroidism type: acquired Qualified Code(s): E03.9 - Hypothyroidism, unspecified (3) Hypertension Hypertension type: essential hypertension Qualified Code(s): I10 - Essential (primary) hypertension
[2021-12-24] MEDS: SUCRALFATE 1 GM/10 ML UDC PO SCH ×2 (17:39→19:44)
[2021-12-24] MEDS: PROMETHAZINE HCL 25 MG TAB PO PRN (19:40)
[2021-12-24] MEDS: APIXABAN 5 MG TABLET PO SCH (19:42)
[2021-12-24] MEDS: FAMOTIDINE 20 MG TAB PO SCH (19:42)
[2021-12-24] MEDS: GABAPENTIN 100 MG CAP PO PRN (19:42)
[2021-12-25] MEDS: NITROGLYCERIN 2% OINTMENT 30GM TUBE EXT SCH ×2 (05:23→12:24)
[2021-12-25] MEDS: LEVOTHYROXINE SODIUM 200 MCG TABLET PO SCH (05:23)
[2021-12-25] MEDS: PRAMIPEXOLE DIHYDROCHLO 0.25 MG TAB PO SCH (09:17)
[2021-12-25] MEDS: VERAPAMIL HCL 240 MG TABCR PO SCH (09:17)
[2021-12-25] MEDS: FUROSEMIDE 40 MG TAB PO SCH (09:18)
[2021-12-25] MEDS: FAMOTIDINE 20 MG TAB PO SCH (09:18)
[2021-12-25] MEDS: GABAPENTIN 100 MG CAP PO PRN (09:18)
[2021-12-25] MEDS: SUCRALFATE 1 GM/10 ML UDC PO SCH ×2 (09:18→12:24)
[2021-12-25] MEDS: PANTOprazole 40 MG TAB PO SCH (09:19)
[2021-12-25] MEDS: APIXABAN 5 MG TABLET PO SCH (09:19)
--- NOTE | 2021-12-25 09:24 | History & Physical Bridge Note ---
Date of Service December 25, 2021 History & Physical Bridge Note I have examined the patient, reviewed the History & Physical and in the interval since the performance of the History & Physical I have noted the following changes of clinical significance: no changes noted. Patient has been NPO. Proceed with EGD today if deemed acceptable by anesthesia. Supervising Physician Co-Signing Physician Notes Agree with STEPHEI Beckman as above Abd: Soft, NT, ND, +BS Continue current therapy and supportive care Proceed with EGD now.
[2021-12-25] MEDS: SUCRALFATE 1 GM TAB PO SCH (09:41)
[2021-12-25] MEDS: POTASSIUM CHLORIDE CRTAB 20 MEQ TABCR PO SCH (09:43)
--- NOTE | 2021-12-25 11:37 | Hospitalist Progress Note ---
Date of Service December 25, 2021 Assessment & Plan (1) Chest pain, rule out acute myocardial infarction: Plan: No definite evidence of acute coronary syndrome. Cardiology consultation appreciated. Troponin is downtrending. No intervention at this time. (2) Vomiting: Plan: Longstanding nausea/vomiting/stomach upset since gastric bypass. Gastroenterology consultation appreciated. EGD later today , December 25. Continue Carafate and Protonix therapy for now. (3) Abnormal nuclear stress test: Plan: - Troponin is elevated but no acute EKG changes and no evidence of acute coronary syndrome. Appreciate cardiology consultation and recommendations. Continue telemetry for now. (4) GERD (gastroesophageal reflux disease): Plan: PPI therapy (5) Paroxysmal atrial fibrillation: Plan: Currently in NSR Anticoagulation on hold as above. Telemetry (6) Apnea, sleep: Plan: Mild per patient . Does not use CPAP at home (7) Hypothyroidism: Plan: TSH 3.697 [11/27/21] Continue levothyroxine 200 mcg PO daily (8) Hypokalemia: Plan: secondary to Lasix use Additional KCl given in ER as above. Continue her usual KCl 40 meq PO BID (9) Restless leg syndrome: Plan: Continue pramipexole 0.75mg PO BID (patient prescribed TID but rarely takes the lunch time dose). (10) Hypertension: Plan: Continue verapamil 240mg PO BID and furosemide 40mg PO daily Plan: VTE Prophylaxis - Eliquis Disposition: Eventual discharge to home. Hopefully today , December 25, if EGD is negative Admission and Anticipated Discharge Date Admission Date: December 22, 2021 Subjective Alert and oriented. No complaints. She is awaiting EGD later today. Review of Systems Review of Systems: Constitutional-no fever or chills ENT-no blurred vision, no double vision, no epistaxis, no sore throat Respiratory-no cough, no wheezing, no shortness of breath Cardiac-no palpitations, no chest pain, no syncope GI-no nausea, vomiting, diarrhea, melena, hematochezia -no urinary retention, no urinary incontinence, no dysuria, no hematuria Musculoskeletal-no joint pain, no muscle tenderness Skin-no bruising, no rashes, no pruritus Neuro-no isolated weakness, no paresthesia, no weakness Psych-no depression, no anxiety Physical Exam Physical Exam: General-alert and oriented x3, no fevers, no chills HEENT-head atraumatic and normocephalic, TMs intact bilaterally, pupils equal and reactive to light, extraocular muscles intact Neck-no lymphadenopathy or thyromegaly, trachea midline Chest-clear to auscultation percussion. No rales wheezing or rhonchi Cardiac-regular rate and rhythm, normal S1 and S2, no murmurs Abdomen-normal bowel sounds, nontender, no hepatosplenomegaly Extremities-no cyanosis, clubbing, or edema Neuro-cranial nerves II through XII intact, motor and sensory function within normal limits, strength symmetrical , no focal deficits Psych-normal affect, normal mood Results & Data Results & Data ([facility] [place]) Vital Signs (Past 12 Hours) Vital Signs Temp Pulse Pulse Resp BP BP Pulse Ox 12/25/21 10:00 70 12/25/21 08:14 36.5 C 79 18 129/82 96 12/25/21 03:00 36.5 C 76 20 116/77 95 Laboratory Results 12/24/21 05:55 12/24/21 05:55 PG Care Time/CCT Total # of Minutes Spent Total Time Spent with Patient: Total time spent is greater than 50% in coordination of care (as documented) at patient's floor/unit and/or counseling patient: Coding Level of Care Code 67981 Subseq Hosp Care Lvl 3 Diagnoses Chest pain, rule out acute myocardial infarction R07.9 Vomiting R11.2 Nausea presence: with nausea Vomiting type: unspecified Abnormal nuclear stress test R94.39 GERD (gastroesophageal reflux disease) K21.9 Paroxysmal atrial fibrillation I48.0 Apnea, sleep G47.30 Hypothyroidism E03.9 Hypothyroidism type: acquired Hypokalemia E87.6 Restless leg syndrome G25.81 Hypertension I10 Hypertension type: essential hypertension (1) Vomiting Nausea presence: with nausea Vomiting type: unspecified Qualified Code(s): R11.2 - Nausea with vomiting, unspecified (2) Hypothyroidism Hypothyroidism type: acquired Qualified Code(s): E03.9 - Hypothyroidism, unspecified (3) Hypertension Hypertension type: essential hypertension Qualified Code(s): I10 - Essential (primary) hypertension
--- NOTE | 2021-12-25 11:38 | Anesthesiology Consultation ---
Date of Service December 25, 2021 Assessment & Plan (1) Encounter for pre-operative examination: Chart Review Chart Review: Acceptable Risk for Surgery, Patient NOT seen in Pre Admission Testing and entry level accountant initiated Consults Requested none History Surgery Operation Date: 12/25/21 16:30 Proposed Procedures p Esophagogastroduodenoscopy Dr Knott - Michael Hughes Case, DO Height/Weight Height: 5 ft 1 in Weight: 92.5 kg Allergies Allergy/AdvReac Type Severity Reaction Status Date / Time codeine Allergy Severe HIVES Verified 12/22/21 18:34 Iodinated Contrast Media Allergy Severe HIVES Verified 12/22/21 18:34 iodine Allergy Severe ANAPHYLAXIS Verified 12/22/21 18:34 ketorolac Allergy Severe ITCHING Verified 12/22/21 18:34 Penicillins Allergy Severe ITCHING/HIV Verified 12/22/21 18:34 ES shellfish derived Allergy Severe ANAPHYLAXIS Verified 12/22/21 18:34 shrimp Allergy Severe ANAPHYLAXIS Verified 12/22/21 18:34 barium sulfate Allergy Intermediate itching Verified 12/22/21 18:34 rash morphine Allergy Intermediate ITCHING Verified 12/22/21 18:34 bee venom protein (honey bee) Allergy swelling Verified 12/22/21 18:34 at the site Medications Home Medications Medication Instructions Recorded Confirmed Last Taken docusate sodium 100 mg capsule 100 mg PO HS PRN 02/27/18 12/22/21 06/24/21 21:00 lancets 33 gauge ([employer] Marge #100 ea 02/16/20 12/04/21 Unknown Plus Lancet) pediatric multivitamin no.76 1 tab PO BID tab 04/23/20 12/22/21 06/24/21 21:00 (Flintstones Complete) blood sugar diagnostic ([employer] #100 ea 05/02/20 12/04/21 Unknown Verio test strips) acetaminophen 500 mg tablet 1,000 - 1,500 mg PO Q6H PRN 10/05/20 12/22/21 10/04/20 (Tylenol Extra Strength) 1500 mg nitroglycerin 0.4 mg sublingual 0.4 mg SUBLINGUAL Q5M PRN #1 btl 10/06/20 12/22/21 Unknown tablet pramipexole 0.75 mg tablet 0.75 mg PO TID #90 tab 02/05/21 12/22/21 06/24/21 21:00 furosemide 40 mg tablet 40 mg PO DAILY #90 tab 05/13/21 12/22/21 06/22/21 verapamil 240 mg tablet,extended 240 mg PO BID #180 tab 05/13/21 12/22/21 06/24/21 21:00 release levothyroxine 200 mcg tablet 200 mcg PO DAILY #90 tab 08/18/21 12/22/21 Unknown (Synthroid) cyclobenzaprine 10 mg tablet 10 mg PO TID PRN #30 tab 10/09/21 12/22/21 Unknown gabapentin 100 mg capsule 100 mg PO Q8H PRN #30 cap 10/09/21 12/22/21 Unknown oxycodone-acetaminophen 5 mg-325 See Rx Instructions PO Q6H PRN #20 10/09/21 12/22/21 Unknown mg tablet tab valacyclovir 1 gram tablet 2,000 mg PO Q12H 1 Days #4 tab 10/09/21 12/22/21 Unknown (Valtrex) potassium chloride 20 mEq 40 meq PO BID #180 tab 12/02/21 12/22/21 Unknown tablet,extended release omeprazole 40 mg capsule,delayed 40 mg PO DAILY PRN 12/22/21 12/22/21 Unknown release famotidine 20 mg tablet 20 mg PO BID PRN 42 Days #84 tab 12/23/21 Unknown pantoprazole 40 mg tablet,delayed See Rx Instructions .ROUTE 12/23/21 Unknown release .COMPLEX 10 Days #35 tab apixaban 5 mg tablet 5 mg PO BID #180 tab 12/24/21 Unknown Active Medications Generic Name Dose Route Start Last Admin Trade Name Monse PRN Reason Stop Dose Admin Apixaban 5 mg 12/24/21 21:00 12/25/21 09:19 Apixaban 5 Mg Tablet PO 01/23/22 20:59 5 mg BID EARLENE Administration Famotidine 20 mg 12/24/21 21:00 12/25/21 09:18 Famotidine 20 Mg Tab PO 01/23/22 20:59 20 mg BID EARLENE Administration Furosemide 40 mg 12/23/21 09:00 12/25/21 09:18 Furosemide 40 Mg Tab PO 01/22/22 08:59 40 mg DAILY EARLENE Administration Gabapentin 100 mg 12/22/21 21:14 12/25/21 09:18 Gabapentin 100 Mg Cap PO 01/21/22 21:13 100 mg Q8H PRN Administration pain Levothyroxine Sodium 200 mcg 12/23/21 06:30 12/25/21 05:23 Levothyroxine Sodium 200 Mcg Tablet PO 01/22/22 06:29 200 mcg DAILYBB EARLENE Administration Nitroglycerin 2 inch 12/22/21 21:14 12/25/21 05:23 Nitroglycerin 2% Ointment 30gm Tube EXT 01/21/22 21:13 Not Given Q6H EARLENE Pantoprazole Sodium 40 mg 12/23/21 21:00 12/25/21 09:19 Pantoprazole 40 Mg Tab PO 01/22/22 20:59 40 mg BID EARLENE Administration Potassium Chloride 40 meq 12/22/21 21:14 12/25/21 09:43 Potassium Chloride Crtab 20 Meq Tabcr PO 01/21/22 21:13 40 meq BID17 EARLENE Administration Pramipexole Dihydrochloride 0.75 mg 12/22/21 21:14 12/25/21 09:17 Pramipexole Dihydrochlo 0.25 Mg Tab PO 01/21/22 21:13 0.75 mg BID EARLENE Administration Promethazine HCl 12.5 mg 12/23/21 12:47 12/24/21 19:40 Promethazine Hcl 25 Mg Tab PO 01/22/22 12:46 12.5 mg Q6H PRN Administration Nausea And Vomiting Sucralfate 1 gm 12/24/21 16:30 12/25/21 09:18 Sucralfate 1 Gm/10 Ml Udc PO 01/23/22 16:29 1 gm ACHS EARLENE Administration Verapamil HCl 240 mg 12/22/21 21:14 12/25/21 09:17 Verapamil Hcl 240 Mg Tabcr PO 01/21/22 21:13 240 mg BID EARLENE Administration Past Medical History Medical History (Updated 12/25/21 @ 11:44 by Shahid Sun MD) Anemia On iron supplement Anxiety Arthritis Asthma Well controlled and stable - uses rescue inhaler rarely Atrial fibrillation Stable- s/p ablation x 2 - still have a fib Bilateral edema of lower extremity Stable Bulging lumbar disc Cataract, bilateral Degenerative disc disease Degenerative disc disease Depression Diverticulosis Encounter for pre-operative examination Family history of colon cancer Heart murmur No murmur noted on PAT exam on 08/16/19- ECHO 04/2019 History of colon polyps History of neoplasm of uncertain behavior of skin History of TIA (transient ischemic attack) 2017--no deficits- no issues since that time. Follows with neuro once yearly - Dr. Barker (also sees for RLS) Hx of basal cell carcinoma FACE AND CHEST Hx of migraines Hypertension Hypomagnesemia Hypothyroidism Intractable nausea and vomiting Leg length discrepancy Morbid obesity On anticoagulant therapy on eliquis Palpitations Paroxysmal atrial fibrillation Prediabetes Stable per patient Restless leg syndrome Sacroiliac joint pain Sleep apnea mild, no device needed Strain of left trapezius muscle Supraventricular tachycardia (06/25/11) Past Family History Family History Mother Family history of diabetes mellitus Family history of reaction to anesthesia "had heart complications after surgery for cancer of the vulva" Family hx colonic polyps Myocardial infarction Father Family hx of colon cancer Family hx colonic polyps Colorectal cancer Uncle Family history of esophageal cancer Sister Family hx colonic polyps Other Hypertension Denies family history of Ovarian cancer Prostate cancer Breast cancer Past Surgical History Surgical History H/O bariatric surgery H/O cardiac radiofrequency ablation x2 H/O carpal tunnel repair History of appendectomy History of arthroscopy of right shoulder History of basal cell carcinoma (BCC) excision in office, off chest History of bilateral breast reduction surgery (~11/2010) free nipple graft History of cholecystectomy History of colonoscopy History of esophagogastroduodenoscopy (EGD) History of ovarian cystectomy History of removal of cyst right breast, benign History of surgical removal of ganglion cyst right hand History of total abdominal hysterectomy and bilateral salpingo-oophorectomy History of total left knee replacement (TKR) History of wisdom tooth extraction Hx of bilateral cataract extraction Hx of laminectomy 1992 Laminectomy (06/25/11) Open reduction of fracture (06/25/11) S/P excision of lipoma (~07/2019) Excision Lipoma Right Forehead, Within the Left Brow; Right Anterior Knee x2(Bilateral) - Wendy Alfred MD Social History Smoking Status: Never smoker Do You Dip or Chew Tobacco: No Hx Alcohol Use: Yes Alcohol type: wine alcohol intake frequency: holidays/special occasions only Hx Substance Use: No substance use type: does not use Physical Exam Vital Signs Last Vital Signs Temp 36.5 C 12/25/21 08:14 Pulse 70 12/25/21 10:00 Resp 18 12/25/21 08:14 BP 129/82 12/25/21 08:14 Pulse Ox 96 12/25/21 08:14 Testing Laboratory Results 12/24/21 05:55 12/24/21 05:55 PT 10.9 Seconds (9.0-12.0) 12/22/21 16:00 INR 1.0 (0.9-1.1) 12/22/21 16:00 APTT 28.2 Seconds (21.0-31.0) 12/22/21 16:00 12/25/21 12/25/21 11:15 07:22 POC Glucose 105 H 116 H Electrocardiogram Date: 12/22/21 Vent. Rate : 087 BPM Atrial Rate : 087 BPM P-R Int : 148 ms QRS Dur : 068 ms QT Int : 394 ms P-R-T Axes : 057 019 046 degrees QTc Int : 474 ms Normal sinus rhythm Diffuse Minor Nonspecific T wave abnormality Prolonged QT Abnormal ECG When compared with ECG of 24-JUN-2021 22:04, Sinus rhythm has replaced Junctional rhythm Vent. rate has increased BY 34 BPM Nonspecific T wave abnormality now evident in Anterolateral leads QT has lengthened Confirmed by Jose Miguel Nielson ([id number]) on 12/23/2021 8:18:49 AM Chest X-Ray Date: 12/22/21 HISTORY: 66 years-old Female Chest Pain acute atypical chest pain COMPARISON: Chest radiograph 06/24/2021 TECHNIQUE: Portable AP view of the chest FINDINGS: The cardiomediastinal and hilar silhouettes are within normal limits. No pneumothorax, pleural effusion, airspace consolidation or overt pulmonary edema. Mild chronic interstitial coarsening of the lung bases. Degenerative changes of the shoulders and spine. IMPRESSION: No acute process. Echocardiogram Date: 10/05/20 EF: 55-60% LV Function: normal RWMA: + none Other Testing 12/23/21 KUB CLINICAL HISTORY: Generalized abdominal pain. FINDINGS: 3 AP supine abdominal radiographs are correlated with abdominal CT dated 09/30/2019. There is a nonobstructed abdominal bowel gas pattern. Moderate fecal retention is seen throughout the colon. No evidence of intraperitoneal free air is seen on these supine views. There are no abnormal abdominal calcifications. A phlebolith is seen in the left pelvis. The skeletal structures are osteopenic and appear intact. There is lumbosacral spondylosis. Degenerative sclerosis is noted in the sacroiliac joints and pubic symphysis. Arthritic javan nge is seen in the hips. IMPRESSION: Moderate constipation.
[2021-12-25] MEDS ORDERED: LIDOCAINE 2% MPF LOCAL 5 ML VIAL INFIL ONE (13:16)
[2021-12-25] MEDS ORDERED: PROPOFOL IV EMULSION 10 MG/ML 20 ML VIAL IV ONE (13:16)
--- NOTE | 2021-12-25 13:16 | Discharge Summary ---
Date of Service December 25, 2021 Admission HPI Per Admitting Provider Kaylee Lanier is a 66 year old female admission for left jaw and arm pain. She reports severe 10/10 pain on the left side of her jaw and neck and at one point radiating to her left arm. Started at 2:30-3pm, lasting for 1 hour. Associated SOB and nausea without diaphoresis. Improved with aspirin and nitroglycerin x3 given by EMS, reportedly 4/10 while in the ER initially but has now completely resolved with nitro paste currently on. Zofran, acetaminophen and NSS 500ml bolus also given. She has no history of myocardial infarction of stroke however has history of paroxysmal atrial fibrillation but usually feels this with palpitations rather than the pain on this occasion which is new. She is status x2 ablations and now goes into atrial fibrillation much less frequently and can usually manage it at home as she spontaneously comes out of it. She also notes increased nausea and vomiting starting since 11am. She reports this is an ongoing problem since her bariatric surgery 2 years ago and happens intermittently usually once a month however was more severe on this occasion. She currently has no nasuea or vomiting. In the ER EKG showed non-specific ST changes, she is pain free with 2 inch nitro paste, initial high sensitivity troponin I negative. She was referred to medicine for chest pain r/o [place]. Principal Diagnosis Atypical chest pain, hypokalemia Discharge Exam General-alert and oriented x3, no fevers, no chills HEENT-head atraumatic and normocephalic, TMs intact bilaterally, pupils equal and reactive to light, extraocular muscles intact Neck-no lymphadenopathy or thyromegaly, trachea midline Chest-clear to auscultation percussion. No rales wheezing or rhonchi Cardiac-regular rate and rhythm, normal S1 and S2, no murmurs Abdomen-normal bowel sounds, nontender, no hepatosplenomegaly Extremities-no cyanosis, clubbing, or edema Neuro-cranial nerves II through XII intact, motor and sensory function within normal limits, strength symmetrical 5/5, no focal deficits Psych-normal affect, normal mood Discharge Data Allergies Allergy/AdvReac Type Severity Reaction Status Date / Time codeine Allergy Severe HIVES Verified 12/22/21 18:34 Iodinated Contrast Media Allergy Severe HIVES Verified 12/22/21 18:34 iodine Allergy Severe ANAPHYLAXIS Verified 12/22/21 18:34 ketorolac Allergy Severe ITCHING Verified 12/22/21 18:34 Penicillins Allergy Severe ITCHING/HIV Verified 12/22/21 18:34 ES shellfish derived Allergy Severe ANAPHYLAXIS Verified 12/22/21 18:34 shrimp Allergy Severe ANAPHYLAXIS Verified 12/22/21 18:34 barium sulfate Allergy Intermediate itching Verified 12/22/21 18:34 rash morphine Allergy Intermediate ITCHING Verified 12/22/21 18:34 bee venom protein (honey bee) Allergy swelling Verified 12/22/21 18:34 at the site Consultations 12/22/21 18:14 ED Decision to Admit Stat 12/22/21 21:14 Consult Cardiology Routine 12/24/21 10:52 Consult Gastroenterology Routine Procedures Performed Operation Date: 12/25/21 16:30 <No data on this case meets the specified criteria> Hospital Course (1) Chest pain, rule out acute myocardial infarction: No definite evidence of acute coronary syndrome. Cardiology consultation appreciated. Troponin is downtrending. No intervention at this time. (2) Vomiting: Longstanding nausea/vomiting/stomach upset since gastric bypass. Gastroenterology consultation appreciated. EGD later today , December 25. Continue Carafate and Protonix therapy for now. (3) Abnormal nuclear stress test: - Troponin is elevated but no acute EKG changes and no evidence of acute coronary syndrome. Appreciate cardiology consultation and recommendations. Continue telemetry for now. (4) GERD (gastroesophageal reflux disease): PPI therapy (5) Paroxysmal atrial fibrillation: Currently in NSR Anticoagulation on hold as above. Telemetry (6) Apnea, sleep: Mild per patient . Does not use CPAP at home (7) Hypothyroidism: TSH 3.697 [11/27/21] Continue levothyroxine 200 mcg PO daily (8) Hypokalemia: secondary to Lasix use Additional KCl given in ER as above. Continue her usual KCl 40 meq PO BID (9) Restless leg syndrome: Continue pramipexole 0.75mg PO BID (patient prescribed TID but rarely takes the lunch time dose). (10) Hypertension: Continue verapamil 240mg PO BID and furosemide 40mg PO daily VTE Prophylaxis - Eliquis Disposition: Eventual discharge to home. Hopefully today , December 25, if EGD is negative Total Time Total Time Spent Total Time Spent (In Minutes): 35 minutes Discharge Plan Discharge Items Patient Disposition: Home - Self-Care Reason For Visit: CHEST PAIN RULE OUT [place] Discharge Diagnosis: Noncardiac chest pain Condition on Discharge: Good Activity: Resume your previous activity Non-emergency contact: Primary Care Provider and Pleater Call non-emergency contact if: you have any medication questions and your symptoms worsen Follow-up/Referrals: Homer Herrera III, CRNP [Primary Care Provider] - Diet: Carb Consistent or DM2 and Heart Healthy Addtl Attending Provider Instructions: You are seen in the hospital for a chest pain evaluation and cardiac rule out. Your high-sensitivity troponin markers were normal on repeat measurements. Your EKG did not show evidence of a heart attack. Your case was reviewed with card iology during admission, and additional intervention/tests were not recommended at time of admission. You do have a history of gastric bypass for a past perforation, and are at increased risk for ulcers and GERD. Your blood counts were stable and normal during admission. You have had reactions to iodinated contrast and barium in the past, given your normal blood levels, reassuring troponins, and x-ray the risk of additional imaging or utilization of contrast was highly likely to outweigh the benefits. You have been discharged to continue symptomatic control of nausea, with follow-up to cardiology and your psychiatric aides teacher as outpatient. Please contact your psychiatric aides teacher for an appointment for reevaluation and potential endoscopy to survey for ulcers. A follow-up appointment is being made for you with your primary care physician as above. You should be seen within approximately 1 week. If you develop any new or worsening symptoms including fever, chills, sweats, chest pain, chest pressure, difficulty breathing, uncontrolled nausea/vomiting, rash, wheezing, passing out or nearly passing out, bleeding, black/bloody bowel movements, or other new or concerning symptoms please call your primary care physician, or call 911 for re-evaluation in the emergency department if you are very concerned. Pending Studies at Discharge: No Stand-Alone Forms: My Pub[employer], Smoking Cessation Medications and DC Order Prescriptions: New pantoprazole 40 mg tablet,delayed release (DR/EC) See Rx Instructions .ROUTE .COMPLEX 10 Days Qty: 35 RF: 0 famotidine 20 mg tablet 20 mg PO BID PRN (Reason: GERD) 42 Days Qty: 84 RF: 0 sucralfate 100 mg/mL Suspension 1 g PO ACHS Qty: 240 RF: 0 pantoprazole 40 mg Tablet,Delayed Release (Dr/Ec) 40 mg PO BID Qty: 60 RF: 0 Continued (DME) lancets [OneTouch Delica Plus Lancet] 33 gauge misc See Rx Instructions .ROUTE .MEDSUPPLY Qty: 100 RF: 1 (DME) OneTouch Verio test strips Strip See Rx Instructions .ROUTE .MEDSUPPLY Qty: 100 RF: 3 pramipexole 0.75 mg tablet 0.75 mg PO TID Qty: 90 RF: 5 verapamil 240 mg tablet extended release 240 mg PO BID Qty: 180 RF: 1 furosemide 40 mg tablet 40 mg PO DAILY Qty: 90 RF: 1 levothyroxine [Synthroid] 200 mcg tablet 200 mcg PO DAILY Qty: 90 RF: 3 potassium chloride 20 mEq tablet extended release 40 meq PO BID Qty: 180 RF: 1 apixaban 5 mg tablet 5 mg PO BID Qty: 180 RF: 1 Flintstones Complete Tablet,Chewable 1 tab PO BID RF: 0 Hold Instructions: hold 30 days cyclobenzaprine 10 mg tablet 10 mg PO TID PRN (Reason: muscle spasm) Qty: 30 RF: 5 gabapentin 100 mg capsule 100 mg PO Q8H PRN (Reason: pain) Qty: 30 RF: 5 oxycodone-acetaminophen 5-325 mg tablet See Rx Instructions PO Q6H PRN (Reason: pain) Qty: 20 RF: 0 valacyclovir [Valtrex] 1 gram tablet 2,000 mg PO Q12H 1 Days Qty: 4 RF: 0 docusate sodium 100 mg Capsule 100 mg PO HS PRN (Reason: Constipation) RF: 0 acetaminophen [Tylenol Extra Strength] 500 mg Tablet 1,000 - 1,500 mg PO Q6H PRN (Reason: Pain) RF: 0 nitroglycerin 0.4 mg tablet, sublingual 0.4 mg sublingual Q5M PRN (Reason: chest pain) Qty: 1 RF: 1 Discontinued omeprazole 40 mg capsule,delayed release(DR/EC) 40 mg PO DAILY PRN (Reason: Gi Upset) RF: 0 Discharge Orders: Discharge Order (Routine); Ordered 12/25/21 Ordered By: Nav Schofield Admission Data Admit Date/Time: 12/22/21 18:25 Attending Provider: Nav Schofield Admit Provider: Yaniv Shah Primary Care Provider: Homer Herrera III Other Providers: Yaniv Shah ; Micheal Scott ; Michael Knott Coding Level of Care Code D/C DAY MANAGEMENT >30 MINS Diagnoses Chest pain, rule out acute myocardial infarction R07.9 Vomiting R11.2 Nausea presence: with nausea Vomiting type: unspecified Abnormal nuclear stress test R94.39 GERD (gastroesophageal reflux disease) K21.9 Paroxysmal atrial fibrillation I48.0 Apnea, sleep G47.30 Hypothyroidism E03.9 Hypothyroidism type: acquired Hypokalemia E87.6 Restless leg syndrome G25.81 Hypertension I10 Hypertension type: essential hypertension
--- NOTE | 2021-12-25 13:52 | GI REPORT ---
Patient Name: Kaylee Lanier Procedure Date: 12/25/2021 1:20 PM Date of : 1955 Admit Type: Inpatient Age: 66 Gender: Female Attending MD: Michael Knott DO Procedure: Upper GI endoscopy Providers: Michael Knott DO Referring MD: Nav Schofield Indications: Unexplained chest pain Medicines: Monitored Anesthesia Care Complications: No immediate complications. Estimated Blood Loss: Estimated blood loss: none. Procedure: Pre-Anesthesia Assessment: - Prior to the procedure, a History and Physical was performed, and patient medications and allergies were reviewed. The patient's tolerance of previous anesthesia was also reviewed. The risks and benefits of the procedure and the sedation options and risks were discussed with the patient. All questions were answered, and informed consent was obtained. Prior Anticoagulants: The patient has taken Eliquis (apixaban), last dose was day of procedure. ASA Grade Assessment: III - A patient with severe systemic disease. After reviewing the risks and benefits, the patient was deemed in satisfactory condition to undergo the procedure. After obtaining informed consent, the endoscope was passed under direct vision. Throughout the procedure, the patient's blood pressure, pulse, and oxygen saturations were monitored continuously. The Endoscope was introduced through the mouth, and advanced to the jejunum. The upper GI endoscopy was accomplished without difficulty. The patient tolerated the procedure well. Findings: The esophagus was normal. Evidence of a gastric bypass was found. A gastric pouch with a normal size was found. The staple line appeared intact. The gastrojejunal anastomosis was characterized by ulceration and an intact staple line. This was traversed. The examined jejunum was normal. Impression: - Normal esophagus. - Gastric bypass with a normal-sized pouch and intact staple line. Gastrojejunal anastomosis characterized by ulceration and an intact staple line. - Normal examined jejunum. - No specimens collected. Recommendation: - Return patient to hospital [facility] for ongoing care. - Advance diet as tolerated. - Continue present medications. Michael Knott DO 12/25/2021 1:52:05 PM This report has been signed electronically. Note Initiated On: 12/25/2021 1:20 PM Number of Addenda: 0 I attest to the content of the Intraoperative Record and orders documented therein, exceptions below {[id number]}
--- NOTE | 2021-12-25 14:31 | Anesthesiology Progress Note ---
Date of Service December 25, 2021 Anesthesia Post Procedure Vital Signs Vital Signs: Temp Pulse Pulse Resp BP BP Pulse Ox 12/25/21 14:17 71 16 97/59 L 97 12/25/21 14:02 67 16 106/57 L 97 12/25/21 13:47 71 16 107/61 95 12/25/21 13:06 36 C L 75 16 120/62 97 12/25/21 12:26 37.0 C 73 18 110/76 95 12/25/21 10:00 70 12/25/21 08:14 36.5 C 79 18 129/82 96 12/25/21 03:00 36.5 C 76 20 116/77 95 12/24/21 23:00 36.7 C 73 18 103/66 91 12/24/21 22:17 72 12/24/21 19:35 36.6 C 84 20 106/70 94 12/24/21 16:43 36.7 C 75 18 105/68 95 Pain Intensity Jaw: Pain Intensity: 8 Transfer of Care Handoff Completed per policy Notes Mental Status: alert / awake / arousable and participated in evaluation Patient Amnestic to Procedure: Yes Nausea / Vomiting: adequately controlled Pain: adequately controlled Airway Patency, RR, SpO2: stable & adequate BP & HR: stable & adequate Hydration State: stable & adequate Anesthetic Complications: no major complications apparent and Pt Satisfied with anesthetic care
== END 2021-12-25 17:43 | disposition home or self-care (01) ==
LOC: ED 15:36 → 2S 15:36 → SUATTDRO 18:25 → 2S 21:09

== ENCOUNTER 2022-03-24 02:20 | Inpatient (IN) ==
[2022-03-24 04:33] LABS: Basophils # (auto) 0.03 K/uL (0-0.2); Basophils % (auto) 0.3 %; Eosinophils # (auto) 0.08 K/uL (0-0.50); Eosinophils % (auto) 0.9 %; Hematocrit (blood only) 34.8 % (34.1-44.9); Hemoglobin 11.8 g/dl (12.0-16.0); Immature Granulocytes # (auto) 0.04 K/uL (0.00-0.02); Immature Granulocytes % (auto) 0.4 %; Lymphocytes # (auto) 2.32 K/uL (1.2-3.4); Lymphocytes % (auto) 25.9 %; Mean Corpuscular Hemoglobin 30.4 pg (25.0-34.0); Mean Corpuscular Hgb Conc 33.9 g/dL (32.0-36.0); Mean Corpuscular Volume 89.7 fL (80.0-100.0); Mean Platelet Volume 10.4 fL (9.4-12.3); Monocytes # (auto) 1.01 K/uL (0.24-0.82); Monocytes % (auto) 11.3 %; Neutrophils # (auto) 5.48 K/uL (1.4-6.5); Neutrophils % (auto) 61.2 %; Platelet Count 264 K/uL (130-400); RDW Coefficient of Variation 12.2 % (11.5-14.5); RDW Standard Deviation 39.7 fL (36.4-46.3); Red Blood Count 3.88 M/uL (3.93-5.22); White Blood Count 8.96 K/ul (4.8-10.8)
[2022-03-24] MEDS ORDERED: HYDROmorphone INJ 1 MG/ML SYRINGE IV STA ×4 (04:38→10:45)
[2022-03-24] MEDS ORDERED: ONDANSETRON INJ 2 MG/ML 2 ML VIAL IV STA (04:41)
[2022-03-24 04:43] LABS: Appearance Urine Clear (Clear); Bilirubin Urine Negative (Negative); Blood Urine Negative (Negative); Color Urine Dark Yellow; Glucose Urine UA Negative (Negative); Ketones Urine Negative (Negative); Leukocyte Esterase Urine Negative (Negative); Nitrite Urine Negative (Negative); Protein Urine Negative (Negative); Specific Gravity Urine 1.031 (1.000-1.030); Urobilinogen Urine Negative (Negative); pH Urine 5.5 (4.5-7.5)
[2022-03-24 04:52] LABS: Albumin Level 3.2 gm/dl (3.4-5.0); BUN Creatinine Ratio 21.7 (10-20); Bilirubin Direct 0.1 mg/dl (0-0.2); Bilirubin,Total 0.6 mg/dl (0.2-1.0); Calcium 8.2 mg/dl (8.5-10.1); Creatinine Clr Calc Pharmacy 95.5 ml/min; Est GFR (African American) 109.3 ml/min; Est GFR (Non-African American) 94.3 ml/min; Magnesium 1.6 mg/dl (1.7-2.4); Potassium 3.6 mmol/L (3.5-5.1); Total Protein 5.9 gm/dl (6.0-8.3)
[2022-03-24 04:57] LABS: Troponin I High Sensitivity 3.1 pg/ml (0-14)
--- NOTE | 2022-03-24 06:55 | XRay Report ---
XR chest 1V portable CLINICAL HISTORY: Sepsis COMPARISON STUDY: Chest CT June 16, 2021. Chest radiograph December 22, 2021. FINDINGS: Lung volumes are normal. Lungs are clear. There is no pneumothorax or pleural effusion. Car diomegaly is unchanged. Mediastinal contours are normal. There is no evidence for pulmonary edema. IMPRESSION: No acute cardiopulmonary findings. Stable cardiomegaly. ACT 112: Negative or not required by law. Electronically signed by: Jalen Malik M.D. 03/24/2022 6:54 AM
--- NOTE | 2022-03-24 06:55 | CT Scan Report ---
CT OF THE ABDOMEN AND PELVIS WITHOUT CONTRAST CLINICAL HISTORY: Severe lower abdominal pain. COMPARISON STUDY: CT of the abdomen and pelvis March 23, 2022. TECHNIQUE: Axial images of the abdomen and pelvis were obtained without IV contrast. Images were revi ewed in the axial, sagittal, and coronal planes. Automated exposure control was utilized for the tony dy. A dose lowering technique was utilized adhering to the principles of ALARA. FINDINGS: Lung bases are unremarkable. No pneumatosis, free air or portal venous gas is present. A 6 mm calculus within lower pole of the left kidney is noted. There are no ureteral calculi. There is no hydronephrosis. Postoperative findings from gastric bypass are noted. There is persistent inflammati on adjacent to the gastrojejunostomy. This is unchanged since CT of March 23, 2022. There is no e xtraluminal gas. No fluid correction. There is associated wall thickening at the gastrojejunostomy. T here is no evidence for a bowel obstruction. No evidence for acute appendicitis. Mild dilatation of t he common bile duct is likely related to cholecystectomy. Spleen, adrenal glands and pancreas are unr emarkable. There is no peripancreatic inflammation. Marin balloon within the bladder is present. Blad vivien is collapsed. No acute fracture within the visualized skeletal structures is present. No suspicio us osseous lesions are present. There is moderate multilevel facet arthrosis with disc space narrowin g and osteophytosis within the lumbar spine. Central canal and neural foramen are suboptimally assess ed by CT, IMPRESSION: 1. Inflammation adjacent to the gastrojejunostomy with associated wall thickening status post Tobias-en -Y gastric bypass. This is similar to CT of March 23, 2022. This is nonspecific but can be seen i n the setting of a marginal ulcer. No extraluminal gas. No fluid collection. This finding will be bryson led/faxed to ordering provider at time of dictation. 2. No bowel obstruction. 3. Left-sided nephrolithiasis. No ureteral calculi or hydronephrosis. ACT 112: Negative or not required by law. Electronically signed by: Jalen Malik M.D. 03/24/2022 6:53 AM
--- NOTE | 2022-03-24 07:01 | Emergency Department Note ---
Impression & Plan Abdominal pain, lower, Bilateral leg weakness Admit to the [facility] ED Provider Note NAME: CLAUDE BARR AGE: 66 SEX: F ARRIVES VIA: Ambulance INFORMANT: Patient ED PROVIDER(S): Maria Gutierrez DO CHIEF COMPLAINT: Lower abdominal pain and leg weakness PLAN: Disposition: Admit to the [facility] Condition: Fair MEDICAL DECISION MAKING: This is a 66-year-old female patient who presents to the emergency department complaining of lower abdominal pain, bilateral thigh pain, and leg weakness. The patient was seen here a couple of days ago in the emergency department complaining of left lower quadrant abdominal pain. She underwent CT scan of the abdomen/pelvis at that time. The work-up was unremarkable. She presents today with worsening abdominal pain and discomfort in her legs that is now associated with lower extremity weakness. Repeat CT scan of the abdomen/pelvis shows nothing new. The patient had not been able to get up to urinate so Marin catheter was placed. Laboratory studies again were unremarkable, however the patient does have a fever. Patient is ordered to have an MRI of the lumbar spine at this time. Patient is having fairly significant pain in her lower abdomen and thighs. She has received multiple doses of IV Dilaudid for her pain. I have discussed the case with the [facility] and they will evaluate for admission to the hospital. Triage Nursing notes reviewed and agree with them. Prior medical records reviewed including the records from the emergency department visit just 2 days ago. Vital Signs: reviewed and remarkable for hypertension Differential diagnosis: Perforated viscus, diverticulitis, colitis, urinary retention, acute disc herniation, acute cord abnormality, acute bony abnormality of the pelvis or hips ER treatment provided: IV Dilaudid IV Zofran Diagnostics interpreted by me: ECG: Normal sinus rhythm at a rate of [address] segment elevation or signs of ischemia. There is no ectopy. Cardiac Monitoring: Normal sinus rhythm at a rate of 76 Laboratory studies: See below Imaging studies:As per stat rad CT ABDOMEN & PELVIS Without Contrast: INDICATION: Pain in left groin and left thigh. TECHNIQUE: Helical CT acquisition of the abdomen and pelvis from the lung bases to the ischial tuberosities. No IV or oral contrast is given. Axial, sagittal and coronal reformatted images are available. Dose information not provided. COMPARISON: CT abdomen pelvis, 03/01/2017. FINDINGS: Cardiomegaly. Lung bases have no consolidation or suspicious pulmonary nodule. Diffuse hypoattenuation of the liver, consistent with steatosis. Gallbladder is surgically absent. Spleen, pancreas, and adrenal glands are within normal limits. Kidneys have normal size and contour. No renal stone or hydronephrosis. Bladder is decompressed. Marin catheter is present. Pelvic phleboliths. No fluid in the pelvis. No abdominopelvic lymphadenopathy. Calcific atherosclerosis of the aorta and its branches. Appendix is normal. Large bowel is within normal limits. Status post Tobias-en-Y gastric bypass. No abdominal wall hernia. No free intraperitoneal air. No acute osseous abnormality. Multilevel degenerative changes of the spine. Degenerative changes of both hips. IMPRESSION: 1. No acute abdominal or pelvic findings. 2. If there is persistent concern for disc pathology, consider further evaluation with MR HPI: 66/F arrives for evaluation of lower abdominal pain and leg weakness . The patient was seen here couple of days ago and developed significantly worsening lower abdominal pain and increasing leg weakness to the point that she is unable to walk. The patient had 2 doses of flu shot last week. She was seen here 2 days ago with left lower quadrant abdominal pain and underwent CT scanning of the abdomen/pelvis and laboratory testing which were all normal. Since being discharged at that time, the pain has spread across the abdomen into the right lower quadrant and has intensified. The patient states that the pain is so severe that she is unable to walk or even lift her legs. She has been holding her urine since yesterday because she cannot get up. ROS: See above HPI for pertinent positives & negatives. A total of 10 systems reviewed and were otherwise negative. PAST MEDICAL HISTORY:See Below PAST SURGICAL HISTORY:See Below FAMILY HISTORY:See Below SOCIAL HISTORY:See Below HOME MEDICATIONS:See list ALLERGIES:See long list VITALS:See Below PHYSICAL EXAMINATION: HEENT: Head - normocephalic and atraumatic. Pupils are equal, round, and reactive to light. Extraocular eye muscles are intact, and sclera are anicte russell. Nose - moist nasal mucosa without discharge. Mouth - moist buccal mucosa. Oropharynx is nonerythematous and there is no tonsillar exudate or edema noted. Neck: Supple; no JVD or cervical lymphadenopathy Heart: Regular rate and rhythm. There is a normal S1 and S2 with no murmurs, clicks, or gallops appreciated. Lungs: Clear to auscultation bilaterally with no wheezes, rales, or rhonchi. Abdomen: Soft, exquisitely tender to palpation in the right and left lower quadrants of the abdomen. Patient has moderate tenderness in the suprapubic region of the abdomen. There are no palpable pulsatile masses or hepatosplenomegaly. There is no guarding, rigidity, or rebound noted. Extremities: No evidence of cyanosis, clubbing, or edema. There are easily palpable peripheral pulses. Skin: warm and dry with good turgor and no rashes. Neuro: Patient is able to wiggle her toes. She has equal pedal push and pull but is unable to lift either of her legs up off of the bed. She has 2/4 left p atellar reflex but no right patellar reflex. She has normal sensation in both of her legs. The patient has normal muscle strength in both arms. ED COURSE: Times/Reassessments: 325: The patient was evaluated in room A-10. Complete hi story and physical was performed. An order was placed for continuous cardiac monitoring. The patient was in a normal sinus rhythm at a rate of 76. A twelve-lead EKG was obtained as described above. An IV lock was initiated and labs were drawn as above. A Marin catheter was placed. A bladder scan was performed and was 0 after the catheter was placed. Patient was medicated with IV Dilaudid and Zofran and went for CT scan of the abdomen/pelvis. I reviewed the results of the labs and the CT with the patient. She will go for MRI of the lumbar spine. She was given additional doses of IV analgesia I discussed the case with [facility] and they will evaluate for further management. Maria Gutierrez DO Past Med/Surg History Medical History Anemia On iron supplement Anxiety Arthritis Asthma Well controlled and stable - uses rescue inhaler rarely Atrial fibrillation Stable- s/p ablation x 2 - still have a fib Bilateral edema of lower extremity Stable Bulging lumbar disc Cataract, bilateral Degenerative disc disease Degenerative disc disease Depression Diverticulosis Encounter for pre-operative examination Family history of colon cancer Heart murmur No murmur noted on PAT exam on 08/16/19- ECHO 04/2019 History of colon polyps History of neoplasm of uncertain behavior of skin History of TIA (transient ischemic attack) 2017--no deficits- no issues since that time. Follows with neuro once yearly - Dr. Barker (also sees for RLS) Hx of basal cell carcinoma FACE AND CHEST Hx of migraines Hypertension Hypokalemia Hypomagnesemia Hypothyroidism Intractable nausea and vomiting Jaw pain Leg length discrepancy Morbid obesity On anticoagulant therapy on eliquis Palpitations Paroxysmal atrial fibrillation Prediabetes Stable per patient Restless leg syndrome Sacroiliac joint pain Sleep apnea mild, no device needed Strain of left trapezius muscle Supraventricular tachycardia (06/25/11) Vomiting Surgical History H/O bariatric surgery H/O cardiac radiofrequency ablation x2 H/O carpal tunnel repair History of appendectomy History of arthroscopy of right shoulder History of basal cell carcinoma (BCC) excision in office, off chest History of bilateral breast reduction surgery (~11/2010) free nipple graft History of cholecystectomy History of colonoscopy History of esophagogastroduodenoscopy (EGD) History of ovarian cystectomy History of removal of cyst right breast, benign History of surgical removal of ganglion cyst right hand History of total abdominal hysterectomy and bilateral salpingo-oophorectomy History of total left knee replacement (TKR) History of wisdom tooth extraction Hx of bilateral cataract extraction Hx of laminectomy 1992 Laminectomy (06/25/11) Open reduction of fracture (06/25/11) S/P excision of lipoma (~07/2019) Excision Lipoma Right Forehead, Within the Left Brow; Right Anterior Knee x2(Bilateral) - Wendy Alfred MD Family History Mother Family history of diabetes mellitus Family history of reaction to anesthesia "had heart complications after surgery for cancer of the vulva" Family hx colonic polyps Myocardial infarction Father Family hx of colon cancer Family hx colonic polyps Colorectal cancer Uncle Family history of esophageal cancer Sister Family hx colonic polyps Other Hypertension Denies family history of Ovarian cancer Prostate cancer Breast cancer Social History Smoking Status: Never smoker Second Hand Exposure: No; Hx Alcohol Use: No Hx Substance Use: No Preferred Language: [place] Communication Ability: Effective Visual Impairment: No Limitations Hearing Ability: Normal Manager Payroll Required: No Beliefs That Will Affect Care: None marital status: Current Living Situation: Family Current Living Situation Comment: Lives with sister current occupational status: retired Other Information That Helps Us Care for You: No Feels Safe at Home: Yes Childhood Exposure to Second-Hand Smoke: Yes caffeine: Yes during the past year weight has: decreased > 10 lbs Dental Care, Regularly: Yes Physical Activity Frequency: Daily Seatbelt Use: sometimes Sunscreen Use: No Assistive Devices: Cane and Walker Allergies Allergies Allergy/AdvReac Type Severity Reaction Status Date / Time codeine Allergy Severe HIVES Verified 02/12/22 14:42 Iodinated Contrast Media Allergy Severe HIVES Verified 02/12/22 14:42 iodine Allergy Severe ANAPHYLAXIS Verified 02/12/22 14:42 ketorolac Allergy Severe ITCHING Verified 02/12/22 14:42 Penicillins Allergy Severe ITCHING/HIV Verified 02/12/22 14:42 ES shellfish derived Allergy Severe ANAPHYLAXIS Verified 02/12/22 14:42 shrimp Allergy Severe ANAPHYLAXIS Verified 02/12/22 14:42 barium sulfate Allergy Intermediate itching Verified 02/12/22 14:42 rash morphine Allergy Intermediate ITCHING Verified 02/12/22 14:42 bee venom protein (honey bee) Allergy swelling Verified 02/12/22 14:42 at the site Home Meds Home Medications Medication Instructions Recorded Confirmed pediatric multivitamin no.76 1 tab PO BID 04/23/20 03/24/22 (Flintstones Complete chewable tablet) acetaminophen 500 mg tablet 1,000 - 1,500 mg PO Q6H PRN Pain 10/05/20 03/24/22 (Tylenol Extra Strength) Previous Rx's Medication Instructions Recorded lancets 33 gauge (OneTouch Delica #100 ea 02/16/20 Plus Lancet) blood sugar diagnostic (OneTouch #100 ea 05/02/20 Verio test strips) nitroglycerin 0.4 mg sublingual 0.4 mg sublingual Q5M PRN chest 10/06/20 tablet pain #1 btl levothyroxine 200 mcg tablet 200 mcg PO DAILY #90 tabs 08/18/21 (Synthroid) cyclobenzaprine 10 mg tablet 10 mg PO TID PRN muscle spasm #30 10/09/21 tabs gabapentin 100 mg capsule 100 mg PO Q8H PRN pain #30 caps 10/09/21 valacyclovir 1 gram tablet 2,000 mg PO Q12H 1 day #4 tabs 10/09/21 (Valtrex) potassium chloride 20 mEq 40 meq PO BID #180 tabs 12/02/21 tablet,extended release apixaban 5 mg tablet 5 mg PO BID #180 tabs 12/24/21 furosemide 40 mg tablet 40 mg PO DAILY edema #90 tabs 01/14/22 verapamil 240 mg tablet,extended 240 mg PO BID #180 tabs 01/26/22 release sucralfate 100 mg/mL oral 5 ml PO QID #1,200 mL 02/12/22 suspension (Carafate) cyanocobalamin (vitamin B-12) 1,000 mcg IM .COMPLEX #1 mL 03/17/22 1,000 mcg/mL injection solution pramipexole 0.75 mg tablet 0.75 mg PO TID #90 tabs 03/17/22 omeprazole 40 mg capsule,delayed 40 mg PO BID #60 caps 03/23/22 release oxycodone 5 mg tablet 5 mg PO Q8H PRN pain #11 tabs 03/23/22 sucralfate 100 mg/mL oral 1 g (10 mL) PO BID 4 weeks #560 mL 03/23/22 suspension (Carafate) Results & Data (ED) Vital Signs Vital Signs - 24 hr 03/24/22 02:22 03/24/22 02:22 03/24/22 04:06 Temperature 38 C H 37.7 C H Temperature Source Oral Oral Pulse Rate 86 Pulse Rate [Apical] Pulse Rhythm [Apical] Respiratory Rate 17 Respiratory Effort / Characteristics Non-Labored Respiratory Depth Normal Normal Blood Pressure 134/63 Blood Pressure [Right Arm] Blood Pressure Mean 86 Blood Pressure Mean [Right Arm] Pulse Oximetry 95 Oxygen Delivery Method Room Air Sepsis Recent Fever Within 48 Hours No Sepsis New/Unexplained Change in Mental Status No Sepsis Action Taken by Nursing No Action Required 03/24/22 04:26 03/24/22 04:42 03/24/22 05:00 Temperature Temperature Source Pulse Rate Pulse Rate [Apical] 89 85 Pulse Rhythm [Apical] Regular Respiratory Rate 16 15 Respiratory Effort / Characteristics Respiratory Depth Normal Normal Blood Pressure Blood Pressure [Right Arm] 125/74 125/64 Blood Pressure Mean Blood Pressure Mean [Right Arm] 91 84 Pulse Oximetry 98 95 97 Oxygen Delivery Method Room Air Room Air Sepsis Recent Fever Within 48 Hours Sepsis New/Unexplained Change in Mental Status Sepsis Action Taken by Nursing 03/24/22 06:00 Temperature Temperature Source Pulse Rate Pulse Rate [Apical] 89 Pulse Rhythm [Apical] Respiratory Rate 14 Respiratory Effort / Characteristics Respiratory Depth Blood Pressure Blood Pressure [Right Arm] 119/53 L Blood Pressure Mean Blood Pressure Mean [Right Arm] 75 Pulse Oximetry 97 Oxygen Delivery Method Room Air Sepsis Recent Fever Within 48 Hours Sepsis New/Unexplained Change in Mental Status Sepsis Action Taken by Nursing Laboratory Data Result diagrams: 03/25/22 08:21 03/25/22 08:21 Lab Results 03/24/22 03/24/22 03/24/22 Range/Units 04:15 04:15 04:15 WBC 8.96 (4.8-10.8) K/ul RBC 3.88 L (3.93-5.22) M/uL Hgb 11.8 L (12.0-16.0) g/dl Hct 34.8 (34.1-44.9) % MCV 89.7 (80.0-100.0) fL MCH 30.4 (25.0-34.0) pg MCHC 33.9 (32.0-36.0) g/dL RDW Std Deviation 39.7 (36.4-46.3) fL RDW Coeff of Falguni 12.2 (11.5-14.5) % Plt Count 264 (130-400) K/uL MPV 10.4 (9.4-12.3) fL Immature Gran % (Auto) 0.4 % Neut % (Auto) 61.2 % Lymph % (Auto) 25.9 % Fajardo % (Auto) 11.3 % Eos % (Auto) 0.9 % Baso % (Auto) 0.3 % Neut # (Auto) 5.48 (1.4-6.5) K/uL Lymph # (Auto) 2.32 (1.2-3.4) K/uL Fajardo # (Auto) 1.01 H (0.24-0.82) K/uL Eos # (Auto) 0.08 (0-0.50) K/uL Baso # (Auto) 0.03 (0-0.2) K/uL Immature Gran # (Auto) 0.04 H (0.00-0.02) K/uL Sodium 135 L (136-145) mmol/L Potassium 3.6 (3.5-5.1) mmol/L Chloride 103 (98-107) mmol/L Carbon Dioxide 26 (21-32) mmol/L Anion Gap 6 (3-11) BUN 13 (6-23) mg/dl Creatinine 0.60 (0.6-1.2) mg/dl Est Cr Clr Drug Dosing 95.5 ml/min Est GFR ( Amer) 109.3 ml/min Est GFR (Non-Af Amer) 94.3 ml/min BUN/Creatinine Ratio 21.7 H (10-20) Glucose 104 H (70-99(Fasting)) mg/dl Lactate 1.0 (0.4-2.0) mmol/L Calcium 8.2 L (8.5-10.1) mg/dl Magnesium 1.6 L (1.7-2.4) mg/dl Total Bilirubin 0.6 (0.2-1.0) mg/dl Direct Bilirubin 0.1 (0-0.2) mg/dl AST 16 (13-39) U/L ALT 13 (7-52) U/L Alkaline Phosphatase 96 (34-104) U/L Troponin I High Sens 3.1 (0-14) pg/ml Total Protein 5.9 L (6.0-8.3) gm/dl Albumin 3.2 L (3.4-5.0) gm/dl Procalcitonin (0-0.5) ng/ml Urine Color Urine Appearance (Clear) Urine pH (4.5-7.5) Ur Specific Duff (1.000-1.030) Urine Protein (Negative) Urine Glucose (UA) (Negative) Urine Ketones (Negative) Urine Blood (Negative) Urine Nitrite (Negative) Urine Bilirubin (Negative) Urine Urobilinogen (Negative) Ur Leukocyte Esterase (Negative) SARS-CoV-2, RNA, NAAT (NEGATIVE) 03/24/22 03/24/22 03/24/22 Range/Units 04:15 04:20 06:54 WBC (4.8-10.8) K/ul RBC (3.93-5.22) M/uL Hgb (12.0-16.0) g/dl Hct (34.1-44.9) % MCV (80.0-100.0) fL MCH (25.0-34.0) pg MCHC (32.0-36.0) g/dL RDW Std Deviation (36.4-46.3) fL RDW Coeff of Falguni (11.5-14.5) % Plt Count (130-400) K/uL MPV (9.4-12.3) fL Immature Gran % (Auto) % Neut % (Auto) % Lymph % (Auto) % Fajardo % (Auto) % Eos % (Auto) % Baso % (Auto) % Neut # (Auto) (1.4-6.5) K/uL Lymph # (Auto) (1.2-3.4) K/uL Fajardo # (Auto) (0.24-0.82) K/uL Eos # (Auto) (0-0.50) K/uL Baso # (Auto) (0-0.2) K/uL Immature Gran # (Auto) (0.00-0.02) K/uL Sodium (136-145) mmol/L Potassium (3.5-5.1) mmol/L Chloride (98-107) mmol/L Carbon Dioxide (21-32) mmol/L Anion Gap (3-11) BUN (6-23) mg/dl Creatinine (0.6-1.2) mg/dl Est Cr Clr Drug Dosing ml/min Est GFR ( Amer) ml/min Est GFR (Non-Af Amer) ml/min BUN/Creatinine Ratio (10-20) Glucose (70-99(Fasting)) mg/dl Lactate (0.4-2.0) mmol/L Calcium (8.5-10.1) mg/dl Magnesium (1.7-2.4) mg/dl Total Bilirubin (0.2-1.0) mg/dl Direct Bilirubin (0-0.2) mg/dl AST (13-39) U/L ALT (7-52) U/L Alkaline Phosphatase (34-104) U/L Troponin I High Sens (0-14) pg/ml Total Protein (6.0-8.3) gm/dl Albumin (3.4-5.0) gm/dl Procalcitonin < 0.05 (0-0.5) ng/ml Urine Color Dark Yellow Urine Appearance Clear (Clear) Urine pH 5.5 (4.5-7.5) Ur Specific Duff 1.031 H (1.000-1.030) Urine Protein Negative (Negative) Urine Glucose (UA) Negative (Negative) Urine Ketones Negative (Negative) Urine Blood Negative (Negative) Urine Nitrite Negative (Negative) Urine Bilirubin Negative (Negative) Urine Urobilinogen Negative (Negative) Ur Leukocyte Esterase Negative (Negative) SARS-CoV-2, RNA, NAAT NEGATIVE (NEGATIVE) Administered Medications Enoxaparin Sodium (Enoxaparin Inj 40 Mg/0.4 Ml Syr) 40 mg SQ QAM EARLENE Stop: 04/24/22 09:29 Last Admin: 03/25/22 10:19 Dose: 40 mg Documented By: TI Furosemide (Furosemide 40 Mg Tab) 40 mg PO DAILY EARLENE Stop: 04/24/22 08:59 Last Admin: 03/25/22 09:35 Dose: 40 mg Documented By: TI Hydromorphone HCl (Hydromorphone Inj 0.5 Mg/0.5 Ml Syr) 0.5 mg IV Q3H PRN PRN Reason: Pain Stop: 04/07/22 13:47 Last Admin: 03/24/22 20:57 Dose: 0.5 mg Documented By: Admin: 03/24/22 18:21 Dose: 0.5 mg Documented By: Admin: 03/24/22 14:06 Dose: 0.5 mg Documented By: ANTONIO Levothyroxine Sodium (Levothyroxine Sodium 200 Mcg Tablet) 200 mcg PO DAILYBB [facility] Stop: 04/24/22 06:29 Last Admin: 03/25/22 06:43 Dose: 200 mcg Documented By: BRIDGETTE Multivitamins/Folic Acid/Vitamin C (Multivitamin Chewable Tab) 1 tab PO BID EARLENE Stop: 04/23/22 20:59 Last Admin: 03/25/22 10:18 Dose: 1 tab Documented By: Admin: 03/24/22 22:03 Dose: 1 tab Documented By: ANTONIO Pantoprazole Sodium (Pantoprazole 40 Mg Tab) 40 mg PO BID EARLENE Stop: 04/23/22 20:59 Last Admin: 03/25/22 09:35 Dose: 40 mg Documented By: Admin: 03/24/22 22:03 Dose: 40 mg Documented By: ANTONIO Potassium Chloride (Potassium Chloride Crtab 20 Meq Tabcr) 40 meq PO BID EARLENE Stop: 04/23/22 20:59 Last Admin: 03/25/22 09:36 Dose: 40 meq Documented By: Admin: 03/24/22 22:03 Dose: 40 meq Documented By: ANTONIO Pramipexole Dihydrochloride (Pramipexole Dihydrochlo 0.25 Mg Tab) 0.75 mg PO TID EARLENE Stop: 04/23/22 14:14 Last Admin: 03/25/22 10:18 Dose: 0.75 mg Documented By: Admin: 03/24/22 22:03 Dose: 0.75 mg Documented By: Admin: 03/24/22 15:10 Dose: 0.75 mg Documented By: ANTONIO Sucralfate (Sucralfate 1 Gm/10 Ml Udc) 1 gm PO BID EARLENE Stop: 04/23/22 20:59 Last Admin: 03/25/22 09:36 Dose: 1 gm Documented By: Admin: 03/24/22 22:03 Dose: 1 gm Documented By: ANTONIO Valacyclovir HCl (Valacyclovir Hcl 500 Mg Tablet) 2,000 mg PO Q12H EARLENE Stop: 04/23/22 20:59 Last Admin: 03/25/22 09:36 Dose: 2,000 mg Documented By: Admin: 03/24/22 22:03 Dose: 2,000 mg Documented By: ANTONIO Verapamil HCl (Verapamil Hcl 240 Mg Tabcr) 240 mg PO BID EARLENE Stop: 04/23/22 20:59 Last Admin: 03/25/22 10:18 Dose: 240 mg Documented By: Admin: 03/24/22 22:04 Dose: 240 mg Documented By: ANTONIO Discontinued Medications Gadobutrol (Gadobutrol 65ml Vial) 9 ml IV ONCE ONE Stop: 03/24/22 20:04 Last Admin: 03/24/22 20:04 Dose: 9 ml Documented By: JOHN Hydromorphone HCl (Hydromorphone Inj 1 Mg/Ml Syringe) 1 mg IV NOW STA Stop: 03/24/22 04:39 Last Admin: 03/24/22 04:48 Dose: 1 mg Documented By: JASMINE Hydromorphone HCl (Hydromorphone Inj 1 Mg/Ml Syringe) 1 mg IV NOW STA Stop: 03/24/22 05:36 Last Admin: 03/24/22 05:55 Dose: 1 mg Documented By: JASMINE Hydromorphone HCl (Hydromorphone Inj 1 Mg/Ml Syringe) 1 mg IV NOW STA Stop: 03/24/22 08:32 Last Admin: 03/24/22 08:35 Dose: 1 mg Documented By: ABDULKADIR Hydromorphone HCl (Hydromorphone Inj 1 Mg/Ml Syringe) 1 mg IV NOW STA Stop: 03/24/22 10:46 Last Admin: 03/24/22 11:25 Dose: 1 mg Documented By: ANTONIO Magnesium Sulfate/Dextrose (Magnesium Sulfate / D5w) 1 gm in 100 mls @ 50 mls/hr IV Q2H EARLENE Stop: 03/24/22 15:14 Last Infusion: 03/24/22 15:42 Dose: 0 mls/hr Documented By: Admin: 03/24/22 13:56 Dose: 50 mls/hr Documented By: Infusion: 03/24/22 13:56 Dose: 50 mls/hr Documented By: Admin: 03/24/22 12:53 Dose: 50 mls/hr Documented By: ANTONIO Ondansetron HCl (Ondansetron Inj 2 Mg/Ml 2 Ml Vial) 4 mg IV NOW STA Stop: 03/24/22 04:42 Last Admin: 03/24/22 04:48 Dose: 4 mg Documented By: JASMINE Imaging Data Radiologist's Impression: Chest X-Ray 03/24/22 04:19 XR chest 1V portable CLINICAL HISTORY: Sepsis COMPARISON STUDY: Chest CT June 16, 2021. Chest radiograph December 22, 2021. FINDINGS: Lung volumes are normal. Lungs are clear. There is no pneumothorax or pleural effusion. Cardiomegaly is unchanged. Mediastinal contours are normal. There is no evidence for pulmonary edema. IMPRESSION: No acute cardiopulmonary findings. Stable cardiomegaly. ACT 112: Negative or not required by law. Electronically signed by: Jalen Malik M.D. 03/24/2022 6:54 AM Abdomen/Pelvis CT 03/24/22 04:48 CT OF THE ABDOMEN AND PELVIS WITHOUT CONTRAST CLINICAL HISTORY: Severe lower abdominal pain. COMPARISON STUDY: CT of the abdomen and pelvis March 23, 2022. TECHNIQUE: Axial images of the abdomen and pelvis were obtained without IV contrast. Images were reviewed in the axial, sagittal, and coronal planes. Automated exposure control was utilized for the study. A dose lowering technique was utilized adhering to the principles of ALARA. FINDINGS: Lung bases are unremarkable. No pneumatosis, free air or portal venous gas is present. A 6 mm calculus within lower pole of the left kidney is noted. There are no ureteral calculi. There is no hydronephrosis. Postoperative findings from gastric bypass are noted. There is persistent inflammation adjacent to the gastrojejunostomy. This is unchanged since CT of March 23, 2022. There is no extraluminal gas. No fluid correction. There is associated wa ll thickening at the gastrojejunostomy. There is no evidence for a bowel obstruction. No evidence for acute appendicitis. Mild dilatation of the common bile duct is likely related to cholecystectomy. Spleen, adrenal glands and pancreas are unremarkable. There is no peripancreatic inflammation. Marin balloon within the bladder is present. Bladder is collapsed. No acute fracture within the visualized skeletal structures is present. No suspicious osseous lesions are present. There is moderate multilevel facet arthrosis with disc space narrowing and osteophytosis within the lumbar spine. Central canal and neural foramen are suboptimally assessed by CT, IMPRESSION: 1. Inflammation adjacent to the gastrojejunostomy with associated wall thickening status post Tobias-en-Y gastric bypass. This is similar to [facility] of [facility] 2021. This is nonspecific but can be seen in the setting of a marginal ulcer. No extraluminal gas. No fluid collection. This finding will be called/faxed to ordering provider at time of dictation. 2. No bowel obstruction. 3. Left-sided nephrolithiasis. No ureteral calculi or hydronephrosis. ACT 112: Negative or not required by law. Electronically signed by: Jalen Malik M.D. 03/24/2022 6:53 AM Discharge Plan Visit Data Chief Complaint: Groin Pain Stated Complaint: GROIN PAIN GOING INTO BACK & THIGHS ED Provider: Maria Gutierrez Discharge Problem: Abdominal pain, lower, Bilateral leg weakness Patient Disposition: Admitted As Inpatient Discharge Instructions Interventions: ED Discharge Assessment Last Done: 03/24/22 21:00
--- NOTE | 2022-03-24 08:52 | Magnetic Resonance Report ---
MRI OF THE LUMBAR SPINE WITHOUT IV CONTRAST CLINICAL HISTORY: Chronic low back pain. Left lower extremity radiculopathy. COMPARISON STUDY: MRI of the lumbar spine dated 01/15/2021. CT of the lumbar spine dated 09/19/2019. TECHNIQUE: MRI of the lumbar spine is performed utilizing various T1 and T2-weighted sequences in the axial and sagittal planes. IV contrast was not administered for this examination. The examination is modestly degraded by motion artifact. FINDINGS: Lumbar spine: Vertebral body height is maintained throughout the lumbar spine. There is minimal anter olisthesis at L3-L4. Alignment is otherwise preserved. 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 Tiny anterior and lateral marginal osteophytes are seen throughout. Previous right hemilamine ctomy is suggested in the lower lumbar region. The transverse and spinous processes appear intact. Th ere is no evidence of spondylolysis. Hemangiomas are noted in the bodies of T12 and L1. No destructiv e bony lesion is identified. Mild degenerative endplate edema is seen at T9-T10 and L2-L3. Intervertebral discs: Disc desiccation and mild loss of height is seen throughout the lumbar region. Spinal cord: The visualized spinal cord is normal in morphology and signal intensity. The conus medul kalyn terminates at the T12-L1 interspace. The nerve roots of the cauda equina are normal in morpholo gy. T12-L1: There is broad-based posterior disc bulge. The central canal and neural foramina are patent. L1-L2: Posterior disc bulge abuts the transiting nerve roots. No significant acquired compromise of t he central canal is identified. There is mild bilateral subarticular stenosis. The neural foramina ar e patent. L2-L3: There is broad-based posterior disc bulge which abuts the transiting nerve roots. No significa nt acquired compromise of the central canal is identified. There is mild bilateral subarticular steno sis. The neural foramina are patent. L3-L4: There is broad-based posterior disc bulge. This abuts the transiting nerve roots. No significa nt acquired compromise of the central canal is identified. There is mild bilateral subarticular steno sis. Facet arthropathy is of no consequence. The neural foramina appear patent. L4-L5: There is broad-based posterior disc bulge which abuts the transiting nerve root. No significan t acquired compromise of the central canal is identified. There is mild bilateral subarticular stenos is. Lateral disc bulge abuts the exiting bilateral L4 nerve roots. No significant neural foraminal na rrowing is identified. L5-S1: The central canal and neural foramina are patent. Mild facet arthropathy is of no consequence. There is bony overgrowth at the left hemitransitional lumbosacral segment at S1-S2 seen on axial dmitriy ge #[id number]. This may impinge on the adjacent exiting left S1 nerve root. Sacrum: The visualized sacrum is normal in morphology and signal intensity. Soft tissues: There is fatty atrophy of the paraspinous musculature. The retroperitoneal structures a re grossly unremarkable but incompletely evaluated. IMPRESSION: 1. Mild lumbosacral spondylosis as above. See discussion for detailed level by level analysis. 2. There is no significant central canal stenosis or high-grade neural foraminal narrowing throughout the lumbar region. 3. 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 Bony overgrowth at this site likely impinges on the adjacent left S1 nerve root. 4. No destructive bony process is seen. Dictated: 03/24/2022 7:47 AM Transcribed: 03/24/2022 8:41 AM Kristine [id number] [email or web address] Electronically signed by: Artemio Stover M.D. 03/24/2022 8:51 AM
--- NOTE | 2022-03-24 12:28 | Orthopedic Consultation ---
Date of Consultation March 24, 2022 Assessment & Plan (1) Right hip pain: 66-year-old female with new onset right hip/groin pain. X-rays reviewed as noted above. Dr. Zapata has reviewed her lumbar spine MRI and does not see anything that would be surgical or possibly causing her discomfort into her righ t lower extremity. Plain x-rays are showing degenerative changes of the right hip. CT of the abdomen pelvis showing no bony destruction or fracture. Patient has been afebrile however noted temp of 38 while she has been here at the hospital. Latest was 37.7. Both early a.m. WBC at 8.96. ESR is 29, CRP 7.6 With the patient's increased activity over the weekend, possibility of a flareup of her arthritis in her hip; Gouty flare; possible infectious nature although only one marker (CRP) elevated at this time. Pt also on Eliquis bid, question hemarthrosis with increased activity this weekend? Case discussed with Dr. Sav Marion. Plan for MRI of her right hip with contrast. Would hold off on any antibiotics or steroids at this time unless Hospitalist feels necessary. Plan for pain control. WBAT on RLE as able. History of Present Illness Reason for Consultation: Right hip pain History of Present Illness Patient is a 66-year-old female known to our practice who came into the emergency room yesterday evening secondary to inability to ambulate from right hip and groin pain. Patient states that she was having no difficulties last week. She states that she had gotten to flu shots on of last week and states that she felt a little off on Wednesday and basically just rested. 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 She states that she was standing a lot and also sitting on a hard metal chair that she takes with her. She had no problems over the weekend but then noticed on Wednesday evening that she was having some right hip and groin pain. She also states that she was having some low back pain. She states that she had some back surgery done many years ago. As the days progressed, she noticed that the pain continued to increase in the right hip and groin area. It radiated slightly down into her thigh. She denies any shooting pains from her low back down the extremity into the foot. She denies any numbness down into the right lower extremity to the foot. It got to the point that she was unable to ambulate well because of the severe pain in her right hip and groin and she came to the emergency room. She was seen by the staff and x-rays were taken. No definitive fractures. Patient was admitted for ambulation dysfunction and we have been asked to see her for her right hip pain. She denies any fevers or chills at home. Denies loss of appetite. No mechanical falls or injuries. Patient also notes that she was diagnosed with gout in her foot approximately 1 month ago. She was seen in the emergency room here and discharged to home on prednisone 50 mg p.o. daily for 5 days along with a pain medication. She has not had any discomfort from her foot at that point. Allergies Allergy/AdvReac Type Severity Reaction Status Date / Time codeine Allergy Severe HIVES Verified 02/12/22 14:42 Iodinated Contrast Media Allergy Severe HIVES Verified 02/12/22 14:42 iodine Allergy Severe ANAPHYLAXIS Verified 02/12/22 14:42 ketorolac Allergy Severe ITCHING Verified 02/12/22 14:42 Penicillins Allergy Severe ITCHING/HIV Verified 02/12/22 14:42 ES shellfish derived Allergy Severe ANAPHYLAXIS Verified 02/12/22 14:42 shrimp Allergy Severe ANAPHYLAXIS Verified 02/12/22 14:42 barium sulfate Allergy Intermediate itching Verified 02/12/22 14:42 rash morphine Allergy Intermediate ITCHING Verified 02/12/22 14:42 bee venom protein (honey bee) Allergy swelling Verified 02/12/22 14:42 at the site Home Medications Medication Instructions Recorded Confirmed Type lancets 33 gauge (Woo With StyleErnesto Bird #100 ea 02/16/20 03/24/22 Rx Plus Lancet) pediatric multivitamin no.76 1 tab PO BID 04/23/20 03/24/22 History (Flintstones Complete chewable tablet) blood sugar diagnostic (Woo With StyleFahaduch #100 ea 05/02/20 03/24/22 Rx Verio test strips) acetaminophen 500 mg tablet 1,000 - 1,500 mg PO Q6H PRN Pain 10/05/20 03/24/22 History (Tylenol Extra Strength) nitroglycerin 0.4 mg sublingual 0.4 mg sublingual Q5M PRN chest 10/06/20 03/24/22 Rx tablet pain #1 btl levothyroxine 200 mcg tablet 200 mcg PO DAILY #90 tabs 08/18/21 03/24/22 Rx (Synthroid) cyclobenzaprine 10 mg tablet 10 mg PO TID PRN muscle spasm #30 10/09/21 03/24/22 Rx tabs gabapentin 100 mg capsule 100 mg PO Q8H PRN pain #30 caps 10/09/21 03/24/22 Rx valacyclovir 1 gram tablet 2,000 mg PO Q12H 1 day #4 tabs 10/09/21 03/24/22 Rx (Valtrex) potassium chloride 20 mEq 40 meq PO BID #180 tabs 12/02/21 03/24/22 Rx tablet,extended release apixaban 5 mg tablet 5 mg PO BID #180 tabs 12/24/21 03/24/22 Rx furosemide 40 mg tablet 40 mg PO DAILY edema #90 tabs 01/14/22 03/24/22 Rx verapamil 240 mg tablet,extended 240 mg PO BID #180 tabs 01/26/22 03/24/22 Rx release sucralfate 100 mg/mL oral 5 ml PO QID #1,200 mL 02/12/22 03/24/22 Rx suspension (Carafate) cyanocobalamin (vitamin B-12) 1,000 mcg IM .COMPLEX #1 mL 03/17/22 03/24/22 Rx 1,000 mcg/mL injection solution pramipexole 0.75 mg tablet 0.75 mg PO TID #90 tabs 03/17/22 03/24/22 Rx omeprazole 40 mg capsule,delayed 40 mg PO BID #60 caps 03/23/22 03/24/22 Rx release oxycodone 5 mg tablet 5 mg PO Q8H PRN pain #11 tabs 03/23/22 03/24/22 Rx sucralfate 100 mg/mL oral 1 g (10 mL) PO BID 4 weeks #560 mL 03/23/22 03/24/22 Rx suspension (Carafate) Patient History Medical History Anemia On iron supplement Anxiety Arthritis Asthma Well controlled and stable - uses rescue inhaler rarely Atrial fibrillation Stable- s/p ablation x 2 - still have a fib Bilateral edema of lower extremity Stable Bulging lumbar disc Cataract, bilateral Degenerative disc disease Degenerative disc disease Depression Diverticulosis Encounter for pre-operative examination Family history of colon cancer Heart murmur No murmur noted on PAT exam on 08/16/19- ECHO 04/2019 History of colon polyps History of neoplasm of uncertain behavior of skin History of TIA (transient ischemic attack) 2016--no deficits- no issues since that time. Follows with neuro once yearly - Dr. Barker (also sees for RLS) Hx of basal cell carcinoma FACE AND CHEST Hx of migraines Hypertension Hypokalemia Hypomagnesemia Hypothyroidism Intractable nausea and vomiting Jaw pain Leg length discrepancy Morbid obesity On anticoagulant therapy on eliquis Palpitations Paroxysmal atrial fibrillation Prediabetes Stable per patient Restless leg syndrome Sacroiliac joint pain Sleep apnea mild, no device needed Strain of left trapezius muscle Supraventricular tachycardia (06/25/11) Vomiting Surgical History H/O bariatric surgery H/O cardiac radiofrequency ablation x2 H/O carpal tunnel repair History of appendectomy History of arthroscopy of right shoulder History of basal cell carcinoma (BCC) excision in office, off chest History of bilateral breast reduction surgery (~11/2010) free nipple graft History of cholecystectomy History of colonoscopy History of esophagogastroduodenoscopy (EGD) History of ovarian cystectomy History of removal of cyst right breast, benign History of surgical removal of ganglion cyst right hand History of total abdominal hysterectomy and bilateral salpingo-oophorectomy History of total left knee replacement (TKR) History of wisdom tooth extraction Hx of bilateral cataract extraction Hx of laminectomy 1992 Laminectomy (06/25/11) Open reduction of fracture (06/25/11) S/P excision of lipoma (~07/2019) Excision Lipoma Right Forehead, Within the Left Brow; Right Anterior Knee x2(Bilateral) - Wendy Alfred MD Family History Mother Family history of diabetes mellitus Family history of reaction to anesthesia "had heart complications after surgery for cancer of the vulva" Family hx colonic polyps Myocardial infarction Father Family hx of colon cancer Family hx colonic polyps Colorectal cancer Uncle Family history of esophageal cancer Sister Family hx colonic polyps Other Hypertension Denies family history of Ovarian cancer Prostate cancer Breast cancer Social History Smoking Status: Never smoker Second Hand Exposure: No; Hx Alcohol Use: No Hx Substance Use: No Preferred Language: Serbian Communication Ability: Effective Visual Impairment: No Limitations Hearing Ability: Normal [employer] Service Apprentice Required: No Beliefs That Will Affect Care: None marital status: Current Living Situation: Family Current Living Situation Comment: Lives with sister current occupational status: retired Other Information That Helps Us Care for You: No Feels Safe at Home: Yes Childhood Exposure to Second-Hand Smoke: Yes caffeine: Yes during the past year weight has: decreased > 10 lbs Dental Care, Regularly: Yes Physical Activity Frequency: Daily Seatbelt Use: sometimes Sunscreen Use: No Assistive Devices: Cane and Walker Physical Exam Physical Exam: Patient is a 66-year-old white female. She is awake and alert. Oriented x3. She appears comfortable although she is lying on her left side which she feels is the best position for her. She states that she normally sleeps on her side. She is in no acute distress. She is pleasant and cooperative. On examination of her right lower extremity, leg lengths appear equal compared to the left. There is no erythema noted of the right lower extremity from the right hip and thigh down to the foot. She has good range of motion of her right ankle and toes without discomfort. She has a very minimal amount of pain on palpation of her right knee of which she states she has osteoarthritis but is not bothering her too much at this point. I can take the knee through gentle range of motion without moderate to severe pain. On examination of the hip, palpation of the trochanteric bursa area is nontender. No overt swelling and no erythema. She has no pain on palpation of the posterior thigh or buttock. She has mild discomfort on palpation of the lower lumbar spine. She does have more moderate pain on palpation over the anterior hip and groin area. I cannot appreciate any masses at this time. Taking the hip through range of motion, she does have moderate discomfort on flexion of the hip. She states that it is worse with extending the hip back down into neutral position. Internal and external rotation shows minimal discomfort. Abduction shows mild to moderate discomfort. Adduction about the same. She denies any decrease sensation of the right lower extremity at this time. Pulses are equal bilaterally. No gross motor or sensory loss at this time. Patient states she is having difficulty weightbearing. Axial loading while the patient is lying in bed does not appear to cause her any discomfort. Results & Data ([facility]) Vital Signs (Past 12 Hours) Vital Signs Temp Pulse Pulse Resp BP BP Pulse Ox 03/24/22 11:31 87 19 98 03/24/22 11:31 118/45 L 03/24/22 11:30 83 14 97 03/24/22 11:01 83 20 99 03/24/22 11:01 111/53 L 03/24/22 11:00 85 16 03/24/22 09:00 86 16 110/56 L 97 03/24/22 08:51 94 03/24/22 08:51 88 L 03/24/22 08:42 95 03/24/22 08:40 86 20 112/51 L 88 L 03/24/22 06:00 89 14 119/53 L 97 03/24/22 05:00 85 15 125/64 97 03/24/22 04:42 89 16 125/74 95 03/24/22 04:26 98 03/24/22 04:06 37.7 C H 03/24/22 02:22 38 C H 86 17 134/63 95 O2 Del Method O2 Flow Rate 03/24/22 11:31 03/24/22 11:31 03/24/22 11:30 03/24/22 11:01 03/24/22 11:01 03/24/22 11:00 03/24/22 09:00 Nasal Cannula 3 03/24/22 08:51 Nasal Cannula 2 03/24/22 08:51 Room Air 03/24/22 08:42 03/24/22 08:40 Room Air 03/24/22 06:00 Room Air 03/24/22 05:00 03/24/22 04:42 Room Air 03/24/22 04:26 Room Air 03/24/22 04:06 03/24/22 02:22 Room Air Laboratory Results Laboratory Results WBC 8.96 K/ul (4.8-10.8) 03/24/22 04:15 RBC 3.88 M/uL (3.93-5.22) L 03/24/22 04:15 Hgb 11.8 g/dl (12.0-16.0) L 03/24/22 04:15 Hct 34.8 % (34.1-44.9) 03/24/22 04:15 MCV 89.7 fL (80.0-100.0) 03/24/22 04:15 MCH 30.4 pg (25.0-34.0) 03/24/22 04:15 MCHC 33.9 g/dL (32.0-36.0) 03/24/22 04:15 RDW Std Deviation 39.7 fL (36.4-46.3) 03/24/22 04:15 RDW Coeff of Falguni 12.2 % (11.5-14.5) 03/24/22 04:15 Plt Count 264 K/uL (130-400) 03/24/22 04:15 MPV 10.4 fL (9.4-12.3) 03/24/22 04:15 Immature Gran % (Auto) 0.4 % 03/24/22 04:15 Neut % (Auto) 61.2 % 03/24/22 04:15 Lymph % (Auto) 25.9 % 03/24/22 04:15 [place] % (Auto) 11.3 % 03/24/22 04:15 Eos % (Auto) 0.9 % 03/24/22 04:15 Baso % (Auto) 0.3 % 03/24/22 04:15 Neut # (Auto) 5.48 K/uL (1.4-6.5) 03/24/22 04:15 Lymph # (Auto) 2.32 K/uL (1.2-3.4) 03/24/22 04:15 [place] # (Auto) 1.01 K/uL (0.24-0.82) H 03/24/22 04:15 Eos # (Auto) 0.08 K/uL (0-0.50) 03/24/22 04:15 Baso # (Auto) 0.03 K/uL (0-0.2) 03/24/22 04:15 Immature Gran # (Auto) 0.04 K/uL (0.00-0.02) H 03/24/22 04:15 ESR 29 mm/hr (0-30) 03/24/22 11:21 Sodium 135 mmol/L (136-145) L 03/24/22 04:15 Potassium 3.6 mmol/L (3.5-5.1) 03/24/22 04:15 Chloride 103 mmol/L (98-107) 03/24/22 04:15 Carbon Dioxide 26 mmol/L (21-32) 03/24/22 04:15 Anion Gap 6 (3-11) 03/24/22 04:15 BUN 13 mg/dl (6-23) 03/24/22 04:15 Creatinine 0.60 mg/dl (0.6-1.2) 03/24/22 04:15 Est Cr Clr Drug Dosing 95.5 ml/min 03/24/22 04:15 Est GFR ( Amer) 109.3 ml/min 03/24/22 04:15 Est GFR (Non-Af Amer) 94.3 ml/min 03/24/22 04:15 BUN/Creatinine Ratio 21.7 (10-20) H 03/24/22 04:15 Glucose 104 mg/dl (70-99(Fasting)) H 03/24/22 04:15 Lactate 1.0 mmol/L (0.4-2.0) 03/24/22 04:15 Calcium 8.2 mg/dl (8.5-10.1) L 03/24/22 04:15 Magnesium 1.6 mg/dl (1.7-2.4) L 03/24/22 04:15 Total Bilirubin 0.6 mg/dl (0.2-1.0) 03/24/22 04:15 Direct Bilirubin 0.1 mg/dl (0-0.2) 03/24/22 04:15 AST 16 U/L (13-39) 03/24/22 04:15 ALT 13 U/L (7-52) 03/24/22 04:15 Alkaline Phosphatase 96 U/L (34-104) 03/24/22 04:15 Troponin I High Sens 3.1 pg/ml (0-14) 03/24/22 04:15 C-Reactive Protein 7.61 mg/dl (0-0.5) H 03/24/22 11:21 Total Protein 5.9 gm/dl (6.0-8.3) L 03/24/22 04:15 Albumin 3.2 gm/dl (3.4-5.0) L 03/24/22 04:15 Procalcitonin < 0.05 ng/ml (0-0.5) 03/24/22 04:15 Urine Color Dark Yellow 03/24/22 04:20 Urine Appearance Clear (Clear) 03/24/22 04:20 Urine pH 5.5 (4.5-7.5) 03/24/22 04:20 Ur Specific [place] 1.031 (1.000-1.030) H 03/24/22 04:20 Urine Protein Negative (Negative) 03/24/22 04:20 Urine Glucose (UA) Negative (Negative) 03/24/22 04:20 Urine Ketones Negative (Negative) 03/24/22 04:20 Urine Blood Negative (Negative) 03/24/22 04:20 Urine Nitrite Negative (Negative) 03/24/22 04:20 Urine Bilirubin Negative (Negative) 03/24/22 04:20 Urine Urobilinogen Negative (Negative) 03/24/22 04:20 Ur Leukocyte Esterase Negative (Negative) 03/24/22 04:20 SARS-CoV-2, RNA, NAAT NEGATIVE (NEGATIVE) 03/24/22 06:54 Impressions Chest X-Ray 03/24/22 04:19 XR chest 1V portable CLINICAL HISTORY: Sepsis COMPARISON STUDY: Chest CT June 16, 2021. Chest radiograph December 22, 2021. FINDINGS: Lung volumes are normal. Lungs are clear. There is no pneumothorax or pleural effusion. Cardiomegaly is unchanged. Mediastinal contours are normal. There is no evidence for pulmonary edema. IMPRESSION: No acute cardiopulmonary findings. Stable cardiomegaly. ACT 112: Negative or not required by law. Electronically signed by: Jalen Malik M.D. 03/24/2022 6:54 AM Abdomen/Pelvis CT 03/24/22 04:48 CT OF THE ABDOMEN AND PELVIS WITHOUT CONTRAST CLINICAL HISTORY: Severe lower abdominal pain. COMPARISON STUDY: CT of the abdomen and pelvis March 23, 2022. TECHNIQUE: Axial images of the abdomen and pelvis were obtained without IV contrast. Images were reviewed in the axial, sagittal, and coronal planes. Au tomated exposure control was utilized for the study. A dose lowering technique was utilized adhering to the principles of ALARA. FINDINGS: Lung bases are unremarkable. No pneumatosis, free air or portal venous gas is present. A 6 mm calculus within lower pole of the left kidney is noted. There are no ureteral calculi. There is no hydronephrosis. Postoperative findings from gastric bypass are noted. There is persistent inflammation adjacent to the gastrojejunostomy. This is unchanged since CT of March 23, 2022. There is no extraluminal gas. No fluid correction. There is associated wa ll thickening at the gastrojejunostomy. There is no evidence for a bowel obstruction. No evidence for acute appendicitis. Mild dilatation of the common bile duct is likely related to cholecystectomy. Spleen, adrenal glands and pancreas are unremarkable. There is no peripancreatic inflammation. Marin balloon within the bladder is present. Bladder is collapsed. No acute fracture within the visualized skeletal structures is present. No suspicious osseous lesions are present. There is moderate multilevel facet arthrosis with disc space narrowing and osteophytosis within the lumbar spine. Central canal and neural foramen are suboptimally assessed by CT, IMPRESSION: 1. Inflammation adjacent to the gastrojejunostomy with associated wall thickening status post Tobias-en-Y gastric bypass. This is similar to CT of March 23, 2022. This is nonspecific but can be seen in the setting of a marginal ulcer. No extraluminal gas. No fluid collection. This finding will be called/faxed to ordering provider at time of dictation. 2. No bowel obstruction. 3. Left-sided nephrolithiasis. No ureteral calculi or hydronephrosis. ACT 112: Negative or not required by law. Electronically signed by: Jalen Malik M.D. 03/24/2022 6:53 AM Lumbar Spine MRI 03/24/22 05:51 MRI OF THE LUMBAR SPINE WITHOUT IV CONTRAST CLINICAL HISTORY: Chronic low back pain. Left lower extremity radiculopathy. COMPARISON STUDY: MRI of the lumbar spine dated 01/15/2021. CT of the lumbar spine dated 09/19/2019. TECHNIQUE: MRI of the lumbar spine is performed utilizing various T1 and T2- weighted sequences in the axial and sagittal planes. IV contrast was not administered for this examination. The examination is modestly degraded by motion artifact. FINDINGS: Lumbar spine: Vertebral body height is maintained throughout the lumbar spine. There is minimal anterolisthesis at L3-L4. Alignment is otherwise preserved. There is a hemitransitional left lumbosacral segment. Tiny anterior and lateral marginal osteophytes are seen throughout. Previous right hemilaminectomy is suggested in the lower lumbar region. The transverse and spinous processes appear intact. There is no evidence of spondylolysis. Hemangiomas are noted in the bodies of T12 and L1. No destructive bony lesion is identified. Mild degenerative endplate edema is seen at T9-T10 and L2-L3. Intervertebral discs: Disc desiccation and mild loss of height is seen throughout the lumbar region. Spinal cord: The visualized spinal cord is normal in morphology and signal intensity. The conus medullaris terminates at the T12-L1 interspace. The nerve roots of the cauda equina are normal in morphology. T12-L1: There is broad-based posterior disc bulge. The central canal and neural foramina are patent. L1-L2: Posterior disc bulge abuts the transiting nerve roots. No significant acquired compromise of the central canal is identified. There is mild bilateral subarticular stenosis. The neural foramina are patent. L2-L3: There is broad-based posterior disc bulge which abuts the transiting nerve roots. No significant acquired compromise of the central canal is identified. There is mild bilateral subarticular stenosis. The neural foramina are patent. L3-L4: There is broad-based posterior disc bulge. This abuts the transiting nerve roots. No significant acquired compromise of the central canal is identified. There is mild bilateral subarticular stenosis. Facet arthropathy is of no consequence. The neural foramina appear patent. L4-L5: There is broad-based posterior disc bulge which abuts the transiting nerve root. No significant acquired compromise of the central canal is identified. There is mild bilateral subarticular stenosis. Lateral disc bulge abuts the exiting bilateral L4 nerve roots. No significant neural foraminal narrowing is identified. L5-S1: The central canal and neural foramina are patent. Mild facet arthropathy is of no consequence. There is bony overgrowth at the left hemitransitional lumbosacral segment at S1-S2 seen on axial image #18. This may impinge on the adjacent exiting left S1 nerve root. Sacrum: The visualized sacrum is normal in morphology and signal intensity. Soft tissues: There is fatty atrophy of the paraspinous musculature. The retroperitoneal structures are grossly unremarkable but incompletely evaluated. IMPRESSION: 1. Mild lumbosacral spondylosis as above. See discussion for detailed level by level analysis. 2. There is no significant central canal stenosis or high-grade neural foraminal narrowing throughout the lumbar region. 3. 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 Bony overgrowth at this site likely impinges on the adjacent left S1 nerve root. 4. No destructive bony process is seen. Dictated: 03/24/2022 7:47 AM Transcribed: 03/24/2022 8:41 AM Kristine [id number] [facility] Electronically signed by: Artemio Stover M.D. 03/24/2022 8:51 AM Hip/Pelvis X-Ray 03/24/22 11:01 XR hip RT 2V w pelvis CLINICAL HISTORY: right hip pain for 3 days, no known injury TECHNIQUE: 2 views of the right hip and single frontal view of the pelvis were obtained. Comparison: Comparison is made to right hip radiograph 04/06/2019 FINDINGS: There is no evidence of an acute fracture. Degenerative changes are seen in the hip joint. No soft tissue abnormality is seen. IMPRESSION: Degenerative changes without evidence of acute abnormality. ACT 112: Negative or not required by law. Electronically signed by: Edu Barrientos M.D. 03/24/2022 12:41 PM
--- NOTE | 2022-03-24 12:43 | XRay Report ---
XR hip RT 2V w pelvis CLINICAL HISTORY: right hip pain for 3 days, no known injury TECHNIQUE: 2 views of the right hip and single frontal view of the pelvis were obtained. Comparison: Comparison is made to right hip radiograph 04/06/2019 FINDINGS: There is no evidence of an acute fracture. Degenerative changes are seen in the hip joint. No soft ti ssue abnormality is seen. IMPRESSION: Degenerative changes without evidence of acute abnormality. ACT 112: Negative or not required by law. Electronically signed by: Edu Barrientos M.D. 03/24/2022 12:41 PM
[2022-03-24] MEDS: MAGNESIUM SULFATE / D5W 1 GM/100 ML BAG IV SCH ×2 (12:53→13:56)
[2022-03-24] MEDS ORDERED: GABAPENTIN 100 MG CAP PO PRN (14:05)
[2022-03-24] MEDS ORDERED: SUCRALFATE 1 GM/10 ML UDC PO SCH (14:05)
[2022-03-24] MEDS: HYDROmorphone INJ 0.5 MG/0.5 ML SYR IV PRN ×3 (14:06→20:57)
--- NOTE | 2022-03-24 14:12 | History & Physical Report ---
Date of Service March 24, 2022 Assessment & Plan (1) Right hip pain: Plan: Patient admitted to medical for right hip pain. Concern over OA, avascular necrosis of femoral head, or infection. Physical examination and history point hip pathology. Will get ahold of orthopedics, as patient may need a procedure. pain control ordered. update: will obtain plan films: this was negative. ordered inflammatory markers and MRI of right hip. will await results. (2) History of atrial fibrillation: Plan: apixaban on hold for possible procedure. (3) Dyslipidemia: Plan: resume home meds (4) Bulging lumbar disc: Plan: likely not causing pain (5) GERD (gastroesophageal reflux disease): Plan: continue ppi (6) Afib: Plan: hold anticoagulation as patient may need a procedure (7) Hypothyroidism: Plan: resume levothyroxine (8) Vitamin D deficiency: (9) Asthma: Plan: stable Admission and Anticipated Discharge Date Admission Date: March 24, 2022 History of Present Illness Chief Complaint: RIght groin pain Primary Care Provider: Homer Herrera III, TERA This is a pleasant 66 yo female with having pertinent PMH: severe OA of right knee treated with steroid injections (complete PMH is below) reports having right groin pain for past 3 days. She reports that 3 days ago, she noticed having that it was, and she had worsening pain in her right groin and right knee. She reported the pain was worse when bearing weight. She Reports the next day that the pain was worse. Pain was now moderate in intensity. Pain continued to worsen with bearing weight the pain was more severe again mainly localized in her right groin. Patient denies any trauma to the area.Yesterday pain was so severe the patient reports an inability to lift leg off ground without causing severe pain. Patient denies any fever chills nausea vomiting. During this time patient did go to the ER but was sent home after a negative abdominal pain work-up. Patient returned today and had negative imaging of ct abd/pelvis/ and MRI lumbar spine which would not explain etiology of pain. Admission was called for further investigation Allergies Allergy/AdvReac Type Severity Reaction Status Date / Time codeine Allergy Severe HIVES Verified 02/12/22 14:42 Iodinated Contrast Media Allergy Severe HIVES Verified 02/12/22 14:42 iodine Allergy Severe ANAPHYLAXIS Verified 02/12/22 14:42 ketorolac Allergy Severe ITCHING Verified 02/12/22 14:42 Penicillins Allergy Severe ITCHING/HIV Verified 02/12/22 14:42 ES shellfish derived Allergy Severe ANAPHYLAXIS Verified 02/12/22 14:42 shrimp Allergy Severe ANAPHYLAXIS Verified 02/12/22 14:42 barium sulfate Allergy Intermediate itching Verified 02/12/22 14:42 rash morphine Allergy Intermediate ITCHING Verified 02/12/22 14:42 bee venom protein (honey bee) Allergy swelling Verified 02/12/22 14:42 at the site Home Medications Medication Instructions Recorded Confirmed Type lancets 33 gauge ([facility] #100 ea 02/16/20 03/24/22 Rx Plus Lancet) pediatric multivitamin no.76 1 tab PO BID 04/23/20 03/24/22 History (Flintstones Complete chewable tablet) blood sugar diagnostic ([employer]nsicTouch #100 ea 05/02/20 03/24/22 Rx Verio test strips) acetaminophen 500 mg tablet 1,000 - 1,500 mg PO Q6H PRN Pain 10/05/20 03/24/22 History (Tylenol Extra Strength) nitroglycerin 0.4 mg sublingual 0.4 mg sublingual Q5M PRN chest 10/06/20 03/24/22 Rx tablet pain #1 btl levothyroxine 200 mcg tablet 200 mcg PO DAILY #90 tabs 08/18/21 03/24/22 Rx (Synthroid) cyclobenzaprine 10 mg tablet 10 mg PO TID PRN muscle spasm #30 10/09/21 03/24/22 Rx tabs gabapentin 100 mg capsule 100 mg PO Q8H PRN pain #30 caps 10/09/21 03/24/22 Rx valacyclovir 1 gram tablet 2,000 mg PO Q12H 1 day #4 tabs 10/09/21 03/24/22 Rx (Valtrex) potassium chloride 20 mEq 40 meq PO BID #180 tabs 12/02/21 03/24/22 Rx tablet,extended release apixaban 5 mg tablet 5 mg PO BID #180 tabs 12/24/21 03/24/22 Rx furosemide 40 mg tablet 40 mg PO DAILY edema #90 tabs 01/14/22 03/24/22 Rx verapamil 240 mg tablet,extended 240 mg PO BID #180 tabs 01/26/22 03/24/22 Rx release sucralfate 100 mg/mL oral 5 ml PO QID #1,200 mL 02/12/22 03/24/22 Rx suspension (Carafate) cyanocobalamin (vitamin B-12) 1,000 mcg IM .COMPLEX #1 mL 03/17/22 03/24/22 Rx 1,000 mcg/mL injection solution pramipexole 0.75 mg tablet 0.75 mg PO TID #90 tabs 03/17/22 03/24/22 Rx omeprazole 40 mg capsule,delayed 40 mg PO BID #60 caps 03/23/22 03/24/22 Rx release oxycodone 5 mg tablet 5 mg PO Q8H PRN pain #11 tabs 03/23/22 03/24/22 Rx sucralfate 100 mg/mL oral 1 g (10 mL) PO BID 4 weeks #560 mL 03/23/22 03/24/22 Rx suspension (Carafate) Past Med/Surg History Medical History Anemia On iron supplement Anxiety Arthritis Asthma Well controlled and stable - uses rescue inhaler rarely Atrial fibrillation Stable- s/p ablation x 2 - still have a fib Bilateral edema of lower extremity Stable Bulging lumbar disc Cataract, bilateral Degenerative disc disease Degenerative disc disease Depression Diverticulosis Encounter for pre-operative examination Family history of colon cancer Heart murmur No murmur noted on PAT exam on 08/16/19- ECHO 04/2019 History of colon polyps History of neoplasm of uncertain behavior of skin History of TIA (transient ischemic attack) 2016--no deficits- no issues since that time. Follows with neuro once yearly - Dr. Barker (also sees for RLS) Hx of basal cell carcinoma FACE AND CHEST Hx of migraines Hypertension Hypokalemia Hypomagnesemia Hypothyroidism Intractable nausea and vomiting Jaw pain Leg length discrepancy Morbid obesity On anticoagulant therapy on eliquis Palpitations Paroxysmal atrial fibrillation Prediabetes Stable per patient Restless leg syndrome Sacroiliac joint pain Sleep apnea mild, no device needed Strain of left trapezius muscle Supraventricular tachycardia (06/25/11) Vomiting Surgical History H/O bariatric surgery H/O cardiac radiofrequency ablation x2 H/O carpal tunnel repair History of appendectomy History of arthroscopy of right shoulder History of basal cell carcinoma (BCC) excision in office, off chest History of bilateral breast reduction surgery (~11/2010) free nipple graft History of cholecystectomy History of colonoscopy History of esophagogastroduodenoscopy (EGD) History of ovarian cystectomy History of removal of cyst right breast, benign History of surgical removal of ganglion cyst right hand History of total abdominal hysterectomy and bilateral salpingo-oophorectomy History of total left knee replacement (TKR) History of wisdom tooth extraction Hx of bilateral cataract extraction Hx of laminectomy 1991 Laminectomy (06/25/11) Open reduction of fracture (06/25/11) S/P excision of lipoma (~07/2019) Excision Lipoma Right Forehead, Within the Left Brow; Right Anterior Knee x2(Bilateral) - Wendy Alfred MD Family History Mother Family history of diabetes mellitus Family history of reaction to anesthesia "had heart complications after surgery for cancer of the vulva" Family hx colonic polyps Myocardial infarction Father Family hx of colon cancer Family hx colonic polyps Colorectal cancer Uncle Family history of esophageal cancer Sister Family hx colonic polyps Other Hypertension Denies family history of Ovarian cancer Prostate cancer Breast cancer Social History Smoking Status: Never smoker Second Hand Exposure: No; Hx Alcohol Use: No Hx Substance Use: No Preferred Language: Austrian Communication Ability: Effective Visual Impairment: No Limitations Hearing Ability: Normal Dental Tech Required: No Beliefs That Will Affect Care: None marital status: Current Living Situation: Family Current Living Situation Comment: Lives with sister current occupational status: retired Other Information That Helps Us Care for You: No Feels Safe at Home: Yes Childhood Exposure to Second-Hand Smoke: Yes caffeine: Yes during the past year weight has: decreased > 10 lbs Dental Care, Regularly: Yes Physical Activity Frequency: Daily Seatbelt Use: sometimes Sunscreen Use: No Assistive Devices: Cane and Walker Review of Systems Constitutional: no fever and no body aches Eyes: no blind spots Ear, Nose, Mouth, Throat: no ear pain Respiratory: no cough Cardiovascular: no chest pain Gastrointestinal: no abdominal pain Genitourinary: no dysuria Musculoskeletal: no back pain Integumentary: no acne Neurologic: no gait abnormality Psychiatric: no behavioral changes Endocrine: no fatigue Hematologic / Lymphatic: no easy bleeding Allergy / Immunological: no GI upset with certain foods Physical Exam Constitutional: WD/WN, vitals as above (appears comfortable but lying on left side) Eyes: PERRL, conjunctivae normal, anicteric sclerae ENMT: external ear and nose normal, oropharynx normal Neck: trachea midline, no thyromegaly Respiratory: normal respiratory effort, lungs clear to auscultation Cardiovascular: RRR, no murmur, no edema Gastrointestinal (Abdomen): normal bowel sounds, soft, nontender, no hepatosplenomegaly Musculoskeletal: Hip exam: right groin region is tender to palpation, log roll test is postiive, passive flexion of right hip elicits pain. right knee: mildly tender to palpation on bony prominences Skin: no rashes, warm and dry Neurologic: PERRL, EOMI, accommodation nl, no face palsy, no dysarthria Psychiatric: A+Ox3, euthymic affect Lymphatic: no cervical or axillary lymphadenopathy Results & Data Results & Data ([facility]) Vital Signs (Past 12 Hours) Vital Signs Temp Pulse Pulse Resp BP BP Pulse Ox 03/24/22 11:31 87 19 98 03/24/22 11:31 118/45 L 03/24/22 11:30 83 14 97 03/24/22 11:01 83 20 99 03/24/22 11:01 111/53 L 03/24/22 11:00 85 16 03/24/22 09:00 86 16 110/56 L 97 03/24/22 08:51 94 03/24/22 08:51 88 L 03/24/22 08:42 95 03/24/22 08:40 86 20 112/51 L 88 L 03/24/22 06:00 89 14 119/53 L 97 03/24/22 05:00 85 15 125/64 97 03/24/22 04:42 89 16 125/74 95 03/24/22 04:26 98 03/24/22 04:06 37.7 C H 03/24/22 02:22 38 C H 86 17 134/63 95 O2 Del Method O2 Flow Rate 03/24/22 11:31 03/24/22 11:31 03/24/22 11:30 03/24/22 11:01 03/24/22 11:01 03/24/22 11:00 03/24/22 09:00 Nasal Cannula 3 03/24/22 08:51 Nasal Cannula 2 03/24/22 08:51 Room Air 03/24/22 08:42 03/24/22 08:40 Room Air 03/24/22 06:00 Room Air 03/24/22 05:00 03/24/22 04:42 Room Air 03/24/22 04:26 Room Air 03/24/22 04:06 03/24/22 02:22 Room Air PG Care Time/CCT Total # of Minutes Spent Total Time Spent with Patient: Total time spent is greater than 50% in coordination of care (as documented) at patient's floor/unit and/or counseling patient: Coding Level of Care Code 24035 Initial Inpt Care Lvl 3 Diagnoses Right hip pain M25.551 History of atrial fibrillation Z86.79 Dyslipidemia E78.5 Bulging lumbar disc M51.26 GERD (gastroesophageal reflux disease) K21.9 Afib I48.91 Hypothyroidism E03.9 Hypothyroidism type: acquired Vitamin D deficiency E55.9 Asthma J45.40 Asthma complication type: unspecified Asthma persistence: persistent Asthma severity: moderate (1) Hypothyroidism Hypothyroidism type: acquired Qualified Code(s): E03.9 - Hypothyroidism, unspecified (2) Asthma Asthma complication type: unspecified Asthma persistence: persistent Asthma severity: moderate Qualified Code(s): J45.40 - Moderate persistent asthma, uncomplicated
[2022-03-24] MEDS: PRAMIPEXOLE DIHYDROCHLO 0.25 MG TAB PO SCH ×2 (15:10→22:03)
[2022-03-24] MEDS ORDERED: GADOBUTROL 65ML VIAL IV ONE (20:03)
[2022-03-24] MEDS: MULTIVITAMIN CHEWABLE TAB PO SCH (22:03)
[2022-03-24] MEDS: POTASSIUM CHLORIDE CRTAB 20 MEQ TABCR PO SCH (22:03)
[2022-03-24] MEDS: PANTOprazole 40 MG TAB PO SCH (22:03)
[2022-03-24] MEDS: valACYclovir HCL 500 MG TABLET PO SCH (22:03)
[2022-03-24] MEDS: SUCRALFATE 1 GM/10 ML UDC PO SCH (22:03)
[2022-03-24] MEDS: VERAPAMIL HCL 240 MG TABCR PO SCH (22:04)
--- NOTE | 2022-03-24 23:05 | Electrocardiogram Report ---
Test Reason : Blood Pressure : / mmHG Vent. Rate : 085 BPM Atrial Rate : 085 BPM P-R Int : 146 ms QRS Dur : 068 ms QT Int : 360 ms P-R-T Axes : 081 002 024 degrees QTc Int : 428 ms Normal sinus rhythm Low voltage QRS Borderline ECG When compared with ECG of 22-DEC-2021 15:45, No significant change was found Confirmed by King Salcedo ([id number]) on 03/24/2022 11:05:24 PM Referred By: REFERRED SELF Confirmed By:King Salcedo
[2022-03-25] MEDS: LEVOTHYROXINE SODIUM 200 MCG TABLET PO SCH (06:43)
[2022-03-25 08:32] LABS: Basophils # (auto) 0.02 K/uL (0-0.2); Basophils % (auto) 0.3 %; Eosinophils # (auto) 0.04 K/uL (0-0.50); Eosinophils % (auto) 0.5 %; Hematocrit (blood only) 35.9 % (34.1-44.9); Hemoglobin 12.2 g/dl (12.0-16.0); Immature Granulocytes # (auto) 0.03 K/uL (0.00-0.02); Immature Granulocytes % (auto) 0.4 %; Lymphocytes # (auto) 1.07 K/uL (1.2-3.4); Lymphocytes % (auto) 14.2 %; Mean Corpuscular Volume 88.4 fL (80.0-100.0); Mean Platelet Volume 10.2 fL (9.4-12.3); Monocytes # (auto) 0.61 K/uL (0.24-0.82); Monocytes % (auto) 8.1 %; Neutrophils # (auto) 5.76 K/uL (1.4-6.5); Neutrophils % (auto) 76.5 %; Platelet Count 258 K/uL (130-400); RDW Coefficient of Variation 11.7 % (11.5-14.5); RDW Standard Deviation 37.6 fL (36.4-46.3); Red Blood Count 4.06 M/uL (3.93-5.22); White Blood Count 7.53 K/ul (4.8-10.8)
--- NOTE | 2022-03-25 09:03 | Magnetic Resonance Report ---
MR hip RT wo/w con CLINICAL HISTORY: Right hip pain. Bilateral groin pain. COMPARISON STUDY: CT of the abdomen and pelvis and pelvis and right hip radiographs March 24. CT of the abdomen and pelvis September 30, 2019. TECHNIQUE: Utilizing 1.5 Elena magnet and dedicated coil, multiplanar, multiecho imaging of the pelvi s and hips was performed pre and postcontrast administration. Intravenous injection of [address] was uneventful. FINDINGS: There is moderate osteoarthritis of the bilateral hips with joint space narrowing and osteo phytosis. No evidence for avascular necrosis of the femoral heads. Small right and trace left hip marcelo nt effusions are present. No suspicious marrow replacement is identified within the pelvis, sacrum, c occyx or hips. A Marin balloon within the bladder is noted. The bladder is collapsed. There is increa sed fluid signal within the symphysis pubis. There is a small amount of adjacent fluid, predominantly superior to the symphysis pubis, extending along the superior pubic rami. Associated enhancement is noted. There is also mild intramuscular increased T2 signal of the adjacent adductor muscles. No rim- enhancing fluid collection is identified to suggest an abscess. There is osseous irregularity of the medial bilateral pubic bones. This has slightly increased since CT of September 30, 2019. There is diminis hed T1 signal within the medial bilateral pubic bones with associated enhancement. No additional site s of abnormal enhancement are identified on this exam. The caliber of visualized small and large glen l are normal. There is no pelvic lymphadenopathy. IMPRESSION: 1. Mild increased fluid signal within the symphysis pubis with moderate adjacent edema and enhancemen t, predominantly along the superior aspect the symphysis pubis and adjacent to the bilateral superior pubic rami. In addition, edema and enhancement within the adjacent adductor muscles. Although the fi ndings could be degenerative, the findings are suspicious for an infectious process with septic arthr itis of the symphysis pubis. Associated developing osteomyelitis of the medial bilateral pubic bones cannot be excluded. No abscess. 2. Moderate bilateral hip osteoarthritis. Small right and trace left hip joint effusions. ACT 112: Negative or not required by law. Electronically signed by: Jalen Malik M.D. 03/25/2022 9:02 AM
[2022-03-25 09:09] LABS: BUN Creatinine Ratio 21.4 (10-20); C Reactive Protein 17.89 mg/dl (0-0.5); Calcium 8.6 mg/dl (8.5-10.1); Creatinine Clr Calc Pharmacy 136.4 ml/min; Est GFR (African American) 122.9 ml/min; Est GFR (Non-African American) 106.1 ml/min; Potassium 3.6 mmol/L (3.5-5.1)
[2022-03-25] MEDS: PANTOprazole 40 MG TAB PO SCH ×2 (09:35→21:14)
[2022-03-25] MEDS: FUROSEMIDE 40 MG TAB PO SCH (09:35)
[2022-03-25] MEDS: POTASSIUM CHLORIDE CRTAB 20 MEQ TABCR PO SCH ×2 (09:36→21:14)
[2022-03-25] MEDS: SUCRALFATE 1 GM/10 ML UDC PO SCH ×2 (09:36→21:15)
[2022-03-25] MEDS: valACYclovir HCL 500 MG TABLET PO SCH ×2 (09:36→21:17)
[2022-03-25] MEDS: VERAPAMIL HCL 240 MG TABCR PO SCH ×2 (10:18→21:15)
[2022-03-25] MEDS: PRAMIPEXOLE DIHYDROCHLO 0.25 MG TAB PO SCH ×3 (10:18→21:15)
[2022-03-25] MEDS: MULTIVITAMIN CHEWABLE TAB PO SCH ×2 (10:18→21:20)
[2022-03-25] MEDS: ENOXAPARIN INJ 40 MG/0.4 ML SYR SQ SCH (10:19)
[2022-03-25] MEDS: HYDROmorphone INJ 0.5 MG/0.5 ML SYR IV PRN ×2 (11:55→17:42)
[2022-03-25] MEDS ORDERED: VANCOMYCIN CONSULT ACTIVE PRN (13:07)
[2022-03-25] MEDS ORDERED: VANCOMYCIN HCL 1,750 MG in SODIUM CHLORIDE 0.9% 500 ML IV ONE (13:30)
[2022-03-25] MEDS: cefTRIAXone SODIUM 2,000 MG in DEXTROSE 5% 50 ML IV SCH (13:40)
--- NOTE | 2022-03-25 14:16 | Pharmacy Report ---
Pharmacy PK ABX Note - Date of Service March 25, 2022 - Assessment and Plan Assessment 66 year old F receiving vancomycin/ceftriaxone for treatment of septic arthritis/possible osteo . Blood cultures are currently pending, normal WBC, patient was febrile on admission. Day # 1of antimicrobial therapy. Plan Vancomycin * Loading dose: 1750 mg IV x 1 * Maintenance dose: 1500 mg IV every 12 hours * Regimen is predicted to achieve target AUC/STEWART of 400-600 mg/L.hr * Random level ordered for: 03/28 Pharmacy will continue to follow and will adjust dose/frequency as necessary. Thank you. Pharmacy has transitioned to AUC monitoring for vancomycin. AUC/STEWART is the preferred PK/PD target and is associated with decreased risk of nephrotoxicity compared to traditional trough targets.
--- NOTE | 2022-03-25 17:02 | Communication Note ---
Date of Service: March 25, 2022 MRI reviewed of the right hip and pelvis Doni. Results as noted below. Case discussed with Dr Malik from Radiology. No focal points of fluid that could be targeted by aspiration in either the hip or Symphysis Pubis. Dr Marion, after reviewing MRI, feels that antibx should be started in the setting of increasing ESR/CRP. Nothing surgical per orthopedics at this time however he recommends having General Surgery weigh in as well. If sx's persist or worsen, consider tertiary facility. MR hip RT wo/w con CLINICAL HISTORY: Right hip pain. Bilateral groin pain. COMPARISON STUDY: CT of the abdomen and pelvis and pelvis and right hip radiographs March 24, 2022. CT of the abdomen and pelvis September 30, 2019. TECHNIQUE: Utilizing 1.5 Elena magnet and dedicated coil, multiplanar, multiecho imaging of the pelvis and hips was performed pre and postcontrast administration. Intravenous injection of 9 cc of Gadavist was uneventful. FINDINGS: There is moderate osteoarthritis of the bilateral hips with joint space narrowing and osteophytosis. No evidence for avascular necrosis of the femoral heads. Small right and trace left hip joint effusions are present. No suspicious marrow replacement is identified within the pelvis, sacrum, coccyx or hips. A Marin balloon within the bladder is noted. The bladder is collapsed. T here is increased fluid signal within the symphysis pubis. There is a small amount of adjacent fluid, predominantly superior to the symphysis pubis, extending along the superior pubic rami. Associated enhancement is noted. There is also mild intramuscular increased T2 signal of the adjacent adductor muscles. No rim-enhancing fluid collection is identified to suggest an abscess. There is osseous irregularity of the medial bilateral pubic bones. This has slightly increased since CT of September 30, 2019. There is diminished T1 signal within the medial bilateral pubic bones with associated enhancement. No additional sites of abnormal enhancement are identified on this exam. The caliber of visualized small and large bowel are normal. There is no pelvic lymphadenopathy. IMPRESSION: 1. Mild increased fluid signal within the symphysis pubis with moderate adjacent edema and enhancement, predominantly along the superior aspect the symphysis pubis and adjacent to the bilateral superior pubic rami. In addition, edema and enhancement within the adjacent adductor muscles. Although the findings could be degenerative, the findings are suspicious for an infectious process with septic arthritis of the symphysis pubis. Associated developing osteomyelitis of the medial bilateral pubic bones cannot be excluded. No abscess. 2. Moderate bilateral hip osteoarthritis. Small right and trace left hip joint effusions.
[2022-03-25] MEDS ORDERED: oxyCODONE HCL IR 5 MG TAB (IMMEDIATE RELEASE) PO PRN (18:01)
[2022-03-25] MEDS: oxyCODONE HCL IR 5 MG TAB (IMMEDIATE RELEASE) PO PRN (19:42)
--- NOTE | 2022-03-25 23:48 | Hospitalist Progress Note ---
Date of Service March 25, 2022 Assessment & Plan (1) Right hip pain: Plan: Patient admitted to medical for right hip pain. Concern over OA, avascular necrosis of femoral head, or infection. Physical examination and history point hip pathology. Will get ahold of orthopedics, as patient may need a procedure. pain control ordered. MRI of hip: showing possible infection, osteomyelitis of symphysis pubis Due to this concern antibiotics were started, ortho recommended gen surgery consult. Odd presentation of infection, could this be PMR? Ortho states unlikely as patient had such an acute presentation of severe hip pain. for now, will monitor inflammatory markers. May consider GI consult for CT abd findings. (2) History of atrial fibrillation: Plan: apixaban on hold for possible procedure. (3) Dyslipidemia: Plan: resume home meds (4) Bulging lumbar disc: Plan: likely not causing pain (5) GERD (gastroesophageal reflux disease): Plan: continue ppi (6) Afib: Plan: hold anticoagulation as patient may need a procedure continue verapamil. rate controlled. on lovenox for dvt prophylaxis. If no procedure scheduled, will resume xarelto. (7) Hypothyroidism: Plan: resume levothyroxine (8) Asthma: Plan: stable uses rescue inhalers rarely. will monitor (9) Restless leg syndrome: Plan: continue pramipexol (10) Hypertension: Plan: continue verapamil (11) Apnea, sleep: Plan: Patient does not tolerate CPAP. Patient states mild AHSAN Plan DVT lovenox Admission and Anticipated Discharge Date Admission Date: March 24, 2022 Subjective Patient reports that she continues to have right hi pain. However, she is now complaining of right wrist pain and left shoulder pain. No fever or chills Review of Systems Review of Systems: All systems reviewed & are unremarkable except as noted in HPI & below Physical Exam Constitutional: WD/WN, vitals as above (appears comfortable but lying on left side) Eyes: PERRL, conjunctivae normal, anicteric sclerae ENMT: external ear and nose normal, oropharynx normal Neck: trachea midline, no thyromegaly Respiratory: normal respiratory effort, lungs clear to auscultation Cardiovascular: RRR, no murmur, no edema Gastrointestinal (Abdomen): normal bowel sounds, soft, nontender, no hepatosplenomegaly Skin: no rashes, warm and dry Neurologic: PERRL, EOMI, accommodation nl, no face palsy, no dysarthria Psychiatric: A+Ox3, euthymic affect Lymphatic: no cervical or axillary lymphadenopathy Results & Data Results & Data ([facility]) Vital Signs (Past 12 Hours) Vital Signs Temp Pulse Pulse Resp BP BP Pulse Ox 03/25/22 22:32 37.4 C 83 16 113/70 94 03/25/22 18:10 03/25/22 16:49 37.6 C H 76 18 116/67 94 03/25/22 14:30 81 16 140/70 98 03/25/22 14:00 81 03/25/22 13:30 81 03/25/22 13:00 79 03/25/22 12:30 77 96 03/25/22 12:00 76 96 O2 Del Method O2 Flow Rate 03/25/22 22:32 Nasal Cannula 2 03/25/22 18:10 2 03/25/22 16:49 Nasal Cannula 2 03/25/22 14:30 03/25/22 14:00 03/25/22 13:30 03/25/22 13:00 03/25/22 12:30 03/25/22 12:00 PG Care Time/CCT Total # of Minutes Spent Total Time Spent with Patient: Total time spent is greater than 50% in coordination of care (as documented) at patient's floor/unit and/or counseling patient: Coding Level of Care Code 78084 Subseq Hosp Care Lvl 3 Diagnoses Right hip pain M25.551 History of atrial fibrillation Z86.79 Dyslipidemia E78.5 Bulging lumbar disc M51.26 GERD (gastroesophageal reflux disease) K21.9 Afib I48.91 Hypothyroidism E03.9 Hypothyroidism type: acquired Asthma J45.40 Asthma complication type: unspecified Asthma persistence: persistent Asthma severity: moderate Restless leg syndrome G25.81 Hypertension I10 Hypertension type: essential hypertension Apnea, sleep G47.30 Time Spent (min) 55 (1) Hypothyroidism Hypothyroidism type: acquired Qualified Code(s): E03.9 - Hypothyroidism, unspecified (2) Asthma Asthma complication type: unspecified Asthma persistence: persistent Asthma severity: moderate Qualified Code(s): J45.40 - Moderate persistent asthma, uncomplicated (3) Hypertension Hypertension type: essential hypertension Qualified Code(s): I10 - Essential (primary) hypertension
[2022-03-26] MEDS: VANCOMYCIN HCL 1,500 MG in SODIUM CHLORIDE 0.9% 500 ML IV SCH ×2 (01:31→16:03)
[2022-03-26] MEDS: oxyCODONE HCL IR 5 MG TAB (IMMEDIATE RELEASE) PO PRN ×3 (01:32→15:14)
[2022-03-26] MEDS: HYDROmorphone INJ 0.5 MG/0.5 ML SYR IV PRN ×2 (03:19→12:20)
[2022-03-26] MEDS: LEVOTHYROXINE SODIUM 200 MCG TABLET PO SCH (05:35)
[2022-03-26 07:45] LABS: Basophils # (auto) 0.02 K/uL (0-0.2); Basophils % (auto) 0.3 %; Eosinophils # (auto) 0.11 K/uL (0-0.50); Eosinophils % (auto) 1.9 %; Hematocrit (blood only) 31.7 % (34.1-44.9); Hemoglobin 10.4 g/dl (12.0-16.0); Immature Granulocytes # (auto) 0.06 K/uL (0.00-0.02); Lymphocytes # (auto) 1.28 K/uL (1.2-3.4); Lymphocytes % (auto) 22.4 %; Mean Corpuscular Hemoglobin 29.5 pg (25.0-34.0); Mean Corpuscular Hgb Conc 32.8 g/dL (32.0-36.0); Mean Corpuscular Volume 90.1 fL (80.0-100.0); Mean Platelet Volume 10.5 fL (9.4-12.3); Monocytes # (auto) 0.72 K/uL (0.24-0.82); Monocytes % (auto) 12.6 %; Neutrophils # (auto) 3.53 K/uL (1.4-6.5); Neutrophils % (auto) 61.8 %; Platelet Count 247 K/uL (130-400); RDW Standard Deviation 39.1 fL (36.4-46.3); Red Blood Count 3.52 M/uL (3.93-5.22); White Blood Count 5.72 K/ul (4.8-10.8)
[2022-03-26 08:05] LABS: BUN Creatinine Ratio 20.4 (10-20); C Reactive Protein 14.86 mg/dl (0-0.5); Calcium 8.3 mg/dl (8.5-10.1); Creatinine Clr Calc Pharmacy 116.9 ml/min; Est GFR (African American) 116.8 ml/min; Est GFR (Non-African American) 100.8 ml/min; Potassium 3.4 mmol/L (3.5-5.1)
[2022-03-26] MEDS: POTASSIUM CHLORIDE CRTAB 20 MEQ TABCR PO SCH ×2 (08:50→19:58)
[2022-03-26] MEDS: SUCRALFATE 1 GM/10 ML UDC PO SCH ×2 (08:50→19:58)
[2022-03-26] MEDS: PRAMIPEXOLE DIHYDROCHLO 0.25 MG TAB PO SCH ×3 (08:50→19:58)
[2022-03-26] MEDS: MULTIVITAMIN CHEWABLE TAB PO SCH ×2 (08:50→21:05)
[2022-03-26] MEDS: PANTOprazole 40 MG TAB PO SCH ×2 (08:50→19:57)
[2022-03-26] MEDS: valACYclovir HCL 500 MG TABLET PO SCH (08:50)
[2022-03-26] MEDS: FUROSEMIDE 40 MG TAB PO SCH (08:50)
[2022-03-26] MEDS: VERAPAMIL HCL 240 MG TABCR PO SCH ×2 (08:51→19:58)
[2022-03-26] MEDS: ENOXAPARIN INJ 40 MG/0.4 ML SYR SQ SCH (10:21)
--- NOTE | 2022-03-26 12:46 | Hospitalist Progress Note ---
Date of Service March 26, 2022 Assessment & Plan (1) Right hip pain: Plan: Patient admitted to medical for right hip pain. Concern over OA, avascular necrosis of femoral head, or infection. Physical examination and history point hip pathology. Will get ahold of orthopedics, as patient may need a procedure. pain control ordered. MRI of hip: showing possible septic arthritis with early osteomyelitis of symphysis pubis Due to this concern antibiotics were started including Vanco and Rocephin empirically ortho recommended gen surgery consult who has not yet seen patient No easy way to aspirate Ortho states unlikely PMR as patient had such an acute presentation of severe hip pain. Consult ID for input--without culture data impossible to prove infection however given imaging findings + fever on 03/24 seems appropriate to treat for such (2) History of atrial fibrillation: Plan: apixaban on hold for possible procedure. (3) Dyslipidemia: Plan: resume home meds (4) Bulging lumbar disc: Plan: likely not causing pain (5) GERD (gastroesophageal reflux disease): Plan: continue ppi (6) Afib: Plan: hold anticoagulation as patient may need a procedure continue verapamil. rate controlled. on lovenox for dvt prophylaxis. If no procedure scheduled, will resume eliquis (7) Hypothyroidism: Plan: resume levothyroxine (8) Asthma: Plan: stable uses rescue inhalers rarely. will monitor (9) Restless leg syndrome: Plan: continue pramipexol (10) Hypertension: Plan: continue verapamil BP well controlled (11) Apnea, sleep: Plan: Patient does not tolerate CPAP. Patient states mild AHSAN Plan MRSA nares negative, with 90% predictability, unlikely that infection is related to MRSA. Will stop Vanco. Continue Rocephin. Consult ID for additional recommendations, appreciate assistance. Given concern for septic arthritis, will require at least 6 weeks of IV abx which will entail PICC line insertion and determination of home IV abx coverage. PT/OT and pain control as she may require rehab. Discussed that we cannot leave the urinary catheter in for prolonged time as this would increase her risk of introducing bacteria into her bladder. Will plan to remove tomorrow. Ideally, would be beneficial to have some culture data to guide abx choice, but, if she continues to improve with Rocephin alone and inflammatory markers trend down, could consider dc on Rocephin. Will await ID input. AM labs ordered. Plan d/w Dr. Gallagher. Admission and Anticipated Discharge Date Admission Date: March 24, 2022 Subjective Patient was seen on daily rounds this morning. She notes she is not able to bear weight due to pain in her R hip/groin. Currently with catheter bc of her inability to be mobile. She denies cp or dyspnea. No fever/chills. Last documented true fever on 03/24 @ 38C at 0222. Review of Systems Review of Systems: All systems reviewed and are unremarkable except as noted in HPI and below. Denies fever, chills, fatigue, headache, nasal congestion, sore throat, cough, chest pain, shortness of breath, palpitations, orthopnea, PND, abdominal pain, n/v/d, constipation, dysuria, hematuria, frequency, back pain, easy bruising or bleeding, skin lesions or rashes. Physical Exam Physical Exam: GENERAL:66 yo obese middle aged WF. NAD. LUNGS: Clear to auscultation bilaterally. No W/R/R. CARDIOVASCULAR: Regular rate and rhythm. ABDOMEN: Soft, non-tender and non-distended. BS normoactive x 4 quad. : anaya with some sediment in bag EXTREMITIES: No edema. Non-tender. Peripheral pulses +2/4. NEUROLOGIC: A&O x3. Nonfocal PSYCHIATRIC: Cooperative. Appropriate mood and affect. SKIN: Warm, dry, intact. No rashes or lesions. Results & Data Results & Data ([facility]) Vital Signs (Past 12 Hours) Vital Signs Pulse Ox O2 Del Method O2 Del Method O2 Flow Rate O2 Flow Rate 03/26/22 07:15 Nasal Cannula 1 03/26/22 09:36 95 Nasal Cannula 1 Laboratory Results 03/26/22 07:12 03/26/22 07:12 PG Care Time/CCT Total # of Minutes Spent Total Time Spent with Patient: Total time spent is greater than 50% in coordination of care (as documented) at patient's floor/unit and/or counseling patient: Coding Level of Care Code 52061 Subseq Hosp Care Lvl 2 Diagnoses Right hip pain M25.551 History of atrial fibrillation Z86.79 Dyslipidemia E78.5 Bulging lumbar disc M51.26 GERD (gastroesophageal reflux disease) K21.9 Afib I48.91 Hypothyroidism E03.9 Hypothyroidism type: acquired Asthma J45.40 Asthma complication type: unspecified Asthma persistence: persistent Asthma severity: moderate Restless leg syndrome G25.81 Hypertension I10 Hypertension type: essential hypertension Apnea, sleep G47.30 (1) Hypothyroidism Hypothyroidism type: acquired Qualified Code(s): E03.9 - Hypothyroidism, unspecified (2) Hypertension Hypertension type: essential hypertension Qualified Code(s): I10 - Essential (primary) hypertension (3) Asthma Asthma complication type: unspecified Asthma persistence: persistent Asthma severity: moderate Qualified Code(s): J45.40 - Moderate persistent asthma, uncomplicated
[2022-03-26] MEDS: cefTRIAXone SODIUM 2,000 MG in DEXTROSE 5% 50 ML IV SCH (15:13)
[2022-03-26] MEDS ORDERED: HYDROmorphone INJ 0.5 MG/0.5 ML SYR IV PRN (17:05)
--- NOTE | 2022-03-26 19:52 | Communication Note ---
Date of Service: March 26, 2022 I saw the patient and evaluated. She notes persistent pain at her pubic symphysis and groin pain. She denies any pain in the hip. MRI does show fluid collection overlying the pubic symphysis there is no significant fluid in either of the femoral acetabular joints bilaterally. On examination today she does tolerate passive range of motion of both hips without any pain no pain with logroll and able to passively flex and extend without any difficulty. She does note pain with attempted ambulation over her pubic symphysis. Lower extremity sensation is grossly intact to light touch in the distributions of the femoral/saphenous/superficial peroneal nerve/deep peroneal nerve/tibial and sural nerve distributions. She is able to fire her quads, tibialis anterior, extensor houses longus/gastrocsoleus complex. Palpable dorsalis pedis and posterior tibial pulses. Considering her benign hip exam and MRI findings I have minimal concern at this time for any involvement of the hip joints from an infectious standpoint. Most of her pain appears to be located over her pubic symphysis. She is responding well to IV antibiotics. Would recommend continuing IV antibiotics physical therapy and pain control. If the patient would happen to compensate I would recommend transfer to a tertiary care facility for further evaluation of her pubic symphysis fluid collection. We will sign off at this time.
[2022-03-26] MEDS ORDERED: ACETAMINOPHEN 325 MG TAB PO PRN (20:56)
[2022-03-27] MEDS: LEVOTHYROXINE SODIUM 200 MCG TABLET PO SCH (05:38)
[2022-03-27] MEDS: FUROSEMIDE 40 MG TAB PO SCH (08:14)
[2022-03-27] MEDS: MULTIVITAMIN CHEWABLE TAB PO SCH ×2 (08:14→21:20)
[2022-03-27] MEDS: ENOXAPARIN INJ 40 MG/0.4 ML SYR SQ SCH (08:15)
[2022-03-27] MEDS: VERAPAMIL HCL 240 MG TABCR PO SCH ×2 (08:15→21:18)
[2022-03-27] MEDS: PRAMIPEXOLE DIHYDROCHLO 0.25 MG TAB PO SCH ×3 (08:15→21:18)
[2022-03-27] MEDS: SUCRALFATE 1 GM/10 ML UDC PO SCH ×2 (08:15→21:18)
[2022-03-27] MEDS: PANTOprazole 40 MG TAB PO SCH ×2 (08:15→21:18)
[2022-03-27] MEDS: POTASSIUM CHLORIDE CRTAB 20 MEQ TABCR PO SCH ×2 (08:18→21:18)
[2022-03-27 09:03] LABS: Basophils # (auto) 0.02 K/uL (0-0.2); Basophils % (auto) 0.4 %; Eosinophils # (auto) 0.09 K/uL (0-0.50); Eosinophils % (auto) 1.7 %; Hematocrit (blood only) 32.4 % (34.1-44.9); Hemoglobin 10.8 g/dl (12.0-16.0); Immature Granulocytes # (auto) 0.03 K/uL (0.00-0.02); Immature Granulocytes % (auto) 0.6 %; Lymphocytes # (auto) 0.77 K/uL (1.2-3.4); Lymphocytes % (auto) 14.4 %; Mean Corpuscular Hemoglobin 29.6 pg (25.0-34.0); Mean Corpuscular Hgb Conc 33.3 g/dL (32.0-36.0); Mean Corpuscular Volume 88.8 fL (80.0-100.0); Mean Platelet Volume 10.7 fL (9.4-12.3); Monocytes # (auto) 0.57 K/uL (0.24-0.82); Monocytes % (auto) 10.6 %; Neutrophils # (auto) 3.88 K/uL (1.4-6.5); Neutrophils % (auto) 72.3 %; Platelet Count 262 K/uL (130-400); RDW Coefficient of Variation 11.9 % (11.5-14.5); RDW Standard Deviation 38.3 fL (36.4-46.3); Red Blood Count 3.65 M/uL (3.93-5.22); White Blood Count 5.36 K/ul (4.8-10.8)
[2022-03-27 09:21] LABS: BUN Creatinine Ratio 28.9 (10-20); C Reactive Protein 18.47 mg/dl (0-0.5); Calcium 8.7 mg/dl (8.5-10.1); Creatinine Clr Calc Pharmacy 150.7 ml/min; Est GFR (Non-African American) 109.6 ml/min; Magnesium 1.6 mg/dl (1.7-2.4); Potassium 3.4 mmol/L (3.5-5.1)
--- NOTE | 2022-03-27 09:30 | Pharmacy Report ---
Pharmacy PK ABX Note - Date of Service March 27, 2022 - Assessment and Plan Assessment 66 year old F receiving vancomycin + ceftriaxone for treatment of septic arthritis/possible osteomyelitis. * Day #3 of abx therapy. * Blood cultures with no growth to date. 24 hr Tmax of 38.7 C. No leukocytosis. ESR/CRP continue to trend up. * Vancomycin was started on 03/25/22. Discontinued on the evening of 03/26/22. Resumed this morning. Dose was due at 0400 so will resume previous dosing around 0900 without checking level or reloading patient. * Infectious Disease consult pending. Plan Vancomycin * Current regimen: 1500 mg IV every 12 hours * Predicted AUC at steady state: 554 mg/L.hr * Random level ordered for: 03/28/22 Pharmacy will continue to follow and will adjust dose/frequency as necessary. Thank you. Pharmacy has transitioned to AUC monitoring for vancomycin. AUC/STEWART is the preferred PK/PD target and is associated with decreased risk of nephrotoxicity compared to traditional trough targets.
[2022-03-27] MEDS: oxyCODONE HCL IR 5 MG TAB (IMMEDIATE RELEASE) PO PRN (11:32)
[2022-03-27] MEDS: VANCOMYCIN HCL 1,500 MG in SODIUM CHLORIDE 0.9% 500 ML IV SCH ×2 (11:34→21:15)
--- NOTE | 2022-03-27 13:16 | Hospitalist Progress Note ---
Date of Service March 27, 2022 Assessment & Plan (1) Right hip pain: Plan: Patient admitted to medical for right hip pain. MRI-H: 1. Mild increased fluid signal within the symphysis pubis with moderate adjacent edema and enhancement, predominantly along the superior aspect the symphysis pubis and adjacent to the bilateral superior pubic rami. In addition, edema and enhancement within the adjacent adductor muscles. Although the findings could be degenerative, the findings are suspicious for an infectious process with septic arthritis of the symphysis pubis. Associated developing osteomyelitis of the medial bilateral pubic bones cannot be excluded. No absces s. 2. Moderate bilateral hip osteoarthritis. Small right and trace left hip joint effusions. Due to this concern antibiotics were started including Vanco and Rocephin empirically Surgery did not recommend surgical intervention at this facility, recommended continuing medical management with ID consult. If not improving with MM and needs intervention recommended xfer. Ortho consulted, unlikely PMR as patient had such an acute presentation of severe hip pain. Consult ID for input--without culture data impossible to prove infection however given imaging findings + fever on 03/24 seems appropriate to treat for such MRSA coverage was initially stopped due to negative MRSA nare, these was re- added as is only predictive for resp infection. Will narrow based on progression and ID recs. CRP downtrending. Will likely need PICC placement and 6wks of IV abx if stable and improving (2) History of atrial fibrillation: Plan: apixaban pending final ID recs, restart 03/28 if not surgical intervention recommended/anticipated (3) Dyslipidemia: Plan: resume home meds (4) Bulging lumbar disc: Plan: likely not causing pain (5) GERD (gastroesophageal reflux disease): Plan: continue ppi (6) Afib: Plan: hold anticoagulation as patient may need a procedure continue verapamil. rate controlled. on lovenox for dvt prophylaxis. If no procedure scheduled, will resume eliquis, d/c lovenox (7) Hypothyroidism: Plan: resume levothyroxine (8) Asthma: Plan: stable uses rescue inhalers rarely. will monitor (9) Restless leg syndrome: Plan: continue pramipexol (10) Hypertension: Plan: continue verapamil BP well controlled (11) Apnea, sleep: Plan: Patient does not tolerate CPAP. Patient states mild AHSAN Admission and Anticipated Discharge Date Admission Date: March 24, 2022 Consuelo Page seen the bedside this morning. No fevers or chills, but notes she does feel cold and thinks the room is cool. She does not have any pain at rest but with ambulation does continue to get some pelvic discomfort. No chest pain, chest pressure, lightheadedness, dizziness, shortness of breath, difficulty breathing. No rash. Patient thinks she completed the ID consultation this morning by iPad, is not sure if recommendations at Review of Systems Review of Systems: All systems reviewed & are unremarkable except as noted in Subjective Physical Exam Physical Exam: General: A&Ox3. NAD. Cooperative. HEENT: Atraumatic, normocephalic. Pulm: CTAB A&P. -wheezes, -rales, -rhonchi. Symmetrical chest rise. No increase in work of breathing. No respiratory distress. Cardiac: RRR, -mrg. Radial pulses intact and symmetrical. Abdominal: Nontender, nondistended, soft. BS present. Extremities: Warm and dry. Results & Data Results & Data ([facility]) Vital Signs (Past 12 Hours) Vital Signs Temp Pulse Resp BP Pulse Ox O2 Del Method O2 Flow Rate 03/27/22 08:00 Nasal Cannula 2 03/27/22 07:34 36.8 C 77 16 127/68 98 Nasal Cannula 2 PG Care Time/CCT Total # of Minutes Spent Total Time Spent with Patient: Total time spent is greater than 50% in coordination of care (as documented) at patient's floor/unit and/or counseling patient: Coding Level of Care Code 03143 Subseq Hosp Care Lvl 2 Diagnoses Right hip pain M25.551 History of atrial fibrillation Z86.79 Dyslipidemia E78.5 Bulging lumbar disc M51.26 GERD (gastroesophageal reflux disease) K21.9 Afib I48.91 Hypothyroidism E03.9 Hypothyroidism type: acquired Asthma J45.40 Asthma severity: moderate Asthma persistence: persistent Asthma complication type: unspecified Restless leg syndrome G25.81 Hypertension I10 Hypertension type: essential hypertension Apnea, sleep G47.30 (1) Hypothyroidism Hypothyroidism type: acquired Qualified Code(s): E03.9 - Hypothyroidism, unspecified (2) Asthma Asthma severity: moderate Asthma persistence: persistent Asthma complication type: unspecified Qualified Code(s): J45.40 - Moderate persistent asthma, uncomplicated (3) Hypertension Hypertension type: essential hypertension Qualified Code(s): I10 - Essential (primary) hypertension
[2022-03-27] MEDS: cefTRIAXone SODIUM 2,000 MG in DEXTROSE 5% 50 ML IV SCH (14:58)
[2022-03-27] MEDS ORDERED: MAGNESIUM SULFATE / D5W 1 GM/100 ML BAG IV ONE (18:07)
[2022-03-27] MEDS: MAGNESIUM OXIDE 400 MG TAB PO SCH (21:16)
--- NOTE | 2022-03-27 21:25 | Communication Note ---
Date of Service: March 27, 2022 notified of fever 39.4. reviewed chart. Ongoing intermittent fevers since admission, likely osteomyelitis. On vancomycin. last blood culture on 03/24, will not be ordering repeat at this time.
[2022-03-28] MEDS: LEVOTHYROXINE SODIUM 200 MCG TABLET PO SCH (06:14)
[2022-03-28] MEDS: oxyCODONE HCL IR 5 MG TAB (IMMEDIATE RELEASE) PO PRN (06:14)
[2022-03-28 07:29] LABS: Basophils # (auto) 0.02 K/uL (0-0.2); Basophils % (auto) 0.4 %; Eosinophils # (auto) 0.12 K/uL (0-0.50); Eosinophils % (auto) 2.1 %; Hematocrit (blood only) 35.5 % (34.1-44.9); Hemoglobin 11.6 g/dl (12.0-16.0); Immature Granulocytes # (auto) 0.03 K/uL (0.00-0.02); Immature Granulocytes % (auto) 0.5 %; Lymphocytes % (auto) 14.3 %; Mean Corpuscular Hemoglobin 28.9 pg (25.0-34.0); Mean Corpuscular Hgb Conc 32.7 g/dL (32.0-36.0); Mean Corpuscular Volume 88.5 fL (80.0-100.0); Mean Platelet Volume 10.1 fL (9.4-12.3); Monocytes % (auto) 8.9 %; Neutrophils # (auto) 4.12 K/uL (1.4-6.5); Neutrophils % (auto) 73.8 %; Platelet Count 309 K/uL (130-400); RDW Coefficient of Variation 11.9 % (11.5-14.5); Red Blood Count 4.01 M/uL (3.93-5.22); White Blood Count 5.59 K/ul (4.8-10.8)
[2022-03-28] MEDS ORDERED: VANCOMYCIN LEVEL ONE (07:30)
[2022-03-28 08:22] LABS: BUN Creatinine Ratio 20.8 (10-20); Calcium 8.7 mg/dl (8.5-10.1); Creatinine Clr Calc Pharmacy 119.3 ml/min; Est GFR (African American) 117.6 ml/min; Est GFR (Non-African American) 101.5 ml/min; Potassium 3.2 mmol/L (3.5-5.1)
[2022-03-28] MEDS: VANCOMYCIN HCL 1,500 MG in SODIUM CHLORIDE 0.9% 500 ML IV SCH ×2 (08:59→16:58)
[2022-03-28] MEDS: ENOXAPARIN INJ 40 MG/0.4 ML SYR SQ SCH (09:03)
[2022-03-28] MEDS: PRAMIPEXOLE DIHYDROCHLO 0.25 MG TAB PO SCH ×2 (09:04→14:13)
[2022-03-28] MEDS: PANTOprazole 40 MG TAB PO SCH ×2 (09:05→21:48)
[2022-03-28] MEDS: VERAPAMIL HCL 240 MG TABCR PO SCH ×2 (09:05→21:48)
[2022-03-28] MEDS: MAGNESIUM OXIDE 400 MG TAB PO SCH ×2 (09:06→21:48)
[2022-03-28] MEDS: MULTIVITAMIN CHEWABLE TAB PO SCH ×2 (09:06→21:48)
[2022-03-28] MEDS: SUCRALFATE 1 GM/10 ML UDC PO SCH ×2 (09:06→21:48)
[2022-03-28] MEDS: POTASSIUM CHLORIDE CRTAB 20 MEQ TABCR PO SCH ×2 (09:08→21:48)
[2022-03-28] MEDS: FUROSEMIDE 40 MG TAB PO SCH (09:09)
--- NOTE | 2022-03-28 09:53 | Pharmacy Report ---
Pharmacy PK ABX Note - Date of Service March 28, 2022 - Assessment and Plan Assessment 03/28 * Patient continues to be febrile, may consider broadening ceftriaxone if continues, awaiting ID consult * Blood cultures negative at 48 hours 03/27 66 year old F receiving vancomycin + ceftriaxone for treatment of septic arthritis/possible osteomyelitis. * Day #3 of abx therapy. * Blood cultures with no growth to date. 24 hr Tmax of 38.7 C. No leukocytosis. ESR/CRP continue to trend up. * Vancomycin was started on 03/25/22. Discontinued on the evening of 03/26/22. Resumed this morning. Dose was due at 0400 so will resume previous dosing around 0900 without checking level or reloading patient. * Infectious Disease consult pending. Plan 03/28 * Random drug level 7.3 this AM, dose will need adjusted as this is predicting subtherapeutic AUC/STEWART at steady state: 382 mg/L.hr * Adjust dose to 1500 mg q8H- this predicts AUC/STEWART of 573 mg/L.hr * Random level ordered for 03/30/22 AM 03/27 Vancomycin * Current regimen: 1500 mg IV every 12 hours * Predicted AUC at steady state: 554 mg/L.hr * Random level ordered for: 03/28/22 Pharmacy will continue to follow and will adjust dose/frequency as necessary. Thank you. Pharmacy has transitioned to AUC monitoring for vancomycin. AUC/STEWART is the preferred PK/PD target and is associated with decreased risk of nephrotoxicity compared to traditional trough targets.
--- NOTE | 2022-03-28 12:58 | Hospitalist Progress Note ---
Date of Service March 28, 2022 Assessment & Plan (1) Right hip pain: Plan: -Patient admitted to medical for right hip pain, with occasional fevers and chills -MRI of the hip showed Mild increased fluid signal within the symphysis pubis with moderate adjacent edema and enhancement, predominantly along the superior aspect the symphysis pubis and adjacent to the bilateral superior pubic rami. In addition, edema and enhancement within the adjacent adductor muscles. Although the findings could be degenerative, the findings are suspicious for an infectious process with septic arthritis of the symphysis pubis. Associated developing osteomyelitis of the medial bilateral pubic bones cannot be excluded. -Due to this concern antibiotics were started including Vanco and Rocephin empirically -Blood cultures also obtained -Surgery did not recommend surgical intervention at this facility, recommended continuing medical management with ID consult. If not improving with MM and needs intervention recommended transfer -Consult ID for input -Continue to monitor inflammatory markers -Will likely need PICC placement and 6wks of IV abx (2) History of atrial fibrillation: Plan: Rate controlled apixaban pending final ID recs, restart 03/28 if not surgical intervention recommended/anticipated (3) Dyslipidemia: Plan: resume home meds (4) Bulging lumbar disc: Plan: likely not causing pain (5) GERD (gastroesophageal reflux disease): Plan: continue ppi (6) Afib: Plan: hold anticoagulation as patient may need a procedure continue verapamil. rate controlled. on lovenox for dvt prophylaxis. If no procedure scheduled, will resume eliquis, d/c lovenox (7) Hypothyroidism: Plan: resume levothyroxine (8) Asthma: Plan: stable uses rescue inhalers rarely. will monitor (9) Restless leg syndrome: Plan: continue pramipexol (10) Hypertension: Plan: BP soft, 104/62 today continue verapamil BP well controlled (11) Apnea, sleep: Plan: Patient does not tolerate CPAP. Patient states mild AHSAN Admission and Anticipated Discharge Date Admission Date: March 24, 2022 Subjective patient seen and examined today, sitting up in the chair, says her pubic area hurts on ambulation Review of Systems Review of Systems: All systems reviewed are negative, apart from the ones contained in the history. Physical Exam Physical Exam: The patient is awake, alert and oriented 3, well developed and well nourished, normocephalic and atraumatic, lying in bed and in no acute distress. HEENT--PERRL, EOMI, mucous membranes and oropharynx mildly dry Neck--supple. No JVD. No bruits. Thyroid normal, trachea midline, no adenopathy. Heart--normal S1 and S2. No murmurs, rubs or gallops. Lungs--clear bilaterally, no respiratory distress, no accessory muscle use. Abdomen--normal bowel sounds and soft. Mild epigastric and left sided abdominal pain Extremities--no cyanosis or clubbing. No edema. Dermatologic--normal skin turgor, normal color, no abnormal lymph nodes, no rash. Neurologic--cranial nerves II through XII grossly intact. Rheumatologic--normal range of motion. Psychiatric--normal affect. Results & Data Results & Data ([facility]) Vital Signs (Past 12 Hours) Vital Signs Temp Pulse Resp BP Pulse Ox O2 Del Method 03/28/22 12:36 97.1 F L 72 14 104/62 97 Room Air 03/28/22 08:00 82 14 117/70 95 Room Air 03/28/22 08:07 82 15 117/70 95 Room Air 03/28/22 02:45 99.3 F PG Care Time/CCT Total # of Minutes Spent Total Time Spent with Patient: Total time spent is greater than 50% in coordination of care (as documented) at patient's floor/unit and/or counseling patient: Coding Level of Care Code 43987 Subseq Hosp Care Lvl 2 Diagnoses Right hip pain M25.551 History of atrial fibrillation Z86.79 Dyslipidemia E78.5 Bulging lumbar disc M51.26 GERD (gastroesophageal reflux disease) K21.9 Afib I48.91 Hypothyroidism E03.9 Hypothyroidism type: acquired Asthma J45.40 Asthma severity: moderate Asthma persistence: persistent Asthma complication type: unspecified Restless leg syndrome G25.81 Hypertension I10 Hypertension type: essential hypertension Apnea, sleep G47.30 Time Spent (min) 35 (1) Hypothyroidism Hypothyroidism type: acquired Qualified Code(s): E03.9 - Hypothyroidism, unspecified (2) Asthma Asthma severity: moderate Asthma persistence: persistent Asthma complication type: unspecified Qualified Code(s): J45.40 - Moderate persistent asthma, uncomplicated (3) Hypertension Hypertension type: essential hypertension Qualified Code(s): I10 - Essential (primary) hypertension
[2022-03-28] MEDS: cefTRIAXone SODIUM 2,000 MG in DEXTROSE 5% 50 ML IV SCH (14:09)
[2022-03-28] MEDS ORDERED: APIXABAN 5 MG TABLET PO SCH (21:00)
[2022-03-29] MEDS: VANCOMYCIN HCL 1,500 MG in SODIUM CHLORIDE 0.9% 500 ML IV SCH ×3 (00:07→17:03)
[2022-03-29] MEDS: oxyCODONE HCL IR 5 MG TAB (IMMEDIATE RELEASE) PO PRN ×3 (00:07→22:30)
[2022-03-29] MEDS: LEVOTHYROXINE SODIUM 200 MCG TABLET PO SCH (05:40)
[2022-03-29 07:32] LABS: Hematocrit (blood only) 33.7 % (34.1-44.9); Hemoglobin 11.3 g/dl (12.0-16.0); Mean Corpuscular Hemoglobin 29.3 pg (25.0-34.0); Mean Corpuscular Hgb Conc 33.5 g/dL (32.0-36.0); Mean Corpuscular Volume 87.3 fL (80.0-100.0); Mean Platelet Volume 10.4 fL (9.4-12.3); Platelet Count 324 K/uL (130-400); RDW Coefficient of Variation 11.9 % (11.5-14.5); RDW Standard Deviation 38.3 fL (36.4-46.3); Red Blood Count 3.86 M/uL (3.93-5.22); White Blood Count 4.78 K/ul (4.8-10.8)
[2022-03-29 08:03] LABS: BUN Creatinine Ratio 20.9 (10-20); C Reactive Protein 11.51 mg/dl (0-0.5); Calcium 8.8 mg/dl (8.5-10.1); Creatinine Clr Calc Pharmacy 135.9 ml/min; Est GFR (Non-African American) 105.2 ml/min; Potassium 3.7 mmol/L (3.5-5.1)
[2022-03-29] MEDS: PRAMIPEXOLE DIHYDROCHLO 0.25 MG TAB PO SCH (08:40)
[2022-03-29] MEDS: MULTIVITAMIN CHEWABLE TAB PO SCH ×2 (08:40→21:51)
[2022-03-29] MEDS: FUROSEMIDE 40 MG TAB PO SCH (08:41)
[2022-03-29] MEDS: VERAPAMIL HCL 240 MG TABCR PO SCH ×2 (08:41→21:51)
[2022-03-29] MEDS: PANTOprazole 40 MG TAB PO SCH ×2 (08:42→21:51)
[2022-03-29] MEDS: SUCRALFATE 1 GM/10 ML UDC PO SCH ×2 (08:42→21:51)
[2022-03-29] MEDS: POTASSIUM CHLORIDE CRTAB 20 MEQ TABCR PO SCH ×2 (08:42→21:51)
[2022-03-29] MEDS: MAGNESIUM OXIDE 400 MG TAB PO SCH ×2 (08:42→21:51)
[2022-03-29] MEDS: ENOXAPARIN INJ 40 MG/0.4 ML SYR SQ SCH (08:43)
[2022-03-29] MEDS ORDERED: ENOXAPARIN INJ 40 MG/0.4 ML SYR SQ SCH (09:00)
--- NOTE | 2022-03-29 12:00 | Hospitalist Progress Note ---
Date of Service March 29, 2022 Assessment & Plan (1) Osteomyelitis of hip: Plan: -Patient admitted to medical for right hip pain, with occasional fevers and chills -MRI of the hip showed Mild increased fluid signal within the symphysis pubis with moderate adjacent edema and enhancement, predominantly along the superior aspect the symphysis pubis and adjacent to the bilateral superior pubic rami. In addition, edema and enhancement within the adjacent adductor muscles. Although the findings could be degenerative, the findings are suspicious for an infectious process with septic arthritis of the symphysis pubis. Associated developing osteomyelitis of the medial bilateral pubic bones cannot be excluded. -Due to this concern antibiotics were started including Vanco and Rocephin empirically -Blood cultures also obtained -Surgery did not recommend surgical intervention at this facility, recommended continuing medical management with ID consult. If not improving with MM and needs intervention recommended transfer -Consult ID for input -Continue to monitor inflammatory markers -Will likely need PICC placement and 6wks of IV abx -Continue to monitor inflammatory markers, CRP still elevated (2) Right hip pain: Plan: -Likely from the osteomyelitis/septic arthritis above (3) Afib: Plan: hold anticoagulation as patient may need a procedure continue verapamil. rate controlled. on lovenox for dvt prophylaxis. If no procedure scheduled, will resume eliquis, d/c lovenox (4) History of atrial fibrillation: Plan: Rate controlled apixaban pending final ID recs, restart if not surgical intervention recommended/anticipated Continue Lovenox for now (5) Hypertension: Plan: BP soft, 127/77 today continue verapamil BP well controlled (6) Dyslipidemia: Plan: resume home meds (7) Bulging lumbar disc: Plan: likely not causing pain (8) GERD (gastroesophageal reflux disease): Plan: continue ppi (9) Hypothyroidism: Plan: resume levothyroxine (10) Asthma: Plan: stable uses rescue inhalers rarely. will monitor (11) Restless leg syndrome: Plan: continue pramipexol (12) Apnea, sleep: Plan: Patient does not tolerate CPAP. Patient states mild AHSAN Admission and Anticipated Discharge Date Admission Date: March 24, 2022 Subjective patient seen and examined today, sitting up in the chair, says her pubic area hurts on ambulation, but much better today compared to yesterday. denies fever or chills overnight Review of Systems Review of Systems: All systems reviewed are negative, apart from the ones contained in the history. Physical Exam Physical Exam: The patient is awake, alert and oriented 3, well developed and well nourished, normocephalic and atraumatic, lying in bed and in no acute distress. HEENT--PERRL, EOMI, mucous membranes and oropharynx mildly dry Neck--supple. No JVD. No bruits. Thyroid normal, trachea midline, no adenopathy. Heart--normal S1 and S2. No murmurs, rubs or gallops. Lungs--clear bilaterally, no respiratory distress, no accessory muscle use. Abdomen--normal bowel sounds and soft. Mild epigastric and left sided abdominal pain Extremities--no cyanosis or clubbing. No edema. Dermatologic--normal skin turgor, normal color, no abnormal lymph nodes, no rash. Neurologic--cranial nerves II through XII grossly intact. Rheumatologic--normal range of motion. Psychiatric--normal affect. Results & Data Results & Data ([facility]) Vital Signs (Past 12 Hours) Vital Signs Temp Pulse Resp BP Pulse Ox O2 Del Method 03/29/22 07:52 97.5 F L 74 16 127/77 100 Room Air PG Care Time/CCT Total # of Minutes Spent Total Time Spent with Patient: Total time spent is greater than 50% in coordination of care (as documented) at patient's floor/unit and/or counseling patient: Coding Level of Care Code 11979 Subseq Hosp Care Lvl 2 Diagnoses Osteomyelitis of hip M86.9 Right hip pain M25.551 Afib I48.91 History of atrial fibrillation Z86.79 Hypertension I10 Hypertension type: essential hypertension Dyslipidemia E78.5 Bulging lumbar disc M51.26 GERD (gastroesophageal reflux disease) K21.9 Hypothyroidism E03.9 Hypothyroidism type: acquired Asthma J45.40 Asthma severity: moderate Asthma persistence: persistent Asthma complication type: unspecified Restless leg syndrome G25.81 Apnea, sleep G47.30 Time Spent (min) 35 (1) Hypothyroidism Hypothyroidism type: acquired Qualified Code(s): E03.9 - Hypothyroidism, unspecified (2) Asthma Asthma severity: moderate Asthma persistence: persistent Asthma complication type: unspecified Qualified Code(s): J45.40 - Moderate persistent asthma, uncomplicated (3) Hypertension Hypertension type: essential hypertension Qualified Code(s): I10 - Essential (primary) hypertension
[2022-03-29] MEDS: cefTRIAXone SODIUM 2,000 MG in DEXTROSE 5% 50 ML IV SCH (13:52)
--- NOTE | 2022-03-29 17:04 | Ultrasound Report ---
US venous doppler UE RT HISTORY: 66 years-old Female swelling acute pain and swelling of the right upper extremity COMPARISON: None TECHNIQUE: Multiple real-time sonographic images of the right upper extremity deep venous structures were obtained assessing grayscale appearance, color and spectral flow FINDINGS: Normal flow and phasicity of the right upper extremity deep venous structures. No DVT identified. IMPRESSION: No DVT. ACT 112: Negative or not required by law. The above report was generated using voice recognition software. It may contain grammatical, syntax o r spelling errors. Electronically signed by: Sav Wright M.D. 03/29/2022 5:03 PM
[2022-03-30] MEDS: VANCOMYCIN HCL 1,500 MG in SODIUM CHLORIDE 0.9% 500 ML IV SCH (00:20)
[2022-03-30] MEDS ORDERED: VANCOMYCIN LEVEL ONE (04:44)
[2022-03-30] MEDS: LEVOTHYROXINE SODIUM 200 MCG TABLET PO SCH (06:10)
--- NOTE | 2022-03-30 08:03 | Hospitalist Progress Note ---
Date of Service March 30, 2022 Assessment & Plan (1) Osteomyelitis of hip: Plan: 66-year-old female past medical history significant for GERD, atrial fibrillation, hypothyroidism, hypertension, asthma admitted to the hospital for suspected septic arthritis of the symphysis pubis with possible osteomyelitis of the medial bilateral pubic bones. Osteomyelitis: -Patient admitted for right hip pain, with occasional fevers and chills. -MRI of the hip showed fluid collection around the symphysis pubis consistent with possible septic arthritis, as well as potential associated osteomyelitis of the medial bilateral pubic bones. - Patient is currently on Vanco/Rocephin with improvement in serial CRP and subjective improvement in pubic/hip pain. - Blood cultures negative to date. - General surgery consulted for consideration of drainage of fluid collection however they recommend IR if symptoms not clinically improving. - ID consulted for antibiotic management assistance: Recommended transfer to facility with interventional radiology to attempt to gather sample for microbiologic diagnosis. Transfer consideration is pending. -Oxycodone as needed for pelvic/hip pain. (2) Right hip pain: Plan: - Likely from the osteomyelitis/septic arthritis above. (3) Afib: Plan: - Continue verapamil. Patient is currently rate controlled. - Eliquis was held in the event of procedure in-house. Will start Heparin gtt given Hx AFib (ChadsVasc of 3) and poor mobility making patient DVT risk. - Heparin gtt can be held by receiving facility prior to procedure. (4) Hypertension: Plan: - Continue verapamil. (5) GERD (gastroesophageal reflux disease): Plan: - Continue PPI. (6) Hypothyroidism: Plan: - Continue levothyroxine. (7) Asthma: Plan: - As needed albuterol inhaler. (8) Restless leg syndrome: Plan: - Continue pramipexole. Plan CODE STATUS: Full code FEN: Regular DVT prophylaxis: Heparin gtt started Dispo: Med/Surg Admission and Anticipated Discharge Date Admission Date: March 24, 2022 Subjective Patient without acute events overnight. Reports that her pubic pain is somewhat better today than yesterday but is still quite painful. She denies fevers or chills. Review of Systems Constitutional: no fever and no chills Respiratory: no cough and no dyspnea Cardiovascular: no chest pain and no palpitations Gastrointestinal: no abdominal pain, no nausea and no vomiting Physical Exam Constitutional: WD/WN, vitals as above Respiratory: normal respiratory effort, lungs clear to auscultation Cardiovascular: RRR, no murmur, no edema Gastrointestinal (Abdomen): normal bowel sounds, soft, nontender, no hepatosplenomegaly Skin: no rashes, warm and dry Psychiatric: A+Ox3, euthymic affect Results & Data Results & Data ([facility]) Vital Signs (Past 12 Hours) Vital Signs Temp Pulse Resp BP Pulse Ox O2 Del Method 03/30/22 07:35 37.0 C 82 14 120/73 96 Room Air 03/29/22 23:25 37.4 C 82 16 121/71 94 Room Air PG Care Time/CCT Total # of Minutes Spent Total Time Spent with Patient: Total time spent is greater than 50% in coordination of care (as documented) at patient's floor/unit and/or counseling patient: Coding Level of Care Code 64776 Subseq Hosp Care Lvl 3 Diagnoses Osteomyelitis of hip M86.9 Right hip pain M25.551 Afib I48.91 Hypertension I10 Hypertension type: essential hypertension GERD (gastroesophageal reflux disease) K21.9 Hypothyroidism E03.9 Hypothyroidism type: acquired Asthma J45.40 Asthma severity: moderate Asthma persistence: persistent Asthma complication type: unspecified Restless leg syndrome G25.81 (1) Hypertension Hypertension type: essential hypertension Qualified Code(s): I10 - Essential (primary) hypertension (2) Hypothyroidism Hypothyroidism type: acquired Qualified Code(s): E03.9 - Hypothyroidism, unspecified (3) Asthma Asthma severity: moderate Asthma persistence: persistent Asthma complication type: unspecified Qualified Code(s): J45.40 - Moderate persistent asthma, uncomplicated
[2022-03-30 08:44] LABS: Basophils # (auto) 0.03 K/uL (0-0.2); Basophils % (auto) 0.7 %; Eosinophils # (auto) 0.19 K/uL (0-0.50); Eosinophils % (auto) 4.2 %; Hematocrit (blood only) 32.9 % (34.1-44.9); Immature Granulocytes # (auto) 0.02 K/uL (0.00-0.02); Immature Granulocytes % (auto) 0.4 %; Lymphocytes # (auto) 0.94 K/uL (1.2-3.4); Lymphocytes % (auto) 20.7 %; Mean Corpuscular Hemoglobin 29.4 pg (25.0-34.0); Mean Corpuscular Hgb Conc 33.4 g/dL (32.0-36.0); Mean Platelet Volume 10.8 fL (9.4-12.3); Monocytes # (auto) 0.38 K/uL (0.24-0.82); Monocytes % (auto) 8.4 %; Neutrophils # (auto) 2.98 K/uL (1.4-6.5); Neutrophils % (auto) 65.6 %; Platelet Count 362 K/uL (130-400); RDW Coefficient of Variation 11.9 % (11.5-14.5); RDW Standard Deviation 38.2 fL (36.4-46.3); Red Blood Count 3.74 M/uL (3.93-5.22); White Blood Count 4.54 K/ul (4.8-10.8)
[2022-03-30 08:55] LABS: BUN Creatinine Ratio 19.6 (10-20); C Reactive Protein 6.4 mg/dl (0-0.5); Calcium 8.8 mg/dl (8.5-10.1); Creatinine Clr Calc Pharmacy 114.6 ml/min; Est GFR (African American) 115.3 ml/min; Est GFR (Non-African American) 99.5 ml/min; Potassium 3.4 mmol/L (3.5-5.1)
--- NOTE | 2022-03-30 09:02 | Pharmacy Report ---
Pharmacy PK ABX Note - Date of Service March 30, 2022 - Assessment and Plan Assessment 03/30 * Blood culture show no growth at 5 days * Remains afebrile over past 48 hours, renal function stable 03/27 66 year old F receiving vancomycin + ceftriaxone for treatment of septic arthritis/possible osteomyelitis. * Day #3 of abx therapy. * Blood cultures with no growth to date. 24 hr Tmax of 38.7 C. No leukocytosis. ESR/CRP continue to trend up. * Vancomycin was started on 03/25/22. Discontinued on the evening of 03/26/22. Resumed this morning. Dose was due at 0400 so will resume previous dosing around 0900 without checking level or reloading patient. * Infectious Disease consult pending. Plan Vancomycin * Current regimen: 1500 mg IV every 8 hours * Random level obtained 03/30/22 resulted as 20.4 mcg/mL. This is predicted to achieve target AUC/STEWART of 400-600 mg/L.hr * Predicted AUC at steady state: 590 mg/L.hr * Change to 1250 mg IV every 8 hours for decreased risk of nephrotoxicity/supratherapeutic trough * Will repeat level in the next 48-72 hours if therapy is continued and/or change in patient clinical status Ceftriaxone * 2 g IV q24h - no change Pharmacy will continue to follow and will adjust dose/frequency as necessary. Thank you. Pharmacy has transitioned to AUC monitoring for vancomycin. AUC/SETWART is the preferred PK/PD target and is associated with decreased risk of nephrotoxicity compared to traditional trough targets.
[2022-03-30] MEDS: MULTIVITAMIN CHEWABLE TAB PO SCH ×2 (09:46→22:56)
[2022-03-30] MEDS: SUCRALFATE 1 GM/10 ML UDC PO SCH ×2 (09:46→22:57)
[2022-03-30] MEDS: PRAMIPEXOLE DIHYDROCHLO 0.25 MG TAB PO SCH (09:47)
[2022-03-30] MEDS: ENOXAPARIN INJ 40 MG/0.4 ML SYR SQ SCH (09:47)
[2022-03-30] MEDS: VERAPAMIL HCL 240 MG TABCR PO SCH ×2 (09:48→22:57)
[2022-03-30] MEDS: MAGNESIUM OXIDE 400 MG TAB PO SCH ×2 (09:48→22:55)
[2022-03-30] MEDS: PANTOprazole 40 MG TAB PO SCH ×2 (09:48→22:56)
[2022-03-30] MEDS: FUROSEMIDE 40 MG TAB PO SCH (09:48)
[2022-03-30] MEDS: POTASSIUM CHLORIDE CRTAB 20 MEQ TABCR PO SCH ×2 (09:51→22:56)
[2022-03-30] MEDS: VANCOMYCIN HCL 1,250 MG in SODIUM CHLORIDE 0.9% 250 ML IV SCH ×2 (09:56→18:27)
[2022-03-30] MEDS: cefTRIAXone SODIUM 2,000 MG in DEXTROSE 5% 50 ML IV SCH (13:35)
[2022-03-30] MEDS ORDERED: ENOXAPARIN 1 MG/KG SQ SCH (20:00)
[2022-03-30 20:59] LABS: Basophils # (auto) 0.03 K/uL (0-0.2); Basophils % (auto) 0.5 %; Eosinophils # (auto) 0.25 K/uL (0-0.50); Eosinophils % (auto) 4.1 %; Hematocrit (blood only) 33.9 % (34.1-44.9); Hemoglobin 11.5 g/dl (12.0-16.0); Immature Granulocytes # (auto) 0.04 K/uL (0.00-0.02); Immature Granulocytes % (auto) 0.7 %; Lymphocytes # (auto) 1.36 K/uL (1.2-3.4); Lymphocytes % (auto) 22.5 %; Mean Corpuscular Hemoglobin 29.6 pg (25.0-34.0); Mean Corpuscular Hgb Conc 33.9 g/dL (32.0-36.0); Mean Corpuscular Volume 87.4 fL (80.0-100.0); Mean Platelet Volume 10.1 fL (9.4-12.3); Monocytes # (auto) 0.57 K/uL (0.24-0.82); Monocytes % (auto) 9.4 %; Neutrophils # (auto) 3.79 K/uL (1.4-6.5); Neutrophils % (auto) 62.8 %; Platelet Count 359 K/uL (130-400); RDW Coefficient of Variation 11.9 % (11.5-14.5); RDW Standard Deviation 38.3 fL (36.4-46.3); Red Blood Count 3.88 M/uL (3.93-5.22); White Blood Count 6.04 K/ul (4.8-10.8)
[2022-03-30 21:15] LABS: Partial Thromboplastin Time 27.5 Seconds (21.0-31.0); Prothrombin Time 10.9 Seconds (9.0-12.0)
[2022-03-30] MEDS: HEPARIN SODIUM/DEXTROSE 25,000 UNITS/500 ML BAG IV SCH (22:10)
[2022-03-31] MEDS: oxyCODONE HCL IR 5 MG TAB (IMMEDIATE RELEASE) PO PRN (00:11)
[2022-03-31] MEDS: VANCOMYCIN HCL 1,250 MG in SODIUM CHLORIDE 0.9% 250 ML IV SCH ×3 (02:26→19:01)
[2022-03-31] MEDS: Heparin IV Adult Wt-Based Standard *NO* Bolus Protocol IV SCH ×2 (04:03)
[2022-03-31] MEDS: LEVOTHYROXINE SODIUM 200 MCG TABLET PO SCH (05:26)
--- NOTE | 2022-03-31 05:36 | Communication Note ---
Date of Service: March 31, 2022 Notified by nursing that patient was very upset because she is concerned about her lower extremity edema. I was able to speak with patient who states that she has a hx of CHF and feels that her BLE edema has significantly worsened since admission to the hospital. Patient does take 40 mg lasix po daily, which she self-titrates when concerned for fluid overload at home. Patient feels that she has gained > 8 lbs since admission to the hospital. She is sitting in chair at bedside and I did discuss dependent edema but patient states that laying in bed is "too confining." Patient denies CP or SOB. Respirations unlabored. She does have BLE edema, R>L. Right lower extremity with 2+ edema to knee. Left lower extremity with 1-2+ edema to mid wang. There is no calf tenderness to palpation. On chart review, patient with last echo 10/06/20. LVEF 55-60%. No regional wall motion abnormalities. No LVH. No significant valvular abnormalities. No signific ant change from prior study on 05/05/2019. Discussed with patient that I will order daily weights. Continue with current lasix as ordered but this can be adjusted as indicated based on symptoms/weights per daytime physician. Recommend elevating legs, even when sitting in chair at bedside. Patient acknowledges and agrees with plan. Resident Activity Tracking Resident Involvement: Resident Care Provided Care Provided: Adult Hospital Medicine
[2022-03-31 06:17] LABS: Hematocrit (blood only) 32.4 % (34.1-44.9); Hemoglobin 10.8 g/dl (12.0-16.0); Mean Corpuscular Hgb Conc 33.3 g/dL (32.0-36.0); Mean Corpuscular Volume 86.9 fL (80.0-100.0); Mean Platelet Volume 10.2 fL (9.4-12.3); Platelet Count 378 K/uL (130-400); RDW Coefficient of Variation 11.9 % (11.5-14.5); RDW Standard Deviation 37.9 fL (36.4-46.3); Red Blood Count 3.73 M/uL (3.93-5.22); White Blood Count 5.34 K/ul (4.8-10.8)
[2022-03-31 06:28] LABS: Partial Thromboplastin Ratio 1.1; Partial Thromboplastin Time 30.6 Seconds (21.0-31.0)
[2022-03-31 06:41] LABS: Calcium 8.6 mg/dl (8.5-10.1); Creatinine Clr Calc Pharmacy 118.1 ml/min; Est GFR (African American) 116.1 ml/min; Est GFR (Non-African American) 100.2 ml/min; Potassium 3.4 mmol/L (3.5-5.1)
[2022-03-31] MEDS ORDERED: HEPARIN SOD (PORCINE) 1000 UNIT/ML IV ONE ×2 (07:18→16:30)
[2022-03-31] MEDS ORDERED: HEPARIN IV BOLUS 5,000 UNITS in SYRINGE 0 ML IV ONE (07:30)
[2022-03-31] MEDS: VERAPAMIL HCL 240 MG TABCR PO SCH ×2 (08:19→23:07)
[2022-03-31] MEDS: FUROSEMIDE 40 MG TAB PO SCH (08:19)
[2022-03-31] MEDS: MAGNESIUM OXIDE 400 MG TAB PO SCH ×2 (08:20→23:06)
[2022-03-31] MEDS: PRAMIPEXOLE DIHYDROCHLO 0.25 MG TAB PO SCH (08:20)
[2022-03-31] MEDS: SUCRALFATE 1 GM/10 ML UDC PO SCH ×2 (08:21→23:07)
[2022-03-31] MEDS: PANTOprazole 40 MG TAB PO SCH ×2 (08:21→23:06)
[2022-03-31] MEDS: MULTIVITAMIN CHEWABLE TAB PO SCH ×2 (08:21→23:06)
[2022-03-31] MEDS: POTASSIUM CHLORIDE CRTAB 20 MEQ TABCR PO SCH ×2 (08:22→23:07)
[2022-03-31] MEDS: cefTRIAXone SODIUM 2,000 MG in DEXTROSE 5% 50 ML IV SCH (12:42)
[2022-03-31 15:19] LABS: Partial Thromboplastin Ratio 1.4; Partial Thromboplastin Time 37.3 Seconds (21.0-31.0)
--- NOTE | 2022-03-31 15:33 | Hospitalist Progress Note ---
Date of Service March 31, 2022 Assessment & Plan (1) Osteomyelitis of hip: Plan: 66-year-old female past medical history significant for GERD, atrial fibrillation, hypothyroidism, hypertension, asthma admitted to the hospital for suspected septic arthritis of the symphysis pubis with possible osteomyelitis of the medial bilateral pubic bones. Osteomyelitis: - Patient admitted for right hip pain, with occasional fevers and chills. - MRI of the hip showed fluid collection around the symphysis pubis consistent with possible septic arthritis, as well as potential associated osteomyelitis of the medial bilateral pubic bones. - Patient is currently on Vanco/Rocephin with improvement in serial CRP and subjective improvement in pubic/hip pain. - Blood cultures negative to date. - General surgery consulted for consideration of drainage of fluid collection however they recommend IR if symptoms not clinically improving. - ID consulted for antibiotic management assistance: Recommended transfer to facility with interventional radiology to attempt to gather sample for microbiologic diagnosis. - Transfer accepted by Dr. Ramon Elliott (Hospitalist, [facility]) for transport tomorrow with IR procedure on . - Oxycodone as needed for pelvic/hip pain. (2) Right hip pain: Plan: - Likely from the osteomyelitis/septic arthritis above. (3) Afib: Plan: - Continue verapamil. Patient is currently rate controlled. - Eliquis was held in the event of procedure in-house. Continue Heparin gtt given Hx AFib (ChadsVasc of 3) and poor mobility making patient DVT risk. - Heparin gtt can be held by receiving facility prior to procedure. (4) Hypertension: Plan: - Continue verapamil. (5) GERD (gastroesophageal reflux disease): Plan: - Continue PPI. (6) Hypothyroidism: Plan: - Continue levothyroxine. (7) Asthma: Plan: - As needed albuterol inhaler. (8) Restless leg syndrome: Plan: - Continue pramipexole. Plan CODE STATUS: Full code FEN: Regular DVT prophylaxis: Heparin gtt Dispo: Med/Surg; transfer to [facility] tomorrow Admission and Anticipated Discharge Date Admission Date: March 24, 2022 Subjective Without acute events overnight. She reports that she is having some increase in swelling in her bilateral lower extremities, but she does not like lying down and rather is sitting in the recliner which causes her feet to dangle somewhat. She denies any chest pain or trouble breathing, abdominal pain. She reports that her pubic pain is still present but is decreased from admission. Review of Systems Constitutional: no fever and no chills Respiratory: no cough and no dyspnea Cardiovascular: no chest pain and no palpitations Gastrointestinal: no abdominal pain, no nausea and no vomiting Physical Exam Constitutional: WD/WN, vitals as above Respiratory: normal respiratory effort, lungs clear to auscultation Cardiovascular: Heart regular rate and rhythm no murmurs 2+ pitting edema to bilateral lower extremities Gastrointestinal (Abdomen): normal bowel sounds, soft, nontender, no hepatosplenomegaly Skin: no rashes, warm and dry Psychiatric: A+Ox3, euthymic affect Results & Data Results & Data ([facility]) Vital Signs (Past 12 Hours) Vital Signs Temp Pulse Resp BP Pulse Ox O2 Del Method 03/31/22 14:48 36.7 C 78 17 125/75 96 Room Air 03/31/22 07:40 Room Air 03/31/22 08:01 36.8 C 73 16 125/72 98 Room Air PG Care Time/CCT Total # of Minutes Spent Total Time Spent with Patient: Total time spent is greater than 50% in coordination of care (as documented) at patient's floor/unit and/or counseling patient: Coding Level of Care Code 34918 Subseq Hosp Care Lvl 3 Diagnoses Osteomyelitis of hip M86.9 Right hip pain M25.551 Afib I48.91 Hypertension I10 Hypertension type: essential hypertension GERD (gastroesophageal reflux disease) K21.9 Hypothyroidism E03.9 Hypothyroidism type: acquired Asthma J45.40 Asthma severity: moderate Asthma persistence: persistent Asthma complication type: unspecified Restless leg syndrome G25.81 (1) Hypertension Hypertension type: essential hypertension Qualified Code(s): I10 - Essential (primary) hypertension (2) Hypothyroidism Hypothyroidism type: acquired Qualified Code(s): E03.9 - Hypothyroidism, unspecified (3) Asthma Asthma severity: moderate Asthma persistence: persistent Asthma complication type: unspecified Qualified Code(s): J45.40 - Moderate persistent asthma, uncomplicated
[2022-03-31] MEDS: HEPARIN SODIUM/DEXTROSE 25,000 UNITS/500 ML BAG IV SCH ×2 (16:42→17:38)
[2022-04-01 01:10] LABS: Partial Thromboplastin Ratio 1.5; Partial Thromboplastin Time 40.2 Seconds (21.0-31.0)
[2022-04-01] MEDS: VANCOMYCIN HCL 1,250 MG in SODIUM CHLORIDE 0.9% 250 ML IV SCH (02:51)
[2022-04-01] MEDS: LEVOTHYROXINE SODIUM 200 MCG TABLET PO SCH (05:39)
--- NOTE | 2022-04-01 06:51 | Discharge Summary ---
Discharge Summary Date of Service April 01, 2022 Admission HPI Per Admitting Provider This is a pleasant 66 yo female with having pertinent PMH: severe OA of right knee treated with steroid injections (complete PMH is below) reports having right groin pain for past 3 days. She reports that 3 days ago, she noticed having that it was, and she had worsening pain in her right groin and right knee. She reported the pain was worse when bearing weight. She Reports the next day that the pain was worse. Pain was now moderate in intensity. Pain continued to worsen with bearing weight the pain was more severe again mainly localized in her right groin. Patient denies any trauma to the area.Yesterday pain was so severe the patient reports an inability to lift leg off ground without causing severe pain. Patient denies any fever chills nausea vomiting. During this time patient did go to the ER but was sent home after a negative abdominal pain work-up. Patient returned today and had negative imaging of ct abd/pelvis/ and MRI lumbar spine which would not explain etiology of pain. Admission was called for further investigation Admission Exam Per Admitting Provider Constitutional: WD/WN, vitals as above (appears comfortable but lying on left side) Eyes: PERRL, conjunctivae normal, anicteric sclerae ENMT: external ear and nose normal, oropharynx normal Neck: trachea midline, no thyromegaly Respiratory: normal respiratory effort, lungs clear to auscultation Cardiovascular: RRR, no murmur, no edema Gastrointestinal (Abdomen): normal bowel sounds, soft, nontender, no hepatosplenomegaly Musculoskeletal: Hip exam: right groin region is tender to palpation, log roll test is positive, passive flexion of right hip elicits pain. right knee: mildly tender to palpation on bony prominences Skin: no rashes, warm and dry Neurologic: PERRL, EOMI, accommodation nl, no face palsy, no dysarthria Psychiatric: A+Ox3, euthymic affect Lymphatic: no cervical or axillary lymphadenopathy Principal Dx & Hospital Course #1 = Principal Diagnosis (1) Osteomyelitis of hip: 66-year-old female past medical history significant for GERD, atrial fibrillation, hypothyroidism, hypertension, asthma admitted to the hospital for suspected septic arthritis of the symphysis pubis with possible osteomyelitis of the medial bilateral pubic bones. Osteomyelitis: - Patient admitted for right hip pain, with occasional fevers and chills. - MRI of the hip showed fluid collection around the symphysis pubis consistent with possible septic arthritis, as well as potential associated osteomyelitis of the medial bilateral pubic bones. - Patient is currently on Vanco/Rocephin with improvement in serial CRP and subjective improvement in pubic/hip pain. - Blood cultures negative to date. - General surgery consulted for consideration of drainage of fluid collection however they recommend IR if symptoms not clinically improving. - ID consulted for antibiotic management assistance: Recommended transfer to facility with interventional radiology to attempt to gather sample for microbiologic diagnosis. - Transfer accepted by Dr. Ramon Elliott (Hospitalist, [facility]) for transport today with IR procedure on . - Oxycodone as needed for pelvic/hip pain. (2) Right hip pain: - Likely from the osteomyelitis/septic arthritis above. (3) Afib: - Continue verapamil. Patient is currently rate controlled. - Eliquis was held in the event of procedure in-house. Continue Heparin gtt given Hx AFib (ChadsVasc of 3) and poor mobility making patient DVT risk. - Heparin gtt can be held by receiving facility prior to procedure. (4) Hypertension: - Continue verapamil. (5) GERD (gastroesophageal reflux disease): - Continue PPI. (6) Hypothyroidism: - Continue levothyroxine. (7) Asthma: - As needed albuterol inhaler. (8) Restless leg syndrome: - Continue pramipexole. Plan Code Status: FULL CODE DVT prophylaxis: Heparin gtt Dispo: Transfer to [facility] today Discharge Exam Constitutional well developed and well nourished; no acute distress Skin no rashes, warm and dry Psychiatric A+Ox3, euthymic affect Updated Medication List Medication Instructions Recorded Confirmed Type lancets 33 gauge ([employer] #100 ea 02/16/20 03/24/22 Rx Plus Lancet) pediatric multivitamin no.76 1 tab PO BID 04/23/20 03/24/22 History (Flintstones Complete chewable tablet) blood sugar diagnostic ([employer] #100 ea 05/02/20 03/24/22 Rx Verio test strips) acetaminophen 500 mg tablet 1,000 - 1,500 mg PO Q6H PRN Pain 10/05/20 03/24/22 History (Tylenol Extra Strength) nitroglycerin 0.4 mg sublingual 0.4 mg sublingual Q5M PRN chest 10/06/20 03/24/22 Rx tablet pain #1 btl levothyroxine 200 mcg tablet 200 mcg PO DAILY #90 tabs 08/18/21 03/24/22 Rx (Synthroid) cyclobenzaprine 10 mg tablet 10 mg PO TID PRN muscle spasm #30 10/09/21 03/24/22 Rx tabs gabapentin 100 mg capsule 100 mg PO Q8H PRN pain #30 caps 10/09/21 03/24/22 Rx valacyclovir 1 gram tablet 2,000 mg PO Q12H 1 day #4 tabs 10/09/21 03/24/22 Rx (Valtrex) potassium chloride 20 mEq 40 meq PO BID #180 tabs 12/02/21 03/24/22 Rx tablet,extended release apixaban 5 mg tablet 5 mg PO BID #180 tabs 12/24/21 03/24/22 Rx furosemide 40 mg tablet 40 mg PO DAILY edema #90 tabs 01/14/22 03/24/22 Rx verapamil 240 mg tablet,extended 240 mg PO BID #180 tabs 01/26/22 03/24/22 Rx release sucralfate 100 mg/mL oral 5 ml PO QID #1,200 mL 02/12/22 03/24/22 Rx suspension (Carafate) cyanocobalamin (vitamin B-12) 1,000 mcg IM .COMPLEX #1 mL 03/17/22 03/24/22 Rx 1,000 mcg/mL injection solution pramipexole 0.75 mg tablet 0.75 mg PO TID #90 tabs 03/17/22 03/24/22 Rx omeprazole 40 mg capsule,delayed 40 mg PO BID #60 caps 03/23/22 03/24/22 Rx release oxycodone 5 mg tablet 5 mg PO Q8H PRN pain #11 tabs 03/23/22 03/24/22 Rx sucralfate 100 mg/mL oral 1 g (10 mL) PO BID 4 weeks #560 mL 03/23/22 03/24/22 Rx suspension (Carafate) Hospital Stay Data Consultations 03/24/22 08:42 ED Decision to Admit Stat 03/25/22 13:02 Consult General Surgery Routine 03/26/22 08:52 Consult Infectious Diseases Routine 03/26/22 12:37 Consult Orthopedic Surgery Routine Diagnostic Imagining Performed 03/24/22 04:48 CT abd pelvis wo con Stat 03/24/22 05:51 MRI Lumbar Spine [MR lumbar spine wo con] Stat 03/24/22 14:57 MRI Hip [MR hip RT wo/w con] Routine 03/29/22 16:00 US venous doppler UE RT Routine Discharge Instructions Given to Patient (Per Discharging Provider) 66-year-old female past medical history significant for GERD, atrial fibrillation, hypothyroidism, hypertension, asthma admitted to the hospital for suspected septic arthritis of the symphysis pubis with possible osteomyelitis of the medial bilateral pubic bones. Osteomyelitis: - Patient admitted for right hip pain, with occasional fevers and chills. - MRI of the hip showed fluid collection around the symphysis pubis consistent with possible septic arthritis, as well as potential associated osteomyelitis of the medial bilateral pubic bones. - Patient is currently on Vanco/Rocephin with improvement in serial CRP and subjective improvement in pubic/hip pain. - Blood cultures negative to date. - General surgery consulted for consideration of drainage of fluid collection however they recommend IR if symptoms not clinically improving. - ID consulted for antibiotic management assistance: Recommended transfer to facility with interventional radiology to attempt to gather sample for microbiologic diagnosis. - Transfer accepted by Dr. Ramon Elliott (Hospitalist, [facility]) for transport today with IR procedure on . - Oxycodone as needed for pelvic/hip pain. Right hip pain: - Likely from the osteomyelitis/septic arthritis above. Afib: - Continue verapamil. Patient is currently rate controlled. - Eliquis was held in the event of procedure in-house. Continue Heparin gtt given Hx AFib (ChadsVasc of 3) and poor mobility making patient DVT risk. - Heparin gtt can be held by receiving facility prior to procedure. Hypertension: - Continue verapamil. GERD (gastroesophageal reflux disease): - Continue PPI. Hypothyroidism: - Continue levothyroxine. Asthma: - As needed albuterol inhaler. Restless leg syndrome: - Continue pramipexole. Total Time Total Time Spent Total Time Spent (In Minutes): 20 Coding Level of Care Code D/C DAY MANAGEMENT <30 MINS Diagnoses Osteomyelitis of hip M86.9 Right hip pain M25.551 Afib I48.91 Hypertension I10 Hypertension type: essential hypertension GERD (gastroesophageal reflux disease) K21.9 Hypothyroidism E03.9 Hypothyroidism type: acquired Asthma J45.40 Asthma complication type: unspecified Asthma persistence: persistent Asthma severity: moderate Restless leg syndrome G25.81
[2022-04-01 07:40] LABS: Basophils # (auto) 0.03 K/uL (0-0.2); Basophils % (auto) 0.6 %; Eosinophils # (auto) 0.21 K/uL (0-0.50); Eosinophils % (auto) 4.2 %; Hematocrit (blood only) 34.9 % (34.1-44.9); Hemoglobin 11.8 g/dl (12.0-16.0); Immature Granulocytes # (auto) 0.03 K/uL (0.00-0.02); Immature Granulocytes % (auto) 0.6 %; Lymphocytes # (auto) 1.42 K/uL (1.2-3.4); Lymphocytes % (auto) 28.3 %; Mean Corpuscular Hemoglobin 29.2 pg (25.0-34.0); Mean Corpuscular Hgb Conc 33.8 g/dL (32.0-36.0); Mean Corpuscular Volume 86.4 fL (80.0-100.0); Mean Platelet Volume 10.1 fL (9.4-12.3); Neutrophils # (auto) 2.82 K/uL (1.4-6.5); Neutrophils % (auto) 56.3 %; Platelet Count 397 K/uL (130-400); RDW Standard Deviation 38.3 fL (36.4-46.3); Red Blood Count 4.04 M/uL (3.93-5.22); White Blood Count 5.01 K/ul (4.8-10.8)
[2022-04-01 07:51] LABS: Partial Thromboplastin Ratio 1.5; Partial Thromboplastin Time 41.9 Seconds (21.0-31.0)
[2022-04-01 08:08] LABS: Creatinine Clr Calc Pharmacy 133.5 ml/min; Est GFR (African American) 121.1 ml/min; Est GFR (Non-African American) 104.5 ml/min
[2022-04-01] MEDS: VERAPAMIL HCL 240 MG TABCR PO SCH (08:23)
[2022-04-01] MEDS: MAGNESIUM OXIDE 400 MG TAB PO SCH (08:23)
[2022-04-01] MEDS: PRAMIPEXOLE DIHYDROCHLO 0.25 MG TAB PO SCH (08:23)
[2022-04-01] MEDS: PANTOprazole 40 MG TAB PO SCH (08:24)
[2022-04-01] MEDS: SUCRALFATE 1 GM/10 ML UDC PO SCH (08:24)
[2022-04-01] MEDS: FUROSEMIDE 40 MG TAB PO SCH (08:24)
[2022-04-01] MEDS: MULTIVITAMIN CHEWABLE TAB PO SCH (08:24)
[2022-04-01] MEDS: POTASSIUM CHLORIDE CRTAB 20 MEQ TABCR PO SCH (08:25)
--- NOTE | 2022-04-01 09:01 | Pharmacy Report ---
Pharmacy PK ABX Note - Date of Service April 01, 2022 - Assessment and Plan Assessment 04/01: * Day 8 Vanc + Ceftriaxone 03/30: * Blood culture show no growth at 5 days * Remains afebrile over past 48 hours, renal function stable 03/27: 66 year old F receiving vancomycin + ceftriaxone for treatment of septic arthritis/possible osteomyelitis. * Blood cultures with no growth to date. 24 hr Tmax of 38.7 C. No leukocytosis. ESR/CRP continue to trend up. * Vancomycin was started on 03/25/22. Discontinued on the evening of 03/26/22. Resumed this morning. Dose was due at 0400 so will resume previous dosing around 0900 without checking level or reloading patient. * Infectious Disease consult pending. Plan Vancomycin * Current regimen: 1250 mg IV every 8 hours * Random level obtained 04/01/22 resulted as 19.2 mcg/mL. This is predicted to achieve target AUC/TSEWART of 400-600 mg/L.hr * Predicted AUC at steady state: 490 mg/L.hr * Continue 1250 mg IV every 8 hours * Patient to transfer to [facility] for interventional radiology today Ceftriaxone * 2 g IV q24h - no change Pharmacy will continue to follow and will adjust dose/frequency as necessary. Thank you. Pharmacy has transitioned to AUC monitoring for vancomycin. AUC/STEWART is the preferred PK/PD target and is associated with decreased risk of nephrotoxicity compared to traditional trough targets.
[2022-04-01] MEDS: HEPARIN SODIUM/DEXTROSE 25,000 UNITS/500 ML BAG IV SCH (09:30)
== END 2022-04-01 11:09 | disposition short-term general hospital (02) | DRG 540 ==
LOC: ED 02:20 → EDINP 11:13 → SUATTDRO 11:13 → 3W 21:00

== ENCOUNTER 2023-01-26 10:10 | Inpatient (IN) ==
[2023-01-26] MEDS ORDERED: ONDANSETRON INJ 2 MG/ML 2 ML VIAL IV STA (10:40)
[2023-01-26] MEDS ORDERED: SODIUM CHLORIDE 0.9% 1000ML 500 ML IV ONE ×2 (10:40→11:20)
[2023-01-26 11:03] LABS: Basophils # (auto) 0.03 K/uL (0-0.2); Basophils % (auto) 0.6 %; Eosinophils # (auto) 0.15 K/uL (0-0.50); Eosinophils % (auto) 3.1 %; Hematocrit (blood only) 42.8 % (37.0-47.0); Hemoglobin 14.5 g/dl (12.0-16.0); Immature Granulocytes # (auto) 0.01 K/uL (0.01-0.20); Immature Granulocytes % (auto) 0.2 %; Lymphocytes # (auto) 2.02 K/uL (1.2-3.4); Lymphocytes % (auto) 41.1 %; Mean Corpuscular Hemoglobin 31.4 pg (25.0-34.0); Mean Corpuscular Hgb Conc 33.9 g/dL (32.0-36.0); Mean Corpuscular Volume 92.6 fL (80.0-100.0); Monocytes # (auto) 0.41 K/uL (0.11-0.59); Monocytes % (auto) 8.4 %; Neutrophils # (auto) 2.29 K/uL (1.40-6.50); Neutrophils % (auto) 46.6 %; Platelet Count 225 K/uL (130-400); RDW Standard Deviation 41.1 fL (36.4-46.3); Red Blood Count 4.62 M/uL (4.20-5.40); White Blood Count 4.91 K/ul (4.8-10.8)
[2023-01-26] MEDS: HYDROmorphone INJ 0.5 MG/0.5 ML SYR IV PRN ×3 (11:14→14:12)
[2023-01-26 11:19] LABS: Albumin Globulin Ratio 1.5 (0.9-2); Albumin Level 3.8 gm/dl (3.4-5.0); BUN Creatinine Ratio 26.8 (10-20); Calcium 8.7 mg/dl (8.6-10.3); Creatinine Clr Calc Pharmacy 81.8 ml/min; Est GFR (African American) 101.4 ml/min; Est GFR (Non-African American) 87.5 ml/min; Globulin 2.6 gm/dl (2.5-4.0); Potassium 3.9 mmol/L (3.5-5.1); Total Protein 6.4 gm/dl (6.0-8.3)
[2023-01-26 11:25] LABS: Troponin I High Sensitivity 16.8 pg/ml (0-14)
--- NOTE | 2023-01-26 12:11 | CT Scan Report ---
ABDOMEN AND PELVIS CT WITHOUT CONTRAST CT DOSE: 1367.60 mGy.cm HISTORY: Acute left-sided flank pain left flank pain TECHNIQUE: Multiaxial CT images of the abdomen and pelvis were performed without contrast. A dose lo wering technique was utilized adhering to the principles of ALARA. COMPARISON STUDY: CT 10/10/2022 FINDINGS: Cardiomegaly. Mild subsegmental bibasilar atelectasis versus scarring. There is no pneumato sis or pneumoperitoneum. Unremarkable unenhanced spleen, mildly atrophic pancreas and adrenal glands. Suggestion of mild hepatic steatosis. Cholecystectomy with likely postsurgical biliary ductal dilati on. Unremarkable right kidney. Mild to moderate left-sided hydroureteronephrosis secondary to an obstruct ing 9 x 6 x 5 mm calculus of the distal left ureter just proximal to the ureterovesicular junction. D ecompressed urinary bladder with wall thickening. Hysterectomy. Atherosclerosis of the aorta. No lymp hadenopathy. Tobias-en-Y gastric bypass. Colonic diverticulosis. No bowel obstruction or bowel wall thi ckening. Normal appendix. Unremarkable soft tissues. No acute fracture. IMPRESSION: 1. Mild to moderate left-sided hydroureteronephrosis secondary to an obstructing 9 mm calculus of the distal left ureter just proximal to the ureterovesicular junction. 2. No bowel obstruction or bowel wall thickening. 3. Prior hysterectomy, Tobias-en-Y gastric bypass and cholecystectomy. 4. Additional findings as above. ACT 112: Negative or not required by law. The above report was generated using voice recognition software. It may contain grammatical, syntax o r spelling errors. Electronically signed by: Sav Wright M.D. 01/26/2023 12:10 PM
[2023-01-26 12:45] LABS: Appearance Urine Cloudy (Clear); Bilirubin Urine Negative (Negative); Blood Urine 3+ (Negative); Color Urine Dark Yellow; Glucose Urine UA Negative (Negative); Ketones Urine Trace (Negative); Leukocyte Esterase Urine 1+ (Negative); Nitrite Urine Negative (Negative); Protein Urine 1+ (Negative); Specific Gravity Urine 1.023 (1.000-1.030); Urobilinogen Urine Negative (Negative)
[2023-01-26 13:31] LABS: Bacteria Urine Automated 1+ (Negative); RBC Urine Automated >30 /hpf (0-4)
--- NOTE | 2023-01-26 14:56 | History & Physical Report ---
Date of Service January 26, 2023 Assessment & Plan (1) Ureterolithiasis: (2) Hydroureter on left: (3) Hydronephrosis of left kidney: Plan: - Admit to med tele - Urology consulted - CT abd reviewed showing Left sided 9 mm obstructing stone proximal to the UVJ, mild to moderate hydroureteronephrosis - NPO in anticipation of possible procedure - if no plans for today then will make NPO at midnight and allow diet this evening - Pain management, bowel regimen WBC =4.91, NSS at 80 mL/h secondary to reduced LVEF of 45%, monitor closely for volume changes - Strict I's and O's, strain all urine (4) Chronic combined systolic and diastolic CHF (congestive heart failure): (5) Cardiomyopathy: (6) On amiodarone therapy: (7) Dyslipidemia: (8) Paroxysmal atrial fibrillation: Plan: -Most recent echocardiogram was completed on 12/15/2022 showing LVEF of 45%,Global hypokinesis of the left ventricle, no thrombus -Previously followed cardiology with Dr. Dr. Coronado with [facility], recently has requested switching to [facility] cardiology -Continue amiodarone 200 mg daily, metoprolol succ 100 mg daily for rate control - will give amiodarone now and metroprolol tartrate 100 mg now since she missed meds this morning. -Eliquis 5 mg once daily due to hematuria hx, none currently, ok with potential stent placement. - Holding Lasix 40 mg every morning, spironolactone 25 mg, potassium supplem entation for now - monitor volume status -She is not on an STEVO/ARB which has been mentioned in outpt notes as possibly adding to her regimen -- pt would be a candidate for Entresto on discharge - Troponin bump from 16 --170 is likely demand ischemia mismatch with her CAD hx, unlikely ACS - Appt with Dr. Cobb with cardiology is in about 3 wks as outpatient (9) Hypothyroidism: Plan: -Continue levothyroxine (10) Vitamin D deficiency: Plan: - Cont multivitamin DVT ppx: teds, scds, eliquis QAM CODE: DNR/DNI - discussed with the patient at bedside Dispo: From home, likely to remain in the hospital x 1-2 days History of Present Illness Chief Complaint: Abdominal pain Primary Care Provider: Jacinto Patricio MD This is a 67-year-old female with PMHx of chronic diastolic CHF, cardiomyopathy, mitral regurg, paroxysmal A-fib, HTN, HLD, hypothyroidism, asthma, sleep apnea, migraine, vitamin D deficiency, GERD who presents to the hospital with acute onset of abdominal pain x 1 day. Pain in her LLQ and left flank region woke her from sleep today. She has had intermittent utis and hematuria in the past year. Due to hematuria ELiquis was reduced to once in the morning. Pt has hx of UTIs and has been working with urology for the past few months, Dr. Mendoza. Last antibiotic therapy was a few months ago. Today she denies having any pain with urination or iincreased frequency. She has been told that she has kidney stones in the past on and off, but has not required a procedure to remove them. Today she had some nausea and dry heaves, but is better since having meds in the ER. She is requesting something to eat if possible. She has been in the process of switching between cardiology from [facility] to [facility]. Dry weight of 205. If she is over 210 pt adds additional spironolactone, and uses lasix once daily. Next appointment is with [facility] in about 3 weeks. Pt lives with her sister. Denies smoking or alcohol use. She missed all her routine medications this morning due to pain and coming to the ER. Allergies Allergy/AdvReac Type Severity Reaction Status Date / Time iodine Allergy Severe ANAPHYLAXIS Verified 01/26/23 13:14 shellfish derived Allergy Severe ANAPHYLAXIS Verified 01/26/23 13:14 shrimp Allergy Severe ANAPHYLAXIS Verified 01/26/23 13:14 barium sulfate Allergy Intermediate itching Verified 01/26/23 13:14 rash bee venom protein (honey bee) Allergy Intermediate swelling Verified 01/26/23 13:14 at the site codeine Allergy Intermediate HIVES Verified 01/26/23 13:14 Iodinated Contrast Media Allergy Intermediate HIVES Verified 01/26/23 13:14 ketorolac Allergy Intermediate ITCHING Verified 01/26/23 13:14 morphine Allergy Intermediate ITCHING Verified 01/26/23 13:14 Penicillins Allergy Intermediate ITCHING/HIV Verified 01/26/23 13:14 ES Home Medications Medication Instructions Recorded Confirmed Type lancets 33 gauge (AdTribTouch Delica #100 ea 02/16/20 01/26/23 Rx Plus Lancet) pediatric multivitamin no.76 1 tab PO BID 04/23/20 01/26/23 History (Flintstones Complete chewable tablet) blood sugar diagnostic (OneTouch #100 ea 05/02/20 01/26/23 Rx Verio test strips) acetaminophen 500 mg tablet 1,000 - 1,500 mg PO Q6H PRN Pain 10/05/20 01/26/23 History (Tylenol Extra Strength) nitroglycerin 0.4 mg sublingual 0.4 mg sublingual Q5M PRN chest 10/06/20 01/26/23 Rx tablet pain #1 btl cyclobenzaprine 10 mg tablet 10 mg PO TID PRN muscle spasm #30 10/09/21 01/26/23 Rx tabs gabapentin 100 mg capsule 100 mg PO Q8H PRN pain #30 caps 10/09/21 01/26/23 Rx apixaban 5 mg tablet (Eliquis) 5 mg PO QAM 04/16/22 01/26/23 History furosemide 40 mg tablet 40 mg PO QAM edema 04/16/22 01/26/23 History cyanocobalamin (vitamin B-12) 1,000 mcg IM .COMPLEX #1 mL 06/17/22 01/26/23 Rx 1,000 mcg/mL injection solution oxycodone 5 mg tablet 5 mg PO Q8H PRN Pain 06/17/22 01/26/23 History potassium chloride 20 mEq 40 meq PO QAM 08/28/22 01/26/23 History tablet,extended release levothyroxine 175 mcg tablet 175 mcg PO DAILYBB 10/10/22 01/26/23 History amiodarone 200 mg tablet 200 mg PO QAM 01/26/23 01/26/23 History metoprolol succinate 100 mg 100 mg PO QAM 01/26/23 01/26/23 History tablet,extended release 24 hr omeprazole 40 mg capsule,delayed 40 mg PO QAM 01/26/23 01/26/23 History release spironolactone 25 mg tablet 25 mg PO DAILY PRN edema 01/26/23 01/26/23 History tamsulosin 0.4 mg capsule (Flomax) 0.4 mg PO QAM 01/26/23 01/26/23 History Past Med/Surg History Medical History Anemia On iron supplement Anxiety Arthritis Asthma Well controlled and stable - uses rescue inhaler rarely Atrial fibrillation Stable- s/p ablation x 2 - still have a fib Bilateral edema of lower extremity Stable Bulging lumbar disc Cataract, bilateral Chest pain, rule out acute myocardial infarction Degenerative disc disease Degenerative disc disease Depression Diverticulosis Family history of colon cancer Heart murmur No murmur noted on PAT exam on 08/16/19- ECHO 04/2019 History of colon polyps History of neoplasm of uncertain behavior of skin History of TIA (transient ischemic attack) 2016--no deficits- no issues since that time. Follows with neuro once yearly - Dr. Barker (also sees for RLS) Hx of basal cell carcinoma FACE AND CHEST Hx of migraines Hypertension Hypokalemia Hypomagnesemia Hypothyroidism Intractable nausea and vomiting Jaw pain Leg length discrepancy Morbid obesity On anticoagulant therapy on eliquis Palpitations Paroxysmal atrial fibrillation Prediabetes Stable per patient Restless leg syndrome Sacroiliac joint pain Sleep apnea mild, no device needed Strain of left trapezius muscle Supraventricular tachycardia (06/25/11) Vomiting Surgical History H/O bariatric surgery H/O cardiac radiofrequency ablation x2 H/O carpal tunnel repair History of appendectomy History of arthroscopy of right shoulder History of basal cell carcinoma (BCC) excision in office, off chest History of bilateral breast reduction surgery (~11/2010) free nipple graft History of cholecystectomy History of colonoscopy History of esophagogastroduodenoscopy (EGD) History of ovarian cystectomy History of removal of cyst right breast, benign History of surgical removal of ganglion cyst right hand History of total abdominal hysterectomy and bilateral salpingo-oophorectomy History of total left knee replacement (TKR) History of wisdom tooth extraction Hx of bilateral cataract extraction Hx of laminectomy 1992 Laminectomy (06/25/11) Open reduction of fracture (06/25/11) S/P excision of lipoma (~07/2019) Excision Lipoma Right Forehead, Within the Left Brow; Right Anterior Knee x2(Bilateral) - Wendy Alfred MD Family History Mother Family history of diabetes mellitus Family history of reaction to anesthesia "had heart complications after surgery for cancer of the vulva" Family hx colonic polyps Myocardial infarction Father Family hx of colon cancer Family hx colonic polyps Colorectal cancer Uncle Family history of esophageal cancer Sister Family hx colonic polyps Other Hypertension Denies family history of Ovarian cancer Prostate cancer Breast cancer Social History Smoking Status: Never smoker Second Hand Exposure: No; Do You Dip or Chew Tobacco: No; Hx Alcohol Use: No Hx Substance Use: No Preferred Language: [place]an Communication Ability: Effective Visual Impairment: No Limitations Hearing Ability: Normal Probation And Parole Officer Required: No Beliefs That Will Affect Care: None marital status: 0 Current Living Situation: Parent Current Living Situation Comment: apartment current occupational status: retired Other Information That Helps Us Care for You: No Feels Safe at Home: Yes Childhood Exposure to Second-Hand Smoke: Yes Diet: regular caffeine: Yes during the past year weight has: decreased > 10 lbs Dental Care, Regularly: Yes Physical Activity Frequency: Daily Seatbelt Use: sometimes Sunscreen Use: No Assistive Devices: None Review of Systems Review of Systems: Constitutional: No fever, sweats, +admits to chills Eyes: No diplopia, no worsening or blurred vision ENT: normal hearing, no trouble swallowing Respiratory: No cough, sputum, dyspnea at rest or on exertion Cardiovascular: No chest pain, tightness or palpitations Abdomen: No pain, +nausea,+ dry heaves, no vomiting,no diarrhea or constipation : + hx of uti, stones and hematuria in past, none currently, no dysuria, no increased frequency Musculoskeletal: No joint pain, calf pain, swelling Neurologic: No weakness, numbness/tingling, or balance problems Psychiatric: No anxiety or depression Skin: No rash or itch Physical Exam Physical Exam: General: awake, alert, no apparent distress, + obese with BMI of 41.3 Head: Normocephalic, atraumatic ENT: PERRL, EOMI, no pharyngeal exudate, mucous membranes moist Chest: Clear to auscultation, on room air, no adventitious breath sounds Cardiac: Regular rate and rhythm, no murmur, no JVD, normal peripheral pulses, good capillary refill Abdominal: NABS x 4 quadrants, soft, nondistended,+tender to palpation in LLQ and left flank region, no rebound or guarding Extremities: Normal inspection, no peripheral edema or erythema, calfs nontender to palpation Psych: Normal mood and affect Neuro: AAO x 3, strength intact bilaterally and rated 5/5, no motor deficits, speech is clear, no peripheral sensory deficits Results & Data Results & Data Vital Signs (Past 12 Hours) Vital Signs Temp Pulse Resp BP Pulse Ox O2 Del Method 01/26/23 14:30 58 L 13 135/80 92 01/26/23 14:00 60 12 145/80 H 95 01/26/23 13:45 60 17 139/82 97 01/26/23 13:00 61 25 H 132/92 95 01/26/23 12:30 60 17 153/84 H 94 01/26/23 12:26 60 13 150/80 H 95 01/26/23 12:20 61 20 150/80 H 92 01/26/23 11:00 62 17 157/83 H 90 01/26/23 10:30 64 18 149/86 H 95 01/26/23 11:04 67 01/26/23 10:11 67 23 97 Room Air 01/26/23 10:10 36.6 C 67 23 159/102 H 97 Room Air Laboratory Results 01/26/23 Unknown Urine Culture - Pending Urine,Clean Catch 01/26/23 01/26/23 01/26/23 Unknown 10:30 10:30 WBC RBC Hgb Hct MCV MCH MCHC RDW Std Deviation RDW Coeff of Falguni Plt Count MPV Immature Gran % (Auto) Neut % (Auto) Lymph % (Auto) [place] % (Auto) Eos % (Auto) Baso % (Auto) Neut # (Auto) Lymph # (Auto) [place] # (Auto) Eos # (Auto) Baso # (Auto) Immature Gran # (Auto) Sodium 142 Potassium 3.9 Chloride 109 H Carbon Dioxide 25 Anion Gap 8 BUN 19 Creatinine 0.71 Est Cr Clr Drug Dosing 81.8 Est GFR ( Amer) 101.4 Est GFR (Non-Af Amer) 87.5 BUN/Creatinine Ratio 26.8 H Glucose 117 H Lactate 2.2 H* Calcium 8.7 Total Bilirubin 1.0 AST 19 ALT 15 Alkaline Phosphatase 104 Troponin I High Sens 16.8 H Total Protein 6.4 Albumin 3.8 Globulin 2.6 Albumin/Globulin Ratio 1.5 Lipase 14 Urine Color Dark Yellow Urine Appearance Cloudy A Urine pH 6.0 Ur Specific [place] 1.023 Urine Protein 1+ H Urine Glucose (UA) Negative Urine Ketones Trace H Urine Blood 3+ H Urine Nitrite Negative Urine Bilirubin Negative Urine Urobilinogen Negative Ur Leukocyte Esterase 1+ H Urine WBC (Auto) 1-5 Urine RBC (Auto) >30 H U Hyaline Cast (Auto) 1-5 U Epithel Cells (Auto) 10-20 H Urine Bacteria (Auto) 1+ H Urine Crystals Not Reportable 01/26/23 10:30 WBC 4.91 RBC 4.62 Hgb 14.5 Hct 42.8 MCV 92.6 MCH 31.4 MCHC 33.9 RDW Std Deviation 41.1 RDW Coeff of Falguni 12.0 Plt Count 225 MPV 11.0 Immature Gran % (Auto) 0.2 Neut % (Auto) 46.6 Lymph % (Auto) 41.1 [place] % (Auto) 8.4 Eos % (Auto) 3.1 Baso % (Auto) 0.6 Neut # (Auto) 2.29 Lymph # (Auto) 2.02 [place] # (Auto) 0.41 Eos # (Auto) 0.15 Baso # (Auto) 0.03 Immature Gran # (Auto) 0.01 Sodium Potassium Chloride Carbon Dioxide Anion Gap BUN Creatinine Est Cr Clr Drug Dosing Est GFR ( Amer) Est GFR (Non-Af Amer) BUN/Creatinine Ratio Glucose Lactate Calcium Total Bilirubin AST ALT Alkaline Phosphatase Troponin I High Sens Total Protein Albumin Globulin Albumin/Globulin Ratio Lipase Urine Color Urine Appearance Urine pH Ur Specific [place] Urine Protein Urine Glucose (UA) Urine Ketones Urine Blood Urine Nitrite Urine Bilirubin Urine Urobilinogen Ur Leukocyte Esterase Urine WBC (Auto) Urine RBC (Auto) U Hyaline Cast (Auto) U Epithel Cells (Auto) Urine Bacteria (Auto) Urine Crystals Diagnostic Findings Abdomen/Pelvis CT 01/26/23 10:[address] WITHOUT CONTRAST CT DOSE: 1367.60 mGy.cm HISTORY: Acute left-sided flank pain left flank pain TECHNIQUE: Multiaxial CT images of the abdomen and pelvis were performed without contrast. A dose lowering technique was utilized adhering to the principles of ALARA. COMPARISON STUDY: CT 10/10/2022 FINDINGS: Cardiomegaly. Mild subsegmental bibasilar atelectasis versus scarring. There is no pneumatosis or pneumoperitoneum. Unremarkable unenhanced spleen, mildly atrophic pancreas and adrenal glands. Suggestion of mild hepatic steatosis. Cholecystectomy with likely postsurgical biliary ductal dilation. Unremarkable right kidney. Mild to moderate left-sided hydroureteronephrosis secondary to an obstructing 9 x 6 x 5 mm calculus of the distal left ureter just proximal to the ureterovesicular junction. Decompressed urinary bladder with wall thickening. Hysterectomy. Atherosclerosis of the aorta. No lymphadenopathy. Tobias-en-Y gastric bypass. Colonic diverticulosis. No bowel obstruction or bowel wall thickening. Normal appendix. Unremarkable soft tissues. No acute fracture. IMPRESSION: 1. Mild to moderate left-sided hydroureteronephrosis secondary to an obstructing 9 mm calculus of the distal left ureter just proximal to the ureterovesicular junction. 2. No bowel obstruction or bowel wall thickening. 3. Prior hysterectomy, Tobias-en-Y gastric bypass and cholecystectomy. 4. Additional findings as above. ACT 112: Negative or not required by law. The above report was generated using voice recognition software. It may contain grammatical, syntax or spelling errors. Electronically signed by: Sav Wright M.D. 01/26/2023 12:10 PM Code Status & VTE Plan Code Status DNR/DNI - discussed with Kaylee at bedside Supervising Physician Co-Signing Physician Notes I have seen and examined the patient and have discussed the case with the jericho puga above. I agree with the assessment and plan as stated. 67 yo F with a h/o nephrolithiasis presents with acute left flank pain 2/2 9mm ureteral stone. She is requiring IV pain medication to stay out of pain. She is taking Flomax and on IVF overnight with a plan for definitive stone management in the morning. She is very interested in getting this treated here as opposed to going home, fearing that her pain will be too sever to manage. CT scan reveals hydronephrosis and labwork reveals no evidence of acute kidney injury. Lactate is elevated to 2.2 and troponin did rise to 172 from 16 likely related to demand ischemia in the setting of severe, uncontrolled pain since 0800 this am. Denies any active chest pain or shortness of breath. On exam she is hemodynamically stable and afebrile, and oxygenating well on room air. She is morbidly obese and able to ambulate independently around the room. She is holding her left side when she does this. CV exam reveals S1/2 heard without murmurs, reg rate and rhythm. No peripheral edema. Lungs are CTAB. Abdomen is soft with TTP in the LLQ and Left CVA tenderness. No gross focal neuromuscular deficits. Labs/imaging/EKG reviewed. Outpatient records reviewed. CBC, chem panel and LFTs were unremarkable.UA possibly consistent with infection. No fever or leukocytosis was noted. CT findings as noted above. EKG without prolonged QTc on amiodarone. 1. Ureteral colic 2/2 9mm left ureteral stone with possible infection and left hydronephrosis 2. Cardiomyopathy-compensated 3. Demand ischemia 4. PAF on apixaban 5. Morbid obesity Cont IVF, Flomax and dilaudid or other pain medications as needed. Cover her with Cipro given possible UTI; noted h/o anaphylaxis with PCN in the past. Strain all urine. Urology to consider definitive stone management in the morning. NPO after MN. OK to continue apixaban and other home medications aside from diuretics which are on hold given the stone and elevated lactate. Monitor QTc with ongoing amiodarone and ciprofloxacin. DO Fermin (5) Cardiomyopathy Cardiomyopathy type: unspecified Qualified Code(s): I42.9 - Cardiomyopathy, unspecified (9) Hypothyroidism Hypothyroidism type: acquired Qualified Code(s): E03.9 - Hypothyroidism, unspecified
[2023-01-26] MEDS ORDERED: AMIODARONE 200 MG TAB PO ONE (16:05)
[2023-01-26] MEDS ORDERED: METOPROLOL TARTRATE 100 MG TAB PO STA (16:05)
--- NOTE | 2023-01-26 16:56 | Urology Consultation ---
Date of Consultation January 26, 2023 Assessment & Plan (1) Hydronephrosis of left kidney: (2) Ureterolithiasis: 67-year-old female admitted for left flank pain secondary to an obstructing 9 mm left distal ureteral stone and hydronephrosis. Patient is afebrile and hemodynamically stable. Labs reviewedcreatinine 0.71, no leukocytosis. UA notable for 1+ leukocyte esterase, 1+ bacteria, >30 RBC/hpf Urine culture pending. CT A/P independently reviewed and discussed with patient. CT shows an obstructing 9 mm left distal ureteral stone just proximal to the UVJ with resulting hydroureteronephrosis. Discussed options for stone management including left ureteral stent placement while inpatient. Discussed outpatient surgical options if pain can be controlled. She follows with Dr. Hira Mendoza for urology. She is currently comfortable. We will continue observation overnight. Strain all urine. make n.p.o. at midnight and will reassess in the morning. Continue supportive care, medical management per hospital medicine. will follow. Please consult our service urgently if patient develops fever >101F, intractable pain or nausea, as this will necessitate urgent surgical intervention. History of Present Illness History of Present Illness This is a 67-year-old female with history of atrial fibrillation on chronic anticoagulation, cardiomyopathy, CHF, dyslipidemia, prediabetes, hypertension, sleep apnea, recurrent UTI and nephrolithiasis who presented to the emergency department on 01/26/2023 with left flank pain. On arrival, she was afebrile and hemodynamically stable. Lab work reviewed and shows creatinine 0.71, WBC 4.91, hemoglobin 14.5. Lactate 2.2. Urinalysis notable for 1+ protein, trace ketones, 3+ blood, 1+ leukocyte esterases, > 30 RBC, 10-20 epithelial cells, 1+ bacteria. Urine culture pending. CT abdomen and pelvis independently reviewed and notable for an obstructing 9 mm calculus of the distal left ureter just proximal to the UVJ with resulting mild to moderate left hydroureteronephrosis. Patient seen and examined in the emergency department. She is awake, alert and resting in litter, no apparent distress. She reports pain is currently controlled. Reports nausea, dry heaves prior to arrival. Denies nausea or vomiting at present. Denies dysuria or hematuria. No fever or chills. She reports she is following with Dr. Hira Mendoza at [facility]. She has undergone work-up for recurrent UTI and hematuria. She has history of stones with prior spontaneous passage. No prior surgical intervention for stones. Allergies Allergy/AdvReac Type Severity Reaction Status Date / Time iodine Allergy Severe ANAPHYLAXIS Verified 01/26/23 13:14 shellfish derived Allergy Severe ANAPHYLAXIS Verified 01/26/23 13:14 shrimp Allergy Severe ANAPHYLAXIS Verified 01/26/23 13:14 barium sulfate Allergy Intermediate itching Verified 01/26/23 13:14 rash bee venom protein (honey bee) Allergy Intermediate swelling Verified 01/26/23 13:14 at the site codeine Allergy Intermediate HIVES Verified 01/26/23 13:14 Iodinated Contrast Media Allergy Intermediate HIVES Verified 01/26/23 13:14 ketorolac Allergy Intermediate ITCHING Verified 01/26/23 13:14 morphine Allergy Intermediate ITCHING Verified 01/26/23 13:14 Penicillins Allergy Intermediate ITCHING/HIV Verified 01/26/23 13:14 ES Home Medications Medication Instructions Recorded Confirmed Type lancets 33 gauge (OneTouch Delica #100 ea 02/16/20 01/26/23 Rx Plus Lancet) pediatric multivitamin no.76 1 tab PO BID 04/23/20 01/26/23 History (Flintstones Complete chewable tablet) blood sugar diagnostic (OneTouch #100 ea 05/02/20 01/26/23 Rx Verio test strips) acetaminophen 500 mg tablet 1,000 - 1,500 mg PO Q6H PRN Pain 10/05/20 01/26/23 History (Tylenol Extra Strength) nitroglycerin 0.4 mg sublingual 0.4 mg sublingual Q5M PRN chest 10/06/20 01/26/23 Rx tablet pain #1 btl cyclobenzaprine 10 mg tablet 10 mg PO TID PRN muscle spasm #30 10/09/21 01/26/23 Rx tabs gabapentin 100 mg capsule 100 mg PO Q8H PRN pain #30 caps 10/09/21 01/26/23 Rx apixaban 5 mg tablet (Eliquis) 5 mg PO QAM 04/16/22 01/26/23 History furosemide 40 mg tablet 40 mg PO QAM edema 04/16/22 01/26/23 History cyanocobalamin (vitamin B-12) 1,000 mcg IM .COMPLEX #1 mL 06/17/22 01/26/23 Rx 1,000 mcg/mL injection solution oxycodone 5 mg tablet 5 mg PO Q8H PRN Pain 06/17/22 01/26/23 History potassium chloride 20 mEq 40 meq PO QAM 08/28/22 01/26/23 History tablet,extended release levothyroxine 175 mcg tablet 175 mcg PO DAILYBB 10/10/22 01/26/23 History amiodarone 200 mg tablet 200 mg PO QAM 01/26/23 01/26/23 History metoprolol succinate 100 mg 100 mg PO QAM 01/26/23 01/26/23 History tablet,extended release 24 hr omeprazole 40 mg capsule,delayed 40 mg PO QAM 01/26/23 01/26/23 History release spironolactone 25 mg tablet 25 mg PO DAILY PRN edema 01/26/23 01/26/23 History tamsulosin 0.4 mg capsule (Flomax) 0.4 mg PO QAM 01/26/23 01/26/23 History Patient History Medical History Anemia On iron supplement Anxiety Arthritis Asthma Well controlled and stable - uses rescue inhaler rarely Atrial fibrillation Stable- s/p ablation x 2 - still have a fib Bilateral edema of lower extremity Stable Bulging lumbar disc Cataract, bilateral Chest pain, rule out acute myocardial infarction Degenerative disc disease Degenerative disc disease Depression Diverticulosis Family history of colon cancer Heart murmur No murmur noted on PAT exam on 08/16/19- ECHO 04/2019 History of colon polyps History of neoplasm of uncertain behavior of skin History of TIA (transient ischemic attack) 2016--no deficits- no issues since that time. Follows with neuro once yearly - Dr. Barker (also sees for RLS) Hx of basal cell carcinoma FACE AND CHEST Hx of migraines Hypertension Hypokalemia Hypomagnesemia Hypothyroidism Intractable nausea and vomiting Jaw pain Leg length discrepancy Morbid obesity On anticoagulant therapy on eliquis Palpitations Paroxysmal atrial fibrillation Prediabetes Stable per patient Restless leg syndrome Sacroiliac joint pain Sleep apnea mild, no device needed Strain of left trapezius muscle Supraventricular tachycardia (06/25/11) Vomiting Surgical History H/O bariatric surgery H/O cardiac radiofrequency ablation x2 H/O carpal tunnel repair History of appendectomy History of arthroscopy of right shoulder History of basal cell carcinoma (BCC) excision in office, off chest History of bilateral breast reduction surgery (~11/2010) free nipple graft History of cholecystectomy History of colonoscopy History of esophagogastroduodenoscopy (EGD) History of ovarian cystectomy History of removal of cyst right breast, benign History of surgical removal of ganglion cyst right hand History of total abdominal hysterectomy and bilateral salpingo-oophorectomy History of total left knee replacement (TKR) History of wisdom tooth extraction Hx of bilateral cataract extraction Hx of laminectomy 1991 Laminectomy (06/25/11) Open reduction of fracture (06/25/11) S/P excision of lipoma (~07/2019) Excision Lipoma Right Forehead, Within the Left Brow; Right Anterior Knee x2(Bilateral) - Wendy Alfred MD Family History Mother Family history of diabetes mellitus Family history of reaction to anesthesia "had heart complications after surgery for cancer of the vulva" Family hx colonic polyps Myocardial infarction Father Family hx of colon cancer Family hx colonic polyps Colorectal cancer Uncle Family history of esophageal cancer Sister Family hx colonic polyps Other Hypertension Denies family history of Ovarian cancer Prostate cancer Breast cancer Social History Smoking Status: Never smoker Second Hand Exposure: No; Do You Dip or Chew Tobacco: No; Hx Alcohol Use: No Hx Substance Use: No Preferred Language: Romanian Communication Ability: Effective Visual Impairment: No Limitations Hearing Ability: Normal Polysomnographic Technologist Required: No Beliefs That Will Affect Care: None marital status: 0 Current Living Situation: Family Current Living Situation Comment: Lives with sister current occupational status: retired Feels Safe at Home: Yes Childhood Exposure to Second-Hand Smoke: Yes Diet: regular caffeine: Yes during the past year weight has: decreased > 10 lbs Dental Care, Regularly: Yes Physical Activity Frequency: Daily Seatbelt Use: sometimes Sunscreen Use: No Assistive Devices: Cane and Walker Review of Systems Review of Systems: All systems reviewed & are unremarkable except as noted in HPI & below Physical Exam Physical Exam: General: well-appearing, no acute distress, nontoxic HEENT: Normocephalic, mucous membranes moist Pulmonary: Nonlabored respirations Abdomen: Nondistended, soft and nontender Extremities: Moves all 4 spontaneously Neuro: No gross deficits Psych: alert and oriented, normal mood Skin: Warm, dry, no rashes noted : No CVA tenderness Results & Data Vital Signs (Past 12 Hours) Vital Signs Temp Pulse Pulse Resp BP BP Pulse Ox 01/26/23 16:30 58 L 22 153/81 H 95 01/26/23 16:00 58 L 15 148/78 H 95 01/26/23 15:31 61 24 165/101 H 95 01/26/23 16:10 61 18 148/78 H 95 01/26/23 14:58 60 01/26/23 14:30 58 L 13 135/80 92 01/26/23 14:00 60 12 145/80 H 95 01/26/23 13:45 60 17 139/82 97 01/26/23 13:00 61 25 H 132/92 95 01/26/23 12:30 60 17 153/84 H 94 01/26/23 12:26 60 13 150/80 H 95 01/26/23 12:20 61 20 150/80 H 92 01/26/23 11:00 62 17 157/83 H 90 01/26/23 10:30 64 18 149/86 H 95 01/26/23 11:04 67 01/26/23 10:11 67 23 97 01/26/23 10:10 36.6 C 67 23 159/102 H 97 O2 Del Method 01/26/23 16:30 01/26/23 16:00 01/26/23 15:31 01/26/23 16:10 Room Air 01/26/23 14:58 01/26/23 14:30 01/26/23 14:00 01/26/23 13:45 01/26/23 13:00 01/26/23 12:30 01/26/23 12:26 01/26/23 12:20 01/26/23 11:00 01/26/23 10:30 01/26/23 11:04 01/26/23 10:11 Room Air 01/26/23 10:10 Room Air PG Care Time/CCT Total # of Minutes Spent Total Time Spent with Patient: Total time spent is greater than 50% in coordination of care (as documented) at patient's floor/unit and/or counseling patient: Coding Level of Care Code 25650 IN/OBS CONSULT LVL 4,60M Diagnoses Hydronephrosis of left kidney N13.30 Ureterolithiasis N20.1
--- NOTE | 2023-01-26 17:05 | Emergency Department Note ---
Impression & Plan Ureterolithiasis, Elevated troponin ED Provider Note INFORMANT: Patient and EMS ED PROVIDER(S): Porter Swain MD CHIEF COMPLAINT: Left flank pain PLAN: Disposition: Admitted Condition: Good Outpatient prescription management: none Referral: None MEDICAL DECISION MAKING: Patient presented because of acute left flank pain. History and physical was concern for possible nephrolithiasis as well as others. ECG did not reveal any acute findings. Patient CBC, chemistry panel and LFTs were unremarkable. The patient did have a mild elevation of her lactate. This may be related to her vomiting and acute illness. She did not have a fever or leukocytosis. Urinalysis showed some findings consistent more with contamination than true infection. The patient did have a mild elevation of her troponin. CT imaging was performed and the patient has a very large kidney stone causing ureteral obstruction. She had received multiple doses of IV Dilaudid and was hydrated. She also received IV Zofran. Given the findings of the elevated troponin her brief chest discomfort when she had severe pain, and the large stone the patient will need further management in the hospital. I gave my usual and customary discussion regarding this issue. The consultation was placed with the [facility] hospitalist service. Patient will be admitted under Dr. Christensen's service. Discussed with compliance project manager After review of the information above and other included data, I feel the p atient requires admission. Triage Nursing notes reviewed and agree them. Vital Signs: reviewed and remarkable for hypertension Prior /Outside records reviewed: none Differential diagnosis: Renal colic, UTI, appendicitis, diverticulitis, mesenteric ischemia, aortic path ology, infections, inflammatory bowel disease, PUD, biliary pathology, as well as other pathologies. Diagnostics, as interpreted by me: ECG: Twelve-lead ECG reveals normal sinus rhythm with low voltage QRS at [address] elevation or T wave inversion. When compared to 06/02/2022 sinus rhythm has replaced atrial fibrillation. Cardiac Monitoring: Cardiac monitoring ordered by me: The patient was placed on continuous cardiac monitoring and observed. It revealed a normal sinus rhythm at 62 beats per minute without ectopy or evidence of dysrhythmia. Medical decision rules: none Imaging studies: A very large, 9.5 mmCT scan of the abdomen pelvis reveals HPI: The patient is a 67year old female who presents to the Emergency Room with complaints of left flank pain. This started acutely this morning and is described as severe. Patient noted some left lower quadrant abdominal pain as well. The patient also notes the following associated symptoms, nausea and vomiting. Patient had a transient bit of chest tightness with the severe pain a nd nausea. No difficulty breathing. EMS was summoned. They noted the patient was in severe distress. They called for medical command after giving IV Zofran. Patient was given to 100 mcg doses of IV fentanyl prehospital. She noted only minimal improvement.. The patient has found no relieving factors. Current pain is rated as 10/10. Patient has a history of kidney stones and is concerned ab out the same. She also has a history of diverticulitis. Pt denies LOC, headache, fevers, chills, diaphoresis, visual changes, neck pain, chest pain, breathing difficulties, melena, hematochezia, urinary symptoms, numbness, weakness, lymphadenopathy, rash, or other complaints. PAST MEDICAL HISTORY: See Below, A-fib, kidney stones, hypertension PAST SURGICAL HISTORY: See Below, SOCIAL HISTORY: See Below, non-smoker HOME MEDICATIONS: See Below ALLERGIES: See Below VITALS: See Below PHYSICAL EXAMINATION: GENERAL: Awake, alert, uncomfortable-appearing, in moderate distress HENT: Normocephalic, atraumatic. Oropharynx unremarkable. EYES: Normal conjunctiva. Sclera non-icteric. NECK: Inspection normal. Non-tender. Supple. No nuchal rigidity. FROM. No masses. RESPIRATORY: Clear to auscultation. No wheezes. No rales. Normal respiratory effort. CARDIAC: Normal rate. Normal rhythm. No murmurs. No rubs. Extremities warm and well perfused. Pulses equal. No JVD. GI: Soft, non-distended. Left flank and left lower quadrant tenderness to palpation. No rebound or guarding. No masses. RECTAL: Deferred. MUSCULOSKELETAL: Atraumatic. Chest examination reveals no tenderness. The back is symmetrical on inspection without obvious abnormality. There is left CVA tenderness to palpation. No joint edema. LOWER EXTREMITIES: Calves are equal size bilaterally and non-tender. No edema. No discoloration. NEURO: Normal sensorium. No sensory or motor deficits noted. SKIN: No rasStone in the distal left ureter with mild hydro-.h or jaundice noted. Uncomfortable Past Med/Surg History Medical History Anemia On iron supplement Anxiety Arthritis Asthma Well controlled and stable - uses rescue inhaler rarely Atrial fibrillation Stable- s/p ablation x 2 - still have a fib Bilateral edema of lower extremity Stable Bulging lumbar disc Cataract, bilateral Chest pain, rule out acute myocardial infarction Degenerative disc disease Degenerative disc disease Depression Diverticulosis Family history of colon cancer Heart murmur No murmur noted on PAT exam on 08/16/19- ECHO 04/2019 History of colon polyps History of neoplasm of uncertain behavior of skin History of TIA (transient ischemic attack) 2016--no deficits- no issues since that time. Follows with neuro once yearly - Dr. Barker (also sees for RLS) Hx of basal cell carcinoma FACE AND CHEST Hx of migraines Hypertension Hypokalemia Hypomagnesemia Hypothyroidism Intractable nausea and vomiting Jaw pain Leg length discrepancy Morbid obesity On anticoagulant therapy on eliquis Palpitations Paroxysmal atrial fibrillation Prediabetes Stable per patient Restless leg syndrome Sacroiliac joint pain Sleep apnea mild, no device needed Strain of left trapezius muscle Supraventricular tachycardia (06/25/11) Vomiting Surgical History H/O bariatric surgery H/O cardiac radiofrequency ablation x2 H/O carpal tunnel repair History of appendectomy History of arthroscopy of right shoulder History of basal cell carcinoma (BCC) excision in office, off chest History of bilateral breast reduction surgery (~11/2010) free nipple graft History of cholecystectomy History of colonoscopy History of esophagogastroduodenoscopy (EGD) History of ovarian cystectomy History of removal of cyst right breast, benign History of surgical removal of ganglion cyst right hand History of total abdominal hysterectomy and bilateral salpingo-oophorectomy History of total left knee replacement (TKR) History of wisdom tooth extraction Hx of bilateral cataract extraction Hx of laminectomy 1992 Laminectomy (06/25/11) Open reduction of fracture (06/25/11) S/P excision of lipoma (~07/2019) Excision Lipoma Right Forehead, Within the Left Brow; Right Anterior Knee x2(Bilateral) - Wendy Alfred MD Family History Mother Family history of diabetes mellitus Family history of reaction to anesthesia "had heart complications after surgery for cancer of the vulva" Family hx colonic polyps Myocardial infarction Father Family hx of colon cancer Family hx colonic polyps Colorectal cancer Uncle Family history of esophageal cancer Sister Family hx colonic polyps Other Hypertension Denies family history of Ovarian cancer Prostate cancer Breast cancer Social History Smoking Status: Never smoker Second Hand Exposure: No; Do You Dip or Chew Tobacco: No; Hx Alcohol Use: No Hx Substance Use: No Preferred Language: Frisian Communication Ability: Effective Visual Impairment: No Limitations Hearing Ability: Normal Clerk [employer] Works Required: No Beliefs That Will Affect Care: None marital status: 0 Current Living Situation: Family Current Living Situation Comment: Lives with sister current occupational status: retired Feels Safe at Home: Yes Childhood Exposure to Second-Hand Smoke: Yes Diet: regular caffeine: Yes during the past year weight has: decreased > 10 lbs Dental Care, Regularly: Yes Physical Activity Frequency: Daily Seatbelt Use: sometimes Sunscreen Use: No Assistive Devices: Cane and Walker Allergies Allergies Allergy/AdvReac Type Severity Reaction Status Date / Time iodine Allergy Severe ANAPHYLAXIS Verified 01/26/23 13:14 shellfish derived Allergy Severe ANAPHYLAXIS Verified 01/26/23 13:14 shrimp Allergy Severe ANAPHYLAXIS Verified 01/26/23 13:14 barium sulfate Allergy Intermediate itching Verified 01/26/23 13:14 rash bee venom protein (honey bee) Allergy Intermediate swelling Verified 01/26/23 13:14 at the site codeine Allergy Intermediate HIVES Verified 01/26/23 13:14 Iodinated Contrast Media Allergy Intermediate HIVES Verified 01/26/23 13:14 ketorolac Allergy Intermediate ITCHING Verified 01/26/23 13:14 morphine Allergy Intermediate ITCHING Verified 01/26/23 13:14 Penicillins Allergy Intermediate ITCHING/HIV Verified 01/26/23 13:14 ES Home Meds Home Medications Medication Instructions Recorded Confirmed pediatric multivitamin no.76 1 tab PO BID 04/23/20 01/26/23 (Flintstones Complete chewable tablet) acetaminophen 500 mg tablet 1,000 - 1,500 mg PO Q6H PRN Pain 10/05/20 01/26/23 (Tylenol Extra Strength) apixaban 5 mg tablet (Eliquis) 5 mg PO QAM 04/16/22 01/26/23 furosemide 40 mg tablet 40 mg PO QAM edema 04/16/22 01/26/23 oxycodone 5 mg tablet 5 mg PO Q8H PRN Pain 06/17/22 01/26/23 potassium chloride 20 mEq 40 meq PO QAM 08/28/22 01/26/23 tablet,extended release levothyroxine 175 mcg tablet 175 mcg PO DAILYBB 10/10/22 01/26/23 amiodarone 200 mg tablet 200 mg PO QAM 01/26/23 01/26/23 metoprolol succinate 100 mg 100 mg PO QAM 01/26/23 01/26/23 tablet,extended release 24 hr omeprazole 40 mg capsule,delayed 40 mg PO QAM 01/26/23 01/26/23 release spironolactone 25 mg tablet 25 mg PO DAILY PRN edema 01/26/23 01/26/23 tamsulosin 0.4 mg capsule (Flomax) 0.4 mg PO QAM 01/26/23 01/26/23 Previous Rx's Medication Instructions Recorded lancets 33 gauge (TranZfinityTouch Delica #100 ea 02/16/20 Plus Lancet) blood sugar diagnostic (TranZfinityTouch #100 ea 05/02/20 Verio test strips) nitroglycerin 0.4 mg sublingual 0.4 mg sublingual Q5M PRN chest 10/06/20 tablet pain #1 btl cyclobenzaprine 10 mg tablet 10 mg PO TID PRN muscle spasm #30 10/09/21 tabs gabapentin 100 mg capsule 100 mg PO Q8H PRN pain #30 caps 10/09/21 cyanocobalamin (vitamin B-12) 1,000 mcg IM .COMPLEX #1 mL 06/17/22 1,000 mcg/mL injection solution Results & Data (ED) Vital Signs Vital Signs - 24 hr 01/26/23 10:10 01/26/23 10:11 01/26/23 11:04 Temperature 36.6 C Temperature Source Oral Pulse Rate 67 67 67 Pulse Rate [Apical] Pulse Rate from SpO2 Sensor Pulse Rhythm Regular Respiratory Rate 23 23 Respiratory Effort / Characteristics Non-Labored Respiratory Depth Normal Respiratory Pattern Regular Blood Pressure 159/102 H Blood Pressure [Right Arm] Blood Pressure Mean 121 Blood Pressure Mean [Right Arm] Pulse Oximetry 97 97 Oxygen Delivery Method Room Air Room Air Sepsis Recent Fever Within 48 Hours No Sepsis New/Unexplained Change in Mental Status N/A Sepsis Action Taken by Nursing No Action Required 01/26/23 10:30 01/26/23 11:00 01/26/23 12:20 Temperature Temperature Source Pulse Rate 64 62 61 Pulse Rate [Apical] Pulse Rate from SpO2 Sensor 64 62 61 Pulse Rhythm Respiratory Rate 18 17 20 Respiratory Effort / Characteristics Respiratory Depth Respiratory Pattern Blood Pressure 149/86 H 157/83 H 150/80 H Blood Pressure [Right Arm] Blood Pressure Mean 107 107 103 Blood Pressure Mean [Right Arm] Pulse Oximetry 95 90 92 Oxygen Delivery Method Sepsis Recent Fever Within 48 Hours Sepsis New/Unexplained Change in Mental Status Sepsis Action Taken by Nursing 01/26/23 12:26 01/26/23 12:30 01/26/23 13:00 Temperature Temperature Source Pulse Rate 60 60 61 Pulse Rate [Apical] Pulse Rate from SpO2 Sensor 60 60 61 Pulse Rhythm Respiratory Rate 13 17 25 H Respiratory Effort / Characteristics Respiratory Depth Respiratory Pattern Blood Pressure 150/80 H 153/84 H 132/92 Blood Pressure [Right Arm] Blood Pressure Mean 103 107 105 Blood Pressure Mean [Right Arm] Pulse Oximetry 95 94 95 Oxygen Delivery Method Sepsis Recent Fever Within 48 Hours Sepsis New/Unexplained Change in Mental Status Sepsis Action Taken by Nursing 01/26/23 13:45 01/26/23 14:00 01/26/23 14:30 Temperature Temperature Source Pulse Rate 60 60 58 L Pulse Rate [Apical] Pulse Rate from SpO2 Sensor 59 L 60 58 L Pulse Rhythm Respiratory Rate 17 12 13 Respiratory Effort / Characteristics Respiratory Depth Respiratory Pattern Blood Pressure 139/82 145/80 H 135/80 Blood Pressure [Right Arm] Blood Pressure Mean 101 101 98 Blood Pressure Mean [Right Arm] Pulse Oximetry 97 95 92 Oxygen Delivery Method Sepsis Recent Fever Within 48 Hours Sepsis New/Unexplained Change in Mental Status Sepsis Action Taken by Nursing 01/26/23 14:58 01/26/23 16:10 01/26/23 15:31 Temperature Temperature Source Pulse Rate 60 61 Pulse Rate [Apical] 61 Pulse Rate from SpO2 Sensor 61 Pulse Rhythm Respiratory Rate 18 24 Respiratory Effort / Characteristics Non-Labored Respiratory Depth Normal Respiratory Pattern Regular Blood Pressure 165/101 H Blood Pressure [Right Arm] 148/78 H Blood Pressure Mean 122 Blood Pressure Mean [Right Arm] 101 Pulse Oximetry 95 95 Oxygen Delivery Method Room Air Sepsis Recent Fever Within 48 Hours Sepsis New/Unexplained Change in Mental Status Sepsis Action Taken by Nursing 01/26/23 16:00 01/26/23 16:30 Temperature Temperature Source Pulse Rate 58 L 58 L Pulse Rate [Apical] Pulse Rate from SpO2 Sensor 59 L 58 L Pulse Rhythm Respiratory Rate 15 22 Respiratory Effort / Characteristics Respiratory Depth Respiratory Pattern Blood Pressure 148/78 H 153/81 H Blood Pressure [Right Arm] Blood Pressure Mean 101 105 Blood Pressure Mean [Right Arm] Pulse Oximetry 95 95 Oxygen Delivery Method Sepsis Recent Fever Within 48 Hours Sepsis New/Unexplained Change in Mental Status Sepsis Action Taken by Nursing Laboratory Data 01/26/23 10:30 01/26/23 10:30 Lab Results 01/26/23 01/26/23 01/26/23 Range/Units 10:30 10:30 10:30 WBC 4.91 (4.8-10.8) K/ul RBC 4.62 (4.20-5.40) M/uL Hgb 14.5 (12.0-16.0) g/dl Hct 42.8 (37.0-47.0) % MCV 92.6 (80.0-100.0) fL MCH 31.4 (25.0-34.0) pg MCHC 33.9 (32.0-36.0) g/dL RDW Std Deviation 41.1 (36.4-46.3) fL RDW Coeff of Falguni 12.0 (11.5-14.5) % Plt Count 225 (130-400) K/uL MPV 11.0 (9.4-12.4) fL Immature Gran % (Auto) 0.2 % Neut % (Auto) 46.6 % Lymph % (Auto) 41.1 % [place]ascade % (Auto) 8.4 % Eos % (Auto) 3.1 % Baso % (Auto) 0.6 % Neut # (Auto) 2.29 (1.40-6.50) K/uL Lymph # (Auto) 2.02 (1.2-3.4) K/uL Cascade # (Auto) 0.41 (0.11-0.59) K/uL Eos # (Auto) 0.15 (0-0.50) K/uL Baso # (Auto) 0.03 (0-0.2) K/uL Immature Gran # (Auto) 0.01 (0.01-0.20) K/uL Sodium 142 (136-145) mmol/L Potassium 3.9 (3.5-5.1) mmol/L Chloride 109 H (98-107) mmol/L Carbon Dioxide 25 (21-32) mmol/L Anion Gap 8 (3-11) BUN 19 (6-23) mg/dl Creatinine 0.71 (0.6-1.2) mg/dl Est Cr Clr Drug Dosing 81.8 ml/min Est GFR ( Amer) 101.4 ml/min Est GFR (Non-Af Amer) 87.5 ml/min BUN/Creatinine Ratio 26.8 H (10-20) Glucose 117 H (70-99(Fasting)) mg/dl Lactate 2.2 H* (0.4-2.0) mmol/L Calcium 8.7 (8.6-10.3) mg/dl Total Bilirubin 1.0 (0.2-1.0) mg/dl AST 19 (13-39) U/L ALT 15 (7-52) U/L Alkaline Phosphatase 104 (34-104) U/L Troponin I High Sens 16.8 H (0-14) pg/ml Total Protein 6.4 (6.0-8.3) gm/dl Albumin 3.8 (3.4-5.0) gm/dl Globulin 2.6 (2.5-4.0) gm/dl Albumin/Globulin Ratio 1.5 (0.9-2) Lipase 14 (11-82) U/L Urine Color Urine Appearance (Clear) Urine pH (4.5-7.5) Ur Specific [place] (1.000-1.030) Urine Protein (Negative) Urine Glucose (UA) (Negative) Urine Ketones (Negative) Urine Blood (Negative) Urine Nitrite (Negative) Urine Bilirubin (Negative) Urine Urobilinogen (Negative) Ur Leukocyte Esterase (Negative) Urine WBC (Auto) (0-5) /hpf Urine RBC (Auto) (0-4) /hpf U Hyaline Cast (Auto) (0-5) /lpf U Epithel Cells (Auto) (0-5) /lpf Urine Bacteria (Auto) (Negative) Urine Crystals 01/26/23 Range/Units Unknown WBC (4.8-10.8) K/ul RBC (4.20-5.40) M/uL Hgb (12.0-16.0) g/dl Hct (37.0-47.0) % MCV (80.0-100.0) fL MCH (25.0-34.0) pg MCHC (32.0-36.0) g/dL RDW Std Deviation (36.4-46.3) fL RDW Coeff of Falguni (11.5-14.5) % Plt Count (130-400) K/uL MPV (9.4-12.4) fL Immature Gran % (Auto) % Neut % (Auto) % Lymph % (Auto) % [place] % (Auto) % Eos % (Auto) % Baso % (Auto) % Neut # (Auto) (1.40-6.50) K/uL Lymph # (Auto) (1.2-3.4) K/uL Cascade # (Auto) (0.11-0.59) K/uL Eos # (Auto) (0-0.50) K/uL Baso # (Auto) (0-0.2) K/uL Immature Gran # (Auto) (0.01-0.20) K/uL Sodium (136-145) mmol/L Potassium (3.5-5.1) mmol/L Chloride (98-107) mmol/L Carbon Dioxide (21-32) mmol/L Anion Gap (3-11) BUN (6-23) mg/dl Creatinine (0.6-1.2) mg/dl Est Cr Clr Drug Dosing ml/min Est GFR ( Amer) ml/min Est GFR (Non-Af Amer) ml/min BUN/Creatinine Ratio (10-20) Glucose (70-99(Fasting)) mg/dl Lactate (0.4-2.0) mmol/L Calcium (8.6-10.3) mg/dl Total Bilirubin (0.2-1.0) mg/dl AST (13-39) U/L ALT (7-52) U/L Alkaline Phosphatase (34-104) U/L Troponin I High Sens (0-14) pg/ml Total Protein (6.0-8.3) gm/dl Albumin (3.4-5.0) gm/dl Globulin (2.5-4.0) gm/dl Albumin/Globulin Ratio (0.9-2) Lipase (11-82) U/L Urine Color Dark Yellow Urine Appearance Cloudy A (Clear) Urine pH 6.0 (4.5-7.5) Ur Specific [place] 1.023 (1.000-1.030) Urine Protein 1+ H (Negative) Urine Glucose (UA) Negative (Negative) Urine Ketones Trace H (Negative) Urine Blood 3+ H (Negative) Urine Nitrite Negative (Negative) Urine Bilirubin Negative (Negative) Urine Urobilinogen Negative (Negative) Ur Leukocyte Esterase 1+ H (Negative) Urine WBC (Auto) 1-5 (0-5) /hpf Urine RBC (Auto) >30 H (0-4) /hpf U Hyaline Cast (Auto) 1-5 (0-5) /lpf U Epithel Cells (Auto) 10-20 H (0-5) /lpf Urine Bacteria (Auto) 1+ H (Negative) Urine Crystals Not Reportable Administered Medications Discontinued Medications Amiodarone HCl (Amiodarone 200 Mg Tab) 200 mg PO NOW ONE Stop: 01/26/23 16:06 Last Admin: 01/26/23 16:31 Dose: 200 mg Documented By: BRENDA Hydromorphone HCl (Hydromorphone Inj 0.5 Mg/0.5 Ml Syr) 0.5 mg IV Q15M PRN PRN Reason: Pain Stop: 02/09/23 10:39 Last Admin: 01/26/23 14:12 Dose: 0.5 mg Documented By: Admin: 01/26/23 12:40 Dose: 0.5 mg Documented By: Admin: 01/26/23 11:14 Dose: 0.5 mg Documented By: BRENDA Sodium Chloride (Nss 1000ml) 500 mls @ 999 mls/hr IV .Q31M ONE Stop: 01/26/23 11:10 Last Infusion: 01/26/23 12:06 Dose: 0 mls/hr Documented By: Admin: 01/26/23 11:21 Dose: 999 mls/hr Documented By: BRENDA Sodium Chloride (Nss 1000ml) 500 mls @ 999 mls/hr IV .Q31M ONE Stop: 01/26/23 11:50 Last Infusion: 01/26/23 13:41 Dose: 0 mls/hr Documented By: Admin: 01/26/23 12:43 Dose: 999 mls/hr Documented By: BRENDA Metoprolol Tartrate (Metoprolol Tartrate 100 Mg Tab) 100 mg PO NOW STA Stop: 01/26/23 16:06 Last Admin: 01/26/23 16:57 Dose: 100 mg Documented By: BRENDA Ondansetron HCl (Ondansetron Inj 2 Mg/Ml 2 Ml Vial) 4 mg IV NOW STA Stop: 01/26/23 10:41 Last Admin: 01/26/23 11:14 Dose: 4 mg Documented By: BRENDA Imaging Data Radiologist's Impression: Abdomen/Pelvis CT 01/26/23 10:[address] WITHOUT CONTRAST CT DOSE: 1367.60 mGy.cm HISTORY: Acute left-sided flank pain left flank pain TECHNIQUE: Multiaxial CT images of the abdomen and pelvis were performed without contrast. A dose lowering technique was utilized adhering to the principles of ALARA. COMPARISON STUDY: CT 10/10/2022 FINDINGS: Cardiomegaly. Mild subsegmental bibasilar atelectasis versus scarring. There is no pneumatosis or pneumoperitoneum. Unremarkable unenhanced spleen, mildly atrophic pancreas and adrenal glands. Suggestion of mild hepatic steatosis. Cholecystectomy with likely postsurgical biliary ductal dilation. Unremarkable right kidney. Mild to moderate left-sided hydroureteronephrosis secondary to an obstructing 9 x 6 x 5 mm calculus of the distal left ureter just proximal to the ureterovesicular junction. Decompressed urinary bladder with wall thickening. Hysterectomy. Atherosclerosis of the aorta. No lymphadenopathy. Tobias-en-Y gastric bypass. Colonic diverticulosis. No bowel obstruction or bowel wall thickening. Normal appendix. Unremarkable soft tissues. No acute fracture. IMPRESSION: 1. Mild to moderate left-sided hydroureteronephrosis secondary to an obstructing 9 mm calculus of the distal left ureter just proximal to the ureterovesicular junction. 2. No bowel obstruction or bowel wall thickening. 3. Prior hysterectomy, Tobias-en-Y gastric bypass and cholecystectomy. 4. Additional findings as above. ACT 112: Negative or not required by law. The above report was generated using voice recognition software. It may contain grammatical, syntax or spelling errors. Electronically signed by: Sav Wright M.D. 01/26/2023 12:10 PM Discharge Plan Visit Data Chief Complaint: Abdominal Pain ED Provider: Porter Swain Discharge Problem: Ureterolithiasis, Elevated troponin Forms Stand Alone Forms: [facility] [employer] Prescriptions Prescriptions: No Action (DME) lancets [OneTouch Delica Plus Lancet] 33 gauge misc See Rx Instructions .ROUTE .MEDSUPPLY Qty: 100 1RF Rx Instructions: TEST 3 TIMES A WEEK; DX CODE- R73.03 (DME) OneTouch Verio test strips Strip See Rx Instructions .ROUTE .MEDSUPPLY Qty: 100 3RF Rx Instructions: TEST 3 TIMES A WEEK; DX CODE- R73.03 oxycodone 5 mg tablet 5 mg PO Q8H PRN (Reason: Pain) cyanocobalamin (vitamin B-12) 1,000 mcg/mL solution 1,000 mcg IM .COMPLEX Qty: 1 3RF Rx Instructions: 1,000 mcg IM Every 3 months; Flintstones Complete Tablet,Chewable 1 tab PO BID Hold Instructions: hold 30 days cyclobenzaprine 10 mg tablet 10 mg PO TID PRN (Reason: muscle spasm) Qty: 30 5RF gabapentin 100 mg capsule 100 mg PO Q8H PRN (Reason: pain) Qty: 30 5RF potassium chloride 20 mEq tablet extended release 40 meq PO QAM acetaminophen [Tylenol Extra Strength] 500 mg Tablet 1,000 - 1,500 mg PO Q6H PRN (Reason: Pain) nitroglycerin 0.4 mg tablet, sublingual 0.4 mg sublingual Q5M PRN (Reason: chest pain) Qty: 1 1RF furosemide 40 mg tablet 40 mg PO QAM Eliquis 5 mg tablet 5 mg PO QAM levothyroxine 175 mcg tablet 175 mcg PO DAILYBB amiodarone 200 mg tablet 200 mg PO QAM metoprolol succinate 100 mg tablet extended release 24 hr 100 mg PO QAM omeprazole 40 mg capsule,delayed release(DR/EC) 40 mg PO QAM tamsulosin [Flomax] 0.4 mg capsule 0.4 mg PO QAM spironolactone 25 mg tablet 25 mg PO DAILY PRN (Reason: edema) Rx Instructions: Takes for weight gain of over 5 lbs in 1 week or edema in legs Referrals Referrals: Jacinto Patricio MD [Primary Care Provider] -
[2023-01-26] MEDS ORDERED: ONDANSETRON INJ 2 MG/ML 2 ML VIAL IV PRN (17:41)
[2023-01-26] MEDS ORDERED: HYDROmorphone INJ 0.5 MG/0.5 ML SYR IV PRN (17:41)
[2023-01-26] MEDS ORDERED: ACETAMINOPHEN 325 MG TAB PO PRN (17:41)
[2023-01-26] MEDS ORDERED: TAMSULOSIN HCL 0.4 MG CAP PO ONE (17:41)
[2023-01-26] MEDS ORDERED: CYCLOBENZAPRINE HCL 10 MG TAB PO PRN (17:41)
[2023-01-26] MEDS: SODIUM CHLORIDE 0.9% 500 ML IV SCH (18:45)
[2023-01-26] MEDS: MULTIVITAMIN CHEWABLE TAB PO SCH (19:33)
[2023-01-26] MEDS: CIPROFLOXACIN / D5W 400 MG/200 ML BAG IV SCH (20:46)
[2023-01-27] MEDS: HYDROmorphone INJ 0.5 MG/0.5 ML SYR IV PRN ×4 (01:20→23:42)
[2023-01-27] MEDS: PROMETHAZINE HCL 12.5 MG in SODIUM CHLORIDE 0.9% 50 ML IV PRN (02:56)
[2023-01-27] MEDS: SODIUM CHLORIDE 0.9% 500 ML IV SCH (03:29)
[2023-01-27] MEDS ORDERED: LACTATED RINGER'S 1,000 ML IV ONE (03:31)
[2023-01-27 04:56] LABS: BUN Creatinine Ratio 23.6 (10-20); Calcium 8.1 mg/dl (8.6-10.3); Creatinine Clr Calc Pharmacy 80.7 ml/min; Est GFR (African American) 99.7 ml/min; Est GFR (Non-African American) 86.1 ml/min; Potassium 3.7 mmol/L (3.5-5.1)
[2023-01-27 05:04] LABS: Basophils # (auto) 0.03 K/uL (0-0.2); Basophils % (auto) 0.7 %; Eosinophils # (auto) 0.11 K/uL (0-0.50); Eosinophils % (auto) 2.4 %; Hematocrit (blood only) 33.7 % (37.0-47.0); Hemoglobin 11.4 g/dl (12.0-16.0); Immature Granulocytes # (auto) 0.02 K/uL (0.01-0.20); Immature Granulocytes % (auto) 0.4 %; Lymphocytes # (auto) 1.15 K/uL (1.2-3.4); Lymphocytes % (auto) 25.4 %; Mean Corpuscular Hemoglobin 31.8 pg (25.0-34.0); Mean Corpuscular Hgb Conc 33.8 g/dL (32.0-36.0); Mean Corpuscular Volume 94.1 fL (80.0-100.0); Mean Platelet Volume 11.1 fL (9.4-12.4); Monocytes # (auto) 0.39 K/uL (0.11-0.59); Monocytes % (auto) 8.6 %; Neutrophils # (auto) 2.82 K/uL (1.40-6.50); Neutrophils % (auto) 62.5 %; Platelet Count 161 K/uL (130-400); RDW Coefficient of Variation 12.2 % (11.5-14.5); RDW Standard Deviation 42.3 fL (36.4-46.3); Red Blood Count 3.58 M/uL (4.20-5.40); White Blood Count 4.52 K/ul (4.8-10.8)
[2023-01-27] MEDS: LEVOTHYROXINE SODIUM 175 MCG TABLET PO SCH (06:02)
--- NOTE | 2023-01-27 08:27 | Urology Progress Note ---
I have discussed Ms Lanier's case with TERA Marion and agree with the above documentation. Ongoing pain related to ureteral stone. We will plan on ureteral stent placement today. If she tolerates the procedure well and is feeling well/afebrile afterwards, would be reasonable for discharge home and we can arrange outpatient follow-up. -Jay Chris MD. Date of Service January 27, 2023 Assessment & Plan (1) Hydronephrosis of left kidney: (2) Ureterolithiasis: Plan: 67-year-old female admitted for left flank pain secondary to an obstructing 9 mm left distal ureteral stone and hydroureteronephrosis. Patient is afebrile with stable vitals. Labs reviewedcreatinine 0.72, no leukocytosis. Urine culture pending. IV Ciprofloxacin initiated. Follow culture. CT previously reviewed and discussed - obstructing 9 mm left distal ureteral stone with hydronephrosis. She continues to have pain and nausea and would like to proceed with left ureteral stent placement today. Ureteral stents were discussed in detail. Discussed need for stone treatment at a later date which can be done with her established urologist. Proceed with cystoscopy, retrograde pyelogram and left ureteral stent placement. Risks and benefits of procedure to be reviewed with patient by Dr. Chris. OR notified. We will continue IV ciprofloxacin preoperatively. Keep n.p.o. for procedure. Continue supportive care, medical management per hospital medicine. Admission and Anticipated Discharge Date Admission Date: January 26, 2023 Subjective Patient seen and examined at bedside this morning, chart reviewed. Reports episodes of left flank pain and nausea overnight. Voiding without difficulty, no dysuria or hematuria. No fever or chills. Currently NPO. Denies chest pain or shortness of breath. Review of Systems Constitutional: as per Subjective / HPI Gastrointestinal: as per Subjective / HPI Genitourinary: as per Subjective / HPI Physical Exam Physical Exam: General: well-appearing, no acute distress, nontoxic HEENT: Normocephalic, mucous membranes moist Pulmonary: Nonlabored respirations Abdomen: Nondistended, soft and nontender Extremities: Moves all 4 spontaneously Neuro: No gross deficits Psych: alert and oriented, normal mood Skin: Warm, dry, no rashes noted : Mild tenderness to palpation over left flank Results & Data Vital Signs (Past 12 Hours) Vital Signs Temp Pulse Pulse Resp BP Pulse Ox O2 Del Method 01/27/23 07:23 36.8 C 69 18 116/74 94 Room Air 01/27/23 07:19 62 01/27/23 03:22 36.7 C 63 16 93/51 L 95 Room Air 01/27/23 00:00 55 L 01/26/23 23:12 36.6 C 58 L 18 108/57 L 98 Room Air PG Care Time/CCT Total # of Minutes Spent Total Time Spent with Patient: Total time spent is greater than 50% in coordination of care (as documented) at patient's floor/unit and/or counseling patient: Coding Level of Care Code 09569 SUB INP/OBS CARE 2/35MIN Diagnoses Hydronephrosis of left kidney N13.30 Ureterolithiasis N20.1
--- NOTE | 2023-01-27 08:39 | Hospitalist Progress Note ---
Date of Service January 27, 2023 Assessment & Plan (1) Ureterolithiasis: (2) Hydroureter on left: (3) Hydronephrosis of left kidney: Plan: - Admitted to [facility] tele - CT abd reviewed showing Left sided 9 mm obstructing stone proximal to the UVJ, mild to moderate hydroureteronephrosis - Urology consulted - plan for cystoscopy today - NPO in anticipation of possible procedure - Pain management, bowel regimen WBC =4.91, NSS at 80 mL/h secondary to reduced LVEF of 45%, monitor closely for volume changes - Strict I's and O's, strain all urine (4) Chronic combined systolic and diastolic CHF (congestive heart failure): (5) Cardiomyopathy: (6) On amiodarone therapy: (7) Dyslipidemia: (8) Paroxysmal atrial fibrillation: Plan: -Most recent echocardiogram was completed on 12/15/2022 showing LVEF of 45%,Global hypokinesis of the left ventricle, no thrombus -Previously followed cardiology with Dr. Dr. Coronado with [facility], [facility] -Continue amiodarone 200 mg daily, metoprolol succ 100 mg daily for rate control - yesterday she missed her PO meds - amiodarone now and metoprolol tartrate - reported chest discomfort yesterday - pt tells me she gets chest discomfort about every 2 weeks d/t afib (which she feels) - now better since on amiodarone - Troponin bump from 16 --170 is likely demand ischemia mismatch with her CAD hx, unlikely ACS - ECG today shows NSR - no ischemic changes noted -Eliquis 5 mg once daily due to hematuria hx, none currently, ok with potential stent placement. - Holding Lasix 40 mg every morning, spironolactone 25 mg, potassium supplementation for now - monitor volume status -She is not on an STEVO/ARB which has been mentioned in outpt notes as possibly adding to her regimen -- also can consider starting Entresto as outpt - Appt with Dr. Cobb with cardiology is in about 3 wks as outpatient (9) Hypothyroidism: Plan: -Continue levothyroxine (10) Vitamin D deficiency: Plan: - Cont multivitamin DVT ppx: teds, scds, eliquis QAM CODE: DNR/DNI - discussed with the patient at bedside Dispo: From home, likely to remain in the hospital x 1-2 days Admission and Anticipated Discharge Date Admission Date: January 26, 2023 Subjective Pt seen in follow up of renal stone, elev. lynn Currently sitting up in chair, in NAD She is anxious about the urological procedure Denies any chest pain, or shortness of breath Urology PATIENT FINANCIAL REP also at the bedside to explain the procedure Review of Systems Review of Systems: All systems reviewed & are unremarkable except as noted in Subjective Physical Exam Physical Exam: General: obese F in NAD Head: Normocephalic, atraumatic ENT: PERRL, EOMI,mucous membranes moist Chest: Clear to auscultation, on room air, no adventitious breath sounds Cardiac: Regular rate and rhythm, no murmur, no JVD, normal peripheral pulses Abdominal: NABS x 4 quadrants, soft, nondistended,+tender to palpation in LLQ and left flank region, no rebound or guarding Extremities: Normal inspection, no peripheral edema or erythema, calves nontender to palpation Psych: Normal mood and affect Neuro: AAO x 3, strength intact bilaterally and rated 5/5, no motor deficits, speech is clear, no peripheral sensory deficits Results & Data Results & Data Vital Signs (Past 12 Hours) Vital Signs Temp Pulse Pulse Resp BP Pulse Ox O2 Del Method 01/27/23 07:23 36.8 C 69 18 116/74 94 Room Air 01/27/23 07:19 62 01/27/23 03:22 36.7 C 63 16 93/51 L 95 Room Air 01/27/23 00:00 55 L 01/26/23 23:12 36.6 C 58 L 18 108/57 L 98 Room Air Laboratory Results 01/27/23 01/27/23 01/27/23 Range/Units 04:18 04:18 04:18 WBC 4.52 L (4.8-10.8) K/ul RBC 3.58 L (4.20-5.40) M/uL Hgb 11.4 L D (12.0-16.0) g/dl Hct 33.7 L (37.0-47.0) % MCV 94.1 (80.0-100.0) fL MCH 31.8 (25.0-34.0) pg MCHC 33.8 (32.0-36.0) g/dL RDW Std Deviation 42.3 (36.4-46.3) fL RDW Coeff of Falguni 12.2 (11.5-14.5) % Plt Count 161 (130-400) K/uL MPV 11.1 (9.4-12.4) fL Immature Gran % (Auto) 0.4 % Neut % (Auto) 62.5 % Lymph % (Auto) 25.4 % [place] % (Auto) 8.6 % Eos % (Auto) 2.4 % Baso % (Auto) 0.7 % Neut # (Auto) 2.82 (1.40-6.50) K/uL Lymph # (Auto) 1.15 L (1.2-3.4) K/uL [place] # (Auto) 0.39 (0.11-0.59) K/uL Eos # (Auto) 0.11 (0-0.50) K/uL Baso # (Auto) 0.03 (0-0.2) K/uL Immature Gran # (Auto) 0.02 (0.01-0.20) K/uL Sodium 140 (136-145) mmol/L Potassium 3.7 (3.5-5.1) mmol/L Chloride 112 H (98-107) mmol/L Carbon Dioxide 26 (21-32) mmol/L Anion Gap 2 L (3-11) BUN 17 (6-23) mg/dl Creatinine 0.72 (0.6-1.2) mg/dl Est Cr Clr Drug Dosing 80.7 ml/min Est GFR ( Amer) 99.7 ml/min Est GFR (Non-Af Amer) 86.1 ml/min BUN/Creatinine Ratio 23.6 H (10-20) Glucose 108 H (70-99(Fasting)) mg/dl Lactate 0.8 (0.4-2.0) mmol/L Calcium 8.1 L (8.6-10.3) mg/dl Total Bilirubin (0.2-1.0) mg/dl AST (13-39) U/L ALT (7-52) U/L Alkaline Phosphatase (34-104) U/L Troponin I High Sens (0-14) pg/ml Total Protein (6.0-8.3) gm/dl Albumin (3.4-5.0) gm/dl Globulin (2.5-4.0) gm/dl Albumin/Globulin Ratio (0.9-2) Lipase (11-82) U/L Urine Color Urine Appearance (Clear) Urine pH (4.5-7.5) Ur Specific [place] (1.000-1.030) Urine Protein (Negative) Urine Glucose (UA) (Negative) Urine Ketones (Negative) Urine Blood (Negative) Urine Nitrite (Negative) Urine Bilirubin (Negative) Urine Urobilinogen (Negative) Ur Leukocyte Esterase (Negative) Urine WBC (Auto) (0-5) /hpf Urine RBC (Auto) (0-4) /hpf U Hyaline Cast (Auto) (0-5) /lpf U Epithel Cells (Auto) (0-5) /lpf Urine Bacteria (Auto) (Negative) Urine Crystals 01/26/23 01/26/23 01/26/23 Range/Units Unknown 21:27 16:02 WBC (4.8-10.8) K/ul RBC (4.20-5.40) M/uL Hgb (12.0-16.0) g/dl Hct (37.0-47.0) % MCV (80.0-100.0) fL MCH (25.0-34.0) pg MCHC (32.0-36.0) g/dL RDW Std Deviation (36.4-46.3) fL RDW Coeff of Falguni (11.5-14.5) % Plt Count (130-400) K/uL MPV (9.4-12.4) fL Immature Gran % (Auto) % Neut % (Auto) % Lymph % (Auto) % [place] % (Auto) % Eos % (Auto) % Baso % (Auto) % Neut # (Auto) (1.40-6.50) K/uL Lymph # (Auto) (1.2-3.4) K/uL [place] # (Auto) (0.11-0.59) K/uL Eos # (Auto) (0-0.50) K/uL Baso # (Auto) (0-0.2) K/uL Immature Gran # (Auto) (0.01-0.20) K/uL Sodium (136-145) mmol/L Potassium (3.5-5.1) mmol/L Chloride (98-107) mmol/L Carbon Dioxide (21-32) mmol/L Anion Gap (3-11) BUN (6-23) mg/dl Creatinine (0.6-1.2) mg/dl Est Cr Clr Drug Dosing ml/min Est GFR ( Amer) ml/min Est GFR (Non-Af Amer) ml/min BUN/Creatinine Ratio (10-20) Glucose (70-99(Fasting)) mg/dl Lactate (0.4-2.0) mmol/L Calcium (8.6-10.3) mg/dl Total Bilirubin (0.2-1.0) mg/dl AST (13-39) U/L ALT (7-52) U/L Alkaline Phosphatase (34-104) U/L Troponin I High Sens 118.3 H* D 172.2 H* D (0-14) pg/ml Total Protein (6.0-8.3) gm/dl Albumin (3.4-5.0) gm/dl Globulin (2.5-4.0) gm/dl Albumin/Globulin Ratio (0.9-2) Lipase (11-82) U/L Urine Color Dark Yellow Urine Appearance Cloudy A (Clear) Urine pH 6.0 (4.5-7.5) Ur Specific [place] 1.023 (1.000-1.030) Urine Protein 1+ H (Negative) Urine Glucose (UA) Negative (Negative) Urine Ketones Trace H (Negative) Urine Blood 3+ H (Negative) Urine Nitrite Negative (Negative) Urine Bilirubin Negative (Negative) Urine Urobilinogen Negative (Negative) Ur Leukocyte Esterase 1+ H (Negative) Urine WBC (Auto) 1-5 (0-5) /hpf Urine RBC (Auto) >30 H (0-4) /hpf U Hyaline Cast (Auto) 1-5 (0-5) /lpf U Epithel Cells (Auto) 10-20 H (0-5) /lpf Urine Bacteria (Auto) 1+ H (Negative) Urine Crystals Not Reportable 01/26/23 01/26/23 01/26/23 Range/Units 10:30 10:30 10:30 WBC 4.91 (4.8-10.8) K/ul RBC 4.62 (4.20-5.40) M/uL Hgb 14.5 (12.0-16.0) g/dl Hct 42.8 (37.0-47.0) % MCV 92.6 (80.0-100.0) fL MCH 31.4 (25.0-34.0) pg MCHC 33.9 (32.0-36.0) g/dL RDW Std Deviation 41.1 (36.4-46.3) fL RDW Coeff of Falguni 12.0 (11.5-14.5) % Plt Count 225 (130-400) K/uL MPV 11.0 (9.4-12.4) fL Immature Gran % (Auto) 0.2 % Neut % (Auto) 46.6 % Lymph % (Auto) 41.1 % [place] % (Auto) 8.4 % Eos % (Auto) 3.1 % Baso % (Auto) 0.6 % Neut # (Auto) 2.29 (1.40-6.50) K/uL Lymph # (Auto) 2.02 (1.2-3.4) K/uL [place] # (Auto) 0.41 (0.11-0.59) K/uL Eos # (Auto) 0.15 (0-0.50) K/uL Baso # (Auto) 0.03 (0-0.2) K/uL Immature Gran # (Auto) 0.01 (0.01-0.20) K/uL Sodium 142 (136-145) mmol/L Potassium 3.9 (3.5-5.1) mmol/L Chloride 109 H (98-107) mmol/L Carbon Dioxide 25 (21-32) mmol/L Anion Gap 8 (3-11) BUN 19 (6-23) mg/dl Creatinine 0.71 (0.6-1.2) mg/dl Est Cr Clr Drug Dosing 81.8 ml/min Est GFR ( Amer) 101.4 ml/min Est GFR (Non-Af Amer) 87.5 ml/min BUN/Creatinine Ratio 26.8 H (10-20) Glucose 117 H (70-99(Fasting)) mg/dl Lactate 2.2 H* (0.4-2.0) mmol/L Calcium 8.7 (8.6-10.3) mg/dl Total Bilirubin 1.0 (0.2-1.0) mg/dl AST 19 (13-39) U/L ALT 15 (7-52) U/L Alkaline Phosphatase 104 (34-104) U/L Troponin I High Sens 16.8 H (0-14) pg/ml Total Protein 6.4 (6.0-8.3) gm/dl Albumin 3.8 (3.4-5.0) gm/dl Globulin 2.6 (2.5-4.0) gm/dl Albumin/Globulin Ratio 1.5 (0.9-2) Lipase 14 (11-82) U/L Urine Color Urine Appearance (Clear) Urine pH (4.5-7.5) Ur Specific [place] (1.000-1.030) Urine Protein (Negative) Urine Glucose (UA) (Negative) Urine Ketones (Negative) Urine Blood (Negative) Urine Nitrite (Negative) Urine Bilirubin (Negative) Urine Urobilinogen (Negative) Ur Leukocyte Esterase (Negative) Urine WBC (Auto) (0-5) /hpf Urine RBC (Auto) (0-4) /hpf U Hyaline Cast (Auto) (0-5) /lpf U Epithel Cells (Auto) (0-5) /lpf Urine Bacteria (Auto) (Negative) Urine Crystals Medications Administered Current Inpatient Medications Acetaminophen (Acetaminophen 325 Mg Tab) 650 mg PO Q4H PRN PRN Reason: Mild Pain (Scale 1,2,3) Stop: 02/25/23 17:40 Amiodarone HCl (Amiodarone 200 Mg Tab) 200 mg PO [facility] Stop: 02/26/23 08:59 Apixaban (Apixaban 5 Mg Tablet) 5 mg PO [facility] Stop: 02/26/23 08:59 Cyclobenzaprine HCl (Cyclobenzaprine Hcl 10 Mg Tab) 10 mg PO TID PRN PRN Reason: muscle spasm Stop: 02/25/23 17:40 Gabapentin (Gabapentin 100 Mg Cap) 100 mg PO Q8H PRN PRN Reason: pain Stop: 02/25/23 17:40 Hydromorphone HCl (Hydromorphone Inj 0.5 Mg/0.5 Ml Syr) 0.5 mg IV Q3H PRN PRN Reason: Pain, severe rating 8,9,10 Stop: 02/09/23 16:08 Last Admin: 01/27/23 01:20 Dose: 0.5 mg Ciprofloxacin (Cipro / D5w) 400 mg in 200 mls @ 100 mls/hr IV Q12H [facility]; Protocol Stop: 02/05/23 19:59 Last Infusion: 01/26/23 23:01 Dose: Infused Promethazine HCl 12.5 mg/ (Sodium Chloride) 50.5 mls @ 202 mls/hr IV Q6H PRN PRN Reason: Nausea And Vomiting Stop: 02/26/23 02:41 Last Infusion: 01/27/23 03:31 Dose: Infused Lactated Ringer's (Lr) 1,000 mls @ 100 mls/hr IV .Q10H ONE Stop: 01/27/23 13:30 Last Admin: 01/27/23 04:12 Dose: 100 mls/hr Levothyroxine Sodium (Levothyroxine Sodium 175 Mcg Tablet) 175 mcg PO DAILYBB [facility] Stop: 02/26/23 06:29 Last Admin: 01/27/23 06:02 Dose: 175 mcg Metoprolol Succinate (Metoprolol Succ 50mg Ext Rel Tab) [facility] Stop: 02/26/23 08:59 Multivitamins/Folic Acid/Vitamin C (Multivitamin Chewable Tab) 1 tab PO BID [facility] Stop: 02/25/23 20:59 Last Admin: 01/26/23 19:33 Dose: 1 tab Oxycodone HCl (Oxycodone Hcl Ir 5 Mg Tab (Immediate Release)) 5 mg PO Q8H PRN PRN Reason: Pain, moderate rating 5,6,7 Stop: 02/09/23 17:40 Pantoprazole Sodium (Pantoprazole 40 Mg Tab) [facility] Stop: 02/26/23 08:59 Tamsulosin HCl (Tamsulosin Hcl 0.4 Mg Cap) 0.4 mg [facility] Stop: 02/26/23 08:59 (5) Cardiomyopathy Cardiomyopathy type: unspecified Qualified Code(s): I42.9 - Cardiomyopathy, unspecified (9) Hypothyroidism Hypothyroidism type: acquired Qualified Code(s): E03.9 - Hypothyroidism, unspecified
--- NOTE | 2023-01-27 08:43 | Anesthesiology Consultation ---
Date of Service January 27, 2023 Assessment & Plan Chart Review Chart Review: data entry representative initiated History Surgery Operation Date: 01/27/23 10:20 Proposed Procedures p Cystoscopy, Retrograde Pyelogram, Left Ureteral Stent Placement - Jay Chris MD Height/Weight Height: 5 ft 1 in Weight: 99.2 kg Allergies Allergy/AdvReac Type Severity Reaction Status Date / Time iodine Allergy Severe ANAPHYLAXIS Verified 01/26/23 13:14 shellfish derived Allergy Severe ANAPHYLAXIS Verified 01/26/23 13:14 shrimp Allergy Severe ANAPHYLAXIS Verified 01/26/23 13:14 barium sulfate Allergy Intermediate itching Verified 01/26/23 13:14 rash bee venom protein (honey bee) Allergy Intermediate swelling Verified 01/26/23 13:14 at the site codeine Allergy Intermediate HIVES Verified 01/26/23 13:14 Iodinated Contrast Media Allergy Intermediate HIVES Verified 01/26/23 13:14 ketorolac Allergy Intermediate ITCHING Verified 01/26/23 13:14 morphine Allergy Intermediate ITCHING Verified 01/26/23 13:14 Penicillins Allergy Intermediate ITCHING/HIV Verified 01/26/23 13:14 ES Medications Home Medications Medication Instructions Recorded Confirmed Last Taken lancets 33 gauge (OneTouch Delica #100 ea 02/16/20 01/26/23 Unknown Plus Lancet) pediatric multivitamin no.76 1 tab PO BID 04/23/20 01/26/23 01/25/23 (Flintstones Complete chewable tablet) blood sugar diagnostic (OneTouch #100 ea 05/02/20 01/26/23 Unknown Verio test strips) acetaminophen 500 mg tablet 1,000 - 1,500 mg PO Q6H PRN Pain 10/05/20 01/26/23 10/04/20 (Tylenol Extra Strength) 1500 mg nitroglycerin 0.4 mg sublingual 0.4 mg sublingual Q5M PRN chest 10/06/20 01/26/23 Unknown tablet pain #1 btl cyclobenzaprine 10 mg tablet 10 mg PO TID PRN muscle spasm #30 10/09/21 01/26/23 Unknown tabs gabapentin 100 mg capsule 100 mg PO Q8H PRN pain #30 caps 10/09/21 01/26/23 Unknown apixaban 5 mg tablet (Eliquis) 5 mg PO QAM 04/16/22 01/26/23 01/25/23 furosemide 40 mg tablet 40 mg PO QAM edema 04/16/22 01/26/23 01/25/23 cyanocobalamin (vitamin B-12) 1,000 mcg IM .COMPLEX #1 mL 06/17/22 01/26/23 3 Months Ago 1,000 mcg/mL injection solution ~10/26/22 oxycodone 5 mg tablet 5 mg PO Q8H PRN Pain 06/17/22 01/26/23 Unknown potassium chloride 20 mEq 40 meq PO QAM 08/28/22 01/26/23 01/25/23 tablet,extended release levothyroxine 175 mcg tablet 175 mcg PO DAILYBB 10/10/22 01/26/23 01/25/23 amiodarone 200 mg tablet 200 mg PO QAM 01/26/23 01/26/23 01/25/23 metoprolol succinate 100 mg 100 mg PO QAM 01/26/23 01/26/23 01/25/23 tablet,extended release 24 hr omeprazole 40 mg capsule,delayed 40 mg PO QAM 01/26/23 01/26/23 01/25/23 release spironolactone 25 mg tablet 25 mg PO DAILY PRN edema 01/26/23 01/26/23 Unknown tamsulosin 0.4 mg capsule (Flomax) 0.4 mg PO QAM 01/26/23 01/26/23 01/25/23 Active Medications Generic Name Dose Route Start Last Admin Trade Name Freq PRN Reason Stop Dose Admin Hydromorphone HCl 0.5 mg 01/26/23 16:09 01/27/23 01:20 Hydromorphone Inj 0.5 Mg/0.5 Ml Syr IV 02/09/23 16:08 0.5 mg Q3H PRN Administration Pain, severe rating 8,9,10 Ciprofloxacin 400 mg in 200 mls @ 100 mls/hr 01/26/23 20:00 01/26/23 23:01 Cipro / D5w IV 02/05/23 19:59 Infused Q12H EARLENE Infusion Protocol Promethazine HCl 12.5 mg/ 50.5 mls @ 202 mls/hr 01/27/23 02:42 01/27/23 03:31 Sodium Chloride IV 02/26/23 02:41 Infused Q6H PRN Infusion Nausea And Vomiting Lactated Ringer's 1,000 mls @ 100 mls/hr 01/27/23 03:31 01/27/23 04:12 Lr IV 01/27/23 13:30 100 mls/hr .Q10H ONE Administration Levothyroxine Sodium 175 mcg 01/27/23 06:30 01/27/23 06:02 Levothyroxine Sodium 175 Mcg Tablet PO 02/26/23 06:29 175 mcg DAILYBB EALRENE Administration Multivitamins/Folic Acid/Vitamin C 1 tab 01/26/23 21:00 01/26/23 19:33 Multivitamin Chewable Tab PO 02/25/23 20:59 1 tab BID EARLENE Administration Past Medical History Medical History Anemia On iron supplement Anxiety Arthritis Asthma Well controlled and stable - uses rescue inhaler rarely Atrial fibrillation Stable- s/p ablation x 2 - still have a fib Bilateral edema of lower extremity Stable Bulging lumbar disc Cataract, bilateral Chest pain, rule out acute myocardial infarction Degenerative disc disease Degenerative disc disease Depression Diverticulosis Family history of colon cancer Heart murmur No murmur noted on PAT exam on 08/16/19- ECHO 04/2019 History of colon polyps History of neoplasm of uncertain behavior of skin History of TIA (transient ischemic attack) 2016--no deficits- no issues since that time. Follows with neuro once yearly - Dr. Barker (also sees for RLS) Hx of basal cell carcinoma FACE AND CHEST Hx of migraines Hypertension Hypokalemia Hypomagnesemia Hypothyroidism Intractable nausea and vomiting Jaw pain Leg length discrepancy Morbid obesity On anticoagulant therapy on eliquis Palpitations Paroxysmal atrial fibrillation Prediabetes Stable per patient Restless leg syndrome Sacroiliac joint pain Sleep apnea mild, no device needed Strain of left trapezius muscle Supraventricular tachycardia (06/25/11) Vomiting Past Family History Family History Mother Family history of diabetes mellitus Family history of reaction to anesthesia "had heart complications after surgery for cancer of the vulva" Family hx colonic polyps Myocardial infarction Father Family hx of colon cancer Family hx colonic polyps Colorectal cancer Uncle Family history of esophageal cancer Sister Family hx colonic polyps Other Hypertension Denies family history of Ovarian cancer Prostate cancer Breast cancer Past Surgical History Surgical History H/O bariatric surgery H/O cardiac radiofrequency ablation x2 H/O carpal tunnel repair History of appendectomy History of arthroscopy of right shoulder History of basal cell carcinoma (BCC) excision in office, off chest History of bilateral breast reduction surgery (~11/2010) free nipple graft History of cholecystectomy History of colonoscopy History of esophagogastroduodenoscopy (EGD) History of ovarian cystectomy History of removal of cyst right breast, benign History of surgical removal of ganglion cyst right hand History of total abdominal hysterectomy and bilateral salpingo-oophorectomy History of total left knee replacement (TKR) History of wisdom tooth extraction Hx of bilateral cataract extraction Hx of laminectomy 1992 Laminectomy (06/25/11) Open reduction of fracture (06/25/11) S/P excision of lipoma (~07/2019) Excision Lipoma Right Forehead, Within the Left Brow; Right Anterior Knee x2(Bilateral) - Wendy Alfred MD Social History Smoking Status: Never smoker Do You Dip or Chew Tobacco: No Hx Alcohol Use: No Alcohol type: wine alcohol intake frequency: holidays/special occasions only Hx Substance Use: No substance use type: does not use Physical Exam Vital Signs Last Vital Signs Temp 98.2 F 01/27/23 07:23 Pulse 69 01/27/23 07:23 Resp 18 01/27/23 07:23 BP 116/74 01/27/23 07:23 Pulse Ox 94 01/27/23 07:23 O2 Del Method Room Air 01/27/23 07:23 Testing Laboratory Results 01/27/23 04:18 01/27/23 04:18 Urine Color Dark Yellow 01/26/23 Unknown Urine Appearance Cloudy (Clear) A 01/26/23 Unknown Urine pH 6.0 (4.5-7.5) 01/26/23 Unknown Ur Specific [place] 1.023 (1.000-1.030) 01/26/23 Unknown Urine Protein 1+ (Negative) H 01/26/23 Unknown Urine Glucose (UA) Negative (Negative) 01/26/23 Unknown Urine Ketones Trace (Negative) H 01/26/23 Unknown Urine Nitrite Negative (Negative) 01/26/23 Unknown Ur Leukocyte Esterase 1+ (Negative) H 01/26/23 Unknown Urine WBC (Auto) 1-5 /hpf (0-5) 01/26/23 Unknown Urine RBC (Auto) >30 /hpf (0-4) H 01/26/23 Unknown U Hyaline Cast (Auto) 1-5 /lpf (0-5) 01/26/23 Unknown U Epithel Cells (Auto) 10-20 /lpf (0-5) H 01/26/23 Unknown Urine Bacteria (Auto) 1+ (Negative) H 01/26/23 Unknown Electrocardiogram Date: 01/27/23 Findings: + NSR @ (62 bpm) Echocardiogram Date: 01/27/23 Mild concentric LVH. LV is borderline dilated. LV EF is mildly decreased. EF 45- 50%. Mild global hypokinesis of LV. There is no thrombus. LA is borderline dilated RV is moderately dilated. RV systolic function is mildly reduced RA is mild to mod dilated No hemodynamically significant valvular aortic stenosis There is mild MR
[2023-01-27] MEDS: METOPROLOL SUCC 50MG EXT REL TAB PO SCH (08:50)
[2023-01-27] MEDS: AMIODARONE 200 MG TAB PO SCH (08:50)
[2023-01-27] MEDS: CIPROFLOXACIN / D5W 400 MG/200 ML BAG IV SCH ×2 (08:50→20:36)
[2023-01-27] MEDS: MULTIVITAMIN CHEWABLE TAB PO SCH ×2 (08:51→20:41)
[2023-01-27] MEDS: PANTOprazole 40 MG TAB PO SCH (08:51)
[2023-01-27] MEDS: TAMSULOSIN HCL 0.4 MG CAP PO SCH (08:51)
[2023-01-27] MEDS ORDERED: TAMSULOSIN HCL 0.4 MG CAP PO SCH (09:00)
[2023-01-27] MEDS: APIXABAN 5 MG TABLET PO SCH (11:05)
[2023-01-27] MEDS ORDERED: ePHEDrine sulfate 50 MG/ML AMP IV PRN (13:25)
[2023-01-27] MEDS ORDERED: ATROPINE SULFATE 0.1 MG/ML 10ML SYR IV PRN (13:25)
[2023-01-27] MEDS ORDERED: fentaNYL citrate PF 100 MCG/2 ML VIAL IV PRN (13:25)
[2023-01-27] MEDS ORDERED: ONDANSETRON INJ 2 MG/ML 2 ML VIAL IV PRN (13:25)
[2023-01-27] MEDS ORDERED: fentaNYL citrate PF 100 MCG/2 ML VIAL ONE (13:59)
[2023-01-27] MEDS ORDERED: LIDOCAINE 2% 2 ML VIAL/AMP(20MG/ML) INFIL ONE (13:59)
[2023-01-27] MEDS ORDERED: PROPOFOL IV EMULSION 10 MG/ML 20 ML VIAL IV ONE ×2 (13:59→14:41)
[2023-01-27] MEDS ORDERED: ONDANSETRON INJ 2 MG/ML 2 ML VIAL ONE (13:59)
[2023-01-27] MEDS ORDERED: MIDAZOLAM HCL 1 MG/ML 2ML VIAL ONE (14:15)
--- NOTE | 2023-01-27 14:49 | Operative Report ---
PG Post Operative Report Pre & Post Diagnosis Operation Date: 01/27/23 10:20 Pre-Op Diagnosis: Obstructing Left Kidney Stone Left Hydronephrosis Post-Op Diagnosis: Obstructing Left Kidney Stone Left Hydronephrosis I identified the patient and participated in the time-out.: Yes Procedure Operation Date: 01/27/23 10:20 Actual Procedures p Cystoscopy, Left Retrograde Pyelogram, Left Ureteral Stent Placement(Left) - Jay Chris MD Surgeon Jay Chris MD Home Support Worker None Estimated Blood Loss 0 Findings Consistent with Post-Op Diagnosis Specimens None Drains 6 [place] by 24 cm double-J ureteral stent in the left ureter Anesthesia Type MAC Complications none Disposition Accompanied Patient To Recovery: Yes Disposition: Recovery Room Indications This is a 67-year-old female with a distal left ureteral stone and associated left-sided flank pain. She is being brought to the OR for left ureteral stent placement to address the pain. Description of Procedure The patient was identified in the holding area and informed consent was confirmed. She was marked on the left side, then was taken to the operating room where anesthesia was initiated. She was placed in the dorsal lithotomy position with all pressure points appropriately padded. She was prepped and draped in the usual sterile fashion and a preoperative timeout was performed. A well-lubricated cystoscope was inserted per urethra and panendoscopy was performed. The urethra was normal in appearance. The bladder was of normal size with ureteral orifices in orthotopic position. The left ureteral orifice was identified and cannulated with a 5 [place] open- ended catheter. A retrograde pyelogram was performed demonstrating a filling defect in the very distal ureter suspicious for the stone. There was hydroureter proximal to this. There were no strictures or extravasation appreciated. A 0.038" ZIPwire was advanced to the level of the kidney under fluoroscopic guidance. Over the wire, a 6 [place] x 24 centimeter double-J ureteral stent was advanced. When the wire was removed, the proximal curl was visualized in the kidney with x-ray, and the distal curl visualized in the bladder with the cystoscope. At this point the bladder was drained and all instrumentation was removed. The patient was then awakened from anesthesia and was brought to the PACU in stable condition. I attest to the content of the Intraoperative Record and any orders documented therein. Any exceptions are noted below.
[2023-01-27] MEDS ORDERED: DIATRIZOATE MEGLUMINE 30% 100ML VIAL INSTIL ONE (14:57)
--- NOTE | 2023-01-27 15:10 | Anesthesiology Progress Note ---
Date of Service January 27, 2023 Anesthesia Post Procedure Vital Signs Vital Signs: Temp Pulse Pulse Pulse Resp BP BP 01/27/23 15:05 57 L 16 118/64 01/27/23 14:55 36.0 C L 58 L 21 114/66 01/27/23 13:13 37 C 91 H 20 124/87 01/27/23 11:19 36.8 C 57 L 18 147/79 H 01/27/23 07:23 36.8 C 69 18 116/74 01/27/23 07:19 62 01/27/23 03:22 36.7 C 63 16 93/51 L 01/27/23 00:00 55 L 01/26/23 23:12 36.6 C 58 L 18 108/57 L 01/26/23 19:58 36.5 C 81 20 98/63 L 01/26/23 17:43 36.3 C L 55 L 18 117/74 01/26/23 17:00 62 15 148/70 H 01/26/23 16:30 58 L 22 153/81 H 01/26/23 16:00 58 L 15 148/78 H 01/26/23 15:31 61 24 165/101 H 01/26/23 16:10 61 18 148/78 H Pulse Ox O2 Del Method O2 Flow Rate 01/27/23 15:05 97 Oxymask 4 01/27/23 14:55 97 Oxymask 6 01/27/23 13:13 91 Room Air 01/27/23 11:19 92 Room Air 01/27/23 07:23 94 Room Air 01/27/23 07:19 01/27/23 03:22 95 Room Air 01/27/23 00:00 01/26/23 23:12 98 Room Air 01/26/23 19:58 98 Room Air 01/26/23 17:43 95 Room Air 01/26/23 17:00 96 01/26/23 16:30 95 01/26/23 16:00 95 01/26/23 15:31 95 01/26/23 16:10 95 Room Air Pain Intensity Left Flank: Pain Intensity: 0 Transfer of Care Handoff Completed per policy Notes Mental Status: alert / awake / arousable and participated in evaluation Patient Amnestic to Procedure: Yes Nausea / Vomiting: adequately controlled Pain: adequately controlled Airway Patency, RR, SpO2: stable & adequate BP & HR: stable & adequate Hydration State: stable & adequate Anesthetic Complications: no major complications apparent and Pt Satisfied with anesthetic care
[2023-01-27] MEDS: GABAPENTIN 100 MG CAP PO PRN (15:41)
--- NOTE | 2023-01-27 16:11 | Fluoroscopy Report ---
FL retrograde includes kub CLINICAL HISTORY: LEFT STENTleft-sided cystourethrogram was done placement COMPARISON STUDY: CT 01/26/2023 FLUOROSCOPY TIME: 9.2 seconds FLUOROSCOPY IMAGES: T2 EXPOSURE DOSE: 4.44 mGy FINDINGS: Retrograde injection of contrast into the left ureter demonstrates distal ureteral dilation with a few small filling defects. The second image demonstrates placement of a left ureteral stent, proximal portion in satisfactory positioning. The distal portion of the stent was not imaged. IMPRESSION: Fluoroscopic assistance as above. ACT 112: Negative or not required by law. Electronically signed by: Sav Wright M.D. 01/27/2023 4:10 PM
[2023-01-27] MEDS: oxyCODONE HCL IR 5 MG TAB (IMMEDIATE RELEASE) PO PRN (17:53)
[2023-01-28] MEDS: LEVOTHYROXINE SODIUM 175 MCG TABLET PO SCH (06:07)
--- NOTE | 2023-01-28 06:11 | Electrocardiogram Report ---
Test Reason : Blood Pressure : / mmHG Vent. Rate : 061 BPM Atrial Rate : 061 BPM P-R Int : 126 ms QRS Dur : 080 ms QT Int : 462 ms P-R-T Axes : 028 001 -09 degrees QTc Int : 465 ms Normal sinus rhythm Low voltage QRS Borderline ECG When compared with ECG of 22-DEC-2022 11:35, No significant change was found Confirmed by King Salcedo ([id number]) on 01/28/2023 6:11:17 AM Referred By: REFERRED SELF Confirmed By:King Salcedo
--- NOTE | 2023-01-28 06:26 | Electrocardiogram Report ---
Test Reason : Blood Pressure : / mmHG Vent. Rate : 061 BPM Atrial Rate : 061 BPM P-R Int : 136 ms QRS Dur : 078 ms QT Int : 450 ms P-R-T Axes : 012 005 -01 degrees QTc Int : 453 ms Normal sinus rhythm Low voltage QRS Borderline ECG When compared with ECG of 26-JAN-2023 11:24, No significant change was found Confirmed by King Salcedo ([id number]) on 01/28/2023 6:25:56 AM Referred By: REFERRED SELF Confirmed By:King Salcedo
[2023-01-28 07:42] LABS: Hematocrit (blood only) 37.8 % (37.0-47.0); Hemoglobin 13.2 g/dl (12.0-16.0); Mean Corpuscular Hemoglobin 31.4 pg (25.0-34.0); Mean Corpuscular Hgb Conc 34.9 g/dL (32.0-36.0); Mean Platelet Volume 11.5 fL (9.4-12.4); Platelet Count 214 K/uL (130-400); RDW Coefficient of Variation 11.9 % (11.5-14.5); RDW Standard Deviation 39.2 fL (36.4-46.3); White Blood Count 5.83 K/ul (4.8-10.8)
[2023-01-28 08:00] LABS: BUN Creatinine Ratio 19.3 (10-20); Calcium 8.8 mg/dl (8.6-10.3); Creatinine Clr Calc Pharmacy 101.8 ml/min; Est GFR (African American) 110.4 ml/min; Est GFR (Non-African American) 95.3 ml/min; Magnesium 1.8 mg/dl (1.7-2.4); Phosphorus 3.3 mg/dl (2.5-4.9); Potassium 3.9 mmol/L (3.5-5.1)
[2023-01-28] MEDS: CIPROFLOXACIN / D5W 400 MG/200 ML BAG IV SCH ×2 (08:17→20:07)
[2023-01-28] MEDS: METOPROLOL SUCC 50MG EXT REL TAB PO SCH (08:18)
[2023-01-28] MEDS: APIXABAN 5 MG TABLET PO SCH (08:18)
[2023-01-28] MEDS: MULTIVITAMIN CHEWABLE TAB PO SCH ×2 (08:18→20:14)
[2023-01-28] MEDS: GABAPENTIN 100 MG CAP PO PRN (08:18)
[2023-01-28] MEDS: PANTOprazole 40 MG TAB PO SCH (08:18)
[2023-01-28] MEDS: AMIODARONE 200 MG TAB PO SCH (08:18)
[2023-01-28] MEDS: TAMSULOSIN HCL 0.4 MG CAP PO SCH (08:18)
--- NOTE | 2023-01-28 09:32 | Urology Progress Note ---
Date of Service January 28, 2023 Assessment & Plan (1) Ureterolithiasis: (2) Hydronephrosis of left kidney: Plan: - Pt POD#1 s/p cystoscopy and left ureteral stent placement - Doing well, progressing as expected - Afebrile, lab work reviewed - creatinine 0.57, WBC 5.83 - Urine culture showed 3 types of organisms, all moderate counts of mixed probable frandy - Tolerating left ureteral stent with mild bother - Okay to d/c from perspective when medically stable - Recommend d/c with course of PO antibiotics, Tamsulosin, prn Pyridium and prn Oxybutynin for stent management - Expected clinical course reviewed, all questions answered - Will arrange outpatient follow-up with our service for stone management or she can f/u with Dr. Mendoza Admission and Anticipated Discharge Date Admission Date: January 26, 2023 Subjective Patient seen and examined at bedside this morning, chart reviewed No issues overnight Reports cramping discomfort of the left flank Voiding without difficulty Hematuria postprocedure Denies nausea, vomiting, fever or chills Review of Systems Constitutional: as per Subjective / HPI Gastrointestinal: as per Subjective / HPI Genitourinary: as per Subjective / HPI Physical Exam Constitutional: well developed and well nourished; no acute distress Respiratory: no respiratory distress and no labored breathing Gastrointestinal (Abdomen): Inspection/Auscultation: abdomen normal to inspection; abdomen not distended Musculoskeletal: Head/Neck/Chest: normocephalic and head atraumatic Psychiatric: Orientation: alert and oriented x 3 Results & Data Vital Signs (Past 12 Hours) Vital Signs Temp Pulse Pulse Resp BP Pulse Ox O2 Del Method 01/28/23 07:31 36.4 C L 68 18 175/88 H 94 Room Air 01/28/23 07:01 63 01/28/23 03:59 36.7 C 65 18 117/70 94 Room Air 01/28/23 01:01 65 01/27/23 23:21 36.5 C 64 18 126/76 94 Room Air PG Care Time/CCT Total # of Minutes Spent Total Time Spent with Patient: Total time spent is greater than 50% in coordination of care (as documented) at patient's floor/unit and/or counseling patient: Coding Level of Care Code 94705 SUB INP/OBS CARE 07/22MIN Diagnoses Ureterolithiasis N20.1 Hydronephrosis of left kidney N13.30
[2023-01-28] MEDS ORDERED: PHENAZOPYRIDINE HCL 200 MG TAB PO PRN (09:36)
[2023-01-28] MEDS: HYDROmorphone INJ 0.5 MG/0.5 ML SYR IV PRN ×2 (09:46→18:14)
[2023-01-28] MEDS: PROMETHAZINE HCL 12.5 MG in SODIUM CHLORIDE 0.9% 50 ML IV PRN (09:58)
[2023-01-28] MEDS: oxyCODONE HCL IR 5 MG TAB (IMMEDIATE RELEASE) PO PRN (11:02)
--- NOTE | 2023-01-28 12:09 | Hospitalist Progress Note ---
Date of Service January 28, 2023 Assessment & Plan (1) Ureterolithiasis: (2) Hydroureter on left: (3) Hydronephrosis of left kidney: Plan: - Admitted to [facility] tele - CT abd reviewed showing Left sided 9 mm obstructing stone proximal to the UVJ, mild to moderate hydroureteronephrosis - Pain management, bowel regimen WBC =4.91, NSS at 80 mL/h secondary to reduced LVEF of 45%, monitor closely for volume changes - Urology consulted - pt now s/p cystoscopy and ureteral stent placement yesterday (01/27/23) - Strict I's and O's, strain all urine - developed hematuria, and more abd. pain- cont. pain management, and cont. to monitor - urology was made aware as well (4) Chronic combined systolic and diastolic CHF (congestive heart failure): (5) Cardiomyopathy: (6) On amiodarone therapy: (7) Dyslipidemia: (8) Paroxysmal atrial fibrillation: Plan: -Most recent echocardiogram was completed on 12/15/2022 showing LVEF of 45%,Global hypokinesis of the left ventricle, no thrombus -Previously followed cardiology with Dr. Dr. Coronado with [facility], recently has requested switching to [facility] cardiology -Continue amiodarone 200 mg daily, metoprolol succ 100 mg daily for rate control -on admission she missed her PO meds - amiodarone and metoprolol tartrate - reported chest discomfort at that time - pt tells me she gets chest discomfort about every 2 weeks d/t afib (which she feels) - now better since on amiodarone - Troponin bump from 16 --170 is likely demand ischemia mismatch with her CAD hx, unlikely ACS - ECG shows NSR - no ischemic changes noted -Eliquis 5 mg once daily due to hematuria hx, none prior to procedure, ok with potential stent placement. - Holding Lasix 40 mg every morning, spironolactone 25 mg, potassium supplementation for now - monitor volume status -She is not on an STEVO/ARB which has been mentioned in outpt notes as possibly adding to her regimen -- also can consider starting Entresto as outpt - Appt with Dr. Cobb with cardiology is in about 3 wks as outpatient (9) Hypothyroidism: Plan: -Continue levothyroxine (10) Vitamin D deficiency: Plan: - Cont multivitamin DVT ppx: teds, scds, eliquis QAM CODE: DNR/DNI - discussed with the patient at bedside Dispo: From home, likely to remain in the hospital x 1-2 days Admission and Anticipated Discharge Date Admission Date: January 26, 2023 Subjective Pt seen in follow up of renal stone, elevDolly lynn Currently laying in bed, in NAD Had cystoscopy, and ureteral stent placed yesterday Reports more hematuria today and more pain in lower abdomen Denies any fever, chills, chest pain, or shortness of breath Review of Systems Review of Systems: All systems reviewed & are unremarkable except as noted in Subjective Physical Exam Physical Exam: General: obese F in NAD Head: Normocephalic, atraumatic ENT: PERRL, EOMI,mucous membranes moist Chest: Clear to auscultation, on room air, no adventitious breath sounds Cardiac: Regular rate and rhythm, no murmur, no JVD, normal peripheral pulses Abdominal: NABS x 4 quadrants, soft, nondistended,+tender to palpation in lower abd., no rebound or guarding Extremities: Normal inspection, no peripheral edema or erythema, calves nontender to palpation Psych: Normal mood and affect Neuro: AAO x 3, speech is clear, moves extremities Results & Data Results & Data Vital Signs (Past 12 Hours) Vital Signs Temp Pulse Pulse Resp BP Pulse Ox O2 Del Method 01/28/23 11:15 36.4 C L 69 18 153/77 H 98 Room Air 01/28/23 07:31 36.4 C L 68 18 175/88 H 94 Room Air 01/28/23 07:01 63 01/28/23 03:59 36.7 C 65 18 117/70 94 Room Air 01/28/23 01:01 65 Laboratory Results 01/28/23 01/28/23 Range/Units 06:34 06:34 WBC 5.83 (4.8-10.8) K/ul RBC 4.20 (4.20-5.40) M/uL Hgb 13.2 (12.0-16.0) g/dl Hct 37.8 (37.0-47.0) % MCV 90.0 (80.0-100.0) fL MCH 31.4 (25.0-34.0) pg MCHC 34.9 (32.0-36.0) g/dL RDW Std Deviation 39.2 (36.4-46.3) fL RDW Coeff of Falguni 11.9 (11.5-14.5) % Plt Count 214 (130-400) K/uL MPV 11.5 (9.4-12.4) fL Sodium 139 (136-145) mmol/L Potassium 3.9 (3.5-5.1) mmol/L Chloride 109 H (98-107) mmol/L Carbon Dioxide 24 (21-32) mmol/L Anion Gap 6 (3-11) BUN 11 (6-23) mg/dl Creatinine 0.57 L (0.6-1.2) mg/dl Est Cr Clr Drug Dosing 101.8 ml/min Est GFR ( Amer) 110.4 ml/min Est GFR (Non-Af Amer) 95.3 ml/min BUN/Creatinine Ratio 19.3 (10-20) Glucose 130 H (70-99(Fasting)) mg/dl Calcium 8.8 (8.6-10.3) mg/dl Phosphorus 3.3 (2.5-4.9) mg/dl Magnesium 1.8 (1.7-2.4) mg/dl Medications Administered Current Inpatient Medications Acetaminophen (Acetaminophen 325 Mg Tab) 650 mg PO Q4H PRN PRN Reason: Mild Pain (Scale 1,2,3) Stop: 02/25/23 17:40 Amiodarone HCl (Amiodarone 200 Mg Tab) 200 mg PO [facility] Stop: 02/26/23 08:59 Last Admin: 01/28/23 08:18 Dose: 200 mg Apixaban (Apixaban 5 Mg Tablet) 5 mg PO [facility] Stop: 02/26/23 08:59 Last Admin: 01/28/23 08:18 Dose: 5 mg Cyclobenzaprine HCl (Cyclobenzaprine Hcl 10 Mg Tab) 10 mg PO TID PRN PRN Reason: muscle spasm Stop: 02/25/23 17:40 Gabapentin (Gabapentin 100 Mg Cap) 100 mg PO Q8H PRN PRN Reason: pain Stop: 02/25/23 17:40 Last Admin: 01/28/23 08:18 Dose: 100 mg Hydromorphone HCl (Hydromorphone Inj 0.5 Mg/0.5 Ml Syr) 0.5 mg IV Q3H PRN PRN Reason: Pain, severe rating 8,9,10 Stop: 02/09/23 16:08 Last Admin: 01/28/23 09:46 Dose: 0.5 mg Ciprofloxacin (Cipro / D5w) 400 mg in 200 mls @ 100 mls/hr IV Q12H [facility]; Protocol Stop: 02/05/23 19:59 Last Infusion: 01/28/23 10:39 Dose: Infused Promethazine HCl 12.5 mg/ (Sodium Chloride) 50.5 mls @ 202 mls/hr IV Q6H PRN PRN Reason: Nausea And Vomiting Stop: 02/26/23 02:41 Last Infusion: 01/28/23 10:14 Dose: Infused Lactobacillus Acidophilus (Advanced Probiotic 1250 Mg Capsule) 2 cap PO DAILY [facility] Stop: 02/27/23 12:29 Levothyroxine Sodium (Levothyroxine Sodium 175 Mcg Tablet) [facility] Stop: 02/26/23 06:29 Last Admin: 01/28/23 06:07 Dose: 175 mcg Metoprolol Succinate (Metoprolol Succ 50mg Ext Rel Tab) [facility] Stop: 02/26/23 08:59 Last Admin: 01/28/23 08:18 Dose: 100 mg Multivitamins/Folic Acid/Vitamin C (Multivitamin Chewable Tab) 1 tab PO BID [facility] Stop: 02/25/23 20:59 Last Admin: 01/28/23 08:18 Dose: 1 tab Oxycodone HCl (Oxycodone Hcl Ir 5 Mg Tab (Immediate Release)) 5 mg PO Q8H PRN PRN Reason: Pain, moderate rating 5,6,7 Stop: 02/09/23 17:40 Last Admin: 01/28/23 11:02 Dose: 5 mg Pantoprazole Sodium (Pantoprazole 40 Mg Tab) [facility] Stop: 02/26/23 08:59 Last Admin: 01/28/23 08:18 Dose: 40 mg Phenazopyridine HCl (Phenazopyridine Hcl 200 Mg Tab) 200 mg PO TID PRN PRN Reason: Bladder pain Stop: 02/27/23 09:35 Last Admin: 01/28/23 10:58 Dose: 200 mg Tamsulosin HCl (Tamsulosin Hcl 0.4 Mg Cap) 0.4 mg PO QAM [facility] Stop: 02/26/23 08:59 Last Admin: 01/28/23 08:18 Dose: 0.4 mg (5) Cardiomyopathy Cardiomyopathy type: unspecified Qualified Code(s): I42.9 - Cardiomyopathy, unspecified (9) Hypothyroidism Hypothyroidism type: acquired Qualified Code(s): E03.9 - Hypothyroidism, unspecified
[2023-01-28] MEDS: ADVANCED PROBIOTIC 1250 MG CAPSULE PO SCH (12:53)
[2023-01-29] MEDS: LEVOTHYROXINE SODIUM 175 MCG TABLET PO SCH (06:19)
[2023-01-29 06:59] LABS: Hematocrit (blood only) 33.9 % (37.0-47.0); Hemoglobin 11.7 g/dl (12.0-16.0); Mean Corpuscular Hemoglobin 31.5 pg (25.0-34.0); Mean Corpuscular Hgb Conc 34.5 g/dL (32.0-36.0); Mean Corpuscular Volume 91.1 fL (80.0-100.0); Mean Platelet Volume 10.9 fL (9.4-12.4); Platelet Count 197 K/uL (130-400); RDW Coefficient of Variation 12.3 % (11.5-14.5); RDW Standard Deviation 40.8 fL (36.4-46.3); Red Blood Count 3.72 M/uL (4.20-5.40); White Blood Count 7.02 K/ul (4.8-10.8)
--- NOTE | 2023-01-29 07:00 | Electrocardiogram Report ---
Test Reason : Blood Pressure : / mmHG Vent. Rate : 062 BPM Atrial Rate : 062 BPM P-R Int : 134 ms QRS Dur : 082 ms QT Int : 478 ms P-R-T Axes : -27 036 -09 degrees QTc Int : 485 ms Normal sinus rhythm Prolonged QT When compared with ECG of 26-JAN-2023 14:09, QT has lengthened Confirmed by King Salcedo ([id number]) on 01/29/2023 7:00:17 AM Referred By: REFERRED SELF Confirmed By:King Salcedo
[2023-01-29 07:26] LABS: BUN Creatinine Ratio 16.9 (10-20); Calcium 8.2 mg/dl (8.6-10.3); Creatinine Clr Calc Pharmacy 84.4 ml/min; Est GFR (African American) 105.7 ml/min; Est GFR (Non-African American) 91.2 ml/min; Magnesium 1.6 mg/dl (1.7-2.4); Potassium 3.6 mmol/L (3.5-5.1)
[2023-01-29] MEDS ORDERED: MAGNESIUM SULFATE / D5W 1 GM/100 ML BAG IV ONE (07:55)
[2023-01-29] MEDS: CIPROFLOXACIN / D5W 400 MG/200 ML BAG IV SCH (08:17)
[2023-01-29] MEDS: AMIODARONE 200 MG TAB PO SCH (08:18)
[2023-01-29] MEDS: MULTIVITAMIN CHEWABLE TAB PO SCH (08:18)
[2023-01-29] MEDS: PANTOprazole 40 MG TAB PO SCH (08:18)
[2023-01-29] MEDS: TAMSULOSIN HCL 0.4 MG CAP PO SCH (08:18)
[2023-01-29] MEDS: APIXABAN 5 MG TABLET PO SCH (08:19)
[2023-01-29] MEDS: METOPROLOL SUCC 50MG EXT REL TAB PO SCH (08:19)
[2023-01-29] MEDS: ADVANCED PROBIOTIC 1250 MG CAPSULE PO SCH (08:19)
--- NOTE | 2023-01-29 08:19 | Hospitalist Progress Note ---
Date of Service January 29, 2023 Assessment & Plan (1) Ureterolithiasis: (2) Hydroureter on left: (3) Hydronephrosis of left kidney: Plan: - Admitted to [facility] tele - CT abd reviewed showing Left sided 9 mm obstructing stone proximal to the UVJ, mild to moderate hydroureteronephrosis - Pain management, bowel regimen WBC =4.91, NSS at 80 mL/h secondary to reduced LVEF of 45%, monitor closely for volume changes - Urology consulted - pt now s/p cystoscopy and ureteral stent placement (01/27/23) - Strict I's and O's, strain all urine - developed hematuria, and more abd. pain next day after the procedure but now she feels much better and pain is controlled She is interested in discharge home. She is to follow up w/ urology on Wednesday. (4) Chronic combined systolic and diastolic CHF (congestive heart failure): (5) Cardiomyopathy: (6) On amiodarone therapy: (7) Dyslipidemia: (8) Paroxysmal atrial fibrillation: Plan: -Most recent echocardiogram was completed on 12/15/2022 showing LVEF of 4 5%,Global hypokinesis of the left ventricle, no thrombus -Previously followed cardiology with Dr. Dr. Coronado with [facility], recently has requested switching to [facility] cardiology -Continue amiodarone 200 mg daily, metoprolol succ 100 mg daily for rate control -on admission she missed her PO meds - amiodarone and metoprolol tartrate - reported chest discomfort at that time - pt tells me she gets chest discomfort about every 2 weeks d/t afib (which she feels) - now better since on amiodarone - Troponin bump from 16 --170 is likely demand ischemia mismatch with her CAD hx, unlikely ACS - ECG shows NSR - no ischemic changes noted -Eliquis 5 mg once daily due to hematuria hx, none prior to procedure, ok with potential stent placement. - Holding Lasix 40 mg every morning, spironolactone 25 mg, potassium supplementation for now - monitor volume status -She is not on an STEVO/ARB which has been mentioned in outpt notes as possibly adding to her regimen -- also can consider starting Entresto as outpt - Appt with Dr. Cobb with cardiology is in about 3 wks as outpatient (9) Hypothyroidism: Plan: -Continue levothyroxine (10) Vitamin D deficiency: Plan: - Cont multivitamin DVT ppx: teds, scds, eliquis QAM CODE: DNR/DNI Dispo: plan to Dc home Admission and Anticipated Discharge Date Admission Date: January 26, 2023 Subjective Pt seen in follow up of renal stone, elev. lynn Currently sitting up in chair, in NAD Had cystoscopy, and ureteral stent placed Yesterday felt poorly, w/ n/v , now reports feeling much better, pain controlled and she was able to tolerate breakfast Denies any fever, chills, chest pain, or shortness of breath Review of Systems Review of Systems: All systems reviewed & are unremarkable except as noted in Subjective Physical Exam Physical Exam: General: obese F in NAD Head: Normocephalic, atraumatic ENT: PERRL, EOMI,mucous membranes moist Chest: Clear to auscultation, on room air, no adventitious breath sounds Cardiac: Regular rate and rhythm, no murmur, no JVD, normal peripheral pulses Abdominal: NABS x 4 quadrants, soft, nondistended,+ minimally tender to palpation in lower abd. (much improved), no rebound or guarding Extremities: Normal inspection, no peripheral edema or erythema, calves nontender to palpation Psych: Normal mood and affect Neuro: AAO x 3, speech is clear, moves extremities Results & Data Results & Data Vital Signs (Past 12 Hours) Vital Signs Temp Pulse Pulse Resp BP Pulse Ox O2 Del Method 01/29/23 07:40 36.5 C 73 18 116/73 92 Room Air 01/29/23 07:09 76 01/28/23 21:59 66 01/29/23 00:06 37.0 C 73 18 124/76 93 Room Air Laboratory Results 01/29/23 01/29/23 Range/Units 06:36 06:36 WBC 7.02 (4.8-10.8) K/ul RBC 3.72 L (4.20-5.40) M/uL Hgb 11.7 L (12.0-16.0) g/dl Hct 33.9 L (37.0-47.0) % MCV 91.1 (80.0-100.0) fL MCH 31.5 (25.0-34.0) pg MCHC 34.5 (32.0-36.0) g/dL RDW Std Deviation 40.8 (36.4-46.3) fL RDW Coeff of Falguni 12.3 (11.5-14.5) % Plt Count 197 (130-400) K/uL MPV 10.9 (9.4-12.4) fL Sodium 142 (136-145) mmol/L Potassium 3.6 (3.5-5.1) mmol/L Chloride 111 H (98-107) mmol/L Carbon Dioxide 26 (21-32) mmol/L Anion Gap 5 (3-11) BUN 11 (6-23) mg/dl Creatinine 0.65 (0.6-1.2) mg/dl Est Cr Clr Drug Dosing 84.4 ml/min Est GFR ( Amer) 105.7 ml/min Est GFR (Non-Af Amer) 91.2 ml/min BUN/Creatinine Ratio 16.9 (10-20) Glucose 98 (70-99(Fasting)) mg/dl Calcium 8.2 L (8.6-10.3) mg/dl Magnesium 1.6 L (1.7-2.4) mg/dl Medications Administered Current Inpatient Medications Acetaminophen (Acetaminophen 325 Mg Tab) 650 mg PO Q4H PRN PRN Reason: Mild Pain (Scale 1,2,3) Stop: 02/25/23 17:40 Amiodarone HCl (Amiodarone 200 Mg Tab) 200 mg PO [facility] Stop: 02/26/23 08:59 Last Admin: 01/28/23 08:18 Dose: 200 mg Apixaban (Apixaban 5 Mg Tablet) 5 mg PO [facility] Stop: 02/26/23 08:59 Last Admin: 01/28/23 08:18 Dose: 5 mg Cyclobenzaprine HCl (Cyclobenzaprine Hcl 10 Mg Tab) 10 mg PO TID PRN PRN Reason: muscle spasm Stop: 02/25/23 17:40 Gabapentin (Gabapentin 100 Mg Cap) 100 mg PO Q8H PRN PRN Reason: pain Stop: 02/25/23 17:40 Last Admin: 01/28/23 08:18 Dose: 100 mg Hydromorphone HCl (Hydromorphone Inj 0.5 Mg/0.5 Ml Syr) 0.5 mg IV Q3H PRN PRN Reason: Pain, severe rating 8,9,10 Stop: 02/09/23 16:08 Last Admin: 01/28/23 18:14 Dose: 0.5 mg Ciprofloxacin (Cipro / D5w) 400 mg in 200 mls @ 100 mls/hr IV Q12H [facility]; Protocol Stop: 02/05/23 19:59 Last Infusion: 01/29/23 00:42 Dose: Infused Promethazine HCl 12.5 mg/ (Sodium Chloride) 50.5 mls @ 202 mls/hr IV Q6H PRN PRN Reason: Nausea And Vomiting Stop: 02/26/23 02:41 Last Infusion: 01/28/23 10:14 Dose: Infused Magnesium Sulfate/Dextrose (Magnesium Sulfate / D5w) 1 gm in 100 mls @ 50 mls/hr IV ONE ONE Stop: 01/29/23 09:54 Lactobacillus Acidophilus (Advanced Probiotic 1250 Mg Capsule) 2 cap PO DAILY [facility] Stop: 02/27/23 12:29 Last Admin: 01/28/23 12:53 Dose: 2 cap Levothyroxine Sodium (Levothyroxine Sodium 175 Mcg Tablet) 175 mcg PO DAILYBB [facility] Stop: 02/26/23 06:29 Last Admin: 01/29/23 06:19 Dose: 175 mcg Metoprolol Succinate (Metoprolol Succ 50mg Ext Rel Tab) 100 mg PO QAM [facility] Stop: 02/26/23 08:59 Last Admin: 01/28/23 08:18 Dose: 100 mg Multivitamins/Folic Acid/Vitamin C (Multivitamin Chewable Tab) 1 tab PO BID [facility] Stop: 02/25/23 20:59 Last Admin: 01/28/23 20:14 Dose: 1 tab Oxycodone HCl (Oxycodone Hcl Ir 5 Mg Tab (Immediate Release)) 5 mg PO Q8H PRN PRN Reason: Pain, moderate rating 5,6,7 Stop: 02/09/23 17:40 Last Admin: 01/28/23 11:02 Dose: 5 mg Pantoprazole Sodium (Pantoprazole 40 Mg Tab) 40 mg PO QAM [facility] Stop: 02/26/23 08:59 Last Admin: 01/28/23 08:18 Dose: 40 mg Phenazopyridine HCl (Phenazopyridine Hcl 200 Mg Tab) 200 mg PO TID PRN PRN Reason: Bladder pain Stop: 02/27/23 09:35 Last Admin: 01/28/23 10:58 Dose: 200 mg Tamsulosin HCl (Tamsulosin Hcl 0.4 Mg Cap) 0.4 mg PO QAM [facility] Stop: 02/26/23 08:59 Last Admin: 01/28/23 08:18 Dose: 0.4 mg (5) Cardiomyopathy Cardiomyopathy type: unspecified Qualified Code(s): I42.9 - Cardiomyopathy, u nspecified (9) Hypothyroidism Hypothyroidism type: acquired Qualified Code(s): E03.9 - Hypothyroidism, unspecified
--- NOTE | 2023-01-29 12:20 | Discharge Summary ---
Date of Service January 29, 2023 Admission HPI Per Admitting Provider This is a 67-year-old female with PMHx of chronic diastolic CHF, cardiomyopathy, mitral regurg, paroxysmal A-fib, HTN, HLD, hypothyroidism, asthma, sleep apnea, migraine, vitamin D deficiency, GERD who presents to the hospital with acute onset of abdominal pain x 1 day. Pain in her LLQ and left flank region woke her from sleep today. She has had intermittent utis and hematuria in the past year. Due to hematuria ELiquis was reduced to once in the morning. Pt has hx of UTIs and has been working with urology for the past few months, Dr. Mendoza. Last antibiotic therapy was a few months ago. Today she denies having any pain with urination or iincreased frequency. She has been told that she has kidney stones in the past on and off, but has not required a procedure to remove them. Today she had some nausea and dry heaves, but is better since having meds in the ER. She is requesting something to eat if possible. She has been in the process of switching between cardiology from [facility] to [facility]. Dry weight of 205. If she is over 210 pt adds additional spironolactone, and uses lasix once daily. Next appointment is with [facility] in about 3 weeks. Pt lives with her sister. Denies smoking or alcohol use. She missed all her routine medications this morning due to pain and coming to the ER. Admission Exam Per Admitting Provider General: awake, alert, no apparent distress, + obese with BMI of 41.3 Head: Normocephalic, atraumatic ENT: PERRL, EOMI, no pharyngeal exudate, mucous membranes moist Chest: Clear to auscultation, on room air, no adventitious breath sounds Cardiac: Regular rate and rhythm, no murmur, no JVD, normal peripheral pulses, good capillary refill Abdominal: NABS x 4 quadrants, soft, nondistended,+tender to palpation in LLQ and left flank region, no rebound or guarding Extremities: Normal inspection, no peripheral edema or erythema, calfs nontender to palpation Psych: Normal mood and affect Neuro: AAO x 3, strength intact bilaterally and rated 5/5, no motor deficits, speech is clear, no peripheral sensory deficits Principal Diagnosis Ureterolithiasis: Hydroureter on left: Hydronephrosis of left kidney: Discharge Exam General: obese F in NAD Head: Normocephalic, atraumatic ENT: PERRL, EOMI,mucous membranes moist Chest: Clear to auscultation, on room air, no adventitious breath sounds Cardiac: Regular rate and rhythm, no murmur, no JVD, normal peripheral pulses Abdominal: NABS x 4 quadrants, soft, nondistended,+ minimally tender to palpation in lower abd. (much improved), no rebound or guarding Extremities: Normal inspection, no peripheral edema or erythema, calves n ontender to palpation Psych: Normal mood and affect Neuro: AAO x 3, speech is clear, moves extremities Discharge Data Allergies Allergy/AdvReac Type Severity Reaction Status Date / Time iodine Allergy Severe ANAPHYLAXIS Verified 01/26/23 13:14 shellfish derived Allergy Severe ANAPHYLAXIS Verified 01/26/23 13:14 shrimp Allergy Severe ANAPHYLAXIS Verified 01/26/23 13:14 barium sulfate Allergy Intermediate itching Verified 01/26/23 13:14 rash bee venom protein (honey bee) Allergy Intermediate swelling Verified 01/26/23 13:14 at the site codeine Allergy Intermediate HIVES Verified 01/26/23 13:14 Iodinated Contrast Media Allergy Intermediate HIVES Verified 01/26/23 13:14 ketorolac Allergy Intermediate ITCHING Verified 01/26/23 13:14 morphine Allergy Intermediate ITCHING Verified 01/26/23 13:14 Penicillins Allergy Intermediate ITCHING/HIV Verified 01/26/23 13:14 ES Consultations 01/26/23 15:16 Consult Urology Routine 01/26/23 16:50 ED Decision to Admit Stat Procedures Performed Operation Date: 01/27/23 10:20 Actual Procedures p Cystoscopy, Left Retrograde Pyelogram, Left Ureteral Stent Placement(Left) - Jay Chris MD Ordered Studies 01/26/23 10:40 CT Abd and Pelvis [CT abd pelvis wo con] Stat FINDINGS: Cardiomegaly. Mild subsegmental bibasilar atelectasis versus scarring. There is no pneumatosis or pneumoperitoneum. Unremarkable unenhanced spleen, mildly atrophic pancreas and adrenal glands. Suggestion of mild hepatic steatosis. Cholecystectomy with likely postsurgical biliary ductal dilation. Unremarkable right kidney. Mild to moderate left-sided hydroureteronephrosis secondary to an obstructing 9 x 6 x 5 mm calculus of the distal left ureter just proximal to the ureterovesicular junction. Decompressed urinary bladder with wall thickening. Hysterectomy. Atherosclerosis of the aorta. No lymphadenopathy. Tobias-en-Y gastric bypass. Colonic diverticulosis. No bowel obstruction or bowel wall thickening. Normal appendix. Unremarkable soft tissues. No acute fracture. IMPRESSION: 1. Mild to moderate left-sided hydroureteronephrosis secondary to an obstructing 9 mm calculus of the distal left ureter just proximal to the ureterovesicular junction. 2. No bowel obstruction or bowel wall thickening. 3. Prior hysterectomy, Tobias-en-Y gastric bypass and cholecystectomy. 4. Additional findings as above. ACT 112: Negative or not required by law. 01/27/23 [place] retrograde includes kub Routine Hospital Course (1) Ureterolithiasis: (2) Hydroureter on left: (3) Hydronephrosis of left kidney: - Admitted to [facility] tele - CT abd reviewed showing Left sided 9 mm obstructing stone proximal to the UVJ, mild to moderate hydroureteronephrosis - Pain management, bowel regimen WBC =4.91, NSS at 80 mL/h secondary to reduced LVEF of 45%, monitor closely for volume changes - Urology consulted - pt now s/p cystoscopy and ureteral stent placement (01/27/23) - Strict I's and O's, strain all urine - developed hematuria, and more abd. pain next day after the procedure but now she feels much better and pain is controlled She is interested in discharge home. She is to follow up w/ urology on Wednesday. She has oxycodone at home and flexeril. Will sent Rx for ciprofloxacin (4) Chronic combined systolic and diastolic CHF (congestive heart failure): (5) Cardiomyopathy: (6) On amiodarone therapy: (7) Dyslipidemia: (8) Paroxysmal atrial fibrillation: -Most recent echocardiogram was completed on 12/15/2022 showing LVEF of 45%,Global hypokinesis of the left ventricle, no thrombus -Previously followed cardiology with Dr. Dr. Coronado with [facility], recently has requested switching to [facility] cardiology -Continue amiodarone 200 mg daily, metoprolol succ 100 mg daily for rate control -on admission she missed her PO meds - amiodarone and metoprolol tartrate - reported chest discomfort at that time - pt tells me she gets chest discomfort about every 2 weeks d/t afib (which she feels) - now better since on amiodarone - Troponin bump from 16 --170 is likely demand ischemia mismatch with her CAD hx, unlikely ACS - ECG shows NSR - no ischemic changes noted -Eliquis 5 mg once daily due to hematuria hx, none prior to procedure, ok with potential stent placement. - Holding Lasix 40 mg every morning, spironolactone 25 mg, potassium supplementation for now - monitor volume status -She is not on an STEVO/ARB which has been mentioned in outpt notes as possibly adding to her regimen -- also can consider starting Entresto as outpt - Appt with Dr. Cobb with cardiology is in about 3 wks as outpatient (9) Hypothyroidism: -Continue levothyroxine (10) Vitamin D deficiency: - Cont multivitamin Total Time Total Time Spent Total Time Spent (In Minutes): 40 Discharge Plan Discharge Items Patient Disposition: Home - Self-Care Reason For Visit: OBSTRUCTING KIDNEY STONE, HYDRONEPHROSIS Discharge Diagnosis: Ureterolithiasis: Hydroureter on left: Hydronephrosis of left kidney: Activity: Per Instructions section Non-emergency contact: Primary Care Provider and Urologist Call non-emergency contact if: you have any medication questions and your symptoms worsen Follow-up/Referrals: Hira Mendoza MD [Outside Practitioners] - (The Urology office will call you with an appointment or you can follow up with [facility] Urology office @ [phone]) Radha Shine CRNP [Nurse Practitioner] - Jacinto Patricio MD [Primary Care Provider] - (Date & Time 02/02/2023 9:40 AM Provider Jacinto Patricio MD [facility] ) Diet: Heart Healthy Addtl Attending Provider Instructions: Follow-up with your primary care physician within 1 week. Follow-up with [facility] group urology on Wednesday, as scheduled. Finish antibiotic treatment with ciprofloxacin, as prescribed. Drink plenty of fluids. For now, do not take furosemide or spironolactone. Discuss on Wednesday, at urology office if this is appropriate to restart. Pending Studies at Discharge: No Stand-Alone Forms: My [employer], Smoking Cessation Medications and DC Order Prescriptions: New phenazopyridine [Pyridium] 200 mg Tablet 200 mg PO TID PRN (Reason: pain) 5 Days Qty: 14 0RF Advanced Probiotic 625 mg (10 billion cell) Capsule 2 cap PO DAILY 3 Days Qty: 6 0RF ciprofloxacin HCl 500 mg tablet 500 mg PO BID 2 Days Qty: 4 0RF Continued (DME) lancets [OneTouch Delica Plus Lancet] 33 gauge misc See Rx Instructions .ROUTE .MEDSUPPLY Qty: 100 1RF Rx Instructions: TEST 3 TIMES A WEEK; DX CODE- R73.03 (DME) OneTouch Verio test strips Strip See Rx Instructions .ROUTE .MEDSUPPLY Qty: 100 3RF Rx Instructions: TEST 3 TIMES A WEEK; DX CODE- R73.03 metoprolol succinate 100 mg tablet extended release 24 hr 100 mg PO QAM Qty: 90 3RF oxycodone 5 mg tablet 5 mg PO Q8H PRN (Reason: Pain) cyanocobalamin (vitamin B-12) 1,000 mcg/mL solution 1,000 mcg IM .COMPLEX Qty: 1 3RF Rx Instructions: 1,000 mcg IM Every 3 months; Flintstones Complete Tablet,Chewable 1 tab PO BID Hold Instructions: hold 30 days cyclobenzaprine 10 mg tablet 10 mg PO TID PRN (Reason: muscle spasm) Qty: 30 5RF gabapentin 100 mg capsule 100 mg PO Q8H PRN (Reason: pain) Qty: 30 5RF potassium chloride 20 mEq tablet extended release 40 meq PO QAM acetaminophen [Tylenol Extra Strength] 500 mg Tablet 1,000 - 1,500 mg PO Q6H PRN (Reason: Pain) nitroglycerin 0.4 mg tablet, sublingual 0.4 mg sublingual Q5M PRN (Reason: chest pain) Qty: 1 1RF furosemide 40 mg tablet 40 mg PO QAM Eliquis 5 mg tablet 5 mg PO QAM levothyroxine 175 mcg tablet 175 mcg PO DAILYBB amiodarone 200 mg tablet 200 mg PO QAM omeprazole 40 mg capsule,delayed release(DR/EC) 40 mg PO QAM tamsulosin [Flomax] 0.4 mg capsule 0.4 mg PO QAM spironolactone 25 mg tablet 25 mg PO DAILY PRN (Reason: edema) Rx Instructions: Takes for weight gain of over 5 lbs in 1 week or edema in legs Discharge Orders: Discharge Order (Routine); Ordered 01/29/23 Ordered By: Abhishek Taylor Admission Data Admit Date/Time: 01/26/23 15:16 Attending Provider: Abhishek Taylor Admit Provider: Lula Christensen Primary Care Provider: Jacinto Patricio Other Providers: Micheal Blank ; Lula Christensen
== END 2023-01-29 13:44 | disposition home or self-care (01) | DRG 660 ==
LOC: ED 10:10 → 2N 15:16 → SUATTDRO 15:16 → 2N 17:26